=== PATIENT | male | born 1955 | race African-American/Black ===

== ENCOUNTER 2016-12-07 17:21 | Emergency (ER) | payer MEDICAID, MEDICARE ==
[2016-12-07 17:44] VITALS: BP 156/100
--- NOTE | 2016-12-07 19:40 | RAD ---
HISTORY: Right forearm pain, trauma COMPARISONS: None relevant VIEWS: 2, Frontal and lateral views of the right forearm FINDINGS: BONE DENSITY: Normal. BONES: There is no displaced fracture. JOINTS: There is no arthropathy. ALIGNMENT: There is no dislocation. SOFT TISSUES: Unremarkable. OTHER FINDINGS: None. IMPRESSION: NO ACUTE OSSEOUS INJURY. IF SYMPTOMS PERSIST, RECOMMEND REPEAT IMAGING.
--- NOTE | 2016-12-07 19:41 | RAD ---
HISTORY: Humerus pain, trauma COMPARISONS: None relevant VIEWS: 2, Frontal internal rotation and external rotation views of the proximal and mid right humerus. The distal right humerus is not included within the [id number] the current examination. FINDINGS: BONE DENSITY: Normal. BONES: There is no displaced fracture. JOINTS: There is osteoarthritis of the glenohumeral articulation. ALIGNMENT: There is no dislocation. SOFT TISSUES: Unremarkable. OTHER FINDINGS: None. IMPRESSION: OSTEOARTHRITIS. NO ACUTE OSSEOUS INJURY. IF SYMPTOMS PERSIST, RECOMMEND REPEAT IMAGING.
--- NOTE | 2016-12-07 19:43 | RAD ---
HISTORY: Right shoulder pain, fall COMPARISONS: Right humerus dated December 07, 2016 VIEWS: 3, Frontal internal rotation, external rotation, and outlet views of the right shoulder FINDINGS: BONE DENSITY: Normal. BONES: There is no displaced fracture. JOINTS: There is mild osteoarthritis of the glenohumeral articulation. ALIGNMENT: There is no dislocation. SOFT TISSUES: Unremarkable. OTHER FINDINGS: None. IMPRESSION: OSTEOARTHRITIS. NO ACUTE OSSEOUS INJURY. IF SYMPTOMS PERSIST, RECOMMEND REPEAT IMAGING.
[2016-12-07] MEDS ORDERED: Acetaminophen TAB* 325 MG PO ONE (20:24)
--- NOTE | 2016-12-14 08:30 | UC ---
Linda Kam SooYoung, scribed for RoxieHope Hobson DO on 12/07/16 at 1859 . Upper Extremity HPI - HPI Summary HPI Summary: A 61 y/o M presents to [facility] with RUE pain onset at 1100. Pt was walking on the hi5 when he slipped and fell onto his RUE, R-side. He says he heard something pop. He rates the pain as 7 out of 10 currently. Pain radiates to his R elbow. Additionally, there is soreness along his R forearm and tingling at his R fingers. Cradling and supporting his arm, elbow alleviates the pain. Associated sx: LOJA. Left-hand dominant. Pert PMHx: DM, he notes some neuropathy in LLE. Pt states he is scheduled for a liver and gallbladder U/S. - History of Current Complaint Chief Complaint: UCUpperExtremity Stated Complaint: ARM INJURY Hx Obtained From: Patient, Medical Records Onset/Duration: Sudden Onset, Still Present Severity Initially: Moderate Severity Currently: Moderate Location Of Pain: Is Discrete @ - R shoulder, Radiates To - along R arm Aggravating Factor(s): Movement Alleviating Factor(s): Elevation, Rest Associated Signs And Symptoms: Negative: Swelling, Redness, Bruising, Fever, Weakness, Numbness/Tingling Related History: Dominant Hand Left - Allergies/Home Medications Allergies/Adverse Reactions: Allergies Allergy/AdvReac Type Severity Reaction Status Date / Time Latex Allergy Severe RASH, Verified 12/07/16 17:44 ITCHING Lisinopril Allergy Severe Swelling Verified 12/07/16 17:44 Of Face,Lips,& Throat Bee Venom Allergy Intermediate Rash Verified 12/07/16 17:44 PMH/Surg Hx/FS Hx/Imm Hx Previously Healthy: No Endocrine History Of: Reports: Diabetes Denies: Thyroid Disease Cardiovascular History Of: Reports: Hypertension Denies: Cardiac Disorders Respiratory History Of: Denies: COPD, Asthma GI/ History Of: Denies: Ulcer - Surgical History Surgical History: Yes Surgery Procedure, Year, and Place: BILAT KNEE SURGERY, BILAT HAND SURGERY, 4 EYE SURGERIES (cataracts)(corneal transplants) - Family History Known Family History: Positive: Diabetes - father, Other - CVA mother - Social History Occupation: Retired Lives: Alone Alcohol Use: None Substance Use Type: None Smoking Status (MU): Former Smoker - quit 38 years ago Type: Cigarettes Have You Smoked in the Last Year: No - Immunization History Most Recent Influenza Vaccination: 2014 Most Recent Tetanus Shot: up to date Most Recent Pneumonia Vaccination: never had Review of Systems Constitutional: Negative Skin: Negative Eyes: Negative ENT: Negative Respiratory: Negative Cardiovascular: Negative Gastrointestinal: Negative Genitourinary: Negative Motor: Negative Neurovascular: Negative Musculoskeletal: Other: - RUE pain Neurological: Headache Psychological: Negative All Other Systems Reviewed And Are Negative: Yes Physical Exam Triage Information Reviewed: Yes Appearance: Well-Appearing, Well-Nourished, Pain Distress - mild Vital Signs: Initial Vital Signs Temp 97.5 F 12/07/16 17:34 Pulse 75 12/07/16 17:34 Resp 16 12/07/16 17:34 BP 156/100 12/07/16 17:34 Pulse Ox 99 12/07/16 17:34 Vital Signs Reviewed: Yes Eyes: Positive: Conjunctiva Clear. Negative: Discharge ENT: Positive: Hearing grossly normal. Negative: Muffled/hoarse voice Neck exam: Normal Neck: Positive: Supple Respiratory: Positive: Lungs clear, Normal breath sounds, No respiratory distress, No accessory muscle use Cardiovascular: Positive: RRR, No Murmur Musculoskeletal: Positive: Strength Intact, Other: - POS: Diffuse pain from R chromium to wrist; pt reported bony tenderness to palpation of entire shoulder, humerous, forearm, and wrist including snuff box. Distal neural vascular intact ; no bruising, swelling or other external sign of trauma Neurological: Positive: Alert, Muscle Tone Normal Psychological: Positive: Abnormal Response To Family Skin Exam: Normal, Other - warm, dry, nml color Diagnostics - Radiology R HUMERUS Xray Interpretation: No Acute Changes - IMPRESSION: Osteoarthritis. No acute osseous injury. If symptoms persist recommend repeat imaging. Radiology Interpretation Completed By: Radiologist R FOREARM Xray Interpretation: No Acute Changes - IMPRESSION: No acute osseous injury. If symptoms persist recommend repeat imaging. Radiology Interpretation Completed By: Radiologist R SHOULDER Xray Interpretation: No Acute Changes - IMPRESSION: Osteoarthritis. No acute osseous injury. If symptoms persist recommend repeat imaging. Radiology Interpretation Completed By: Radiologist Upper Extremity Course/Dx - Differential Dx/Diagnosis Differential Diagnosis/HQI/PQRI: Arthritis, Bursitis, Contusion, Fracture ( Closed), Strain, Sprain Provider Diagnoses: shoulder sprain, r/o scaphoid fx Discharge - Discharge Plan Condition: Stable Disposition: HOME Prescriptions: HYDROcodone/ACETAMIN 5-325 MG* [[place] 5-325 TAB*] 1 tab PO Q6H PRN #14 tab MDD 4 TABS PRN Reason: Pain Patient Education Materials: How to Use a Sling (GEN), Shoulder Sprain (ED), SUSPECTED FRACTURE (ED) Forms: *Work Release Referrals: Melly Short MD [Medical Doctor] - (FOLLOW UP IN 5-7 DAYS.) Nena Rush MD [Primary Care Provider] - If Needed () Additional Instructions: Your history and exam is suspicous for possible occult fracture of the scaphoid bone. This is a fracture that can have a bad outcome if not properly immobilized. So, we will treat this as a fracture until proven otherwise. That means that you must wear the splint 24 hours a day until the ortho provider tells you otherwise. It will take 5-7 days to establish whether or not your bone is fractured. Oral narcotic given: You've been given an oral narcotic pain medication. The effects may begin 30 minutes to an hour after swallowing the medicine. You should have significant pain relief. The effects will usually last at least four hours. Most oral narcotics contain a dose of acetaminophen (Tylenol). Don't take any other acetaminophen-containing medicines until you've discussed it with the doctor. This drug is a narcotic -- it will impair your judgment, slow your reaction time, and make you sleepy. Narcotics also can cause nausea and constipation. If you feel sick, you should eat. A full stomach reduces the nausea that pain pills can cause. You should not drive or work with machinery (including blenders, knives, lawn mowers or sewing machines) for six to eight hours. Don't do anything requiring mental alertness until the effects of the medication are gone. Do not take any alcohol or sedatives, and don't use any other medication without checking with your physician. EXERCISE PROGRAM FOR THE SHOULDER: Since the shoulder moves in so many directions, the joint attachment is weak. Muscles provide most of the stability to the shoulder. You must exercise your shoulder to prevent painful instability or stiffening. PASSIVE - These may be begun within a few days of the injury. While standing, lean forward, allowing the arm to hang down towards the floor. Move the arm in small circles while slowly twisting your chest towards and away from the hanging arm. Do this for one minute. ACTIVE - These may be performed when the doctor gives permission. Begin with the arms at the sides. Raise the arms forward (shoulder's width apart) until they reach shoulder level. Then slowly swing both arms back until they are aiming straight out away from each other. Then bring them forward again, and finally, lower them to your sides. Repeat 20 to 30 times. As you improve, put weights in your hands for the exercise. Start with one pound, and work up to 10 pounds. Never use more than is comfortable. Athletes may work up to 30 pounds. REMEMBER TO TAKE YOUR ARM OUT OF THE SLING SEVERAL TIMES A DAY TO MOVE THE ELBOW AND SHOULDER SO THEY DOES NOT GET STIFF. The documentation as recorded by the Linda turk SooYoung accurately reflects the service I personally performed and the decisions made by me, Hope Faustin DO.
== END 2016-12-07 20:30 | disposition home or self-care (01) ==
LOC: UCEAST 17:21
DX: S43.401A Unspecified sprain of right shoulder joint, initial encounter (principal); W01.0XXA Fall on same level from slipping, tripping and stumbling without subsequent striking against object, initial encounter; Y93.01 Activity, walking, marching and hiking; Y92.89 Other specified places as the place of occurrence of the external cause; M19.011 Primary osteoarthritis, right shoulder; Z88.8 Allergy status to other drugs, medicaments and biological substances; Z98.49 Cataract extraction status, unspecified eye; Z87.891 Personal history of nicotine dependence
CPT/HCPCS: 99213; A9270-GY; G0463

== ENCOUNTER 2017-03-26 15:57 | Emergency (ER) | payer MEDICARE, MEDICAID ==
--- NOTE | 2017-03-26 16:16 | UC ---
Cardiac HPI - HPI Summary HPI Summary: 2 WEEKS OF INTERMITTENT LEFT ANTERIOR/MIDSTERNAL CP. HAS ASSOCIATED SOB, NAUSEA AND DIZZINESS. PAIN FEELS TIGHT AND HEAVY. WORSE WITH EXERTION. - History of Current Complaint Stated Complaint: CHEST PAIN Time Seen by Provider: 03/26/17 15:59 Hx Obtained From: Patient Onset/Duration: Gradual Onset, Lasting Weeks, Still Present Timing: Intermittent Episodes Lasting: Initial Severity: Moderate Current Severity: Moderate Pain Intensity: 5 Chest Pain Location: Mid Sternal, Left Anterior Character: Tightness, Heaviness Aggravating: Exertion, Movement Alleviating: Rest, Spontaneous Resolution Associated Signs & Symptoms: Positive: Chest Pain, Weakness, Dizziness, SOB, Nausea/Vomiting, Back Pain. Negative: Fever, Diaphoresis, Palpitations, Cough, Hemoptysis - Allergy/Home Medications Allergies/Adverse Reactions: Allergies Allergy/AdvReac Type Severity Reaction Status Date / Time Latex Allergy Severe RASH, Verified 03/26/17 16:23 ITCHING Lisinopril Allergy Severe Swelling Verified 03/26/17 16:23 Of Face,Lips,& Throat Bee Venom Allergy Intermediate Rash Verified 03/26/17 16:23 PMH/Surg Hx/FS Hx/Imm Hx Endocrine History Of: Reports: Diabetes Denies: Thyroid Disease Cardiovascular History Of: Reports: Hypertension Denies: Cardiac Disorders Respiratory History Of: Denies: COPD, Asthma GI/ History Of: Denies: Ulcer - Surgical History Surgical History: Yes Surgery Procedure, Year, and Place: BILAT KNEE SURGERY, BILAT HAND SURGERY, 4 EYE SURGERIES (cataracts)(corneal transplants) - Family History Known Family History: Positive: Cardiac Disease, Hypertension, Diabetes - Social History Alcohol Use: None Substance Use Type: None Smoking Status (MU): Never Smoked Tobacco Type: Cigarettes Have You Smoked in the Last Year: No - Immunization History Most Recent Influenza Vaccination: 2014 Most Recent Tetanus Shot: up to date Most Recent Pneumonia Vaccination: never had Review of Systems Constitutional: Negative ENT: Negative Respiratory: Shortness Of Breath Cardiovascular: Chest Pain Gastrointestinal: Other - NAUSEA Neurological: Other - DIZZY All Other Systems Reviewed And Are Negative: Yes Physical Exam Triage Information Reviewed: Yes Appearance: Well-Appearing, No Pain Distress, Well-Nourished Vital Signs Reviewed: Yes Eyes: Positive: Conjunctiva Clear ENT: Positive: Hearing grossly normal Neck exam: Normal Neck: Positive: Supple Respiratory Exam: Normal Cardiovascular Exam: Normal Abdomen Description: Positive: Soft Musculoskeletal: Positive: No Edema, Other: - CHEST PAIN REPRODUCIBLE WITH PALPATION Neurological: Positive: Alert Psychological: Positive: Age Appropriate Behavior Skin: Negative: rashes Diagnostics - EKG Cardiac Rate: NL - 92BPM Cardiac Rhythm: Sinus: Normal Ectopy: None ST Segment: Non-Specific - T-WAVE INVERSION V4, ST DEPRESSION V5, V6 - Clinical Impression Provider Diagnoses: CHEST PAIN - Physician Notifications Discussed Patient Care With: JOSE HEBERT Time Discussed With Above Provider: 16:10 - TO [facility] BY AMBULANCE Discharge - Discharge Plan Condition: Fair Disposition: TRANS HIGHER LVL OF CARE FAC
[2017-03-26] MEDS ORDERED: Aspirin Low Dose CHEW TAB* 81 MG PO ONE (16:18)
[2017-03-26 16:29] VITALS: BP 178/101
== END 2017-03-26 16:35 | disposition short-term general hospital (02) ==
LOC: UCEAST 15:57
DX: R07.9 Chest pain, unspecified (principal); E11.9 Type 2 diabetes mellitus without complications; I10 Essential (primary) hypertension; Z91.040 Latex allergy status; Z91.030 Bee allergy status
CPT/HCPCS: 93005; 99203; A9270-GY; G0463

== ENCOUNTER 2017-03-26 16:52 | Inpatient (IN) | payer MEDICARE, MEDICAID ==
[2017-03-26] MEDS ORDERED: Aspirin Low Dose CHEW TAB* 81 MG PO ONE (17:45)
--- NOTE | 2017-03-26 18:08 | RAD ---
INDICATION: Chest pain COMPARISON: October 12, 2015 TECHNIQUE: An AP portable view obtained at 1805 hours is submitted. FINDINGS: Bones/Soft Tissues: There are no acute bony findings. Cardiomediastinal: The cardiomediastinal silhouette is normal. Lungs: There are no infiltrates. There is no pneumothorax. Pleura: There are no pleural effusions. Other: None IMPRESSION: NO ACTIVE DISEASE
[2017-03-26 18:24] LABS: Hematocrit 35 % (42-52); Hemoglobin 10.9 g/dl (14.0-18.0); Mean Corpuscular HGB Conc 31 g/dl (31-36); Mean Corpuscular Hemoglobin 21 pg (27-31); Mean Corpuscular Volume 69 fL (80-94); Mean Platelet Volume 8 um3 (7.4-10.4); Red Blood Count 5.09 10^6/ul (4.0-5.4); Red Cell Distribution Width 13 % (10.5-15); White Blood Count 7.4 10^3/ul (3.5-10.8)
[2017-03-26 18:32] LABS: Add Diff/Slide Review? Slide Review Added; Comments Flag Yes
[2017-03-26 18:38] LABS: Albumin 3.7 g/dL (3.2-5.2); BUN/Creatinine Ratio 21.4 (8-20); Calcium 9.4 mg/dL (8.6-10.3); EGFR African American 100.3 (>60); Globulin 3.8 g/dL (2-4); Potassium 4.2 mmol/L (3.5-5.0); Total Bilirubin 0.3 mg/dL (0.2-1.0); Total Protein 7.5 g/dL (6.4-8.9)
[2017-03-26 18:45] LABS: Troponin I 0.33 ng/mL (<0.04)
[2017-03-26 18:53] LABS: Hypochromasia 2+; Microcytosis 1+; Polychromasia 1+
[2017-03-26 18:54] LABS: Add Path Review? YES
[2017-03-26] MEDS ORDERED: Metoprolol Tartrate IV* 1 MG/ML 5 ML VIAL IV ONE (19:37)
[2017-03-26] MEDS ORDERED: CMCS: Melatonin (NF) 3 MG TAB PO PRN (19:44)
[2017-03-26] MEDS ORDERED: Acetaminophen TAB* 325 MG PO PRN (19:44)
[2017-03-26] MEDS ORDERED: Ondansetron INJ* 2 MG/ML VIAL IV PRN (19:44)
--- NOTE | 2017-03-26 20:07 | ED ---
I, Oh,Somain, scribed for Julia Martinez MD on 03/26/17 at 1814 . HPI Chest Pain - HPI Summary HPI Summary: This 61 y/o male presents to ED for intermittent chest pressure that is worse with exertion since today 1000 AM. Pt states that he has had chest pain since "few weeks ago". Arm movement makes the chest pain worse. Positive for nausea and SOB. PMHx includes HTN and DM. Pt denies hx of NH. Primary care invovles Dr. Brenner. Pt lives with significant others. FHx is positive for unspecified cardaic dz to mother. Current smoker. - History of Current Complaint Chief Complaint: EDChestPainROMI Time Seen by Provider: 03/26/17 17:39 Hx Obtained From: Patient, Medical Records Onset/Duration: Started Hours Ago, Atraumatic, Still Present Timing: Intermittent Pain Intensity: 5 Pain Scale Used: 0-10 Numeric Chest Pain Location: Diffuse Chest Pain Radiates: No Character: Dull/Aching Aggravating Factor(s): Movement - arm movement Alleviating Factor(s): Nothing Associated Signs and Symptoms: Positive: Chest Pain. Negative: Fever - Additional Pertinent History Primary Care Physician: [id number] - Allergy/Home Medications Allergies/Adverse Reactions: Allergies Allergy/AdvReac Type Severity Reaction Status Date / Time Latex Allergy Severe RASH, Verified 03/26/17 16:23 ITCHING Lisinopril Allergy Severe Swelling Verified 03/26/17 16:23 Of Face,Lips,& Throat Bee Venom Allergy Intermediate Rash Verified 03/26/17 16:23 PMH/Surg Hx/FS Hx/Imm Hx Endocrine/Hematology History: Reports: Hx Diabetes Denies: Hx Thyroid Disease Cardiovascular History: Reports: Hx Hypertension Respiratory History: Denies: Hx Asthma, Hx Chronic Obstructive Pulmonary Disease (COPD) GI History: Reports: Other GI Disorders - Pt has had chronic stomach pain with no diagnosis Denies: Hx Ulcer Musculoskeletal History: Comment Only: Other Musculoskeletal History - hx of multiple surgeries on knees, hands, and ankles Sensory History: Reports: Hx Vision Problem Opthamlomology History: Reports: Hx Vision Problem - Surgical History Surgery Procedure, Year, and Place: BILAT KNEE SURGERY, BILAT HAND SURGERY, 4 EYE SURGERIES (cataracts)(corneal transplants) Infectious Disease History: No Infectious Disease History: Denies: Hx Clostridium Difficile, Hx Hepatitis, Hx Human Immunodeficiency Virus (HIV), Hx of Known/Suspected MRSA, Hx Shingles, Hx Tuberculosis, Traveled Outside the [place] in Last 30 Days - Family History Known Family History: Positive: Cardiac Disease, Hypertension, Diabetes - Social History Alcohol Use: None Substance Use Type: Reports: None Smoking Status (MU): Never Smoked Tobacco Type: Cigarettes Have You Smoked in the Last Year: No Review of Systems Negative: Fever Positive: Chest Pain Negative: Shortness Of Breath Positive: Nausea All Other Systems Reviewed And Are Negative: Yes Physical Exam Triage Information Reviewed: Yes Vital Signs On Initial Exam: Initial Vitals Temp Pulse Resp BP Pulse Ox 99.4 F 86 19 157/102 100 03/26/17 17:17 03/26/17 17:17 03/26/17 17:17 03/26/17 17:17 03/26/17 17:17 Vital Signs Reviewed: Yes Appearance: Positive: Well-Appearing, No Pain Distress Skin: Positive: Warm, Skin Color Reflects Adequate Perfusion Head/Face: Positive: Normal Head/Face Inspection Eyes: Positive: EOMI, DAVEY Neck: Positive: Supple, Nontender Respiratory/Lung Sounds: Positive: Clear to Auscultation, Breath Sounds Present Cardiovascular: Positive: RRR, Pulses are Symmetrical in both Upper and Lower Extremities Abdomen Description: Positive: Nontender, Soft Musculoskeletal: Positive: Strength/ROM Intact Neurological: Positive: Sensory/Motor Intact, Alert, Oriented to Person Place, Time Psychiatric: Positive: Affect/Mood Appropriate AVPU Assessment: Alert - Raquel Coma Scale Coma Scale Total: 15 Diagnostics - Vital Signs Vital Signs Temp Pulse Resp BP Pulse Ox 03/26/17 17:30 89 21 158/95 100 03/26/17 17:20 90 14 100 03/26/17 17:17 99.4 F 86 19 157/102 100 - Laboratory Lab Results: Lab Results 03/26/17 03/26/17 03/26/17 Range/Units 18:10 18:10 18:10 WBC 7.4 (3.5-10.8) 10^3/ul RBC 5.09 (4.0-5.4) 10^6/ul Hgb 10.9 L (14.0-18.0) g/dl Hct 35 L (42-52) % MCV 69 L (80-94) fL MCH 21 L (27-31) pg MCHC 31 (31-36) g/dl RDW 13 (10.5-15) % Plt Count 311 (150-450) 10^3/ul MPV 8 (7.4-10.4) um3 Neut % (Auto) 67.0 (38-83) % Lymph % (Auto) 20.1 L (25-47) % [place] % (Auto) 10.9 H (1-9) % Eos % (Auto) 1.0 (0-6) % Baso % (Auto) 1.0 (0-2) % Absolute Neuts (auto) 5.0 (1.5-7.7) 10^3/ul Absolute Lymphs (auto) 1.5 (1.0-4.8) 10^3/ul Absolute Monos (auto) 0.8 (0-0.8) 10^3/ul Absolute Eos (auto) 0.1 (0-0.6) 10^3/ul Absolute Basos (auto) 0.1 (0-0.2) 10^3/ul Absolute Nucleated RBC 0.01 10^3/ul Nucleated RBC % 0.2 Normal RBC Morphology Not Reportable Polychromasia 1+ Hypochromasia 2+ Microcytosis 1+ Elliptocytes 1+ Hem Pathologist Commnt Pending Sodium 132 L (133-145) mmol/L Potassium 4.2 (3.5-5.0) mmol/L Chloride 98 L (101-111) mmol/L Carbon Dioxide 26 (22-32) mmol/L Anion Gap 8 (2-11) mmol/L BUN 21 (6-24) mg/dL Creatinine 0.98 (0.67-1.17) mg/dL Est GFR ( Amer) 100.3 (>60) Est GFR (Non-Af Amer) 78.0 (>60) BUN/Creatinine Ratio 21.4 H (8-20) Glucose 303 H (70-100) mg/dL Lactic Acid 1.3 (0.5-2.0) mmol/L Calcium 9.4 (8.6-10.3) mg/dL Total Bilirubin 0.30 (0.2-1.0) mg/dL AST 9 L (13-39) U/L ALT 7 (7-52) U/L Alkaline Phosphatase 80 (34-104) U/L Troponin I 0.33 H* (<0.04) ng/mL Total Protein 7.5 (6.4-8.9) g/dL Albumin 3.7 (3.2-5.2) g/dL Globulin 3.8 (2-4) g/dL Albumin/Globulin Ratio 1.0 (1-3) Result Diagrams: 03/26/17 18:10 03/26/17 18:10 Lab Statement: Any lab studies that have been ordered have been reviewed, and results considered in the medical decision making process. - Radiology CXR Xray Interpretation: No Acute Changes Radiology Interpretation Completed By: Radiologist - EKG 1753 Cardiac Rate: NL EKG Rhythm: Sinus Rhythm EKG Interpretation: T-wave inversion laterally and flatten T EKG Comparison: No Significant Change - 10/12/2015 Re-Evaluation - Re-Evaluation First Eval Re-Evaluation Time: 18:51 Comment: MD in room to update pt on elevated trop. Pt states that his CP is currently resolved. Plan of care involving catholic priest vs. admission is discussed with pt. Chest Pain Course/Dx - Course Course Of Treatment: 61 yo male with intermittent cp over the last few days first trop 0.[address] Tadeo who agreed this was not a stemi, pt is being admitted by Dr. Franco - Diagnoses Provider Diagnoses: AMI (acute myocardial infarction) Provider Diagnoses: (Ruled Out): AMI (acute mesenteric ischemia) - Provider Notifications Discussed Care Of Patient With: Dr. Wiggins (Hospitalist) at [address] Tadeo ( interventionalist) at [address] Fry (Hospitlaist) at 1935 PM Time Discussed With Above Provider: 18:56 Instructed by Provider To: Admit As Inpatient Discharge - Discharge Plan Condition: Stable Disposition: ADMITTED TO [facility] Referrals: Nena Rush MD [Primary Care Provider] - The documentation as recorded by the Dustin turk Soohyun accurately reflects the service I personally performed and the decisions made by me, Julia Martinez MD.
--- NOTE | 2017-03-26 20:31 | HP ---
H&P (Free Text) History and Physical: PCP: Lola Arellano MD Date/Time of Evaluation: 03/26/2017 1930 CC: chest pain HPI: Mr Logan is a 61YO male HX HTN, HLD, DM2 presenting with onset of chest tightness this afternoon. He is uncertain of the exact time. He states he was driving from [place] and developed the chest tightness associated with nausea, sweating, SOB, and light-headedness. He has been having various pains in the shoulders, low back, R hip, etc for the past few days, but today is the first for the chest tightness. He denies previous heart problems. Aside from his somatic complaints, he is currently cardiac symptom free. PMedHx DM2 HTN HLD Ambulatory Orders metFORMIN* [Glucophage 500 MG TAB *] 1,000 mg PO BID 05/26/13 prednisoLONE 1% OPHTH.SUSP* [Pred Forte 1%*] 1 drop BOTH EYES BID 04/16/14 Cyanocobalamin TAB* [Vitamin B12 TAB*] 500 mcg PO DAILY 10/11/15 Epinephrine [Epipen 2-Ranjith] 0.3 mg INJ ONCE PRN 10/11/15 glipiZIDE TAB.XL* [Glucotrol Xl*] 10 mg PO BID 10/11/15 traMADol TAB* [Ultram*] 50 - 100 mg PO BID PRN 10/11/15 Gabapentin CAP(*) [Neurontin 300 CAP(*)] 300 mg PO BID #40 cap 01/20/16 HYDROcodone/ACETAMIN 5-325 MG* [[place] 5-325 TAB*] 1 tab PO Q6H PRN #14 tab MDD 4 TABS 12/07/16 Allergies Latex Allergy (Severe, Verified 03/26/17 16:23) RASH, ITCHING Lisinopril Allergy (Severe, Verified 03/26/17 16:23) Swelling Of Face,Lips,& Throat Bee Venom Allergy (Intermediate, Verified 03/26/17 16:23) Rash PSurgHx B knee surgery OU cataract extractions R cornea transplant SocHx: former smoker quit ~25years ago with ~20PYHX, 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, formerly used marijuana and cocaine; , lives with a girlfriend; works at the [employer]; full code status FamHx: Mother: SAY; Father: DM2 ROS: as above, otherwise reviewed and all were negative Constitutional: NAD, normally developed, well-nourished black male vitals: Vital Signs Temp 37.4 C 03/26/17 17:17 Pulse 86 03/26/17 18:00 Resp 18 03/26/17 18:00 BP 155/101 03/26/17 18:00 Pulse Ox 100 03/26/17 18:00 Intake & Output 03/25/17 03/26/17 03/26/17 23:59 11:59 23:59 Weight 79.832 kg HEENM: atraumatic; sclera/conjunctiva: non-icteric/clear; hearing: clinically intact; oropharynx: clear, mucosa moist Neck: soft tissue: non-tender; thyroid: normal Pulmonary: clear to auscultation bilaterally, good aeration, no accessory muscle use CV: RR/RR, normal S1S2, no carotid bruit, no jugular venous distention, 2+ B DP/ PT, no edema Abdominal: soft, non-distended, non-tender, no rebound/guarding/rigidity, normoactive bowel sounds, no hepatosplenomegaly or masses, no costovertebral angle tenderness Musculoskeletal: general: grossly intact; gait: stable Integumental: normal appearance and texture of exposed skin Psychiatric orientation: AA&O to PPS affect: calm mood: cooperative eye contact: good content: reliable responses: mildly tangential insight: fair Testing: Lab Results 03/26/17 03/26/17 03/26/17 Range/Units 18:10 18:10 18:10 WBC 7.4 (3.5-10.8) 10^3/ul RBC 5.09 (4.0-5.4) 10^6/ul Hgb 10.9 L (14.0-18.0) g/dl Hct 35 L (42-52) % MCV 69 L (80-94) fL MCH 21 L (27-31) pg MCHC 31 (31-36) g/dl RDW 13 (10.5-15) % Plt Count 311 (150-450) 10^3/ul MPV 8 (7.4-10.4) um3 Neut % (Auto) 67.0 (38-83) % Lymph % (Auto) 20.1 L (25-47) % [place] % (Auto) 10.9 H (1-9) % Eos % (Auto) 1.0 (0-6) % Baso % (Auto) 1.0 (0-2) % Absolute Neuts (auto) 5.0 (1.5-7.7) 10^3/ul Absolute Lymphs (auto) 1.5 (1.0-4.8) 10^3/ul Absolute Monos (auto) 0.8 (0-0.8) 10^3/ul Absolute Eos (auto) 0.1 (0-0.6) 10^3/ul Absolute Basos (auto) 0.1 (0-0.2) 10^3/ul Absolute Nucleated RBC 0.01 10^3/ul Nucleated RBC % 0.2 Normal RBC Morphology Not Reportable Polychromasia 1+ Hypochromasia 2+ Microcytosis 1+ Elliptocytes 1+ Hem Pathologist Commnt Pending Sodium 132 L (133-145) mmol/L Potassium 4.2 (3.5-5.0) mmol/L Chloride 98 L (101-111) mmol/L Carbon Dioxide 26 (22-32) mmol/L Anion Gap 8 (2-11) mmol/L BUN 21 (6-24) mg/dL Creatinine 0.98 (0.67-1.17) mg/dL Est GFR ( Amer) 100.3 (>60) Est GFR (Non-Af Amer) 78.0 (>60) BUN/Creatinine Ratio 21.4 H (8-20) Glucose 303 H (70-100) mg/dL Lactic Acid 1.3 (0.5-2.0) mmol/L Calcium 9.4 (8.6-10.3) mg/dL Total Bilirubin 0.30 (0.2-1.0) mg/dL AST 9 L (13-39) U/L ALT 7 (7-52) U/L Alkaline Phosphatase 80 (34-104) U/L Troponin I 0.33 H* (<0.04) ng/mL Total Protein 7.5 (6.4-8.9) g/dL Albumin 3.7 (3.2-5.2) g/dL Globulin 3.8 (2-4) g/dL Albumin/Globulin Ratio 1.0 (1-3) ECG, personally reviewed: NSR rate 82, ST elevation vs J-point elevation V1-3, ST depression/T-wave inversion V4-6; Lola Martinez MD ED reviewed with Joaquín Tadeo MD interventional cardiology who did not feel this represents a STEMI, recommended admit/aspirin/BB/heparin GTT CXR, personally reviewed: IMPRESSION: NO ACTIVE DISEASE Impression: 61M presenting with NSTEMI DIAGNOSIS & PLAN Primary NSTEMI : ICU admission : NPO x/ meds w/ sips clears : check urine tox screen : check d-dimer : aspirin given in ED : metoprolol : heparin GTT : fasting lipids in AM : check ECHO in AM : case discussed with Joce Ferris MD cardiology; will evaluate in AM : supplemental oxygen : supportive care Secondary DM2 : basal/correctional insulin : A1c 12 12/2016 HTN : review meds once reconciled HLD : review meds once reconciled Admission Rational: inpatient ICU for NSTEMI, inappropriate for outpatient status DVTp: heparin GTT Code Status: full
[2017-03-26] MEDS ORDERED: Insulin GLARGINE(*) 1 UNITS UNIT SUBCUT SCH (21:00)
[2017-03-26] MEDS: Docusate CAP* 100 MG PO SCH (22:18)
[2017-03-26] MEDS: Insulin LISPRO* 1 UNITS UNIT SUBCUT SCH (22:18)
[2017-03-27 00:29] LABS: Hematocrit 34 % (42-52); Hemoglobin 10.7 g/dl (14.0-18.0)
[2017-03-27] MEDS: Heparin DRIP 25,000 UNITS(*) 25,000 UNITS/500 ML BAG IVPB SCH (00:29)
[2017-03-27] MEDS ORDERED: Heparin VIAL(*) 5000 UNITS/ML VIAL (FIVE THOUSAND) ONE (00:35)
[2017-03-27 00:37] LABS: Comments Flag Yes
[2017-03-27] MEDS ORDERED: Heparin VIAL(*) 5000 UNITS/ML VIAL (FIVE THOUSAND) IV PRN (00:39)
[2017-03-27] MEDS: Insulin LISPRO* 1 UNITS UNIT SUBCUT SCH ×5 (00:51→20:56)
[2017-03-27 01:00] LABS: Benzodiazepine Urine Screen None Detected (None Detect)
[2017-03-27] MEDS: Morphine INJ* 2 MG/ML 1 ML SYRINGE IV PRN ×2 (05:03→08:04)
[2017-03-27] MEDS ORDERED: Omeprazole CAP* 20 MG PO SCH (06:00)
[2017-03-27 06:28] LABS: Hematocrit 38 % (42-52); Hemoglobin 12.1 g/dl (14.0-18.0); Mean Corpuscular HGB Conc 32 g/dl (31-36); Mean Corpuscular Hemoglobin 22 pg (27-31); Mean Platelet Volume 8 um3 (7.4-10.4); Red Blood Count 5.55 10^6/ul (4.0-5.4); Red Cell Distribution Width 13 % (10.5-15); White Blood Count 8.7 10^3/ul (3.5-10.8)
[2017-03-27 06:36] LABS: Comments Flag Yes; Mean Corpuscular Volume 69 fL (80-94)
[2017-03-27 06:41] LABS: BUN/Creatinine Ratio 22.5 (8-20); EGFR African American 112.1 (>60); EGFR Non-African American 87.2 (>60); HDL Cholesterol 40.6 mg/dL
[2017-03-27 07:03] LABS: Troponin I 2.22 ng/mL (<0.04)
[2017-03-27] MEDS: Docusate CAP* 100 MG PO SCH ×2 (07:58→20:55)
[2017-03-27] MEDS: Aspirin TAB* 325 MG PO SCH (08:04)
[2017-03-27] MEDS: Metoprolol Tartrate TAB* 25 MG PO SCH ×2 (08:04→20:56)
[2017-03-27] MEDS ORDERED: Diazepam TAB(*) 5 MG PO ONE (08:54)
[2017-03-27] MEDS ORDERED: diPHENhydraMINE PO* 25 MG PO ONE (08:54)
--- NOTE | 2017-03-27 08:57 | PN ---
Subjective Date of Service: 03/27/17 Interval History: No more chest discomfort. C/O R hip/RLQ pain which he has had intermittently for several months along with BL shoulder pain and back pain. The pain is exacerbated by flexing his R hip. Usually relieved by tramadol or Alleve at home. Objective Active Medications: Acetaminophen (Tylenol Tab*) 650 mg PO Q6H PRN PRN Reason: FEVER/PAIN Aspirin (Aspirin Tab*) 325 mg PO DAILY [facility] Last Admin: 03/27/17 08:04 Dose: 325 mg Docusate Sodium (Colace Cap*) 200 mg PO BID [facility] Last Admin: 03/27/17 07:58 Dose: Not Given Heparin Sodium (Porcine) (Heparin Vial(*)) 0 units IV .BOLUS PRN PRN Reason: HEPARIN DRIP BOLUSES Last Admin: 03/27/17 00:42 Dose: 5,900 units Heparin Sodium/Dextrose (Heparin Drip 25,000 Units(*)) 25,000 units in 500 mls @ 0 mls/hr IVPB .(INITIAL RATE) [facility]; Per Protocol PRN Reason: Protocol Last Admin: 03/27/17 00:29 Dose: 26 mls/hr Insulin Glargine (Lantus(*)) 16 units SUBCUT 2100 [facility] Stop: 03/27/17 20:00 Last Admin: 03/26/17 22:49 Dose: 16 units Insulin Human Lispro (Humalog*) 0 units SUBCUT Q4H [facility] PRN Reason: Protocol Last Admin: 03/27/17 05:52 Dose: Not Given Metoprolol Tartrate (Lopressor Tab*) 25 mg PO BID [facility] Last Admin: 03/27/17 08:04 Dose: 25 mg Morphine Sulfate (Morphine Inj (Syringe)*) 2 mg IV Q4H PRN PRN Reason: PAIN - MILD Last Admin: 03/27/17 08:04 Dose: 2 mg Ondansetron HCl (Zofran Inj*) 4 mg IV Q6H PRN PRN Reason: NAUSEA Tramadol HCl (Ultram*) 50 mg PO Q6H PRN PRN Reason: PAIN Vital Signs 03/26/17 03/26/17 03/26/17 19:59 20:00 20:18 Temperature Pulse Rate 78 76 Respiratory 20 18 Rate Blood Pressure 159/98 (mmHg) O2 Sat by Pulse 100 100 Oximetry 03/26/17 03/26/17 03/26/17 20:27 20:45 20:48 Temperature 98.5 F Pulse Rate 86 Respiratory 18 247 Rate Blood Pressure 185/99 185/99 (mmHg) O2 Sat by Pulse 99 Oximetry 03/26/17 03/26/17 03/26/17 21:00 21:55 22:00 Temperature Pulse Rate 81 63 65 Respiratory 15 17 19 Rate Blood Pressure 158/110 131/89 139/88 (mmHg) O2 Sat by Pulse 100 100 100 Oximetry 03/26/17 03/26/17 03/26/17 23:00 23:29 23:58 Temperature 97.9 F Pulse Rate 67 68 Respiratory 18 17 Rate Blood Pressure 154/100 (mmHg) O2 Sat by Pulse 100 100 Oximetry 03/27/17 03/27/17 03/27/17 00:00 00:01 01:00 Temperature 97.9 F Pulse Rate 70 69 70 Respiratory 15 16 18 Rate Blood Pressure 142/98 146/94 (mmHg) O2 Sat by Pulse 100 100 100 Oximetry 03/27/17 03/27/17 03/27/17 02:00 03:00 04:00 Temperature 98.6 F Pulse Rate 68 67 67 Respiratory 18 19 18 Rate Blood Pressure 144/88 146/95 145/93 (mmHg) O2 Sat by Pulse 100 100 100 Oximetry 03/27/17 03/27/17 03/27/17 05:00 05:03 06:00 Temperature Pulse Rate 73 71 Respiratory 18 21 20 Rate Blood Pressure 147/95 145/95 (mmHg) O2 Sat by Pulse 100 100 Oximetry 03/27/17 03/27/17 03/27/17 07:00 07:22 07:38 Temperature 98.7 F Pulse Rate 71 Respiratory 16 15 Rate Blood Pressure 135/88 (mmHg) O2 Sat by Pulse 100 Oximetry 03/27/17 03/27/17 03/27/17 08:00 08:03 08:04 Temperature Pulse Rate 65 Respiratory 18 15 15 Rate Blood Pressure 138/86 (mmHg) O2 Sat by Pulse 99 Oximetry Oxygen Devices in Use Now: Nasal Cannula Appearance: Alert, partly up in bed. Somewhat anxious, otherwise looks comfortable. Eyes: No Scleral Icterus Ears/Nose/Mouth/Throat: Clear Oropharnyx, Mucous Membranes Moist Neck: NL Appearance and Movements; NL JVP, No Thyroid Enlargement, Masses Respiratory: Symmetrical Chest Expansion and Respiratory Effort, Clear to Auscultation, Clear to Percussion Cardiovascular: NL Sounds; No Murmurs; No JVD, RRR, No Edema, - Abdominal: NL Sounds; No Tenderness; No Distention, No Hepatosplenomegaly, - - No R inguinal mass or tenderness, no RLQ tenderness. Extremities: No Edema, No Clubbing, Cyanosis, - Skin: No Rash or Ulcers, No Nodules or Sclerosis, - Neurological: Alert and Oriented x 3, NL Sensation Result Diagrams: 03/27/17 05:50 03/27/17 05:50 Additional Lab and Data: Lab Results 03/26/17 03/26/17 03/26/17 Range/Units 18:10 18:10 18:10 WBC 7.4 (3.5-10.8) 10^3/ul RBC 5.09 (4.0-5.4) 10^6/ul Hgb 10.9 L (14.0-18.0) g/dl Hct 35 L (42-52) % MCV 69 L (80-94) fL MCH 21 L (27-31) pg MCHC 31 (31-36) g/dl RDW 13 (10.5-15) % Plt Count 311 (150-450) 10^3/ul MPV 8 (7.4-10.4) um3 Neut % (Auto) 67.0 (38-83) % Lymph % (Auto) 20.1 L (25-47) % [place] % (Auto) 10.9 H (1-9) % Eos % (Auto) 1.0 (0-6) % Baso % (Auto) 1.0 (0-2) % Absolute Neuts (auto) 5.0 (1.5-7.7) 10^3/ul Absolute Lymphs (auto) 1.5 (1.0-4.8) 10^3/ul Absolute Monos (auto) 0.8 (0-0.8) 10^3/ul Absolute Eos (auto) 0.1 (0-0.6) 10^3/ul Absolute Basos (auto) 0.1 (0-0.2) 10^3/ul Absolute Nucleated RBC 0.01 10^3/ul Nucleated RBC % 0.2 Normal RBC Morphology Not Reportable Polychromasia 1+ Hypochromasia 2+ Microcytosis 1+ Elliptocytes 1+ Hem Pathologist Commnt Pending Sodium 132 L (133-145) mmol/L Potassium 4.2 (3.5-5.0) mmol/L Chloride 98 L (101-111) mmol/L Carbon Dioxide 26 (22-32) mmol/L Anion Gap 8 (2-11) mmol/L BUN 21 (6-24) mg/dL Creatinine 0.98 (0.67-1.17) mg/dL Est GFR ( Amer) 100.3 (>60) Est GFR (Non-Af Amer) 78.0 (>60) BUN/Creatinine Ratio 21.4 H (8-20) Glucose 303 H (70-100) mg/dL Lactic Acid 1.3 (0.5-2.0) mmol/L Calcium 9.4 (8.6-10.3) mg/dL Total Bilirubin 0.30 (0.2-1.0) mg/dL AST 9 L (13-39) U/L ALT 7 (7-52) U/L Alkaline Phosphatase 80 (34-104) U/L Troponin I 0.33 H* (<0.04) ng/mL Total Protein 7.5 (6.4-8.9) g/dL Albumin 3.7 (3.2-5.2) g/dL Globulin 3.8 (2-4) g/dL Albumin/Globulin Ratio 1.0 (1-3) Microbiology and Other Data: Microbiology 03/26/17 20:40 Nasal Screen MRSA (PCR)(AMRIK) - Final Nasal Mrsa Negative Assess/Plan/Problems-Billing Assessment: - Patient Problems (1) AMI (acute myocardial infarction) Current Visit: Yes Status: Acute Code(s): I21.3 - ST ELEVATION (STEMI) MYOCARDIAL INFARCTION OF [facility] SITE SNOMED Code(s): 39995992 Comment: Anterolateral on ECG. Discussed with Dr. Fontaine. Cardiac cath today. Continue BB, ASA, PRN analgesics. (2) Diabetes Current Visit: Yes Status: Acute Code(s): E11.9 - TYPE 2 DIABETES MELLITUS WITHOUT COMPLICATIONS SNOMED Code(s): 62591302 Comment: Poor control based on A1C for past 5 years. Patient checks his FS glucose about once every 2 weeks. Needs outpt fup, diabetic education.
[2017-03-27] MEDS ORDERED: NS 0.9% 1000 ML* 1,000 ML IV SCH (09:00)
--- NOTE | 2017-03-27 09:16 | ECHO ---
Patient: [facility] Rec#: [id number] : 1955 Date: 03/27/2017 Age: 61y Weight: kg / NaN lbs Sex: M Room#: ICU-8 Admit Date#: 03/27/2017 Type: Inpatient Referring: Adis Fry MD Reading: Sandor Fontaine MD Automatic Engraver: Leonor Barbosa RDCS CC: Nena Rush MD Transthoracic Echocardiogram Indication: NSTEMI BP: 145/95 HR: 67 Rhythm: NSR Findings History: NSTEMI,HTN,HLD,DM. Technical Comments: The study quality is good. Completed at 0820. Left Ventricle: The left ventricular chamber size is normal. Mild concentric left ventricular hypertrophy is observed. Posterior wall hypertrophy is observed. Moderate global hypokinesis of the left ventricle is observed. There is moderately decreased left ventricular systolic function. The estimated ejection fraction is 35-40%. Abnormal left ventricular diastolic function is observed. The mid anteroseptal, mid inferoseptal, apical septal, and apical anterior wall segments are hypokinetic (score 2). Overall wallmotion score index is 1.25 Left Atrium: The left atrial chamber size is normal. Right Ventricle: The right ventricular cavity size is normal. The right ventricular global systolic function is normal. Right Atrium: The right atrial cavity size is normal. Aortic Valve: The aortic valve is trileaflet. The aortic valve leaflets are mildly thickened. There is no evidence of aortic regurgitation. There is no evidence of aortic stenosis. Mitral Valve: The mitral valve leaflets are mildly thickened. There is a trace of mitral regurgitation. There is no evidence of mitral stenosis. Tricuspid Valve: The tricuspid valve leaflets are normal. There is mild tricuspid regurgitation. There is evidence of borderline pulmonary hypertension. There is no tricuspid stenosis. Pulmonic Valve: The pulmonic valve appears normal. There is a trace pulmonic regurgitation. There is no pulmonic stenosis. Pericardium: The pericardium appears normal. Aorta: There is no dilatation of the ascending aorta. There is no dilatation of the aortic arch. There is no dilation of the aortic root. Pulmonary Artery: The main pulmonary artery appears normal. Venous: The inferior vena cava appears normal in size. There is a greater than 50% respiratory change in the inferior vena cava dimension. Summary: There was not any prior study for comparison. Conclusions Mild concentric left ventricular hypertrophy is observed. Moderate global hypokinesis of the left ventricle is observed. The estimated ejection fraction is 35-40%. The mid anteroseptal, mid inferoseptal, apical septal, and apical anterior wall segments are hypokinetic (score 2). The right ventricular global systolic function is normal. The aortic valve leaflets are mildly thickened. There is no evidence of aortic regurgitation. There is a trace of mitral regurgitation. There is mild tricuspid regurgitation. There is evidence of borderline pulmonary hypertension. The pericardium appears normal. Measurements Name Value Normal Range RVIDd (AP) 2D 3 cm (0.9 - 2.6) RVDdMajor (2D) 3.1 cm (2.2 - 4.4) RAd ISD 4CH 4.5 cm (3.4 - 4.9) RA (A4C)W 2.8 cm (2.9 - 4.6) IVSd (2D) 0.9 cm (0.6 - 1) LVPWd (2D) 1.2 cm (0.6 - 1) LVIDd (2D) 3.7 cm (3.6 - 5.4) LVIDs (2D) 3.5 cm - LV FS (2D) 5 % (25 - 45) Aortic Annulus 1.8 cm (1.4 - 2.6) Ao root diameter (2D) 3.3 cm (2.1 - 3.5) Ascending Ao 3.3 cm (2.1 - 3.4) Aortic arch 2.5 cm (1.8 - 3.4) Descending Ao 0.5 cm - LA dimension (AP) 2D 3.1 cm (2.3 - 3.8) LAd ISD 4CH 4.4 cm (2.9 - 5.3) LA ISD 4CH W 3.8 cm (2.5 - 4.5) Name Value Normal Range LA ESV SP 4CH (A/L) 32 ml - LA ESV SP 2CH (A/L) 26 ml - LA ESV BP (A/L) 29 ml - LA ESV BP (A/L) index 14.94 ml/m2 - LA ESV SP 4CH (MOD) 30 ml - LA ESV SP 2CH (MOD) 24 ml - Name Value Normal Range MV E-wave Vmax 0.7 m/sec - MV deceleration time 208 msec - MV A-wave Vmax 0.9 m/sec - MV E:A ratio 0.83 ratio - LV septal e' Vmax 0.05 m/sec - LV lateral e' Vmax 0.06 m/sec - LV E:e' septal ratio 14 ratio - LV E:e' lateral ratio 11.67 ratio - Name Value Normal Range AV Vmax 1.5 m/sec - AV VTI 36.7 cm - AV peak gradient 9.18 mmHg - AV mean gradient 3.72 mmHg - LVOT Vmax 1.2 m/sec - LVOT VTI 25 cm - LVOT peak gradient 5.66 mmHg - LVOT mean gradient 3.1 mmHg - Name Value Normal Range TR Vmax 2.9 m/sec - TR peak gradient 33 mmHg - RAP 3 mmHg - RVSP 36 mmHg - IVC diameter 1.3 cm - Name Value Normal Range PV Vmax 0.8 m/sec - PV peak gradient 2.33 mmHg - Wallmotion BAS Normal BA Normal BAL Normal STARLA Normal BI Normal BIS Normal MAS Hypokinetic MA Normal MAL Normal MIL Normal IA Normal MIS Hypokinetic Hypokinetic AA Hypokinetic AL Normal AI Normal APEX Hypokinetic
[2017-03-27] MEDS ORDERED: fentaNYL* 50 MCG/ML 2 ML VIAL (100 MCG VIAL) ONE (09:32)
[2017-03-27] MEDS ORDERED: Midazolam* 1 MG/ML 5 ML VIAL (5 MG) ONE (09:32)
[2017-03-27] MEDS ORDERED: Iohexol 350 (CONTRAST) 200 ML MDV IV ONE (09:32)
[2017-03-27] MEDS ORDERED: Heparin 2 UNITS/ML IVPREMIX* 3,000 ML IV ONE (09:33)
[2017-03-27] MEDS ORDERED: Lidocaine 1% INJ* 10 MG/ML 30 ML SDV ONE (09:33)
[2017-03-27] MEDS ORDERED: diPHENhydraMINE PO* 25 MG ONE (10:29)
[2017-03-27] MEDS ORDERED: Diazepam TAB(*) 5 MG ONE (10:29)
--- NOTE | 2017-03-27 12:02 | CONS ---
CARDIOLOGY CONSULTATION: DATE OF CONSULTATION: 03/27/17 INDICATION FOR CONSULTATION: Chest pain, acute coronary syndrome. HISTORY OF PRESENT ILLNESS: The patient is a 61-year-old gentleman with a history of diabetes and hypertension, who came to the emergency room because of chest pain. The patient states he was driving back from [place] yesterday when he had severe pressure in his chest and significant nausea and vomiting. 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 He vomited a couple of times with this discomfort. He rested in his car a few minutes and then was able to drive back to [place]. He went to [facility]. On arrival to [facility], he was pain-free; however, he did have ischemic EKG changes and was transported over to [facility]. The patient subsequently ruled in for an acute coronary syndrome with a peak troponin of 2.2. In speaking with the patient this morning, he has no further chest pain. He did not have any chest pain overnight. The patient did see his primary care physician last week with mild chest discomfort and adjustments of his diabetes medications. Reportedly, an EKG at that time was unremarkable. The patient denies tobacco use. Denies any family history of coronary artery disease. PAST MEDICAL HISTORY: Significant for diabetes, hypertension, hypercholesterolemia. PAST SURGICAL HISTORY: Bilateral knee surgery, cataract surgery, corneal transplant. OUTPATIENT MEDICATIONS: 1. Metformin 1000 mg b.i.d. 2. Glipizide 10 mg b.i.d. 3. Tramadol 100 mg b.i.d. as needed. 4. Gabapentin 300 mg b.i.d. 5. Hydrocodone as needed. ALLERGIES: LISINOPRIL, BEE STING VENOM. He does carry EpiPen. SOCIAL HISTORY: He is a previous smoker, he quit 20 years ago. He denies any other alcohol or drugs. He is . He works at the [employer]. 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 FAMILY HISTORY: Mother had CVA. Father had diabetes. REVIEW OF SYSTEMS: Negative for fevers or chills. Negative for changes in bowel or bladder habits. Negative for changes in weight. PHYSICAL EXAMINATION: Height is 5 feet 8 inches, weight is 162 pounds. Blood pressure 128/86, heart rate is 67, respiratory rate is 15, oxygen saturation 100 % on 2 L, temperature 98.7. Sclerae anicteric. Oropharynx is pink without erythema. Carotids are 2+ without bruits. JVD is normal. Thyroid is normal. Cardiac Exam: S1, S2 without any murmurs, rubs, or gallops. PMI is normal. Lungs are clear to auscultation bilateral. There is no dullness to percussion. Abdomen is soft, nontender, nondistended with normoactive bowel sounds. Extremities show no edema. He has 2+ pulses throughout. The patient does have chronic pain in his right hip. The patient is awake, alert, and oriented. He moves all 4 extremities equally. LABORATORY DATA: Laboratory studies, CBC within normal limits. Hemoglobin 10, hematocrit 35. Chemistries within normal limits. BUN 20, creatinine 0.9. Again peak troponin 2.2. Total cholesterol 177, LDL 122, HDL of 40. IMAGING: EKG demonstrates normal sinus rhythm with T wave inversions in leads V1 through V3. Echocardiogram shows normal LV size with moderately reduced LV systolic function , ejection fraction of 35%. He has anterior and apical hypokinesis. IMPRESSION: This is a 61-year-old gentleman with a history of diabetes and hypertension, who came to the emergency room because of chest pain. He clearly has an acute coronary syndrome. The patient was started on heparin last night. The patient takes an aspirin every day. PLAN: It is my recommendation that the patient undergo cardiac catheterization for definitive evaluation of his coronary arteries. The risks and benefits of this were described in detail and the patient is willing to proceed. The patient did not get his metformin today. His last time he took it was yesterday morning. Further recommendations pending results of his cardiac catheterization. CC: Nena Rush MD [id number]/[facility] #: [id number] [facility]
[2017-03-27] MEDS: traMADol TAB* 50 MG PO PRN (16:21)
[2017-03-27] MEDS: Atorvastatin* 80 MG TAB PO SCH (20:55)
--- NOTE | 2017-03-27 23:40 | CATH ---
CARDIAC CATHETERIZATION NOTE: DATE OF PROCEDURE: 03/27/17 INDICATION FOR PROCEDURE: Acute coronary syndrome. The patient is a 61-year-old gentleman with a history of hypertension, diabetes who came to the hospital with typical anginal-type symptoms. His troponin levels were elevated and his echocardiogram showed anterior wall motion abnormality. Cardiac catheterization was recommended. PROCEDURE IN DETAIL: Cardiac catheterization including coronary angiography. The patient was brought to the procedure room in a fasting state. Informed consent had been obtained prior to the procedure. All labs were reviewed. The patient was placed supine on the catheterization table. Both femoral areas were cleaned and draped in the usual fashion. 1% lidocaine was used for local anesthesia. The left femoral artery was entered by a modified Seldinger technique and a 6-Algerian sheath introducer was placed. The patient underwent coronary angiography using using a 6- Algerian JL4 catheter and a 6-Algerian JR4 catheter. At the end of the procedure, an angiogram of the femoral artery demonstrated normal position and a Mynx closure device was deployed. The patient tolerated the procedure well with no complications. A total of 50 cc of Omnipaque was used. A total of 1.2 minutes of fluoro time was used. FINDINGS: 1. Left main artery: The left main was normal in size. It bifurcated into the LAD and circumflex. There was no evidence of stenosis. 2. Left anterior descending artery: The LAD was normal in size. It gave off 2 diagonal vessels. The proximal LAD had an eccentric 95% stenosis. This was before the first diagonal vessel. The remainder of the vessel was without significant disease. The first diagonal vessel had an ostial 50% stenosis. 3. Left circumflex artery: The circumflex artery was normal in size. It gave off 1 obtuse marginal branch. There was no evidence of stenosis. 4. Right coronary artery: The right coronary artery was a small nondominant vessel giving off just a small PDA. There was mild disease in the mid right coronary artery. There was a 30% stenosis. IMPRESSION: 1. Critical stenosis of the proximal LAD with a 95% stenosis. 2. No significant disease in the left circumflex or right coronary artery. RECOMMENDATION: The patient will be evaluated for his mild microcytic anemia and then likely go on for stenting to his LAD. CC: Dr. Tadeo; Dr. Rush; Dr. Maldonado* [id number]/[facility] #: [id number] [facility]
[2017-03-28] MEDS: Heparin DRIP 25,000 UNITS(*) 25,000 UNITS/500 ML BAG IVPB SCH (00:13)
[2017-03-28] MEDS: traMADol TAB* 50 MG PO PRN (03:20)
[2017-03-28 05:27] LABS: Hematocrit 33 % (42-52); Hemoglobin 10.3 g/dl (14.0-18.0); Mean Corpuscular HGB Conc 31 g/dl (31-36); Mean Corpuscular Hemoglobin 22 pg (27-31); Mean Platelet Volume 8 um3 (7.4-10.4); Red Blood Count 4.77 10^6/ul (4.0-5.4); Red Cell Distribution Width 13 % (10.5-15); White Blood Count 7.6 10^3/ul (3.5-10.8)
[2017-03-28 05:32] LABS: Comments Flag Yes
[2017-03-28 05:33] LABS: Mean Corpuscular Volume 69 fL (80-94)
[2017-03-28 05:38] LABS: Albumin 3.5 g/dL (3.2-5.2); Calcium 9.3 mg/dL (8.6-10.3); EGFR Non-African American 76.2 (>60); Globulin 3.6 g/dL (2-4); HDL Cholesterol 32.5 mg/dL; Potassium 4.2 mmol/L (3.5-5.0); Total Bilirubin 0.4 mg/dL (0.2-1.0); Total Protein 7.1 g/dL (6.4-8.9)
[2017-03-28] MEDS: Insulin LISPRO* 1 UNITS UNIT SUBCUT SCH ×4 (07:51→20:58)
[2017-03-28] MEDS: Docusate CAP* 100 MG PO SCH ×2 (09:11→20:53)
[2017-03-28] MEDS: Metoprolol Tartrate TAB* 25 MG PO SCH ×2 (09:11→20:51)
[2017-03-28] MEDS: Aspirin TAB* 325 MG PO SCH (09:11)
--- NOTE | 2017-03-28 09:13 | CONSULT ---
Subjective Reason for Visit: NSTEMI Admission Date: 03/26/17 Glucose Level On Admission: 303 History Of Present Illness: Mr. Logan is a 61 year old male who was initially diagnosed with type II diabetes in 2002 during a routine pre-employment physical. At that time he had been having symptoms of blurred vision, polyuria, and polydipsia, and his blood glucose was over 400. He has been managed with oral antidiabetic agents, and reports that he has had good control of his diabetes in the past, although Hgb A1C from December 2016 was 12%. 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 He reports that he does check a blood glucose "when I feel funny" and that it is typically high. When asked what symptoms he has when he feels funny, he reports that he feels light headed and dizzy. He does recognize the signs and symptoms of hypoglycemia and knows what to do to treat hypoglycemia. He wants to eat healthier, but feels he lacks the knowledge to do so. "When my sugar is high, I just don't eat". Patient History Surgical History: Yes Surgery Procedure, Year, and Place: BILAT KNEE SURGERY, BILAT HAND SURGERY, 4 EYE SURGERIES (cataracts)(corneal transplants) Lives With: Partner Marital Status: Preferred/Primary Language: [place] Review Of Systems - Review of Systems Constant: No Weight Loss Eyes: No Changes Neurological: - - reports pain, numbness, and tingling bilateral feet Endocrine: No Polyuria, No Polyphagia, No Polydipsia Objective Allergies Allergy/AdvReac Type Severity Reaction Status Date / Time Latex Allergy Severe RASH, Verified 03/26/17 16:23 ITCHING Lisinopril Allergy Severe Swelling Verified 03/26/17 16:23 Of Face,Lips,& Throat Bee Venom Allergy Intermediate Rash Verified 03/26/17 16:23 Home Medications Medication Instructions Recorded Confirmed Type metFORMIN* [Glucophage 500 MG TAB 1,000 mg PO BID 05/26/13 12/07/16 History *] prednisoLONE 1% OPHTH.SUSP* [Pred 1 drop BOTH EYES BID 04/16/14 12/07/16 History Forte 1%*] Cyanocobalamin TAB* [Vitamin B12 500 mcg PO DAILY 10/11/15 12/07/16 History TAB*] Epinephrine [Epipen 2-Ranjith] 0.3 mg INJ ONCE PRN 10/11/15 12/07/16 History glipiZIDE TAB.XL* [Glucotrol Xl*] 10 mg PO BID 10/11/15 12/07/16 History traMADol TAB* [Ultram*] 50 - 100 mg PO BID PRN 10/11/15 12/07/16 History Gabapentin CAP(*) [Neurontin 300 300 mg PO BID #40 cap 01/20/16 12/07/16 Rx CAP(*)] HYDROcodone/ACETAMIN 5-325 MG* 1 tab PO Q6H PRN #14 tab MDD 4 TABS 12/07/16 Rx [[place] 5-325 TAB*] Hospital Medications: Current Medications Acetaminophen (Tylenol Tab*) 650 mg PO Q6H PRN PRN Reason: FEVER/PAIN Aspirin (Aspirin Tab*) 325 mg PO DAILY [facility] Last Admin: 03/27/17 08:04 Dose: 325 mg Atorvastatin Calcium (Lipitor*) 80 mg PO 2100 [facility] Last Admin: 03/27/17 20:55 Dose: 80 mg Docusate Sodium (Colace Cap*) 200 mg PO BID [facility] Last Admin: 03/27/17 20:55 Dose: 200 mg Heparin Sodium (Porcine) (Heparin Vial(*)) 0 units IV .BOLUS PRN PRN Reason: HEPARIN DRIP BOLUSES Last Admin: 03/27/17 00:42 Dose: 5,900 units Heparin Sodium/Dextrose (Heparin Drip 25,000 Units(*)) 25,000 units in 500 mls @ 0 mls/hr IVPB .(INITIAL RATE) [facility]; Per Protocol PRN Reason: Protocol Last Admin: 03/28/17 00:13 Dose: 21 mls/hr Insulin Human Lispro (Humalog*) 0 units SUBCUT ACHS [facility] PRN Reason: Protocol Last Admin: 03/28/17 07:51 Dose: Not Given Metoprolol Tartrate (Lopressor Tab*) 25 mg PO BID [facility] Last Admin: 03/27/17 20:56 Dose: 25 mg Morphine Sulfate (Morphine Inj (Syringe)*) 2 mg IV Q4H PRN PRN Reason: PAIN - MILD Last Admin: 03/27/17 08:04 Dose: 2 mg Ondansetron HCl (Zofran Inj*) 4 mg IV Q6H PRN PRN Reason: NAUSEA Tramadol HCl (Ultram*) 50 mg PO Q6H PRN PRN Reason: PAIN Last Admin: 03/28/17 03:20 Dose: 50 mg Lab Data: Sodium 132 mmol/L (133-145) L 03/28/17 04:50 Potassium 4.2 mmol/L (3.5-5.0) 03/28/17 04:50 BUN 23 mg/dL (6-24) 03/28/17 04:50 Creatinine 1.00 mg/dL (0.67-1.17) 03/28/17 04:50 Calcium 9.3 mg/dL (8.6-10.3) 03/28/17 04:50 AST 12 U/L (13-39) L 03/28/17 04:50 ALT 7 U/L (7-52) 03/28/17 04:50 Triglycerides 68 mg/dL 03/28/17 04:50 Cholesterol 146 mg/dL 03/28/17 04:50 LDL Cholesterol 100 mg/dL 03/28/17 04:50 Vital Signs: Vital Signs 03/28/17 03/28/17 03/28/17 02:00 03:00 04:00 Temperature 37.0 C Pulse Rate 61 71 67 Respiratory 16 17 16 Rate Blood Pressure 115/69 115/70 137/79 (mmHg) O2 Sat by Pulse 99 100 100 Oximetry 03/28/17 03/28/17 03/28/17 05:00 06:00 07:00 Temperature Pulse Rate 69 65 Respiratory 15 17 18 Rate Blood Pressure 123/82 129/81 (mmHg) O2 Sat by Pulse 100 100 Oximetry 03/28/17 03/28/17 03/28/17 07:29 07:31 08:00 Temperature 36.7 C Pulse Rate 66 Respiratory 16 17 Rate Blood Pressure 151/77 135/77 (mmHg) O2 Sat by Pulse 100 Oximetry 03/28/17 09:00 Temperature Pulse Rate 74 Respiratory 18 Rate Blood Pressure 141/85 (mmHg) O2 Sat by Pulse 100 Oximetry Height: 5 ft 8 in Weight: 72.8 kg Body Mass Index (BMI): 24.4 Physical Exam General Appearance: Positive: Alert, Oriented x3, No Distress, Lying In Bed Respiratory: Positive: Non-Labored Plan Of Care Referral To: [facility] For Further OutPT Diabetic Training, DSME Diagnosis: Mr. Logan is a 61 year old male with type II diabetes with hyperglycemia. We explored his barrier to monitoring his blood glucose and discussed the importance of regularly checking his blood sugar. He agrees to check a fasting blood glucose at least 3 times a week, understanding that ideally he would do this every day. We briefly discussed nutrition, consistent carbohydrate diet, and carbohydrate counting. He would benefit from more nutrition education and I encouraged him to follow up as an outpatient at [facility]. Education Prior Diabetic Education: No Education Provided: Blood Glucose Monitoring, When To Seek Medical Attention Handouts Provided: My Plate, 60 g. cabohydrate meal plan, basic diabetes information, non-starchy vegetables Goals Goals: According to the [place] [employer], the following are your goals for Hemaglobin A1C, Blood Glucose. Hemaglobin A1C * <7.0% for most * <6.5% for "healthy" * <8.0% for "Less Healthy" Blood Glucose * Fasting Blood Glucose: 80-130 mg/dl * 2 Hour Post Prandial Glucose <180 mg/dl
--- NOTE | 2017-03-28 12:30 | PN ---
Subjective Date of Service: 03/28/17 Interval History: Overall feels better. He is mainly concerned about his BL shoulder pain, but has little of that today. Objective Active Medications: Acetaminophen (Tylenol Tab*) 650 mg PO Q6H PRN PRN Reason: FEVER/PAIN Aspirin (Aspirin Tab*) 325 mg PO DAILY [facility] Last Admin: 03/28/17 09:11 Dose: 325 mg Atorvastatin Calcium (Lipitor*) 80 mg PO 2100 [facility] Last Admin: 03/27/17 20:55 Dose: 80 mg Docusate Sodium (Colace Cap*) 200 mg PO BID [facility] Last Admin: 03/28/17 09:11 Dose: 200 mg Glipizide (Glucotrol Tab*) 10 mg PO 0800,1700 [facility] Heparin Sodium (Porcine) (Heparin Vial(*)) 0 units IV .BOLUS PRN PRN Reason: HEPARIN DRIP BOLUSES Last Admin: 03/27/17 00:42 Dose: 5,900 units Heparin Sodium/Dextrose (Heparin Drip 25,000 Units(*)) 25,000 units in 500 mls @ 0 mls/hr IVPB .(INITIAL RATE) [facility]; Per Protocol PRN Reason: Protocol Last Admin: 03/28/17 00:13 Dose: 21 mls/hr Insulin Human Lispro (Humalog*) 0 units SUBCUT ACHS [facility] PRN Reason: Protocol Last Admin: 03/28/17 07:51 Dose: Not Given Metoprolol Tartrate (Lopressor Tab*) 25 mg PO BID [facility] Last Admin: 03/28/17 09:11 Dose: 25 mg Morphine Sulfate (Morphine Inj (Syringe)*) 2 mg IV Q4H PRN PRN Reason: PAIN - MILD Last Admin: 03/27/17 08:04 Dose: 2 mg Ondansetron HCl (Zofran Inj*) 4 mg IV Q6H PRN PRN Reason: NAUSEA Tramadol HCl (Ultram*) 50 mg PO Q6H PRN PRN Reason: PAIN Last Admin: 03/28/17 03:20 Dose: 50 mg Vital Signs 03/27/17 03/27/17 03/27/17 12:30 12:45 13:00 Temperature Pulse Rate 61 60 59 Respiratory 16 16 16 Rate Blood Pressure 99/68 102/69 101/71 (mmHg) O2 Sat by Pulse 99 99 99 Oximetry 03/27/17 03/27/17 03/27/17 13:15 13:30 13:45 Temperature Pulse Rate 60 62 63 Respiratory 15 14 15 Rate Blood Pressure 110/70 107/73 108/72 (mmHg) O2 Sat by Pulse 98 97 98 Oximetry 03/27/17 03/27/17 03/27/17 14:00 14:11 14:15 Temperature Pulse Rate 64 72 Respiratory 15 19 17 Rate Blood Pressure 114/68 (mmHg) O2 Sat by Pulse 97 97 Oximetry 03/27/17 03/27/17 03/27/17 14:30 14:45 15:00 Temperature Pulse Rate 70 71 Respiratory 18 17 17 Rate Blood Pressure 138/77 (mmHg) O2 Sat by Pulse 99 98 Oximetry 03/27/17 03/27/17 03/27/17 15:15 15:26 15:30 Temperature 97.7 F Pulse Rate 74 74 Respiratory 13 19 Rate Blood Pressure (mmHg) O2 Sat by Pulse 98 99 Oximetry 03/27/17 03/27/17 03/27/17 15:34 16:00 16:17 Temperature Pulse Rate 73 Respiratory 17 17 17 Rate Blood Pressure 117/76 (mmHg) O2 Sat by Pulse 99 Oximetry 03/27/17 03/27/17 03/27/17 16:50 17:00 17:44 Temperature Pulse Rate 74 Respiratory 18 19 17 Rate Blood Pressure 125/89 (mmHg) O2 Sat by Pulse 98 Oximetry 03/27/17 03/27/17 03/27/17 18:00 19:00 20:00 Temperature 97.7 F Pulse Rate 76 76 80 Respiratory 19 19 19 Rate Blood Pressure 140/110 122/78 134/83 (mmHg) O2 Sat by Pulse 99 98 96 Oximetry 03/27/17 03/27/17 03/27/17 21:00 22:00 23:00 Temperature Pulse Rate 74 65 62 Respiratory 20 17 17 Rate Blood Pressure 125/86 124/68 107/67 (mmHg) O2 Sat by Pulse 90 100 100 Oximetry 03/27/17 03/27/17 03/28/17 23:37 23:52 00:00 Temperature 99.0 F Pulse Rate 63 64 Respiratory 17 17 Rate Blood Pressure (mmHg) O2 Sat by Pulse 99 99 Oximetry 03/28/17 03/28/17 03/28/17 00:01 01:00 02:00 Temperature Pulse Rate 64 63 61 Respiratory 17 17 16 Rate Blood Pressure 105/63 117/71 115/69 (mmHg) O2 Sat by Pulse 98 99 99 Oximetry 03/28/17 03/28/17 03/28/17 03:00 04:00 05:00 Temperature 98.6 F Pulse Rate 71 67 Respiratory 17 16 15 Rate Blood Pressure 115/70 137/79 123/82 (mmHg) O2 Sat by Pulse 100 100 Oximetry 03/28/17 03/28/17 03/28/17 06:00 07:00 07:29 Temperature 98.1 F Pulse Rate 69 65 Respiratory 17 18 Rate Blood Pressure 129/81 (mmHg) O2 Sat by Pulse 100 100 Oximetry 03/28/17 03/28/17 03/28/17 07:31 08:00 09:00 Temperature Pulse Rate 66 74 Respiratory 16 17 18 Rate Blood Pressure 151/77 135/77 141/85 (mmHg) O2 Sat by Pulse 100 100 Oximetry 03/28/17 03/28/17 03/28/17 10:00 11:00 11:30 Temperature 97.8 F Pulse Rate 68 Respiratory 25 18 Rate Blood Pressure 163/100 122/76 (mmHg) O2 Sat by Pulse 98 Oximetry Oxygen Devices in Use Now: Nasal Cannula Appearance: Alert, sitting up in bed. In good spirits. Looks comfortable. Eyes: No Scleral Icterus Ears/Nose/Mouth/Throat: Clear Oropharnyx, Mucous Membranes Moist Neck: NL Appearance and Movements; NL JVP, No Thyroid Enlargement, Masses Respiratory: Symmetrical Chest Expansion and Respiratory Effort, Clear to Auscultation, Clear to Percussion Extremities: No Edema, No Clubbing, Cyanosis, - Skin: No Rash or Ulcers, No Nodules or Sclerosis, - Neurological: Alert and Oriented x 3, NL Sensation Result Diagrams: 03/28/17 04:50 03/28/17 04:50 Additional Lab and Data: Lab Results 03/26/17 03/26/17 03/26/17 Range/Units 18:10 18:10 18:10 WBC 7.4 (3.5-10.8) 10^3/ul RBC 5.09 (4.0-5.4) 10^6/ul Hgb 10.9 L (14.0-18.0) g/dl Hct 35 L (42-52) % MCV 69 L (80-94) fL MCH 21 L (27-31) pg MCHC 31 (31-36) g/dl RDW 13 (10.5-15) % Plt Count 311 (150-450) 10^3/ul MPV 8 (7.4-10.4) um3 Neut % (Auto) 67.0 (38-83) % Lymph % (Auto) 20.1 L (25-47) % Frederick % (Auto) 10.9 H (1-9) % Eos % (Auto) 1.0 (0-6) % Baso % (Auto) 1.0 (0-2) % Absolute Neuts (auto) 5.0 (1.5-7.7) 10^3/ul Absolute Lymphs (auto) 1.5 (1.0-4.8) 10^3/ul Absolute Monos (auto) 0.8 (0-0.8) 10^3/ul Absolute Eos (auto) 0.1 (0-0.6) 10^3/ul Absolute Basos (auto) 0.1 (0-0.2) 10^3/ul Absolute Nucleated RBC 0.01 10^3/ul Nucleated RBC % 0.2 Normal RBC Morphology Not Reportable Polychromasia 1+ Hypochromasia 2+ Microcytosis 1+ Elliptocytes 1+ Hem Pathologist Commnt Pending Sodium 132 L (133-145) mmol/L Potassium 4.2 (3.5-5.0) mmol/L Chloride 98 L (101-111) mmol/L Carbon Dioxide 26 (22-32) mmol/L Anion Gap 8 (2-11) mmol/L BUN 21 (6-24) mg/dL Creatinine 0.98 (0.67-1.17) mg/dL Est GFR ( Amer) 100.3 (>60) Est GFR (Non-Af Amer) 78.0 (>60) BUN/Creatinine Ratio 21.4 H (8-20) Glucose 303 H (70-100) mg/dL Lactic Acid 1.3 (0.5-2.0) mmol/L Calcium 9.4 (8.6-10.3) mg/dL Total Bilirubin 0.30 (0.2-1.0) mg/dL AST 9 L (13-39) U/L ALT 7 (7-52) U/L Alkaline Phosphatase 80 (34-104) U/L Troponin I 0.33 H* (<0.04) ng/mL Total Protein 7.5 (6.4-8.9) g/dL Albumin 3.7 (3.2-5.2) g/dL Globulin 3.8 (2-4) g/dL Albumin/Globulin Ratio 1.0 (1-3) Microbiology and Other Data: Microbiology 03/26/17 20:40 Nasal Screen MRSA (PCR)([facility]) - Final Nasal Mrsa Negative Assess/Plan/Problems-Billing Assessment: - Patient Problems (1) AMI (acute myocardial infarction) Current Visit: Yes Status: Acute Code(s): I21.3 - ST ELEVATION (STEMI) MYOCARDIAL INFARCTION OF [facility] SITE SNOMED Code(s): 51945868 Comment: Anterolateral on ECG. Discussed with Dr. Fontaine. Cardiac cath showed 95% stenosis of proximal LAD. Continue BB, ASA, heparin. (2) Diabetes Current Visit: Yes Status: Acute Code(s): E11.9 - TYPE 2 DIABETES MELLITUS WITHOUT COMPLICATIONS SNOMED Code(s): 11758344 Comment: Diabetic education consult appreciated. (3) Anemia Current Visit: Yes Status: Acute Code(s): D64.9 - ANEMIA, UNSPECIFIED SNOMED Code(s): 469279667 Comment: Fe 17, TIBC 318, ferritin 122. Hg electrophereis add on requested. Stool guaic neg 03/27, 2 more ordered.
[2017-03-28] MEDS ORDERED: Magnesium Hydroxide LIQ* 30 ML UDC PO ONE (15:00)
[2017-03-28] MEDS: glipiZIDE TAB* 5 MG PO SCH (17:13)
[2017-03-28] MEDS: Atorvastatin* 80 MG TAB PO SCH (20:51)
--- NOTE | 2017-03-28 21:38 | PN ---
Subjective Date of Service: 03/28/17 - cc: shoulder and hip pain Interval History: The patient's anginal pain has completely resolved. Pt walks to commode, in room without chest tightness. He does c/o bilateral shoulder pain that is c/w arthritic pain and R hip pain. No SOB or nausea. Medications Active Medications: Acetaminophen (Tylenol Tab*) 650 mg PO Q6H PRN PRN Reason: FEVER/PAIN Aspirin (Aspirin Tab*) 325 mg PO DAILY [facility] Last Admin: 03/28/17 09:11 Dose: 325 mg Atorvastatin Calcium (Lipitor*) 80 mg PO 2100 [facility] Last Admin: 03/28/17 20:51 Dose: 80 mg Docusate Sodium (Colace Cap*) 200 mg PO BID [facility] Last Admin: 03/28/17 20:53 Dose: Not Given Glipizide (Glucotrol Tab*) 10 mg PO 0800,1700 [facility] Last Admin: 03/28/17 17:13 Dose: 10 mg Heparin Sodium (Porcine) (Heparin Vial(*)) 0 units IV .BOLUS PRN PRN Reason: HEPARIN DRIP BOLUSES Last Admin: 03/27/17 00:42 Dose: 5,900 units Heparin Sodium/Dextrose (Heparin Drip 25,000 Units(*)) 25,000 units in 500 mls @ 0 mls/hr IVPB .(INITIAL RATE) [facility]; Per Protocol PRN Reason: Protocol Last Admin: 03/28/17 00:13 Dose: 21 mls/hr Insulin Human Lispro (Humalog*) 0 units SUBCUT ACHS [facility] PRN Reason: Protocol Last Admin: 03/28/17 20:58 Dose: Not Given Metoprolol Tartrate (Lopressor Tab*) 25 mg PO BID [facility] Last Admin: 03/28/17 20:51 Dose: 25 mg Morphine Sulfate (Morphine Inj (Syringe)*) 2 mg IV Q4H PRN PRN Reason: PAIN - MILD Last Admin: 03/27/17 08:04 Dose: 2 mg Ondansetron HCl (Zofran Inj*) 4 mg IV Q6H PRN PRN Reason: NAUSEA Tramadol HCl (Ultram*) 50 mg PO Q6H PRN PRN Reason: PAIN Last Admin: 03/28/17 03:20 Dose: 50 mg Objective Vital Signs: Temp Pulse Resp BP Pulse Ox 99.9 F 84 17 138/79 97 03/28/17 20:00 03/28/17 17:00 03/28/17 20:00 03/28/17 20:00 03/28/17 20:00 Oxygen Devices in Use Now: Nasal Cannula Appearance: lean male, seated, comfortable. Eyes: No Scleral Icterus, PERRLA Ears/Nose/Mouth/Throat: Clear Oropharnyx, Mucous Membranes Moist Neck: NL Appearance and Movements; NL JVP, No Thyroid Enlargement, Masses Respiratory: Symmetrical Chest Expansion and Respiratory Effort, Clear to Auscultation Cardiovascular: NL Sounds; No Murmurs; No JVD, RRR Abdominal: NL Sounds; No Tenderness; No Distention Skin: No Rash or Ulcers Neurological: Alert and Oriented x 3 Lines/Tubes/Other Access: Clean, Dry and Intact Peripheral IV Laboratory Results: 03/28/17 04:50 03/28/17 04:50 APTT 69.6 seconds (26.0-36.3) H 03/28/17 02:00 Total Bilirubin 0.40 mg/dL (0.2-1.0) 03/28/17 04:50 AST 12 U/L (13-39) L 03/28/17 04:50 ALT 7 U/L (7-52) 03/28/17 04:50 Alkaline Phosphatase 75 U/L (34-104) 03/28/17 04:50 Total Protein 7.1 g/dL (6.4-8.9) 03/28/17 04:50 Albumin 3.5 g/dL (3.2-5.2) 03/28/17 04:50 Globulin 3.6 g/dL (2-4) 03/28/17 04:50 Albumin/Globulin Ratio 1.0 (1-3) 03/28/17 04:50 Triglycerides 68 mg/dL 03/28/17 04:50 Cholesterol 146 mg/dL 03/28/17 04:50 LDL Cholesterol 100 mg/dL 03/28/17 04:50 HDL Cholesterol 32.5 mg/dL 03/28/17 04:50 03/26/17 03/27/17 03/27/17 20:40 00:10 05:50 Troponin I 0.51 H* 1.04 H* 2.22 H* Diagnostic Imaging: Cath 5/30/17: 95% proximal LAD lesion, 50% D1 lesion, 30% non dominant RCA lesion. Assessment/Plan 61 yo male with CP, NQMI, 95% proximal LAD occlusion and mild microcytic anemia. Based on discussions with Dr. Tadeo, intervention awaiting evaluation for possible GI bleeding. Anemia is new 2016, microcytosis has been progressive over several years. Points of Discussion: CAD: Continue metoprolol, statin, ASA and heparin. Intervention timing per Dr. Tadeo, but the concern of a GI lesion that could bleed I agree with. THe patient has not bled on heparin gtt with high PTT. Per verbal discussion with nursing stool guiacs negative to date. I am unaware if any outpatient endoscopy has been performed. Continue with aggressive risk factor optimization of; DM HTN Lipids No recent tobacco or recreational drugs identified. Liberalize activity. Keep off Glucophage for now. ACEI and ARB unfortunately contraindicated due to allergy.
[2017-03-29] MEDS: Heparin DRIP 25,000 UNITS(*) 25,000 UNITS/500 ML BAG IVPB SCH (00:17)
[2017-03-29] MEDS: traMADol TAB* 50 MG PO PRN (01:42)
[2017-03-29 06:34] LABS: Hematocrit 33 % (42-52); Hemoglobin 10.4 g/dl (14.0-18.0); Mean Corpuscular HGB Conc 32 g/dl (31-36); Mean Corpuscular Hemoglobin 22 pg (27-31); Mean Platelet Volume 8 um3 (7.4-10.4); Red Blood Count 4.83 10^6/ul (4.0-5.4); Red Cell Distribution Width 13 % (10.5-15); White Blood Count 8.1 10^3/ul (3.5-10.8)
[2017-03-29 06:35] LABS: Comments Flag Yes
[2017-03-29 06:36] LABS: Mean Corpuscular Volume 68 fL (80-94)
[2017-03-29] MEDS: Insulin LISPRO* 1 UNITS UNIT SUBCUT SCH ×4 (08:37→21:33)
[2017-03-29] MEDS: glipiZIDE TAB* 5 MG PO SCH ×2 (08:38→17:43)
[2017-03-29] MEDS: Metoprolol Tartrate TAB* 25 MG PO SCH ×2 (08:43→21:34)
[2017-03-29] MEDS: Docusate CAP* 100 MG PO SCH (08:43)
[2017-03-29] MEDS: Aspirin Low Dose CHEW TAB* 81 MG PO SCH (08:43)
--- NOTE | 2017-03-29 08:46 | PN ---
Subjective Date of Service: 03/29/17 Interval History: No c/o. Pt is anxious to proceed with his treatment. Objective Active Medications: Acetaminophen (Tylenol Tab*) 650 mg PO Q6H PRN PRN Reason: FEVER/PAIN Aspirin (Aspirin Low Dose Tab*) 81 mg PO DAILY [facility] Atorvastatin Calcium (Lipitor*) 80 mg PO 2100 [facility] Last Admin: 03/28/17 20:51 Dose: 80 mg Docusate Sodium (Colace Cap*) 200 mg PO DAILY [facility] Glipizide (Glucotrol Tab*) 10 mg PO 0800,1700 [facility] Last Admin: 03/29/17 08:38 Dose: 10 mg Heparin Sodium (Porcine) (Heparin Vial(*)) 0 units IV .BOLUS PRN PRN Reason: HEPARIN DRIP BOLUSES Last Admin: 03/27/17 00:42 Dose: 5,900 units Heparin Sodium/Dextrose (Heparin Drip 25,000 Units(*)) 25,000 units in 500 mls @ 0 mls/hr IVPB .(INITIAL RATE) [facility]; Per Protocol PRN Reason: Protocol Last Admin: 03/29/17 00:17 Dose: 21 mls/hr Insulin Human Lispro (Humalog*) 0 units SUBCUT ACHS [facility] PRN Reason: Protocol Last Admin: 03/29/17 08:37 Dose: 2 units Metoprolol Tartrate (Lopressor Tab*) 25 mg PO BID [facility] Last Admin: 03/28/17 20:51 Dose: 25 mg Morphine Sulfate (Morphine Inj (Syringe)*) 2 mg IV Q4H PRN PRN Reason: PAIN - MILD Last Admin: 03/27/17 08:04 Dose: 2 mg Ondansetron HCl (Zofran Inj*) 4 mg IV Q6H PRN PRN Reason: NAUSEA Tramadol HCl (Ultram*) 50 mg PO Q6H PRN PRN Reason: PAIN Last Admin: 03/29/17 01:42 Dose: 50 mg Vital Signs 03/28/17 03/28/17 03/28/17 09:00 10:00 11:00 Temperature Pulse Rate 74 68 Respiratory 18 25 18 Rate Blood Pressure 141/85 163/100 122/76 (mmHg) O2 Sat by Pulse 100 98 Oximetry 03/28/17 03/28/17 03/28/17 11:30 12:00 13:00 Temperature 97.8 F Pulse Rate 65 60 Respiratory 18 23 Rate Blood Pressure 122/80 124/91 (mmHg) O2 Sat by Pulse 99 97 Oximetry 03/28/17 03/28/17 03/28/17 14:00 15:00 16:00 Temperature 98.1 F Pulse Rate 67 66 65 Respiratory 14 20 17 Rate Blood Pressure 118/76 126/78 117/76 (mmHg) O2 Sat by Pulse 100 77 98 Oximetry 03/28/17 03/28/17 03/28/17 17:00 17:57 18:14 Temperature Pulse Rate 84 Respiratory 18 17 Rate Blood Pressure 148/86 151/96 (mmHg) O2 Sat by Pulse 84 Oximetry 03/28/17 03/28/17 03/28/17 18:28 19:00 19:12 Temperature Pulse Rate Respiratory 17 Rate Blood Pressure 156/85 (mmHg) O2 Sat by Pulse 98 Oximetry 03/28/17 03/28/17 03/28/17 20:00 21:00 22:00 Temperature 99.9 F Pulse Rate Respiratory 17 16 16 Rate Blood Pressure 138/79 137/88 129/78 (mmHg) O2 Sat by Pulse 97 98 97 Oximetry 03/28/17 03/29/17 03/29/17 23:00 00:00 00:01 Temperature 99.3 F Pulse Rate 66 Respiratory 14 12 Rate Blood Pressure 152/91 128/82 128/82 (mmHg) O2 Sat by Pulse 98 97 98 Oximetry 03/29/17 03/29/17 03/29/17 00:12 01:00 01:40 Temperature Pulse Rate Respiratory 12 20 Rate Blood Pressure 131/85 (mmHg) O2 Sat by Pulse 97 98 Oximetry 03/29/17 03/29/17 03/29/17 02:00 03:00 04:00 Temperature 99.7 F Pulse Rate Respiratory 12 18 20 Rate Blood Pressure 152/89 151/96 147/86 (mmHg) O2 Sat by Pulse 97 97 97 Oximetry 03/29/17 03/29/17 03/29/17 05:00 06:00 06:24 Temperature Pulse Rate Respiratory 16 18 Rate Blood Pressure 145/87 137/83 105/67 (mmHg) O2 Sat by Pulse 97 97 96 Oximetry 03/29/17 03/29/17 03/29/17 06:28 06:30 06:45 Temperature Pulse Rate Respiratory Rate Blood Pressure 97/63 105/71 130/88 (mmHg) O2 Sat by Pulse 96 96 96 Oximetry 03/29/17 03/29/17 03/29/17 07:00 07:15 07:28 Temperature 98.1 F Pulse Rate Respiratory 18 Rate Blood Pressure 127/103 137/80 (mmHg) O2 Sat by Pulse 99 97 Oximetry 03/29/17 07:30 Temperature Pulse Rate Respiratory Rate Blood Pressure 130/79 (mmHg) O2 Sat by Pulse 98 Oximetry Oxygen Devices in Use Now: Nasal Cannula Appearance: Alert, sitting up in bed. In good spirits. Looks comfortable. Eyes: No Scleral Icterus Ears/Nose/Mouth/Throat: Clear Oropharnyx, Mucous Membranes Moist Neck: NL Appearance and Movements; NL JVP, No Thyroid Enlargement, Masses Respiratory: Symmetrical Chest Expansion and Respiratory Effort, Clear to Auscultation, Clear to Percussion Cardiovascular: NL Sounds; No Murmurs; No JVD, RRR, No Edema, - Extremities: No Edema, No Clubbing, Cyanosis, - Skin: No Rash or Ulcers, No Nodules or Sclerosis, - Neurological: Alert and Oriented x 3, NL Sensation Result Diagrams: 03/29/17 06:05 03/28/17 04:50 Additional Lab and Data: Lab Results 03/26/17 03/26/17 03/26/17 Range/Units 18:10 18:10 18:10 WBC 7.4 (3.5-10.8) 10^3/ul RBC 5.09 (4.0-5.4) 10^6/ul Hgb 10.9 L (14.0-18.0) g/dl Hct 35 L (42-52) % MCV 69 L (80-94) fL MCH 21 L (27-31) pg MCHC 31 (31-36) g/dl RDW 13 (10.5-15) % Plt Count 311 (150-450) 10^3/ul MPV 8 (7.4-10.4) um3 Neut % (Auto) 67.0 (38-83) % Lymph % (Auto) 20.1 L (25-47) % [place] % (Auto) 10.9 H (1-9) % Eos % (Auto) 1.0 (0-6) % Baso % (Auto) 1.0 (0-2) % Absolute Neuts (auto) 5.0 (1.5-7.7) 10^3/ul Absolute Lymphs (auto) 1.5 (1.0-4.8) 10^3/ul Absolute Monos (auto) 0.8 (0-0.8) 10^3/ul Absolute Eos (auto) 0.1 (0-0.6) 10^3/ul Absolute Basos (auto) 0.1 (0-0.2) 10^3/ul Absolute Nucleated RBC 0.01 10^3/ul Nucleated RBC % 0.2 Normal RBC Morphology Not Reportable Polychromasia 1+ Hypochromasia 2+ Microcytosis 1+ Elliptocytes 1+ Hem Pathologist Commnt Pending Sodium 132 L (133-145) mmol/L Potassium 4.2 (3.5-5.0) mmol/L Chloride 98 L (101-111) mmol/L Carbon Dioxide 26 (22-32) mmol/L Anion Gap 8 (2-11) mmol/L BUN 21 (6-24) mg/dL Creatinine 0.98 (0.67-1.17) mg/dL Est GFR ( Amer) 100.3 (>60) Est GFR (Non-Af Amer) 78.0 (>60) BUN/Creatinine Ratio 21.4 H (8-20) Glucose 303 H (70-100) mg/dL Lactic Acid 1.3 (0.5-2.0) mmol/L Calcium 9.4 (8.6-10.3) mg/dL Total Bilirubin 0.30 (0.2-1.0) mg/dL AST 9 L (13-39) U/L ALT 7 (7-52) U/L Alkaline Phosphatase 80 (34-104) U/L Troponin I 0.33 H* (<0.04) ng/mL Total Protein 7.5 (6.4-8.9) g/dL Albumin 3.7 (3.2-5.2) g/dL Globulin 3.8 (2-4) g/dL Albumin/Globulin Ratio 1.0 (1-3) Microbiology and Other Data: Microbiology 03/26/17 20:40 Nasal Screen MRSA (PCR)([facility]) - Final Nasal Mrsa Negative Assess/Plan/Problems-Billing Assessment: - Patient Problems (1) AMI (acute myocardial infarction) Current Visit: Yes Status: Acute Code(s): I21.3 - ST ELEVATION (STEMI) MYOCARDIAL INFARCTION OF [facility] SITE SNOMED Code(s): 57004809 Comment: Anterolateral on ECG. Troponin > 2. Cardiac cath showed 95% stenosis of proximal LAD. Continue BB, ASA, heparin. Message left for Dr. Tadeo to call me back to discuss the case. (2) Diabetes Current Visit: Yes Status: Acute Code(s): E11.9 - TYPE 2 DIABETES MELLITUS WITHOUT COMPLICATIONS SNOMED Code(s): 13562573 Comment: Diabetic education consult appreciated. Continue glipizide, Lispro by SS. Continue to hold metformin. (3) Anemia Current Visit: Yes Status: Acute Code(s): D64.9 - ANEMIA, UNSPECIFIED SNOMED Code(s): 178270544 Comment: Fe 17, TIBC 318, ferritin 122. Hg electrophereis pending. Stool guaic oneneg, one pos. I will discuss possible wup with Dr. Mejia.
[2017-03-29] MEDS: Morphine INJ* 2 MG/ML 1 ML SYRINGE IV PRN (19:01)
[2017-03-29] MEDS ORDERED: Nitroglycerin TAB 0.4 MG* 0.4 MG TAB ONE (19:03)
[2017-03-29] MEDS: Atorvastatin* 80 MG TAB PO SCH (21:34)
--- NOTE | 2017-03-29 22:42 | CONS ---
CONSULTATION REPORT: DATE OF CONSULT: 03/29/17 REASON FOR CONSULTATION: Guaiac-positive stool, microcytic anemia in the setting of acute coronary syndrome. NARRATIVE: Mr. Logan is a 61-year-old gentleman with a history of diabetes, hyperlipidemia, and hypertension. He was admitted approximately 3 days ago with chest pain and ended up having an elevated troponin with EKG changes. He underwent a cardiac catheterization 2 days ago, which demonstrated a significant stenosis in the LAD. It was recommended for him to have stent placement and beginning antiplatelet therapy. However, he was also noted to have a microcytic anemia, with an admission hemoglobin of 10.9 and MCV of 69. The patient had 2 stool Hemoccults that had been processed during his hospitalization, one of which was positive for blood. The patient denies any melena or rectal bleeding and has maintained a persistent microcytic anemia for approximately 2 years. Historically, in 2013, for instance, he had hemoglobin of 11.5 with an MCV of 71. The patient did undergo endoscopic evaluations in the past. He did have a colonoscopy in 2012, which demonstrated diverticulosis , but no other pathology and upper endoscopy in 2014 for symptoms of nausea and vomiting, which did demonstrate some duodenitis and small hiatal hernia. He has a prior history of having H. pylori infection. The patient denies currently any abdominal pain, nausea, vomiting, appetite change, or heartburn. He has not been on any NSAIDs. PAST MEDICAL HISTORY: Includes: 1. Diabetes which has historically been poorly controlled. 2. Hypertension. 3. Hyperlipidemia. MEDICATIONS: His admission medicines were: 1. Metformin. 2. Glipizide. 3. Tramadol. 4. Neurontin. FAMILY HISTORY: Notable for mother with a CVA and father with diabetes. REVIEW OF SYSTEMS: His weight has been stable. Again, he has not noticed any rectal bleeding or melena. He denies any jaundice. PHYSICAL EXAM: He is a pleasant -[place] Citizen gentleman in no acute distress. Blood pressure is 130/80. Heart rate is 74 and regular. Lungs are clear. Cardiac exam reveals a regular rhythm without murmur. Abdomen is soft without tenderness or organomegaly. ADDITIONAL DATA: Include an iron saturation of 5%, troponin of 2.2, a white count of 8.1, platelet count of 300,000. He does have old Hematology studies from 2011 to 2010, which did show some target cells as well as teardrop cells. IMPRESSION: A gentleman presenting with acute coronary syndrome noted to have a chronic microcytic anemia, low iron indices. He had one stool Hemoccult that was positive. I do believe his anemia probably is multifactorial. The presence of target cells might imply hemolytic process, perhaps even thalassemia. However, he has 1 stool that is Hemoccult positive. He has a fairly up-to-date colonoscopy which was a good prepped exam and complete to the cecum. He did have some duodenitis and a history of H. pylori infection. I think due to the concern of bleeding from antiplatelet therapy, a limited GI evaluation is warranted. I recommended an upper endoscopy to demonstrate any recurrence of H. pylori or any other dyspeptic lesion as he has had that before. I do not, however, believe he needs a colonoscopy at this time due to his fairly recent evaluation. We will plan on performing that study tomorrow. I believe if that is clear, then cardiac catheterization with full antiplatelet treatment can be safety administered. CC: Dr. Nena Rush [id number]/[facility] #: [id number] [facility]
[2017-03-30] MEDS: Heparin DRIP 25,000 UNITS(*) 25,000 UNITS/500 ML BAG IVPB SCH ×2 (00:44→22:37)
[2017-03-30] MEDS: traMADol TAB* 50 MG PO PRN (04:38)
[2017-03-30] MEDS: Insulin LISPRO* 1 UNITS UNIT SUBCUT SCH ×4 (07:52→21:00)
[2017-03-30] MEDS: Metoprolol Tartrate TAB* 25 MG PO SCH ×2 (08:19→21:00)
[2017-03-30] MEDS: glipiZIDE TAB* 5 MG PO SCH ×2 (08:19→16:52)
[2017-03-30] MEDS: Docusate CAP* 100 MG PO SCH ×2 (08:19→08:30)
[2017-03-30] MEDS: Aspirin Low Dose CHEW TAB* 81 MG PO SCH (08:19)
--- NOTE | 2017-03-30 08:32 | PN ---
Subjective Date of Service: 03/30/17 Interval History: No c/o. Objective Active Medications: Acetaminophen (Tylenol Tab*) 650 mg PO Q6H PRN PRN Reason: FEVER/PAIN Aspirin (Aspirin Low Dose Tab*) 81 mg PO DAILY [facility] Last Admin: 03/30/17 08:19 Dose: 81 mg Atorvastatin Calcium (Lipitor*) 80 mg PO 2100 [facility] Last Admin: 03/29/17 21:34 Dose: 80 mg Docusate Sodium (Colace Cap*) 200 mg PO DAILY [facility] Last Admin: 03/30/17 08:19 Dose: 200 mg Glipizide (Glucotrol Tab*) 10 mg PO 0800,1700 [facility] Last Admin: 03/30/17 08:19 Dose: 10 mg Heparin Sodium (Porcine) (Heparin Vial(*)) 0 units IV .BOLUS PRN PRN Reason: HEPARIN DRIP BOLUSES Last Admin: 03/27/17 00:42 Dose: 5,900 units Heparin Sodium/Dextrose (Heparin Drip 25,000 Units(*)) 25,000 units in 500 mls @ 0 mls/hr IVPB .(INITIAL RATE) [facility]; Per Protocol PRN Reason: Protocol Last Admin: 03/30/17 00:44 Dose: 21 mls/hr Insulin Human Lispro (Humalog*) 0 units SUBCUT ACHS [facility] PRN Reason: Protocol Last Admin: 03/30/17 07:52 Dose: Not Given Metoprolol Tartrate (Lopressor Tab*) 25 mg PO BID [facility] Last Admin: 03/30/17 08:19 Dose: 25 mg Morphine Sulfate (Morphine Inj (Syringe)*) 2 mg IV Q4H PRN PRN Reason: PAIN - MILD Last Admin: 03/29/17 19:01 Dose: 2 mg Nitroglycerin (Nitroglycerin Tab 0.4 Mg*) 0.4 mg SL Q5M PRN PRN Reason: ANGINA Ondansetron HCl (Zofran Inj*) 4 mg IV Q6H PRN PRN Reason: NAUSEA Tramadol HCl (Ultram*) 50 mg PO Q6H PRN PRN Reason: PAIN Last Admin: 03/30/17 04:38 Dose: 50 mg Vital Signs 03/29/17 03/29/17 03/29/17 08:30 08:45 08:58 Temperature Respiratory Rate Blood Pressure 142/84 137/84 (mmHg) O2 Sat by Pulse 97 98 97 Oximetry 03/29/17 03/29/17 03/29/17 09:00 10:00 10:15 Temperature Respiratory 18 18 Rate Blood Pressure 102/69 (mmHg) O2 Sat by Pulse 98 98 Oximetry 03/29/17 03/29/17 03/29/17 10:30 10:45 11:00 Temperature Respiratory 18 Rate Blood Pressure 109/70 114/73 102/67 (mmHg) O2 Sat by Pulse 98 98 98 Oximetry 03/29/17 03/29/17 03/29/17 11:15 11:30 11:45 Temperature Respiratory Rate Blood Pressure 106/73 111/74 109/73 (mmHg) O2 Sat by Pulse 98 98 98 Oximetry 03/29/17 03/29/17 03/29/17 12:00 12:15 12:30 Temperature 98 F Respiratory 18 Rate Blood Pressure 116/72 113/73 112/76 (mmHg) O2 Sat by Pulse 97 98 99 Oximetry 03/29/17 03/29/17 03/29/17 12:53 13:00 13:15 Temperature Respiratory 18 Rate Blood Pressure 139/94 138/88 131/85 (mmHg) O2 Sat by Pulse 63 Oximetry 03/29/17 03/29/17 03/29/17 13:30 13:45 14:00 Temperature Respiratory 18 Rate Blood Pressure 122/81 119/79 113/73 (mmHg) O2 Sat by Pulse 98 99 99 Oximetry 03/29/17 03/29/17 03/29/17 14:15 14:30 14:45 Temperature Respiratory Rate Blood Pressure 106/74 119/82 119/83 (mmHg) O2 Sat by Pulse 99 92 100 Oximetry 03/29/17 03/29/17 03/29/17 15:00 15:01 15:15 Temperature Respiratory 16 Rate Blood Pressure 133/97 131/86 (mmHg) O2 Sat by Pulse 99 95 97 Oximetry 03/29/17 03/29/17 03/29/17 15:30 15:47 16:00 Temperature 98.4 F Respiratory 17 Rate Blood Pressure 130/80 139/88 156/93 (mmHg) O2 Sat by Pulse 96 100 97 Oximetry 03/29/17 03/29/17 03/29/17 16:20 16:30 16:45 Temperature Respiratory Rate Blood Pressure 159/117 131/85 124/91 (mmHg) O2 Sat by Pulse 99 98 99 Oximetry 03/29/17 03/29/17 03/29/17 17:00 17:15 17:30 Temperature Respiratory 18 Rate Blood Pressure 130/96 130/81 127/80 (mmHg) O2 Sat by Pulse 97 97 98 Oximetry 03/29/17 03/29/17 03/29/17 17:45 18:00 18:15 Temperature Respiratory 15 Rate Blood Pressure 130/81 130/83 127/84 (mmHg) O2 Sat by Pulse 98 97 100 Oximetry 03/29/17 03/29/17 03/29/17 18:30 19:00 19:01 Temperature Respiratory 18 15 Rate Blood Pressure 143/87 178/102 (mmHg) O2 Sat by Pulse 99 100 Oximetry 03/29/17 03/29/17 03/29/17 19:08 19:15 19:27 Temperature Respiratory Rate Blood Pressure 179/105 173/110 139/86 (mmHg) O2 Sat by Pulse 100 100 100 Oximetry 03/29/17 03/29/17 03/29/17 19:28 19:30 20:00 Temperature Respiratory 18 17 Rate Blood Pressure 138/83 115/74 (mmHg) O2 Sat by Pulse 100 Oximetry 03/29/17 03/29/17 03/29/17 20:30 21:00 21:30 Temperature Respiratory 21 17 17 Rate Blood Pressure 110/82 123/92 130/83 (mmHg) O2 Sat by Pulse 100 100 100 Oximetry 03/29/17 03/29/17 03/29/17 22:00 22:23 22:30 Temperature Respiratory 15 18 16 Rate Blood Pressure 133/87 109/75 (mmHg) O2 Sat by Pulse 100 100 100 Oximetry 03/29/17 03/29/17 03/30/17 23:00 23:30 00:00 Temperature 97.6 F Respiratory 16 17 17 Rate Blood Pressure 103/67 110/75 (mmHg) O2 Sat by Pulse 100 100 100 Oximetry 03/30/17 03/30/17 03/30/17 00:01 00:30 01:00 Temperature Respiratory 16 18 15 Rate Blood Pressure 115/77 116/84 122/81 (mmHg) O2 Sat by Pulse 100 100 100 Oximetry 03/30/17 03/30/17 03/30/17 01:30 02:00 02:30 Temperature Respiratory 18 16 16 Rate Blood Pressure 126/81 100/67 110/74 (mmHg) O2 Sat by Pulse 100 100 100 Oximetry 03/30/17 03/30/17 03/30/17 03:00 03:30 04:00 Temperature 98.7 F Respiratory 18 17 16 Rate Blood Pressure 119/77 126/77 114/70 (mmHg) O2 Sat by Pulse 100 100 100 Oximetry 03/30/17 03/30/17 03/30/17 04:30 05:00 06:00 Temperature Respiratory 19 14 Rate Blood Pressure 127/87 138/78 133/87 (mmHg) O2 Sat by Pulse 100 98 Oximetry 03/30/17 07:54 Temperature 98.5 F Respiratory Rate Blood Pressure (mmHg) O2 Sat by Pulse Oximetry Oxygen Devices in Use Now: Nasal Cannula Appearance: Alert, sitting up in bed. In good spirits. Looks comfortable. Eyes: No Scleral Icterus Neck: NL Appearance and Movements; NL JVP, No Thyroid Enlargement, Masses Respiratory: Symmetrical Chest Expansion and Respiratory Effort, Clear to Auscultation, Clear to Percussion Cardiovascular: NL Sounds; No Murmurs; No JVD, RRR, No Edema, - Extremities: No Edema, No Clubbing, Cyanosis, - Skin: No Rash or Ulcers, No Nodules or Sclerosis, - Neurological: Alert and Oriented x 3, NL Sensation Result Diagrams: 03/29/17 06:05 03/28/17 04:50 Additional Lab and Data: Lab Results 03/26/17 03/26/17 03/26/17 Range/Units 18:10 18:10 18:10 WBC 7.4 (3.5-10.8) 10^3/ul RBC 5.09 (4.0-5.4) 10^6/ul Hgb 10.9 L (14.0-18.0) g/dl Hct 35 L (42-52) % MCV 69 L (80-94) fL MCH 21 L (27-31) pg MCHC 31 (31-36) g/dl RDW 13 (10.5-15) % Plt Count 311 (150-450) 10^3/ul MPV 8 (7.4-10.4) um3 Neut % (Auto) 67.0 (38-83) % Lymph % (Auto) 20.1 L (25-47) % [place] % (Auto) 10.9 H (1-9) % Eos % (Auto) 1.0 (0-6) % Baso % (Auto) 1.0 (0-2) % Absolute Neuts (auto) 5.0 (1.5-7.7) 10^3/ul Absolute Lymphs (auto) 1.5 (1.0-4.8) 10^3/ul Absolute Monos (auto) 0.8 (0-0.8) 10^3/ul Absolute Eos (auto) 0.1 (0-0.6) 10^3/ul Absolute Basos (auto) 0.1 (0-0.2) 10^3/ul Absolute Nucleated RBC 0.01 10^3/ul Nucleated RBC % 0.2 Normal RBC Morphology Not Reportable Polychromasia 1+ Hypochromasia 2+ Microcytosis 1+ Elliptocytes 1+ Hem Pathologist Commnt Pending Sodium 132 L (133-145) mmol/L Potassium 4.2 (3.5-5.0) mmol/L Chloride 98 L (101-111) mmol/L Carbon Dioxide 26 (22-32) mmol/L Anion Gap 8 (2-11) mmol/L BUN 21 (6-24) mg/dL Creatinine 0.98 (0.67-1.17) mg/dL Est GFR ( Amer) 100.3 (>60) Est GFR (Non-Af Amer) 78.0 (>60) BUN/Creatinine Ratio 21.4 H (8-20) Glucose 303 H (70-100) mg/dL Lactic Acid 1.3 (0.5-2.0) mmol/L Calcium 9.4 (8.6-10.3) mg/dL Total Bilirubin 0.30 (0.2-1.0) mg/dL AST 9 L (13-39) U/L ALT 7 (7-52) U/L Alkaline Phosphatase 80 (34-104) U/L Troponin I 0.33 H* (<0.04) ng/mL Total Protein 7.5 (6.4-8.9) g/dL Albumin 3.7 (3.2-5.2) g/dL Globulin 3.8 (2-4) g/dL Albumin/Globulin Ratio 1.0 (1-3) Microbiology and Other Data: Microbiology 03/26/17 20:40 Nasal Screen MRSA (PCR)([facility]) - Final Nasal Mrsa Negative Assess/Plan/Problems-Billing Assessment: - Patient Problems (1) AMI (acute myocardial infarction) Current Visit: Yes Status: Acute Code(s): I21.3 - ST ELEVATION (STEMI) MYOCARDIAL INFARCTION OF [facility] SITE SNOMED Code(s): 02056633 Comment: Anterolateral on ECG. Troponin > 2. Cardiac cath showed 95% stenosis of proximal LAD. Continue BB, ASA, heparin. Cardiac cath when/if EGD shows no potential bleeding source. (2) Diabetes Current Visit: Yes Status: Acute Code(s): E11.9 - TYPE 2 DIABETES MELLITUS WITHOUT COMPLICATIONS SNOMED Code(s): 98976939 Comment: Diabetic education consult appreciated. Continue glipizide, Lispro by SS. Continue to hold metformin. (3) Anemia Current Visit: Yes Status: Acute Code(s): D64.9 - ANEMIA, UNSPECIFIED SNOMED Code(s): 881339729 Comment: Fe 17, TIBC 318, ferritin 122. Hg electrophereis pending. Stool guaic one neg, one pos. EGD schedule 12:30 03/30.
[2017-03-30] MEDS: Nitroglycerin TAB 0.4 MG* 0.4 MG TAB SL PRN (09:47)
[2017-03-30] MEDS ORDERED: fentaNYL* 50 MCG/ML 2 ML VIAL (100 MCG VIAL) ONE (13:36)
[2017-03-30] MEDS ORDERED: Midazolam* 1 MG/ML 10 ML VIAL (10 MG) ONE (13:37)
[2017-03-30] MEDS: Atorvastatin* 80 MG TAB PO SCH (20:59)
--- NOTE | 2017-03-31 03:14 | PRO ---
PROCEDURE REPORT: DATE OF PROCEDURE: 03/30/17 PROCEDURE: EGD. INDICATION: Anemia. MEDICATIONS GIVEN: 1. 25 mcg IV fentanyl. 2. 5 mg IV Versed. DESCRIPTION OF PROCEDURE: After the EGD procedure including the risks, benefits, and alternatives n ot limited to perforation, surgery and/or were explained Mr. Logan, written consent was then o btained, IV medication was given, and a bite- block was placed between the teeth. Olympus gastrosco pe was then inserted into the patient's mouth, advanced down the esophagus, into the stomach, and in to the distal duodenum. In the esophagus, at the GE junction, Z-line was intact. No erosive esopha gitis, stricture, or ring was seen. The scope was advanced through the widely patent GE junction in to the body of the stomach. Retroflex and forward views were unremarkable except for a very mild am ounts of gastritis. No active bleeding was seen. An H. pylori biopsy was obtained. The scope was advanced through a widely patent pylorus, into the duodenal bulb and into the distal duodenum, both of which were unremarkable except for a very mild duodenitis. The scope was then withdrawn from the patient. He tolerated the procedure well and was returned to the care of the ICU staff in stable c ondition. IMPRESSION: 1. Complete upper endoscopy into the distal duodenum with biopsies. 2. This EGD looks remarkably similar to how it was described in 2015. The patient has mild duodeni tis and gastritis. I did take a biopsy for H. pylori. The patient does need a cardiac catheterizat ion with likely chronic anticoagulation. I think as long as he stays on a twice a day PPI, we can m inimize any risk for bleeding; however, we do not take the risk for bleeding down to 0. [id number]/[facility] #: [id number]
[2017-03-31] MEDS: Nitroglycerin TAB 0.4 MG* 0.4 MG TAB SL PRN ×3 (04:04→20:45)
[2017-03-31] MEDS: Docusate CAP* 100 MG PO SCH (07:43)
[2017-03-31] MEDS: Insulin LISPRO* 1 UNITS UNIT SUBCUT SCH ×4 (07:48→21:56)
[2017-03-31] MEDS: traMADol TAB* 50 MG PO PRN ×2 (07:48→21:44)
[2017-03-31] MEDS: Aspirin Low Dose CHEW TAB* 81 MG PO SCH (07:48)
[2017-03-31] MEDS: Metoprolol Tartrate TAB* 25 MG PO SCH ×2 (07:48→21:44)
[2017-03-31] MEDS: glipiZIDE TAB* 5 MG PO SCH (07:49)
[2017-03-31] MEDS ORDERED: Omeprazole CAP* 20 MG PO SCH (09:00)
[2017-03-31] MEDS ORDERED: Clarithromycin TAB* 500 MG PO SCH (09:00)
[2017-03-31] MEDS ORDERED: Amoxicillin CAP* 500 MG PO SCH (09:00)
[2017-03-31] MEDS: Amoxicillin CAP* 500 MG PO SCH ×2 (09:16→21:43)
[2017-03-31] MEDS: Omeprazole CAP* 20 MG PO SCH ×2 (09:16→21:44)
[2017-03-31] MEDS: Clarithromycin TAB* 500 MG PO SCH ×2 (09:16→21:44)
[2017-03-31] MEDS: Gabapentin CAP(*) 300 MG PO SCH ×2 (14:00→21:44)
--- NOTE | 2017-03-31 16:11 | PN ---
Subjective Date of Service: 03/31/17 Interval History: Pt c/o neuropathic pain in b/l feet. Objective Active Medications: Acetaminophen (Tylenol Tab*) 650 mg PO Q6H PRN PRN Reason: FEVER/PAIN Amoxicillin (Amoxicillin Cap*) 1,000 mg PO BID [facility] Stop: 04/13/17 21:01 Last Admin: 03/31/17 09:16 Dose: 1,000 mg Aspirin (Aspirin Low Dose Tab*) 81 mg PO DAILY [facility] Last Admin: 03/31/17 07:48 Dose: 81 mg Atorvastatin Calcium (Lipitor*) 80 mg PO 2100 [facility] Last Admin: 03/30/17 20:59 Dose: 80 mg Clarithromycin (Biaxin Tab*) 500 mg PO BID [facility] Stop: 04/13/17 21:01 Last Admin: 03/31/17 09:16 Dose: 500 mg Docusate Sodium (Colace Cap*) 200 mg PO DAILY [facility] Last Admin: 03/31/17 07:43 Dose: Not Given Gabapentin (Neurontin Cap(*)) 300 mg PO BID [facility] Last Admin: 03/31/17 14:00 Dose: 300 mg Glipizide (Glucotrol Tab*) 10 mg PO 0800,1700 [facility] Last Admin: 03/31/17 07:49 Dose: 10 mg Heparin Sodium (Porcine) (Heparin Vial(*)) 0 units IV .BOLUS PRN PRN Reason: HEPARIN DRIP BOLUSES Last Admin: 03/27/17 00:42 Dose: 5,900 units Heparin Sodium/Dextrose (Heparin Drip 25,000 Units(*)) 25,000 units in 500 mls @ 0 mls/hr IVPB .(INITIAL RATE) [facility]; Per Protocol PRN Reason: Protocol Last Admin: 03/30/17 22:37 Dose: 21 mls/hr Insulin Human Lispro (Humalog*) 0 units SUBCUT ACHS [facility] PRN Reason: Protocol Last Admin: 03/31/17 11:57 Dose: 6 units Metoprolol Tartrate (Lopressor Tab*) 25 mg PO BID [facility] Last Admin: 03/31/17 07:48 Dose: 25 mg Morphine Sulfate (Morphine Inj (Syringe)*) 2 mg IV Q4H PRN PRN Reason: PAIN - MILD Last Admin: 03/29/17 19:01 Dose: 2 mg Nitroglycerin (Nitroglycerin Tab 0.4 Mg*) 0.4 mg SL Q5M PRN PRN Reason: ANGINA Last Admin: 03/31/17 04:12 Dose: 0.4 mg Omeprazole (Prilosec Cap*) 20 mg PO BID [facility] Stop: 04/13/17 21:01 Last Admin: 03/31/17 09:16 Dose: 20 mg Ondansetron HCl (Zofran Inj*) 4 mg IV Q6H PRN PRN Reason: NAUSEA Tramadol HCl (Ultram*) 50 mg PO Q6H PRN PRN Reason: PAIN Last Admin: 03/31/17 07:48 Dose: 50 mg Vital Signs 03/30/17 03/30/17 03/30/17 17:00 18:00 19:00 Temperature Respiratory 18 18 20 Rate Blood Pressure 131/78 128/79 107/72 (mmHg) O2 Sat by Pulse 98 98 97 Oximetry 03/30/17 03/30/17 03/30/17 19:40 20:00 21:00 Temperature 98.5 F Respiratory 22 20 Rate Blood Pressure 114/75 128/84 (mmHg) O2 Sat by Pulse 97 97 Oximetry 03/30/17 03/30/17 03/30/17 22:00 22:30 22:32 Temperature Respiratory 20 20 Rate Blood Pressure 118/88 (mmHg) O2 Sat by Pulse 98 98 Oximetry 03/30/17 03/31/17 03/31/17 23:00 00:00 00:01 Temperature 98.6 F Respiratory Rate Blood Pressure 118/79 117/78 (mmHg) O2 Sat by Pulse 98 97 97 Oximetry 03/31/17 03/31/17 03/31/17 01:00 02:00 03:00 Temperature Respiratory 20 16 16 Rate Blood Pressure 120/85 140/93 136/82 (mmHg) O2 Sat by Pulse 98 99 98 Oximetry 03/31/17 03/31/17 03/31/17 04:00 04:10 04:15 Temperature 99.5 F Respiratory 22 Rate Blood Pressure 145/87 134/78 92/59 (mmHg) O2 Sat by Pulse 96 95 94 Oximetry 03/31/17 03/31/17 03/31/17 04:34 05:00 06:00 Temperature Respiratory 24 18 Rate Blood Pressure 105/64 124/76 132/80 (mmHg) O2 Sat by Pulse 93 96 97 Oximetry 03/31/17 03/31/17 03/31/17 07:00 07:30 07:42 Temperature Respiratory 15 15 Rate Blood Pressure 127/72 (mmHg) O2 Sat by Pulse 96 Oximetry 03/31/17 03/31/17 03/31/17 08:00 09:00 09:02 Temperature 99.1 F Respiratory Rate Blood Pressure 90/61 55/35 111/76 (mmHg) O2 Sat by Pulse 97 82 Oximetry 03/31/17 03/31/17 03/31/17 09:04 10:00 11:00 Temperature Respiratory 15 15 Rate Blood Pressure 122/76 112/77 (mmHg) O2 Sat by Pulse 98 100 Oximetry 03/31/17 03/31/17 03/31/17 11:25 11:48 11:50 Temperature 99 F Respiratory 15 15 Rate Blood Pressure (mmHg) O2 Sat by Pulse Oximetry 03/31/17 03/31/17 03/31/17 12:15 13:00 13:39 Temperature Respiratory 15 Rate Blood Pressure 126/90 116/63 (mmHg) O2 Sat by Pulse 92 97 Oximetry 03/31/17 03/31/17 03/31/17 14:00 14:01 15:00 Temperature Respiratory 14 Rate Blood Pressure 114/83 (mmHg) O2 Sat by Pulse 98 97 Oximetry 03/31/17 03/31/17 15:23 15:49 Temperature 99.5 F Respiratory 14 Rate Blood Pressure (mmHg) O2 Sat by Pulse Oximetry Oxygen Devices in Use Now: None Appearance: 61 yo M in nAD, aAOx3 Eyes: No Scleral Icterus, PERRLA Ears/Nose/Mouth/Throat: NL Teeth, Lips, Gums, Mucous Membranes Moist Neck: NL Appearance and Movements; NL JVP, Trachea Midline Respiratory: Symmetrical Chest Expansion and Respiratory Effort, Clear to Auscultation Cardiovascular: NL Sounds; No Murmurs; No JVD, RRR Abdominal: NL Sounds; No Tenderness; No Distention, No Hepatosplenomegaly Lymphatic: No Cervical Adenopathy Extremities: No Edema, No Clubbing, Cyanosis Skin: No Rash or Ulcers, No Nodules or Sclerosis Neurological: Alert and Oriented x 3, - - mild flattening of R nasolabial fold, otherwise unremarkable Result Diagrams: 03/29/17 06:05 03/28/17 04:50 Additional Lab and Data: Lab Results 03/26/17 03/26/17 03/26/17 Range/Units 18:10 18:10 18:10 WBC 7.4 (3.5-10.8) 10^3/ul RBC 5.09 (4.0-5.4) 10^6/ul Hgb 10.9 L (14.0-18.0) g/dl Hct 35 L (42-52) % MCV 69 L (80-94) fL MCH 21 L (27-31) pg MCHC 31 (31-36) g/dl RDW 13 (10.5-15) % Plt Count 311 (150-450) 10^3/ul MPV 8 (7.4-10.4) um3 Neut % (Auto) 67.0 (38-83) % Lymph % (Auto) 20.1 L (25-47) % [place] % (Auto) 10.9 H (1-9) % Eos % (Auto) 1.0 (0-6) % Baso % (Auto) 1.0 (0-2) % Absolute Neuts (auto) 5.0 (1.5-7.7) 10^3/ul Absolute Lymphs (auto) 1.5 (1.0-4.8) 10^3/ul Absolute Monos (auto) 0.8 (0-0.8) 10^3/ul Absolute Eos (auto) 0.1 (0-0.6) 10^3/ul Absolute Basos (auto) 0.1 (0-0.2) 10^3/ul Absolute Nucleated RBC 0.01 10^3/ul Nucleated RBC % 0.2 Normal RBC Morphology Not Reportable Polychromasia 1+ Hypochromasia 2+ Microcytosis 1+ Elliptocytes 1+ Hem Pathologist Commnt Pending Sodium 132 L (133-145) mmol/L Potassium 4.2 (3.5-5.0) mmol/L Chloride 98 L (101-111) mmol/L Carbon Dioxide 26 (22-32) mmol/L Anion Gap 8 (2-11) mmol/L BUN 21 (6-24) mg/dL Creatinine 0.98 (0.67-1.17) mg/dL Est GFR ( Amer) 100.3 (>60) Est GFR (Non-Af Amer) 78.0 (>60) BUN/Creatinine Ratio 21.4 H (8-20) Glucose 303 H (70-100) mg/dL Lactic Acid 1.3 (0.5-2.0) mmol/L Calcium 9.4 (8.6-10.3) mg/dL Total Bilirubin 0.30 (0.2-1.0) mg/dL AST 9 L (13-39) U/L ALT 7 (7-52) U/L Alkaline Phosphatase 80 (34-104) U/L Troponin I 0.33 H* (<0.04) ng/mL Total Protein 7.5 (6.4-8.9) g/dL Albumin 3.7 (3.2-5.2) g/dL Globulin 3.8 (2-4) g/dL Albumin/Globulin Ratio 1.0 (1-3) Microbiology and Other Data: Microbiology 03/26/17 20:40 Nasal Screen MRSA (PCR)([facility]) - Final Nasal Mrsa Negative Assess/Plan/Problems-Billing Assessment: 61 yo M with h/o HTN, DM, chronic R Moreno's palsy presents with AMI - Patient Problems (1) AMI (acute myocardial infarction) Comment: Anterolateral on ECG. Troponin > 2. Cardiac cath showed 95% stenosis of proximal LAD. Continue BB, ASA, heparin. Cardiac cath likely on Sunday Cont lopressor, statin, heparin gtt, ASA (2) Anemia Comment: Fe 17, TIBC 318, ferritin 122. Hg electrophereis unremarkable. Stool guaiac one neg, one pos. EGD showing gastritis and tomy test positive. Eradication for H. Pylori with Amoxicillin/Clarithomycin/PPI ongoing (3) Diabetes Comment: Diabetic education consult appreciated. stop glipizide, cont Lispro by SS, start Lantus daily prior to planned cath. Continue to hold metformin. (4) Diabetic neuropathy Comment: gabapentin restarted (5) DVT prophylaxis Comment: haparin gtt Status and Disposition: inpatient
[2017-03-31] MEDS: Insulin GLARGINE(*) 1 UNITS UNIT SUBCUT SCH (17:40)
[2017-03-31] MEDS: Morphine INJ* 2 MG/ML 1 ML SYRINGE IV PRN (20:45)
[2017-03-31] MEDS: Atorvastatin* 80 MG TAB PO SCH (21:43)
[2017-04-01 05:43] LABS: Hematocrit 32 % (42-52); Hemoglobin 10.2 g/dl (14.0-18.0); Mean Corpuscular HGB Conc 32 g/dl (31-36); Mean Corpuscular Hemoglobin 22 pg (27-31); Mean Corpuscular Volume 69 fL (80-94); Mean Platelet Volume 8 um3 (7.4-10.4); Red Blood Count 4.66 10^6/ul (4.0-5.4); Red Cell Distribution Width 14 % (10.5-15)
[2017-04-01 05:44] LABS: Comments Flag Yes
[2017-04-01 05:59] LABS: Calcium 9.5 mg/dL (8.6-10.3); EGFR African American 105.3 (>60); EGFR Non-African American 81.9 (>60); Potassium 4.8 mmol/L (3.5-5.0)
[2017-04-01] MEDS: Insulin LISPRO* 1 UNITS UNIT SUBCUT SCH ×4 (08:13→22:55)
[2017-04-01] MEDS: Aspirin Low Dose CHEW TAB* 81 MG PO SCH (08:14)
[2017-04-01] MEDS: Omeprazole CAP* 20 MG PO SCH ×2 (08:14→21:08)
[2017-04-01] MEDS: Clarithromycin TAB* 500 MG PO SCH ×2 (08:14→21:08)
[2017-04-01] MEDS: Gabapentin CAP(*) 300 MG PO SCH ×2 (08:14→21:08)
[2017-04-01] MEDS: Amoxicillin CAP* 500 MG PO SCH ×2 (08:14→21:09)
[2017-04-01] MEDS: Docusate CAP* 100 MG PO SCH (08:15)
[2017-04-01 09:11] LABS: Troponin I 0.35 ng/mL (<0.04)
--- NOTE | 2017-04-01 09:31 | PN ---
Subjective Date of Service: 04/01/17 Interval History: pt had CP last night. Resolved within minutes. today feels well, no pain, good appetite Objective Active Medications: Acetaminophen (Tylenol Tab*) 650 mg PO Q6H PRN PRN Reason: FEVER/PAIN Amoxicillin (Amoxicillin Cap*) 1,000 mg PO BID [facility] Stop: 04/13/17 21:01 Last Admin: 04/01/17 08:14 Dose: 1,000 mg Aspirin (Aspirin Low Dose Tab*) 81 mg PO DAILY [facility] Last Admin: 04/01/17 08:14 Dose: 81 mg Atorvastatin Calcium (Lipitor*) 80 mg PO 2100 [facility] Last Admin: 03/31/17 21:43 Dose: 80 mg Clarithromycin (Biaxin Tab*) 500 mg PO BID [facility] Stop: 04/13/17 21:01 Last Admin: 04/01/17 08:14 Dose: 500 mg Docusate Sodium (Colace Cap*) 200 mg PO DAILY [facility] Last Admin: 04/01/17 08:15 Dose: 200 mg Gabapentin (Neurontin Cap(*)) 300 mg PO BID [facility] Last Admin: 04/01/17 08:14 Dose: 300 mg Heparin Sodium (Porcine) (Heparin Vial(*)) 0 units IV .BOLUS PRN PRN Reason: HEPARIN DRIP BOLUSES Last Admin: 03/27/17 00:42 Dose: 5,900 units Heparin Sodium/Dextrose (Heparin Drip 25,000 Units(*)) 25,000 units in 500 mls @ 0 mls/hr IVPB .(INITIAL RATE) [facility]; Per Protocol PRN Reason: Protocol Last Admin: 03/30/17 22:37 Dose: 21 mls/hr Sodium Chloride (Ns 0.9% 1000 Ml*) 1,000 mls @ 75 mls/hr IV PER RATE [facility] Insulin Glargine (Lantus(*)) 10 units SUBCUT Q24H [facility] Stop: 04/01/17 23:59 Last Admin: 03/31/17 17:40 Dose: 10 units Insulin Human Lispro (Humalog*) 0 units SUBCUT ACHS [facility] PRN Reason: Protocol Last Admin: 04/01/17 08:13 Dose: 2 units Metoprolol Tartrate (Lopressor Tab*) 25 mg PO BID [facility] Last Admin: 03/31/17 21:44 Dose: 25 mg Morphine Sulfate (Morphine Inj (Syringe)*) 2 mg IV Q4H PRN PRN Reason: PAIN - MILD Last Admin: 03/31/17 20:45 Dose: 2 mg Nitroglycerin (Nitroglycerin Tab 0.4 Mg*) 0.4 mg SL Q5M PRN PRN Reason: ANGINA Last Admin: 03/31/17 20:45 Dose: 0.4 mg Omeprazole (Prilosec Cap*) 20 mg PO BID [facility] Stop: 04/13/17 21:01 Last Admin: 04/01/17 08:14 Dose: 20 mg Ondansetron HCl (Zofran Inj*) 4 mg IV Q6H PRN PRN Reason: NAUSEA Last Admin: 03/31/17 20:45 Dose: 4 mg Tramadol HCl (Ultram*) 50 mg PO Q6H PRN PRN Reason: PAIN Last Admin: 03/31/17 21:44 Dose: 50 mg Vital Signs 03/31/17 03/31/17 03/31/17 10:00 11:00 11:25 Temperature 99 F Respiratory 15 Rate Blood Pressure 122/76 112/77 (mmHg) O2 Sat by Pulse 98 100 Oximetry 03/31/17 03/31/17 03/31/17 11:48 11:50 12:15 Temperature Respiratory 15 15 Rate Blood Pressure 126/90 (mmHg) O2 Sat by Pulse 92 Oximetry 03/31/17 03/31/17 03/31/17 13:00 13:39 14:00 Temperature Respiratory 15 Rate Blood Pressure 116/63 (mmHg) O2 Sat by Pulse 97 98 Oximetry 03/31/17 03/31/17 03/31/17 14:01 15:00 15:23 Temperature 99.5 F Respiratory 14 Rate Blood Pressure 114/83 (mmHg) O2 Sat by Pulse 97 Oximetry 03/31/17 03/31/17 03/31/17 15:49 16:00 17:00 Temperature Respiratory 14 Rate Blood Pressure 125/88 137/91 (mmHg) O2 Sat by Pulse 97 98 Oximetry 03/31/17 03/31/17 03/31/17 17:12 17:44 18:00 Temperature Respiratory 14 17 Rate Blood Pressure 151/103 (mmHg) O2 Sat by Pulse 100 Oximetry 03/31/17 03/31/17 03/31/17 19:00 19:35 20:00 Temperature 99.6 F Respiratory 20 22 Rate Blood Pressure 127/78 131/84 (mmHg) O2 Sat by Pulse 97 96 Oximetry 03/31/17 03/31/17 03/31/17 20:45 20:56 21:00 Temperature Respiratory 24 Rate Blood Pressure 177/137 154/106 142/96 (mmHg) O2 Sat by Pulse 98 95 95 Oximetry 03/31/17 03/31/17 03/31/17 21:29 22:00 23:00 Temperature Respiratory 24 24 16 Rate Blood Pressure 165/105 (mmHg) O2 Sat by Pulse 99 97 Oximetry 03/31/17 04/01/17 04/01/17 23:51 00:00 00:01 Temperature 99.0 F Respiratory 16 Rate Blood Pressure 116/77 (mmHg) O2 Sat by Pulse 97 97 Oximetry 04/01/17 04/01/17 04/01/17 01:00 02:00 03:00 Temperature Respiratory 14 14 16 Rate Blood Pressure 127/85 117/68 112/77 (mmHg) O2 Sat by Pulse 97 97 97 Oximetry 04/01/17 04/01/17 04/01/17 04:00 05:00 06:00 Temperature 98.2 F Respiratory 16 16 16 Rate Blood Pressure 103/72 107/73 115/85 (mmHg) O2 Sat by Pulse 97 98 95 Oximetry 04/01/17 04/01/17 07:00 07:25 Temperature 98.3 F Respiratory 16 Rate Blood Pressure 113/77 (mmHg) O2 Sat by Pulse 96 Oximetry Oxygen Devices in Use Now: None Appearance: 61 yo M in nAD, AAOx3 Eyes: No Scleral Icterus, PERRLA Ears/Nose/Mouth/Throat: NL Teeth, Lips, Gums, Mucous Membranes Moist Neck: NL Appearance and Movements; NL JVP, Trachea Midline Respiratory: Symmetrical Chest Expansion and Respiratory Effort, Clear to Auscultation Cardiovascular: NL Sounds; No Murmurs; No JVD, RRR Abdominal: NL Sounds; No Tenderness; No Distention Lymphatic: No Cervical Adenopathy Extremities: No Edema, No Clubbing, Cyanosis Skin: No Rash or Ulcers, No Nodules or Sclerosis Neurological: - - R Moreno's palsy present Result Diagrams: 04/01/17 05:34 04/01/17 05:34 Additional Lab and Data: Lab Results 03/26/17 03/26/17 03/26/17 Range/Units 18:10 18:10 18:10 WBC 7.4 (3.5-10.8) 10^3/ul RBC 5.09 (4.0-5.4) 10^6/ul Hgb 10.9 L (14.0-18.0) g/dl Hct 35 L (42-52) % MCV 69 L (80-94) fL MCH 21 L (27-31) pg MCHC 31 (31-36) g/dl RDW 13 (10.5-15) % Plt Count 311 (150-450) 10^3/ul MPV 8 (7.4-10.4) um3 Neut % (Auto) 67.0 (38-83) % Lymph % (Auto) 20.1 L (25-47) % [place] % (Auto) 10.9 H (1-9) % Eos % (Auto) 1.0 (0-6) % Baso % (Auto) 1.0 (0-2) % Absolute Neuts (auto) 5.0 (1.5-7.7) 10^3/ul Absolute Lymphs (auto) 1.5 (1.0-4.8) 10^3/ul Absolute Monos (auto) 0.8 (0-0.8) 10^3/ul Absolute Eos (auto) 0.1 (0-0.6) 10^3/ul Absolute Basos (auto) 0.1 (0-0.2) 10^3/ul Absolute Nucleated RBC 0.01 10^3/ul Nucleated RBC % 0.2 Normal RBC Morphology Not Reportable Polychromasia 1+ Hypochromasia 2+ Microcytosis 1+ Elliptocytes 1+ Hem Pathologist Commnt Pending Sodium 132 L (133-145) mmol/L Potassium 4.2 (3.5-5.0) mmol/L Chloride 98 L (101-111) mmol/L Carbon Dioxide 26 (22-32) mmol/L Anion Gap 8 (2-11) mmol/L BUN 21 (6-24) mg/dL Creatinine 0.98 (0.67-1.17) mg/dL Est GFR ( Amer) 100.3 (>60) Est GFR (Non-Af Amer) 78.0 (>60) BUN/Creatinine Ratio 21.4 H (8-20) Glucose 303 H (70-100) mg/dL Lactic Acid 1.3 (0.5-2.0) mmol/L Calcium 9.4 (8.6-10.3) mg/dL Total Bilirubin 0.30 (0.2-1.0) mg/dL AST 9 L (13-39) U/L ALT 7 (7-52) U/L Alkaline Phosphatase 80 (34-104) U/L Troponin I 0.33 H* (<0.04) ng/mL Total Protein 7.5 (6.4-8.9) g/dL Albumin 3.7 (3.2-5.2) g/dL Globulin 3.8 (2-4) g/dL Albumin/Globulin Ratio 1.0 (1-3) Microbiology and Other Data: Microbiology 03/26/17 20:40 Nasal Screen MRSA (PCR)([facility]) - Final Nasal Mrsa Negative Assess/Plan/Problems-Billing Assessment: 61 yo M with h/o HTN, DM, chronic R Moerno's palsy presents with AMI - Patient Problems (1) AMI (acute myocardial infarction) Comment: Anterolateral on ECG. Troponin > 2. Cardiac cath showed 95% stenosis of proximal LAD. CP on 02/28/17 night, EKG with resolution of neg T waves in leads V4-V6. Continue BB ( but will lower the dose of Lopressor form 25 to 12.4 due to hypotension on 02/28/17), ASA, heparin. Cardiac cath likely on Sunday Cont lopressor, statin, heparin gtt, ASA (2) Anemia Comment: Fe 17, TIBC 318, ferritin 122. Hg electrophereis unremarkable. Stool guaiac one neg, one pos. EGD showing gastritis and tomy test positive. Eradication for H. Pylori with Amoxicillin/Clarithomycin/PPI ongoing As per Dr. Vang the risk of bleeding on dual antiplatelet tx is low, "but not 0". Hb stable (3) Diabetes Comment: Diabetic education consult appreciated. Glipizide held, cont Lispro by SS, cont Lantus daily prior to planned cath. Continue to hold metformin. (4) Diabetic neuropathy Comment: gabapentin restarted (5) DVT prophylaxis Comment: haparin gtt Status and Disposition: inpatient
[2017-04-01] MEDS ORDERED: Senna TAB PO ONE (12:28)
[2017-04-01] MEDS ORDERED: Magnesium Hydroxide LIQ* 30 ML UDC PO ONE (12:28)
[2017-04-01] MEDS: Metoprolol Tartrate TAB* 25 MG PO SCH ×2 (15:24→21:09)
[2017-04-01] MEDS: Insulin GLARGINE(*) 1 UNITS UNIT SUBCUT SCH (17:46)
[2017-04-01] MEDS: Nitroglycerin TAB 0.4 MG* 0.4 MG TAB SL PRN ×3 (18:09→18:22)
[2017-04-01] MEDS: Morphine INJ* 2 MG/ML 1 ML SYRINGE IV PRN ×2 (18:11→22:42)
[2017-04-01] MEDS: Nitroglycerin 2% OINT* 1 GM PAK TOPICAL SCH (18:28)
[2017-04-01] MEDS: Atorvastatin* 80 MG TAB PO SCH (21:09)
[2017-04-01] MEDS: traMADol TAB* 50 MG PO PRN (22:43)
[2017-04-01] MEDS: Heparin DRIP 25,000 UNITS(*) 25,000 UNITS/500 ML BAG IVPB SCH (23:05)
[2017-04-01] MEDS ORDERED: NS 0.9% 1000 ML* 1,000 ML IV SCH (23:55)
[2017-04-02] MEDS ORDERED: Morphine INJ* 2 MG/ML 1 ML SYRINGE IV PRN (01:45)
[2017-04-02] MEDS ORDERED: Morphine INJ* 4 MG/ML 1 ML SYRINGE ONE (02:00)
[2017-04-02] MEDS: Nitroglycerin 2% OINT* 1 GM PAK TOPICAL SCH ×2 (02:08→12:15)
[2017-04-02] MEDS ORDERED: Morphine INJ* 4 MG/ML 1 ML SYRINGE IV PRN (02:59)
[2017-04-02 06:21] LABS: Hematocrit 30 % (42-52); Hemoglobin 9.8 g/dl (14.0-18.0); Mean Corpuscular HGB Conc 32 g/dl (31-36); Mean Corpuscular Hemoglobin 22 pg (27-31); Mean Platelet Volume 8 um3 (7.4-10.4); Red Blood Count 4.47 10^6/ul (4.0-5.4); Red Cell Distribution Width 14 % (10.5-15); White Blood Count 8.7 10^3/ul (3.5-10.8)
[2017-04-02 06:23] LABS: Comments Flag Yes; Mean Corpuscular Volume 68 fL (80-94)
[2017-04-02 06:52] LABS: BUN/Creatinine Ratio 13.8 (8-20); Calcium 9.1 mg/dL (8.6-10.3); EGFR African American 105.3 (>60); EGFR Non-African American 81.9 (>60); Potassium 4.7 mmol/L (3.5-5.0)
[2017-04-02] MEDS: Insulin LISPRO* 1 UNITS UNIT SUBCUT SCH ×4 (07:47→20:41)
[2017-04-02] MEDS ORDERED: traMADol TAB* 50 MG PO PRN (08:17)
[2017-04-02] MEDS: Amoxicillin CAP* 500 MG PO SCH ×2 (08:36→20:39)
[2017-04-02] MEDS: Omeprazole CAP* 20 MG PO SCH (08:36)
[2017-04-02] MEDS: Docusate CAP* 100 MG PO SCH (08:36)
[2017-04-02] MEDS: Clarithromycin TAB* 500 MG PO SCH ×2 (08:36→20:41)
[2017-04-02] MEDS: Aspirin Low Dose CHEW TAB* 81 MG PO SCH (08:37)
[2017-04-02] MEDS: Metoprolol Tartrate TAB* 25 MG PO SCH ×2 (08:37→20:39)
[2017-04-02] MEDS: Gabapentin CAP(*) 300 MG PO SCH ×2 (08:37→20:38)
[2017-04-02] MEDS ORDERED: Clopidogrel TAB* 300 MG PO ONE (08:55)
[2017-04-02] MEDS ORDERED: Pantoprazole TAB (NF) 40 MG TAB PO SCH (09:00)
--- NOTE | 2017-04-02 09:11 | PN ---
Subjective Date of Service: 04/02/17 Interval History: No chest pain, cough, SOB. Objective Active Medications: Acetaminophen (Tylenol Tab*) 650 mg PO Q6H PRN PRN Reason: FEVER/PAIN Hydrocodone Bitart/Acetaminophen ([place] 5-325 Tab*) 1 tab PO Q6H PRN PRN Reason: PAIN Amoxicillin (Amoxicillin Cap*) 1,000 mg PO BID [facility] Stop: 04/13/17 21:01 Last Admin: 04/02/17 08:36 Dose: 1,000 mg Aspirin (Aspirin Low Dose Tab*) 81 mg PO DAILY [facility] Last Admin: 04/02/17 08:37 Dose: 81 mg Atorvastatin Calcium (Lipitor*) 80 mg PO 2100 [facility] Last Admin: 04/01/17 21:09 Dose: 80 mg Clarithromycin (Biaxin Tab*) 500 mg PO BID [facility] Stop: 04/13/17 21:01 Last Admin: 04/02/17 08:36 Dose: 500 mg Clopidogrel Bisulfate (Plavix Tab*) 600 mg PO ONCE ONE Stop: 04/02/17 08:56 Docusate Sodium (Colace Cap*) 200 mg PO DAILY [facility] Last Admin: 04/02/17 08:36 Dose: 200 mg Gabapentin (Neurontin Cap(*)) 300 mg PO BID [facility] Last Admin: 04/02/17 08:37 Dose: 300 mg Heparin Sodium (Porcine) (Heparin Vial(*)) 0 units IV .BOLUS PRN PRN Reason: HEPARIN DRIP BOLUSES Last Admin: 03/27/17 00:42 Dose: 5,900 units Heparin Sodium/Dextrose (Heparin Drip 25,000 Units(*)) 25,000 units in 500 mls @ 0 mls/hr IVPB .(INITIAL RATE) [facility]; Per Protocol PRN Reason: Protocol Last Admin: 04/01/17 23:05 Dose: 21 mls/hr Sodium Chloride (Ns 0.9% 1000 Ml*) 1,000 mls @ 75 mls/hr IV PER RATE [facility] Last Admin: 04/01/17 22:50 Dose: 75 mls/hr Insulin Human Lispro (Humalog*) 0 units SUBCUT ACHS [facility] PRN Reason: Protocol Last Admin: 04/02/17 07:47 Dose: Not Given Metoprolol Tartrate (Lopressor Tab*) 12.5 mg PO BID [facility] Last Admin: 04/02/17 08:37 Dose: 12.5 mg Morphine Sulfate (Morphine Inj (Syringe)*) 4 mg IV Q2H PRN PRN Reason: PAIN - MILD Nitroglycerin (Nitroglycerin Tab 0.4 Mg*) 0.4 mg SL Q5M PRN PRN Reason: ANGINA Last Admin: 04/01/17 18:22 Dose: 0.4 mg Nitroglycerin (Nitroglycerin 2% Oint*) 1 inch TOPICAL Q8H [facility] Last Admin: 04/02/17 02:08 Dose: 1 inch Omeprazole (Prilosec Cap*) 20 mg PO BID [facility] Stop: 04/13/17 21:01 Last Admin: 04/02/17 08:36 Dose: 20 mg Ondansetron HCl (Zofran Inj*) 4 mg IV Q6H PRN PRN Reason: NAUSEA Last Admin: 03/31/17 20:45 Dose: 4 mg Pantoprazole Sodium (Protonix Tab (Nf)) 40 mg PO BID [facility] Last Admin: 04/02/17 09:02 Dose: Not Given Tramadol HCl (Ultram*) 50 mg PO BID PRN PRN Reason: PAIN Vital Signs 04/01/17 04/01/17 04/01/17 10:00 10:15 11:00 Temperature Respiratory 20 16 Rate Blood Pressure 111/68 109/67 106/72 (mmHg) O2 Sat by Pulse 96 97 97 Oximetry 04/01/17 04/01/17 04/01/17 11:41 12:00 13:00 Temperature 98.9 F Respiratory 16 20 Rate Blood Pressure 123/78 (mmHg) O2 Sat by Pulse 96 Oximetry 04/01/17 04/01/17 04/01/17 13:01 14:00 15:00 Temperature Respiratory 18 20 Rate Blood Pressure 119/82 116/86 (mmHg) O2 Sat by Pulse 95 92 Oximetry 04/01/17 04/01/17 04/01/17 15:19 16:00 16:22 Temperature 99 F Respiratory 22 Rate Blood Pressure 97/78 (mmHg) O2 Sat by Pulse 98 97 Oximetry 04/01/17 04/01/17 04/01/17 17:00 17:36 18:00 Temperature Respiratory 20 22 Rate Blood Pressure 113/87 (mmHg) O2 Sat by Pulse 98 98 Oximetry 04/01/17 04/01/17 04/01/17 18:11 18:14 18:37 Temperature Respiratory 21 Rate Blood Pressure 154/92 110/77 (mmHg) O2 Sat by Pulse 98 Oximetry 04/01/17 04/01/17 04/01/17 19:00 20:00 21:00 Temperature Respiratory 18 16 15 Rate Blood Pressure 118/75 118/72 111/70 (mmHg) O2 Sat by Pulse 98 98 97 Oximetry 04/01/17 04/01/17 04/01/17 22:00 22:42 23:00 Temperature Respiratory 15 18 15 Rate Blood Pressure 138/85 116/73 (mmHg) O2 Sat by Pulse 96 98 Oximetry 04/01/17 04/01/17 04/01/17 23:14 23:21 23:32 Temperature 98.2 F Respiratory 15 Rate Blood Pressure (mmHg) O2 Sat by Pulse 97 Oximetry 04/02/17 04/02/17 04/02/17 00:00 00:01 01:00 Temperature Respiratory 16 Rate Blood Pressure 113/72 115/70 (mmHg) O2 Sat by Pulse 97 97 96 Oximetry 04/02/17 04/02/17 04/02/17 02:00 02:02 03:00 Temperature Respiratory 15 16 16 Rate Blood Pressure 81/65 (mmHg) O2 Sat by Pulse 99 94 Oximetry 04/02/17 04/02/17 04/02/17 03:39 04:00 05:00 Temperature 97.7 F Respiratory 16 15 Rate Blood Pressure (mmHg) O2 Sat by Pulse 96 95 Oximetry 04/02/17 04/02/17 04/02/17 05:40 06:00 06:19 Temperature Respiratory 15 Rate Blood Pressure 125/75 (mmHg) O2 Sat by Pulse 97 98 Oximetry 04/02/17 04/02/17 07:00 08:00 Temperature 99.1 F Respiratory 18 18 Rate Blood Pressure 108/72 109/74 (mmHg) O2 Sat by Pulse 96 98 Oximetry Oxygen Devices in Use Now: None Appearance: Alert, partly up in bed. In good spirits. Looks comfortable. Eyes: No Scleral Icterus Ears/Nose/Mouth/Throat: Clear Oropharnyx, Mucous Membranes Moist Neck: NL Appearance and Movements; NL JVP, No Thyroid Enlargement, Masses Respiratory: Symmetrical Chest Expansion and Respiratory Effort, Clear to Auscultation, Clear to Percussion Cardiovascular: NL Sounds; No Murmurs; No JVD, RRR, No Edema, - Extremities: No Edema, No Clubbing, Cyanosis, - Skin: No Rash or Ulcers, No Nodules or Sclerosis, - Neurological: Alert and Oriented x 3, NL Sensation Result Diagrams: 04/02/17 06:05 04/02/17 06:05 Additional Lab and Data: Lab Results 03/26/17 03/26/17 03/26/17 Range/Units 18:10 18:10 18:10 WBC 7.4 (3.5-10.8) 10^3/ul RBC 5.09 (4.0-5.4) 10^6/ul Hgb 10.9 L (14.0-18.0) g/dl Hct 35 L (42-52) % MCV 69 L (80-94) fL MCH 21 L (27-31) pg MCHC 31 (31-36) g/dl RDW 13 (10.5-15) % Plt Count 311 (150-450) 10^3/ul MPV 8 (7.4-10.4) um3 Neut % (Auto) 67.0 (38-83) % Lymph % (Auto) 20.1 L (25-47) % [place] % (Auto) 10.9 H (1-9) % Eos % (Auto) 1.0 (0-6) % Baso % (Auto) 1.0 (0-2) % Absolute Neuts (auto) 5.0 (1.5-7.7) 10^3/ul Absolute Lymphs (auto) 1.5 (1.0-4.8) 10^3/ul Absolute Monos (auto) 0.8 (0-0.8) 10^3/ul Absolute Eos (auto) 0.1 (0-0.6) 10^3/ul Absolute Basos (auto) 0.1 (0-0.2) 10^3/ul Absolute Nucleated RBC 0.01 10^3/ul Nucleated RBC % 0.2 Normal RBC Morphology Not Reportable Polychromasia 1+ Hypochromasia 2+ Microcytosis 1+ Elliptocytes 1+ Hem Pathologist Commnt Pending Sodium 132 L (133-145) mmol/L Potassium 4.2 (3.5-5.0) mmol/L Chloride 98 L (101-111) mmol/L Carbon Dioxide 26 (22-32) mmol/L Anion Gap 8 (2-11) mmol/L BUN 21 (6-24) mg/dL Creatinine 0.98 (0.67-1.17) mg/dL Est GFR ( Amer) 100.3 (>60) Est GFR (Non-Af Amer) 78.0 (>60) BUN/Creatinine Ratio 21.4 H (8-20) Glucose 303 H (70-100) mg/dL Lactic Acid 1.3 (0.5-2.0) mmol/L Calcium 9.4 (8.6-10.3) mg/dL Total Bilirubin 0.30 (0.2-1.0) mg/dL AST 9 L (13-39) U/L ALT 7 (7-52) U/L Alkaline Phosphatase 80 (34-104) U/L Troponin I 0.33 H* (<0.04) ng/mL Total Protein 7.5 (6.4-8.9) g/dL Albumin 3.7 (3.2-5.2) g/dL Globulin 3.8 (2-4) g/dL Albumin/Globulin Ratio 1.0 (1-3) Microbiology and Other Data: Microbiology 03/26/17 20:40 Nasal Screen MRSA (PCR)([facility]) - Final Nasal Mrsa Negative Assess/Plan/Problems-Billing Assessment: 61 yo M with h/o HTN, DM, chronic R Moreno's palsy presents with AMI - Patient Problems (1) AMI (acute myocardial infarction) Current Visit: Yes Status: Acute Code(s): I21.3 - ST ELEVATION (STEMI) MYOCARDIAL INFARCTION OF RUST SITE SNOMED Code(s): 69464982 Comment: Anterolateral on ECG. Troponin > 2. Cardiac cath showed 95% stenosis of proximal LAD. CP on 02/28/17 night, EKG with resolution of neg T waves in leads V4-V6. Continue BB ( but will lower the dose of Lopressor form 25 to 12.4 due to hypotension on 02/28/17), ASA, heparin. Cardiac cath planned 04/02, discussed with Dr. Truong. He plans on using a bare-metal stent. To get loading dose of clopidogrel. Change from omeprazole to pantoprazole. Cont lopressor, statin, heparin gtt, ASA (2) Diabetes Current Visit: Yes Status: Acute Code(s): E11.9 - TYPE 2 DIABETES MELLITUS WITHOUT COMPLICATIONS SNOMED Code(s): 87049674 Comment: Diabetic education consult appreciated. Glipizide held, cont Lispro by SS, cont Lantus daily prior to planned cath. Continue to hold metformin. FS glucose in acceptable range as of 04/02. (3) Anemia Current Visit: Yes Status: Acute Code(s): D64.9 - ANEMIA, UNSPECIFIED SNOMED Code(s): 046278058 Comment: Fe 17, TIBC 318, ferritin 122. Hg electrophereis unremarkable. Stool guaiac one neg, one pos. EGD showing gastritis and tomy test positive. Eradication for H. Pylori with Amoxicillin/Clarithomycin/PPI ongoing. As per Dr. Vang the risk of bleeding on dual antiplatelet tx is low, "but not 0". Hb stable. Iron sucrose one dose 04/02, start oral FeSO4 04/03. Status and Disposition: inpatient
[2017-04-02] MEDS: HYDROcodone/ACETAMIN 5-325 MG* 1 TAB PO PRN ×2 (09:33→23:08)
[2017-04-02] MEDS ORDERED: VERAPAMIL 2.5 MG/ML 4 ML VIAL ONE (10:14)
[2017-04-02] MEDS ORDERED: fentaNYL* 50 MCG/ML 2 ML VIAL (100 MCG VIAL) ONE (10:14)
[2017-04-02] MEDS ORDERED: Midazolam* 1 MG/ML 5 ML VIAL (5 MG) ONE (10:14)
[2017-04-02] MEDS ORDERED: Heparin(*) 1000 UNIT/ML 10 ML VIAL CATH LAB IV ONE (10:14)
[2017-04-02] MEDS ORDERED: Lidocaine 1% INJ* 10 MG/ML 30 ML SDV ONE (10:15)
[2017-04-02] MEDS ORDERED: nitroGLYCERIN DRIP* 250 ML ONE (10:15)
[2017-04-02] MEDS ORDERED: Iohexol 350 (CONTRAST) 200 ML MDV IV ONE (10:15)
[2017-04-02] MEDS ORDERED: Heparin 2 UNITS/ML IVPREMIX* 2,000 ML IV ONE (10:15)
[2017-04-02] MEDS ORDERED: Iron Sucrose* 200 MG in NS 0.9% 250 ML* 250 ML IVPB ONE (10:30)
[2017-04-02] MEDS ORDERED: Bivalirudin(*) 250 MG VIAL ONE (11:19)
[2017-04-02] MEDS ORDERED: Nitroglycerin TAB 0.4 MG* 0.4 MG TAB SL PRN (11:31)
[2017-04-02] MEDS ORDERED: NS 0.9% 1000 ML* 1,000 ML IV SCH (11:45)
[2017-04-02] MEDS: CMC: Pantoprazole TAB (NF) 40 MG TAB PO SCH (20:38)
[2017-04-02] MEDS: Atorvastatin* 80 MG TAB PO SCH (20:40)
--- NOTE | 2017-04-03 03:32 | CATH ---
CC: Dr. Nena Rush; Dr. Sandor Fontaine * INTERVENTIONAL REPORT: DATE OF PROCEDURE: 04/02/17 - ROOM #ICU-08 INDICATION FOR THE PROCEDURE: The patient with acute coronary syndrome with critical proximal 95% LAD lesion, now for intervention using bare metal stent( preference of patient's primary slab grinder, Dr. Fontaine, due to history of anemia and microcytic indices). The procedure was primary stenting of the proximal LAD with a 4.0 x 16 mm Rebel bare metal stent in proximal LAD. The patient was interviewed and examined in the intensive care unit where the risks and benefits were explained. He understood them and wished to proceed. The right radial artery was assessed in the intensive care unit under ultrasound for its size and was found to be acceptable for right radial artery approach. The patient was brought into the cardiovascular laboratory where a formal time- out was performed. The patient was prepped and draped in a sterile fashion. A right radial artery area was anesthetized with 1% lidocaine, right radial artery was cannulated and a 6-[place] Glidesheath introducer was placed. Guiding views were obtained using a 6-[place]ese VL 3.5 curve left coronary guide catheter. This was advanced over a Bright exchange length wire. An ACT was checked and found to be under 200, and as such, an Angiomax bolus and an Angiomax drip was started. The heparin drip was then stopped at this point. The patient did receive a radial artery cocktail including 300 mcg of nitroglycerin and 3 mg of verapamil intraarterial at the time of sheath placement. A 0.014 BMW guidewire was advanced down the left anterior descending artery. The length of the lesion was assessed utilizing the visible portion of the distal portion of the BMW wire. A 4.0 x 16 mm long Rebel bare-metal stent was advanced to the obstruction and deployed followed by post-deployment inflations using high pressures to mid 20 atmospheres utilizing a 4.0 x 8 mm long NC Emerge balloon. The artery was assessed in 2 views post stent placement. RESULTS: INTERVENTION INTO PROXIMAL LEFT ANTERIOR DESCENDING ARTERY: Successful reduction of critical 95% to less than 5% residual narrowing with primary stenting utilizing a 4.0 x 16 mm long Rebel bare-metal stent post dilated to 4.1 to 4.2 mm with high pressure balloon inflation with TIMI3 flow and no dissection seen. OVERALL ASSESSMENT: Successful intervention into proximal LAD as described above. The patient should be maintained ideally on dual-antiplatelet therapy for a year's time given the presentation of acute coronary syndrome. However, given the fact that this is a bare-metal stent, if deemed absolutely necessary due to a more life threatening condition, the clopidogrel could be stopped after 6 weeks and baby aspirin 81 mg maintained for life. This will be under the discretion of Dr. Sandor Fontaine, the patient's primary slab grinder, who will be watching along. High-dose statin therapy is already in place and beta jose f therapy has also been established. [id number]/[facility] #: [id number] MTDD
[2017-04-03 06:06] LABS: Hematocrit 31 % (42-52); Hemoglobin 9.7 g/dl (14.0-18.0); Mean Corpuscular HGB Conc 32 g/dl (31-36); Mean Corpuscular Hemoglobin 22 pg (27-31); Mean Platelet Volume 8 um3 (7.4-10.4); Red Blood Count 4.47 10^6/ul (4.0-5.4); Red Cell Distribution Width 13 % (10.5-15); White Blood Count 7.4 10^3/ul (3.5-10.8)
[2017-04-03 06:08] LABS: Comments Flag Yes; Mean Corpuscular Volume 69 fL (80-94)
[2017-04-03 06:20] LABS: Albumin 3.2 g/dL (3.2-5.2); BUN/Creatinine Ratio 18.5 (8-20); Calcium 8.7 mg/dL (8.6-10.3); EGFR Non-African American 97.2 (>60); Globulin 3.5 g/dL (2-4); HDL Cholesterol 26.5 mg/dL; Potassium 4.1 mmol/L (3.5-5.0); Total Bilirubin 0.3 mg/dL (0.2-1.0); Total Protein 6.7 g/dL (6.4-8.9)
[2017-04-03] MEDS: Insulin LISPRO* 1 UNITS UNIT SUBCUT SCH (08:35)
[2017-04-03] MEDS ORDERED: Clopidogrel TAB* 75 MG PO SCH (09:00)
[2017-04-03] MEDS ORDERED: Ferrous Sulfate TAB* 325 MG PO SCH (09:00)
[2017-04-03] MEDS: Aspirin Low Dose CHEW TAB* 81 MG PO SCH (10:58)
[2017-04-03] MEDS: Docusate CAP* 100 MG PO SCH (10:59)
[2017-04-03] MEDS: Clarithromycin TAB* 500 MG PO SCH (10:59)
[2017-04-03] MEDS: Gabapentin CAP(*) 300 MG PO SCH (10:59)
[2017-04-03] MEDS: Amoxicillin CAP* 500 MG PO SCH (10:59)
[2017-04-03] MEDS: CMC: Pantoprazole TAB (NF) 40 MG TAB PO SCH (11:00)
[2017-04-03] MEDS: Metoprolol Tartrate TAB* 25 MG PO SCH (11:00)
--- NOTE | 2017-04-03 11:26 | PN ---
Progress Note - Progress Note Note: Time spent on discharge [address] Fontaine.
[2017-04-03] MEDS ORDERED: Clarithromycin TAB* 500 MG PO SCH (11:30)
[2017-04-03] MEDS ORDERED: Amoxicillin CAP* 500 MG PO SCH (11:30)
[2017-04-03] MEDS ORDERED: Losartan TAB* 25 MG PO SCH (12:00)
[2017-04-03 13:01] VITALS: BP 129/84
--- NOTE | 2017-04-03 16:12 | DS ---
CC: Nena Rush MD; Dr. Fontaine * DISCHARGE SUMMARY: DATE OF ADMISSION: 03/26/17 DATE OF DISCHARGE: 04/03/17 HOSPITAL COURSE: This 61-year-old man presented with chest pain. He was found to be having an acute myocardial infarction. He was admitted to the intensive care unit. His troponin initially was 0.33, it peaked at 2.22. He underwent transthoracic echocardiogram and cardiac catheterization. He had to have a second cardiac catheterization for insertion of a stent as he was being evaluated for GI bleeding between the two cardiac catheterizations. Transthoracic echocardiogram done on March 27 showed ejection fraction of 35% to 40%. There was abnormal left ventricular diastolic function. There was wall motion abnormalities in the anteroseptal, inferoseptal, apical septal _ apical anterior wall segments. The overall wall motion score index was 1.25. Cardiac catheterization on March 27 showed 95% proximal LAD lesion. Because of his microcytic anemia, he was evaluated for GI bleeding. Dr. Vang saw him and did endoscopy on 03/30/17. There was no active bleeding. There was mild duodenitis and gastritis. Biopsy for H. pylori was positive. The CLOtest was reported as positive and on 03/31/17, the patient was started on amoxicillin 1000 mg b.i.d. and clarithromycin 500 mg b.i.d. to continue for 14 days, both medications. FINAL DIAGNOSES: 1. Acute myocardial infarction. 2. Ischemic cardiomyopathy with diminished ejection fraction. 3. Diabetes. 4. Iron-deficiency anemia. 5. Mild duodenitis and gastritis. I note the patient did receive diabetic education while in the hospital. DISCHARGE MEDICATIONS: 1. Aspirin 81 mg daily. 2. Atorvastatin 80 mg daily at 9 p.m. 3. Clopidogrel 75 mg daily. 4. Ferrous sulfate 325 mg daily. 5. Metoprolol tartrate 12.5 mg b.i.d. 6. Nitroglycerin 0.4 mg sublingual every 5 minutes p.r.n. 7. Pantoprazole 40 mg b.i.d. 8. Losartan 50 mg daily. 9. Metformin 1000 mg b.i.d., to start on 04/05/17. 10. Prednisolone 1 drop both eyes b.i.d. 11. Glipizide 10 mg b.i.d. 12. Vitamin B12 500 mcg daily. 13. EpiPen as needed. 14. Tramadol as prescribed. 15. Gabapentin 300 mg b.i.d. 16. Hydrocodone/acetaminophen 5/325 mg as prescribed. [id number]/[facility] #: [id number] MTDD
== END 2017-04-03 12:50 | disposition home or self-care (01) | DRG 249 ==
LOC: ED 16:52 → ICU 19:39
PROVIDERS: ADMIT Hospitalist; ATTEND Internal Medicine
PROC: 4A023N7 Measurement of Cardiac Sampling and Pressure, Left Heart, Percutaneous Approach (ICD-10-PCS; 2017-03-27)
PROC: B2111ZZ Fluoroscopy of Multiple Coronary Arteries using Low Osmolar Contrast (ICD-10-PCS; 2017-03-27)
PROC: 0DB78ZX Excision of Stomach, Pylorus, Via Natural or Artificial Opening Endoscopic, Diagnostic (ICD-10-PCS; principal; 2017-03-30)
PROC: 02703DZ Dilation of Coronary Artery, One Artery with Intraluminal Device, Percutaneous Approach (ICD-10-PCS; 2017-04-02)
PROC: 3E03317 Introduction of Other Thrombolytic into Peripheral Vein, Percutaneous Approach (ICD-10-PCS; 2017-04-02)
PROC: 4A023N7 Measurement of Cardiac Sampling and Pressure, Left Heart, Percutaneous Approach (ICD-10-PCS; 2017-04-02)
DX: I21.4 Non-ST elevation (NSTEMI) myocardial infarction (principal); E11.40 Type 2 diabetes mellitus with diabetic neuropathy, unspecified; K29.80 Duodenitis without bleeding; K29.70 Gastritis, unspecified, without bleeding; I25.5 Ischemic cardiomyopathy; Z79.82 Long term (current) use of aspirin; Z79.02 Long term (current) use of antithrombotics/antiplatelets; Z79.84 Long term (current) use of oral hypoglycemic drugs; I10 Essential (primary) hypertension; E78.5 Hyperlipidemia, unspecified; Z88.8 Allergy status to other drugs, medicaments and biological substances; Z91.040 Latex allergy status; Z91.030 Bee allergy status; Z98.42 Cataract extraction status, left eye; Z98.41 Cataract extraction status, right eye; Z94.7 Corneal transplant status; Z87.891 Personal history of nicotine dependence; Z83.3 Family history of diabetes mellitus; Z82.3 Family history of stroke; D50.8 Other iron deficiency anemias; Z82.49 Family history of ischemic heart disease and other diseases of the circulatory system; I25.10 Atherosclerotic heart disease of native coronary artery without angina pectoris; R10.31 Right lower quadrant pain; M25.551 Pain in right hip; M25.512 Pain in left shoulder; M25.511 Pain in right shoulder; K44.9 Diaphragmatic hernia without obstruction or gangrene; E11.65 Type 2 diabetes mellitus with hyperglycemia
CPT/HCPCS: 36415; 71010; 76937; 80048; 80053; 80061; 80307; 82272; 82550; 82553; 82728; 83020; 83540; 83550; 83605; 83880; 84484; 85014; 85018; 85025; 85027; 85060; 85379; 85730; 86140; 87077; 87641; 93005; 93306; 93454; 94760; 99203; 99221; A9270-GY; C1725; C1760; C1769; C1876; C1887; G0463; J1644; J1756; J2001; J2250; J2270; J2405; J3010

== ENCOUNTER 2017-04-10 16:04 | Emergency (ER) | payer MEDICARE, MEDICAID ==
[2017-04-10 18:12] LABS: Comments Flag Yes; Hematocrit 32 % (42-52); Hemoglobin 9.9 g/dl (14.0-18.0); Mean Corpuscular HGB Conc 31 g/dl (31-36); Mean Corpuscular Hemoglobin 21 pg (27-31); Mean Corpuscular Volume 67 fL (80-94); Mean Platelet Volume 7 um3 (7.4-10.4); Red Cell Distribution Width 14 % (10.5-15); White Blood Count 9.1 10^3/ul (3.5-10.8)
[2017-04-10 18:38] LABS: Troponin I 0.03 ng/mL (<0.04)
[2017-04-10 18:44] LABS: Albumin 3.6 g/dL (3.2-5.2); BUN/Creatinine Ratio 18.4 (8-20); Calcium 9.9 mg/dL (8.6-10.3); EGFR African American 84.3 (>60); EGFR Non-African American 65.5 (>60); Globulin 4.2 g/dL (2-4); Potassium 4.3 mmol/L (3.5-5.0); Total Bilirubin 0.4 mg/dL (0.2-1.0); Total Protein 7.8 g/dL (6.4-8.9)
[2017-04-10] MEDS ORDERED: HYDROcodone/ACETAMIN 5-325 MG* 1 TAB PO ONE (19:58)
--- NOTE | 2017-04-10 20:04 | ED ---
Beatriz Kam Edward, scribed for Erick Zuniga MD on 04/10/17 at 1728 . Upper Extremity Pain - HPI Summary HPI Summary: 61 y/o male presents to ED c/o intermittent, bilateral shoulder pain. Patient's shoulder pain started a few weeks ago, is rated at greater than a 10/10, and is movement-induced. Alleviating factors: lying down. Aggravating factors: movement. No trauma stated. Associated sx: lower R back pain, pain in the top of both feet, diaphoresis and dizziness when he gets up from bed, nausea, vomiting (liquid only), and fatigue. PMHx: recent NH on 03/26/17, had a stent placed up his right arm, was put on blood thinners and thinks he was given cholesterol medicines. PCP: Dr. Nena Rush at [facility]. - History of Current Complaint Chief Complaint: EDShoulderClavicleInj Stated Complaint: BACK PAIN/VOMITING Hx Obtained From: Patient Onset/Duration: Started Weeks Ago Timing: Intermittent - movement induced, Lasting Weeks Severity Initially: Severe Severity Currently: Severe Pain Location: Shoulder - Bilateral, Other: - Lower right back Aggravating Factor(s): Movement - Shoulder ROM; getting up from bed, Internal/ External Rotation Alleviating Factor(s): Rest, Other - laying down Associated Signs & Symptoms: Positive: Back Pain - Right lower chaney, Diaphoresis , Nausea, Vomiting - Only produces liquid - sometimes brown - Allergies/Home Medications Allergies/Adverse Reactions: Allergies Allergy/AdvReac Type Severity Reaction Status Date / Time Latex Allergy Severe RASH, Verified 03/26/17 16:23 ITCHING Lisinopril Allergy Severe Swelling Verified 03/26/17 16:23 Of Face,Lips,& Throat Bee Venom Allergy Intermediate Rash Verified 03/26/17 16:23 PMH/Surg Hx/FS Hx/Imm Hx Previously Healthy: No Endocrine/Hematology History: Reports: Hx Diabetes Denies: Hx Thyroid Disease Cardiovascular History: Reports: Hx Angina, Hx Hypertension, Hx Myocardial Infarction - 03/26/17 Respiratory History: Denies: Hx Asthma, Hx Chronic Obstructive Pulmonary Disease (COPD) GI History: Reports: Other GI Disorders - Pt has had chronic stomach pain with no diagnosis Denies: Hx Ulcer Musculoskeletal History: Comment Only: Other Musculoskeletal History - hx of multiple surgeries on knees, hands, and ankles Sensory History: Reports: Hx Vision Problem Denies: Hx Contacts or Glasses, Hx Hearing Aid Opthamlomology History: Reports: Hx Vision Problem Denies: Hx Contacts or Glasses - Surgical History Surgery Procedure, Year, and Place: BILAT KNEE SURGERY, BILAT HAND SURGERY, 4 EYE SURGERIES (cataracts)(corneal transplants) Infectious Disease History: Denies: Hx Clostridium Difficile, Hx Hepatitis, Hx Human Immunodeficiency Virus (HIV), Hx of Known/Suspected MRSA, Hx Shingles, Hx Tuberculosis, History Other Infectious Disease, Traveled Outside the [place] in Last 30 Days - Family History Known Family History: Positive: Cardiac Disease, Hypertension, Diabetes - Social History Occupation: Retired Lives: Alone Alcohol Use: None Hx Substance Use: No Substance Use Type: Reports: None Hx Tobacco Use: No Smoking Status (MU): Never Smoked Tobacco Type: Cigarettes Have You Smoked in the Last Year: No Review of Systems Positive: Skin Diaphoresis Eyes: Negative ENT: Negative Cardiovascular: Negative Respiratory: Negative Positive: Vomiting - Liquid, sometimes brown, Nausea Positive: Decreased ROM - Bilateral shoulders, Other - Bilateral Shoulder pain Skin: Negative Neurological: Other - Dizziness due to pain Psychological: Normal All Other Systems Reviewed And Are Negative: Yes Physical Exam Triage Information Reviewed: Yes Vital Signs On Initial Exam: Initial Vitals Temp Pulse Resp BP Pulse Ox 98.4 F 80 17 103/65 98 04/10/17 16:08 04/10/17 16:08 04/10/17 16:08 04/10/17 16:08 04/10/17 16:08 Vital Signs Reviewed: Yes Appearance: Positive: Well-Appearing, No Pain Distress Skin: Positive: Warm, Skin Color Reflects Adequate Perfusion, Dry Head/Face: Positive: Normal Head/Face Inspection Eyes: Positive: Normal ENT: Positive: Normal ENT inspection Neck: Positive: Supple, Nontender Respiratory/Lung Sounds: Positive: Clear to Auscultation, Breath Sounds Present Cardiovascular: Positive: RRR Abdomen Description: Positive: Nontender, Soft Bowel Sounds: Positive: Present Musculoskeletal: Positive: Pain @ - nontender to palpation but tender to ROM in bilateral shoulders Neurological: Positive: Normal Psychiatric: Positive: Normal, Affect/Mood Appropriate Diagnostics - Vital Signs Vital Signs Temp Pulse Resp BP Pulse Ox 04/10/17 16:08 98.4 F 80 17 103/65 98 - Laboratory Lab Results: Lab Results 04/10/17 04/10/17 Range/Units 18:04 18:04 WBC 9.1 (3.5-10.8) 10^3/ul RBC 4.70 (4.0-5.4) 10^6/ul Hgb 9.9 L (14.0-18.0) g/dl Hct 32 L (42-52) % MCV 67 L (80-94) fL MCH 21 L (27-31) pg MCHC 31 (31-36) g/dl RDW 14 (10.5-15) % Plt Count 395 (150-450) 10^3/ul MPV 7 L (7.4-10.4) um3 Neut % (Auto) 70.0 (38-83) % Lymph % (Auto) 18.2 L (25-47) % Barnes % (Auto) 9.9 H (1-9) % Eos % (Auto) 0.8 (0-6) % Baso % (Auto) 1.1 (0-2) % Absolute Neuts (auto) 6.4 (1.5-7.7) 10^3/ul Absolute Lymphs (auto) 1.7 (1.0-4.8) 10^3/ul Absolute Monos (auto) 0.9 H (0-0.8) 10^3/ul Absolute Eos (auto) 0.1 (0-0.6) 10^3/ul Absolute Basos (auto) 0.1 (0-0.2) 10^3/ul Absolute Nucleated RBC 0 10^3/ul Nucleated RBC % 0 Sodium 131 L (133-145) mmol/L Potassium 4.3 (3.5-5.0) mmol/L Chloride 95 L (101-111) mmol/L Carbon Dioxide 27 (22-32) mmol/L Anion Gap 9 (2-11) mmol/L BUN 21 (6-24) mg/dL Creatinine 1.14 (0.67-1.17) mg/dL Est GFR ( Amer) 84.3 (>60) Est GFR (Non-Af Amer) 65.5 (>60) BUN/Creatinine Ratio 18.4 (8-20) Glucose 129 H (70-100) mg/dL Calcium 9.9 (8.6-10.3) mg/dL Total Bilirubin 0.40 (0.2-1.0) mg/dL AST 11 L (13-39) U/L ALT 10 (7-52) U/L Alkaline Phosphatase 100 (34-104) U/L Total Creatine Kinase 58 (10-223) U/L Troponin I 0.03 (<0.04) ng/mL Total Protein 7.8 (6.4-8.9) g/dL Albumin 3.6 (3.2-5.2) g/dL Globulin 4.2 H (2-4) g/dL Albumin/Globulin Ratio 0.9 L (1-3) Result Diagrams: 04/10/17 18:04 04/10/17 18:04 Lab Statement: Any lab studies that have been ordered have been reviewed, and results considered in the medical decision making process. - EKG 1 EKG Interpretation: 18:09 sinus rhythm, probable progression of recent anteroseptal NH EKG Comparison: Other - Compared to 04/03/17 Course/Dx - Course Course Of Treatment: Mr. Logan presented with a C/O chronic (at least 2 weeks) of pain in his bilateral shoulders and low back exacerbated by movement. His W/ U here was negative. This may be more of his diabetic neuropathy or a side effect of the statin he was recently started on. I recommended close F/U with his PMD. - Diagnoses Provider Diagnoses: Chronic pain Discharge - Discharge Plan Condition: Stable Disposition: HOME Prescriptions: HYDROcodone/ACETAMIN 5-325 MG* [[place] 5-325 TAB*] 1 tab PO Q6H PRN #20 tab MDD 4 PRN Reason: Pain The documentation as recorded by the Beatriz turk Edward accurately reflects the service I personally performed and the decisions made by me, Erick Zuniga MD.
[2017-04-10 20:18] VITALS: BP 131/75
== END 2017-04-10 20:32 | disposition home or self-care (01) ==
LOC: ED 16:04
DX: M25.512 Pain in left shoulder (principal); M25.511 Pain in right shoulder; R42 Dizziness and giddiness; G89.29 Other chronic pain
CPT/HCPCS: 36415; 80053; 82550; 84484; 85025; 93005; 99282

== ENCOUNTER 2017-04-14 13:48 | Inpatient (IN) | payer MEDICARE, MEDICAID ==
[2017-04-14] MEDS ORDERED: NS 0.9% 1000 ML* 1,000 ML IV ONE (13:59)
[2017-04-14] MEDS ORDERED: Ondansetron INJ* 2 MG/ML VIAL IV ONE (13:59)
[2017-04-14 14:42] LABS: Hematocrit 33 % (42-52); Hemoglobin 10.4 g/dl (14.0-18.0); Mean Corpuscular HGB Conc 31 g/dl (31-36); Mean Corpuscular Hemoglobin 21 pg (27-31); Mean Platelet Volume 7 um3 (7.4-10.4); Red Blood Count 4.99 10^6/ul (4.0-5.4); Red Cell Distribution Width 13 % (10.5-15); White Blood Count 9.1 10^3/ul (3.5-10.8)
[2017-04-14 14:44] LABS: Comments Flag Yes; Mean Corpuscular Volume 67 fL (80-94)
[2017-04-14 14:54] LABS: Albumin 3.8 g/dL (3.2-5.2); BUN/Creatinine Ratio 26.7 (8-20); C Reactive Protein 100.23 mg/L (< 5.00); Calcium 10.2 mg/dL (8.6-10.3); EGFR African American 116.7 (>60); EGFR Non-African American 90.7 (>60); Globulin 4.5 g/dL (2-4); Total Bilirubin 0.4 mg/dL (0.2-1.0); Total Protein 8.3 g/dL (6.4-8.9)
[2017-04-14] MEDS ORDERED: Iodixanol* (CONTRAST) 320 MG/ML 100 ML SDV IV ONE (15:20)
[2017-04-14 15:29] LABS: Troponin I 0.03 ng/mL (<0.04)
[2017-04-14] MEDS ORDERED: Metoclopramide IV* 5 MG/ML 2 ML VIAL IV SLOW PU ONE (15:48)
--- NOTE | 2017-04-14 17:47 | RAD ---
CLINICAL HISTORY: Vomiting and left lower quadrant pain x2 days COMPARISON: Most recent similar CT examination is dated October 14, 2015 TECHNIQUE: Contrast enhanced CT examination of the abdomen and pelvis from the lung bases through the initial tuberosities. The patient received 100 mL Visipaque 320 intravenously prior to imaging.The patient received oral contrast as well prior to imaging. FINDINGS: VISUALIZED LUNG BASES: The visualized lung bases are grossly clear. There is no pleural effusion. There is a small pericardial effusion similar in appearance to the previous CT examination. ABDOMEN AND PELVIS: The liver, spleen, pancreas and adrenal glands are grossly normal in appearance. The gallbladder is normal. The kidneys are normal in appearance without focal mass, calcification or signs of hydronephrosis. The oral contrast has only progressed as far as the duodenum thereby limiting evaluation of the small bowel and colon. The small and large bowel are not distended. The patient's normal appendix is identified in the right lower quadrant with gas in the lumen measuring up to 6 mm in diameter (coronal image 51 and axial image 60). There are scattered rectosigmoid diverticula but none exhibit acute inflammatory change. There is no gross retroperitoneal or mesenteric lymphadenopathy. The pelvic viscera is normal in appearance. The mildly calcified abdominal aorta and iliac arteries are normal in course and diameter. Degenerative changes include multilevel loss of intervertebral disc height involving the lower thoracic and lumbar spine. Vacuum disc phenomenon at L5/S1..There are no sinister bone lesions. IMPRESSION: 1. Diverticulosis without definite focal inflammatory change characteristic of diverticulitis. 2. Very small pericardial effusion somewhat appearance to the previous CT examination. 3. Additional chronic and degenerative changes as described above.
[2017-04-14] MEDS ORDERED: LORazepam INJ* 2 MG/ML 1 ML VIAL IV PUSH ONE (18:12)
[2017-04-14 18:21] LABS: Urine Bacteria Absent (Absent); Urine Bilirubin Negative (Negative); Urine Glucose 1+(50 mg/dL) (Negative); Urine Nitrite Negative (Negative)
--- NOTE | 2017-04-14 18:39 | RAD ---
HISTORY: Vomiting and epigastric pain. COMPARISONS: Same day CT of the abdomen and pelvis TECHNIQUE: Multiple transverse and longitudinal ultrasound images were obtained of the right upper quadrant. FINDINGS: LIVER: The liver is normal in dimensions and echogenicity. Normal hepatic and portal venous blood flow is duplicated with color flow imaging. There is no gross intrahepatic biliary duct dilatation. GALLBLADDER AND EXTRAHEPATIC BILIARY DUCT: The gallbladder is normal in appearance without intraluminal stones or other soft tissue masses. There is no pericholecystic fluid or gallbladder wall thickening. The common bile duct measures a maximum diameter of 4 mm. PANCREAS: The portions of the pancreas not obscured by bowel gas are normal in appearance. RIGHT KIDNEY: The right kidney is normal in size, morphology and echogenicity. IMPRESSION: NO SONOGRAPHIC EVIDENCE OF ACUTE CHOLECYSTITIS OR BILIARY OBSTRUCTION.
[2017-04-14] MEDS ORDERED: Acetaminophen TAB* 325 MG PO PRN (20:15)
[2017-04-14] MEDS ORDERED: Magnesium Hydroxide LIQ* 30 ML UDC PO PRN (20:15)
[2017-04-14] MEDS ORDERED: Senna TAB PO PRN (20:15)
[2017-04-14] MEDS ORDERED: Docusate CAP* 100 MG PO PRN (20:15)
[2017-04-14] MEDS ORDERED: oxyCODONE/Acetamin 5/325 MG* TAB PO PRN (20:15)
[2017-04-14] MEDS ORDERED: Al Hydrox/Mg Hydrox/Simet LIQ* 30 ML UDC PO PRN (20:15)
[2017-04-14] MEDS ORDERED: traMADol TAB* 50 MG PO PRN (20:24)
[2017-04-14] MEDS ORDERED: Dextrose 50% Syringe 50 ML* 25 GM/50 ML SYRINGE IV PUSH PRN (20:29)
[2017-04-14] MEDS: Atorvastatin* 80 MG TAB PO SCH (22:27)
[2017-04-14] MEDS: Gabapentin CAP(*) 300 MG PO SCH (22:27)
[2017-04-14] MEDS: Metoprolol Tartrate TAB* 25 MG PO SCH (22:28)
[2017-04-14] MEDS: Heparin VIAL(*) 5000 UNITS/ML VIAL (FIVE THOUSAND) SUBCUT SCH (22:29)
[2017-04-14] MEDS: Clarithromycin TAB* 500 MG PO SCH (22:36)
[2017-04-14] MEDS: Amoxicillin CAP* 500 MG PO SCH (22:36)
[2017-04-14] MEDS: CMCS:Pantoprazole TAB (NF) 40 MG TAB PO SCH (22:37)
[2017-04-14] MEDS: prednisoLONE 1% OPHTH.SUSP* 5 ML OPHTH.SUSP BOTH EYES SCH (22:38)
--- NOTE | 2017-04-14 22:38 | ED ---
Laura Kam Thomas, scribed for Ivan Felipe MD on 04/14/17 at 1400 . Abdominal Pain/Male - HPI Summary HPI Summary: The patient is a 61 y/o male c/o abd pain. His pain is rated severity 7/10 and the patient locates pain to the LUQ. Additionally complains of vomiting for several days, mild SOB, and constipation for two days. He normally has a BM every day and his constipation was unchanged by what he says was an enema. Patient is unable to eat or drink secondary to abd pain. The patient denies CP, dizziness, diarrhea. Patient brought in a bag of black vomit. He has not had this type of pain before. PMHx: DM - History of Current Complaint Chief Complaint: EDAbdPain Stated Complaint: VOMITING Time Seen by Provider: 04/14/17 13:56 Hx Obtained From: Patient Onset/Duration: Lasting Days, Still Present Timing: Constant, Lasting Days Severity Initially: Moderate Severity Currently: Moderate Pain Intensity: 7 Pain Scale Used: 0-10 Numeric Location: Discrete At: LUQ Radiates: No Aggravating Factor(s): Nothing Alleviating Factor(s): Nothing Associated Signs And Symptoms: Positive: Vomiting - black, Diarrhea, Other - NEG : diarrhea. Negative: Chest Pain, Dizzy - Allergies/Home Medications Allergies/Adverse Reactions: Allergies Allergy/AdvReac Type Severity Reaction Status Date / Time Latex Allergy Severe RASH, Verified 03/26/17 16:23 ITCHING Lisinopril Allergy Severe Swelling Verified 03/26/17 16:23 Of Face,Lips,& Throat Bee Venom Allergy Intermediate Rash Verified 03/26/17 16:23 PMH/Surg Hx/FS Hx/Imm Hx Previously Healthy: No Endocrine/Hematology History: Reports: Hx Diabetes Denies: Hx Thyroid Disease Cardiovascular History: Reports: Hx Angina, Hx Hypertension, Hx Myocardial Infarction - 03/26/17 Respiratory History: Denies: Hx Asthma, Hx Chronic Obstructive Pulmonary Disease (COPD) GI History: Reports: Other GI Disorders - Pt has had chronic stomach pain with no diagnosis Denies: Hx Ulcer Musculoskeletal History: Comment Only: Other Musculoskeletal History - hx of multiple surgeries on knees, hands, and ankles Sensory History: Reports: Hx Vision Problem Denies: Hx Contacts or Glasses, Hx Hearing Aid Opthamlomology History: Reports: Hx Vision Problem Denies: Hx Contacts or Glasses - Surgical History Surgery Procedure, Year, and Place: BILAT KNEE SURGERY, BILAT HAND SURGERY, 4 EYE SURGERIES (cataracts)(corneal transplants) Infectious Disease History: No Infectious Disease History: Denies: Hx Clostridium Difficile, Hx Hepatitis, Hx Human Immunodeficiency Virus (HIV), Hx of Known/Suspected MRSA, Hx Shingles, Hx Tuberculosis, History Other Infectious Disease, Traveled Outside the [place] in Last 30 Days - Family History Known Family History: Positive: Cardiac Disease, Hypertension, Diabetes - Social History Alcohol Use: None Hx Substance Use: No Substance Use Type: Reports: None Hx Tobacco Use: No Smoking Status (MU): Never Smoked Tobacco Type: Cigarettes Have You Smoked in the Last Year: No Review of Systems Negative: Fever, Chills Negative: Erythema Negative: Sore Throat Negative: Chest Pain Positive: Shortness Of Breath - mild. Negative: Cough Positive: Abdominal Pain, Vomiting, Nausea, Other - POS: constipation, two days. Negative: Diarrhea Negative: dysuria, hematuria Negative: Myalgia, Edema Negative: Rash Neurological: Other - NEG: dizziness All Other Systems Reviewed And Are Negative: Yes Physical Exam - Summary Physical Exam Summary: Constitutional: Well-developed, Well-nourished, Alert. (-) Distressed Skin: Warm, Dry HENT: Normocephalic; Atraumatic Eyes: Conjunctiva normal Neck: Musculoskeletal ROM normal neck. (-) JVD, (-) Stridor, (-) Tracheal deviation Cardio: Rhythm regular, rate normal, Heart sounds normal; Intact distal pulses; The pedal pulses are 2+ and symmetric. Radial pulses are 2+ and symmetric. (-) Murmur Pulmonary/Chest wall: Effort normal. (-) Respiratory distress, (-) Wheezes, (-) Rales Abd: Distended abdomen. LUQ and epigastric tenderness. Soft, (-) Guarding, (-) Rebound Musculoskeletal: (-) Edema Lymph: (-) Cervical adenopathy Neuro: Alert, Oriented x3 Psych: Mood and affect Normal Triage Information Reviewed: Yes Vital Signs On Initial Exam: Initial Vitals Temp Pulse Resp BP Pulse Ox 97.1 F 94 20 169/103 100 04/14/17 13:52 04/14/17 13:52 04/14/17 13:52 04/14/17 13:52 04/14/17 13:52 Vital Signs Reviewed: Yes Diagnostics - Vital Signs Vital Signs Temp Pulse Resp BP Pulse Ox 04/14/17 13:52 97.1 F 94 20 169/103 100 - Laboratory Result Diagrams: 04/14/17 14:30 04/14/17 14:30 Lab Statement: Any lab studies that have been ordered have been reviewed, and results considered in the medical decision making process. - CT CT Abd/Pel CT Interpretation: Positive (See Comments) - 1. Diverticulosis without definite focal inflammatory change characteristic of diverticulitis. 2. Very small pericardial effusion somewhat appearance to the previous CT examination. 3. Additional chronic and degenerative changes as described above. CT Interpretation Completed By: Radiologist - Ultrasound No standard instances Ultrasound Interpretation: No Acute Changes - GB US. NO SONOGRAPHIC EVIDENCE OF ACUTE CHOLECYSTITIS OR BILIARY OBSTRUCTION. Ultrasound Interpretation Completed By: Radiologist - EKG 14:00 Cardiac Rate: NL - at 84 bpm EKG Interpretation: Sinus arrhythmia. No STEMI. Re-Evaluation - Re-Evaluation First Eval Re-Evaluation Time: 19:30 Change: Unchanged Comment: Still nauseous. Vomitted 3x despite antiemetics. chicken tender in the LUQ Abdominal Pain Fem Course/Dx - Course Course Of Treatment: The patient has severe abd pain in the LUQ. Additionally complains of vomiting for several days, mild SOB, and constipation for two days. Patient is unable to eat or drink secondary to abd pain. The patient denies CP, dizziness, diarrhea. Patient brought in a bag of black vomit. At 1548 , discussed with hvac controls technician. Pt is not tolerating PO contrast, so Reglan was ordered to keep contrast down. CT Abd/Pel found 1. Diverticulosis without definite focal inflammatory change characteristic of diverticulitis. 2. Very small pericardial effusion somewhat appearance to the previous CT examination. A GB US found no sonographic evidence of acute cholecystitis or biliary obstruction. An EKG was sinus arrhythmia with no STEMI. In the ED course the patient was given Zofran, Ativan, an IV fluids in addition to Reglan. Discussed care of pt with Dr. Davie Theodore who accepted the patient for admission at 19:42. Patient is diagnosed with starvation, ketosis, dehydration, and intractable vomiting. Pt understands and agrees. - Diagnoses Provider Diagnoses: Starvation, Ketosis, Dehydration, Intractable vomiting - Provider Notifications Discussed Care Of Patient With: Rosalee Theodore Time Discussed With Above Provider: 19:42 Instructed by Provider To: Other - Accepts pt for admission. Discharge - Discharge Plan Condition: Fair Disposition: ADMITTED TO [facility] Referrals: Nena Rush MD [Primary Care Provider] - The documentation as recorded by the Laura turk Thomas accurately reflects the service I personally performed and the decisions made by me, Ivan Felipe MD.
[2017-04-14] MEDS: Ondansetron INJ* 2 MG/ML VIAL IV PRN (22:55)
[2017-04-14] MEDS: NS 0.9% 1000 ML* 1,000 ML IV SCH (22:55)
--- NOTE | 2017-04-15 00:14 | HP ---
CC: Nena Rush MD HISTORY AND PHYSICAL: DATE OF ADMISSION: 04/14/17 TIME OF EVALUATION: 1999 PRIMARY CARE PHYSICIAN: Nena Rush MD CHIEF COMPLAINT: Vomiting. HISTORY OF PRESENT ILLNESS: This is a 61-year-old male with a past medical history of ischemic cardiomyopathy with an NSTEMI who was discharged on who presents to the emergency room this evening for intractable vomiting. The patient states he has had some lower abdominal discomfort for the past 3 days with vomiting for the past 2 days. He denies any urinary symptoms. He had a normal bowel movement few days ago. He states he has been having sweating , fevers and chills. He denies any chest pain, no shortness of breath. He states he has been taking his medications as prescribed. He states his girlfriend has also been vomiting as well. Denies any changes in his weight. Denies any lower extremity swelling. In the emergency room, the patient had labs, imaging. He continued to have intractable nausea and vomiting and was referred to the hospitalist service for further evaluation. PAST MEDICAL HISTORY: 1. NSTEMI, status post stent placement to the LAD. 2. Ischemic cardiomyopathy, ejection fraction of 35% to 40%. 3. H. pylori with mild duodenitis and gastritis. 4. Diabetes. 5. Iron deficiency anemia. 6. Hypertension. 7. Hyperlipidemia. 8. Chronic pain. 9. History of intractable vomiting 1 year ago, was in the hospital at [place]. MEDICATIONS: 1. Amoxicillin 500 mg 2 tabs p.o. b.i.d. for 10 days. 2. Clarithromycin 500 mg p.o. b.i.d. 3. Aspirin 81 mg daily. 4. Atorvastatin 80 mg daily. 5. Plavix 75 mg daily. 6. Ferrous sulfate 325 mg daily. 7. Metoprolol tartrate 12.5 mg p.o. b.i.d. 8. Nitroglycerin 0.4 mg sublingual every 5 minutes as needed. 9. Pantoprazole 40 mg p.o. b.i.d. 10. Losartan 50 mg daily. 11. Metformin 1000 mg p.o. b.i.d. 12. Tramadol 50 mg every 6 hours as needed for pain. 13. Prednisolone drops both eyes twice a day. 14. Glipizide 10 mg p.o. b.i.d. 15. Vitamin B12 500 mcg daily. 16. EpiPen as needed. 17. Gabapentin 300 mg p.o. b.i.d. 18. Hydrocodone/acetaminophen 5/325 every 6 hours as needed for pain. ALLERGIES: LATEX, LISINOPRIL, BEE VENOM FAMILY HISTORY: Mother is from the CVA. Father from the complications of diabetes. SOCIAL HISTORY: The patient lives at home with his girlfriend, Marry Holt, who is his healthcare proxy. Quit smoking 25 years ago. No history of alcohol or illicit drug use. 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 Formally used marijuana and cocaine. He works at [employer]. CODE STATUS: Full code. REVIEW OF SYSTEMS: A 12-point review of systems is negative and as mentioned in the HPI. PHYSICAL EXAMINATION GENERAL: Mildly ill appearing, diaphoretic. VITAL SIGNS: Temp 97.1, pulse 94, respiratory rate 20, oxygen saturation 99% on room air, blood pressure 184/98. HEENT: Head normocephalic. Eyes: Pupils equal and reactive to light. Anicteric. Oropharynx: Mucous membranes dry. NECK: Supple. No lymphadenopathy. RESPIRATORY: Diminished breath sounds. No wheezing, rhonchi, or rales. CARDIAC: Regular rate rhythm. Soft systolic murmur heard throughout. ABDOMEN: Mild distention, soft, diffuse tenderness. No rebound or guarding. EXTREMITIES: No clubbing, cyanosis or edema. +1 DPs. NEUROLOGIC: Alert and oriented x3. No focal neurologic deficits. LABORATORY DATA: White count 9.1, hemoglobin 10.4, hematocrit 33, platelet 454 , neutrophil percent 86.2. Sodium 135, potassium 4, chloride 97, bicarb 23, BUN 23, creatinine 0.86, glucose 214, CRP is 100, bili 0.4, AST 10, ALT 10, troponin 0.03, lipase is 10. Urine shows +2 ketones. Radiographic data: Abdominal and pelvic CT, diverticulosis without definite focal inflammatory change characteristic of diverticulitis, very small pericardial effusion, somewhat appearance to the previous CT exam. Additional chronic degenerative changes. Gallbladder ultrasound, no sonographic evidence of acute cholecystitis or biliary obstruction. ASSESSMENT: This is a 61-year-old male with a recent non-ST elevation myocardial infarction who presents to the emergency room with intractable nausea and vomiting. Nausea and vomiting. The patient with intractable nausea and vomiting for the past few days. His findings show that he has ketosis, metabolic acidosis secondary to intractable nausea and vomiting. It appears that his girlfriend is also vomiting. It is most likely, enteritis unclear etiology. His CT scan is unremarkable. Plan: We will admit him for observation for hydration, antiemetics. CHRONIC MEDICAL PROBLEMS: 1. History of H. pylori. We will resume clarithromycin and amoxicillin as prescribed. 3. NSTEMI/CAD: We will resume his aspirin, Plavix, and metoprolol and I am going to hold his Cozaar in the setting of his intractable vomiting, decreased p.o. intake. 4. History of corneal transplant. Continue his prednisolone. 5. Chronic pain. Continue his tramadol and Percocet as needed. 6. Hyperlipidemia. Resume his atorvastatin. 7. Diabetes. We will hold his oral agents and place him on lispro sliding scale. 8. FEN. Place him on a clear liquid diet with IV fluids as mentioned above. 9. DVT prophylaxis. Scores as moderate risk. Placed him on heparin subcu t.i.d. 10. Code status. Full code. PATIENT TIME: Greater than 60 minutes spent doing the history and physical, more than half the time was spent in patient contact. [id number]/CPS #: [id number] ARELI
[2017-04-15] MEDS: PROCHLORPERAZINE INJ 5 MG/ML 2 ML VIAL IV PRN ×3 (04:25→17:41)
[2017-04-15] MEDS: Heparin VIAL(*) 5000 UNITS/ML VIAL (FIVE THOUSAND) SUBCUT SCH ×3 (05:58→22:05)
[2017-04-15 06:34] LABS: Hematocrit 33 % (42-52); Hemoglobin 10.6 g/dl (14.0-18.0); Mean Corpuscular HGB Conc 32 g/dl (31-36); Mean Corpuscular Hemoglobin 21 pg (27-31); Mean Platelet Volume 8 um3 (7.4-10.4); Red Blood Count 4.96 10^6/ul (4.0-5.4); Red Cell Distribution Width 14 % (10.5-15); White Blood Count 9.3 10^3/ul (3.5-10.8)
[2017-04-15 06:36] LABS: Comments Flag Yes; Mean Corpuscular Volume 67 fL (80-94)
[2017-04-15 06:52] LABS: BUN/Creatinine Ratio 27.7 (8-20); Calcium 10.1 mg/dL (8.6-10.3); EGFR African American 121.5 (>60); EGFR Non-African American 94.5 (>60)
[2017-04-15 07:04] LABS: Troponin I 0.04 ng/mL (<0.04)
[2017-04-15] MEDS: Metoprolol Tartrate TAB* 25 MG PO SCH (08:08)
[2017-04-15] MEDS: CMCS:Pantoprazole TAB (NF) 40 MG TAB PO SCH ×2 (08:08→19:47)
[2017-04-15] MEDS: prednisoLONE 1% OPHTH.SUSP* 5 ML OPHTH.SUSP BOTH EYES SCH ×2 (08:09→19:47)
[2017-04-15] MEDS ORDERED: Metoprolol Tartrate TAB* 25 MG PO SCH ×4 (08:39→21:00)
[2017-04-15] MEDS ORDERED: Ferrous Sulfate TAB* 325 MG PO SCH (09:00)
[2017-04-15] MEDS ORDERED: Cyanocobalamin TAB* 500 MCG PO SCH (09:00)
[2017-04-15] MEDS: Aspirin Low Dose CHEW TAB* 81 MG PO SCH (09:08)
[2017-04-15] MEDS: Clarithromycin TAB* 500 MG PO SCH (09:08)
[2017-04-15] MEDS: Clopidogrel TAB* 75 MG PO SCH (09:08)
[2017-04-15] MEDS: Insulin LISPRO* 1 UNITS UNIT SUBCUT SCH ×3 (09:10→17:39)
[2017-04-15] MEDS ORDERED: Metoprolol Tartrate IV* 1 MG/ML 5 ML VIAL IV PRN ×2 (09:36→10:37)
[2017-04-15] MEDS: NS 0.9% 1000 ML* 1,000 ML IV SCH ×2 (09:57→14:00)
[2017-04-15] MEDS ORDERED: Metoprolol Tartrate TAB* 25 MG PO ONE (10:00)
[2017-04-15] MEDS: Gabapentin CAP(*) 300 MG PO SCH ×3 (10:49→19:50)
[2017-04-15] MEDS ORDERED: Nitroglycerin 2% OINT* 1 GM PAK TOPICAL SCH (12:00)
[2017-04-15] MEDS: Amoxicillin CAP* 500 MG PO SCH (13:06)
[2017-04-15] MEDS ORDERED: Nitroglycerin 2% OINT* 1 GM PAK TOPICAL ONE (13:58)
--- NOTE | 2017-04-15 14:06 | PN ---
Subjective Date of Service: 04/15/17 Interval History: Pt continues to c/o N/V and diffuse abd "discomfort". His had N/V also Objective Active Medications: Acetaminophen (Tylenol Tab*) 650 mg PO Q4H PRN PRN Reason: FEVER/PAIN Last Admin: 04/15/17 01:40 Dose: 650 mg Al Hydrox/Mg Hydrox/Simethicone (Maalox Plus*) 30 ml PO Q6H PRN PRN Reason: INDIGESTION Aspirin (Aspirin Low Dose Tab*) 81 mg PO DAILY [facility] Last Admin: 04/15/17 09:08 Dose: 81 mg Atorvastatin Calcium (Lipitor*) 80 mg PO 2100 [facility] Last Admin: 04/14/17 22:27 Dose: 80 mg Clopidogrel Bisulfate (Plavix Tab*) 75 mg PO DAILY [facility] Last Admin: 04/15/17 09:08 Dose: 75 mg Dextrose (D50w Syringe 50 Ml*) 12.5 gm IV PUSH .FOR FS < 60 - SS PRN PRN Reason: FS < 60 Docusate Sodium (Colace Cap*) 100 mg PO BID PRN PRN Reason: CONSTIPATION Last Admin: 04/14/17 22:55 Dose: 100 mg Famotidine (Pepcid Iv*) 20 mg IV SLOW PU BID [facility] Gabapentin (Neurontin Cap(*)) 300 mg PO BID [facility] Last Admin: 04/15/17 10:49 Dose: 300 mg Heparin Sodium (Porcine) (Heparin Vial(*)) 5,000 units SUBCUT Q8HR [facility] Last Admin: 04/15/17 13:37 Dose: 5,000 units Sodium Chloride (Ns 0.9% 1000 Ml*) 1,000 mls @ 75 mls/hr IV PER RATE [facility] Ampicillin Sodium 2 gm/ Sodium (Chloride) 100 mls @ 200 mls/hr IVPB Q6H [facility] Metronidazole/Sodium Chloride (Flagyl 500 Mg Ivpb*) 500 mg in 100 mls @ 100 mls /hr IVPB Q8H [facility] Insulin Human Lispro (Humalog*) 0 units SUBCUT AC [facility] PRN Reason: Protocol Last Admin: 04/15/17 13:28 Dose: Not Given Magnesium Hydroxide (Milk Of Magnesia Liq*) 30 ml PO Q4H PRN PRN Reason: CONSTIPATION Metoprolol Tartrate (Lopressor Tab*) 25 mg PO BID [facility] Metoprolol Tartrate (Lopressor Iv*) 5 mg IV Q6H PRN PRN Reason: BLOOD PRESSURE Nitroglycerin (Nitroglycerin 2% Oint*) 1 inch TOPICAL [id number] AWAKE [facility] PRN Reason: Protocol Ondansetron HCl (Zofran Inj*) 4 mg IV Q4H PRN PRN Reason: NAUSEA/VOMITING Last Admin: 04/14/17 22:55 Dose: 4 mg Oxycodone/Acetaminophen (Percocet 5/325 Tab*) 1 tab PO Q4H PRN PRN Reason: Pain Pantoprazole Sodium (Protonix Tab (Nf)) 40 mg PO BID [facility] Last Admin: 04/15/17 08:08 Dose: 40 mg Prednisolone Acetate (Pred Forte 1%*) 1 drop BOTH EYES BID [facility] Last Admin: 04/15/17 08:09 Dose: 1 drop Prochlorperazine Edisylate (Compazine Inj*) 5 mg IV Q6H PRN PRN Reason: NAUSEA/VOMITING Last Admin: 04/15/17 10:48 Dose: 5 mg Senna (Senokot Tab*) 1 tab PO BID PRN PRN Reason: CONSTIPATION Tramadol HCl (Ultram*) 50 mg PO BID PRN PRN Reason: PAIN Vital Signs 04/14/17 04/14/17 04/14/17 20:30 21:56 22:02 Temperature 98.7 F 98.7 F Pulse Rate 90 90 90 Respiratory 19 19 Rate Blood Pressure 138/109 183/99 183/99 (mmHg) O2 Sat by Pulse 92 98 Oximetry 04/14/17 04/14/17 04/15/17 22:27 23:52 00:27 Temperature 99.3 F Pulse Rate 93 Respiratory 19 20 19 Rate Blood Pressure 178/93 (mmHg) O2 Sat by Pulse 100 Oximetry 04/15/17 04/15/17 04/15/17 03:38 07:53 10:49 Temperature 98.7 F 98.7 F Pulse Rate 80 86 Respiratory 20 16 16 Rate Blood Pressure 183/99 175/86 (mmHg) O2 Sat by Pulse 100 100 Oximetry 04/15/17 04/15/17 04/15/17 11:49 11:50 12:49 Temperature 99.6 F Pulse Rate 80 77 Respiratory 16 15 Rate Blood Pressure 179/106 (mmHg) O2 Sat by Pulse 100 100 Oximetry 04/15/17 04/15/17 13:42 14:00 Temperature Pulse Rate 73 Respiratory Rate Blood Pressure 188/97 184/100 (mmHg) O2 Sat by Pulse Oximetry Oxygen Devices in Use Now: None Appearance: 61 yo M in nAD, aAOx3 Eyes: No Scleral Icterus, PERRLA Ears/Nose/Mouth/Throat: NL Teeth, Lips, Gums, Mucous Membranes Moist Neck: NL Appearance and Movements; NL JVP, Trachea Midline Respiratory: Symmetrical Chest Expansion and Respiratory Effort Cardiovascular: NL Sounds; No Murmurs; No JVD, RRR Abdominal: - - mild diffuse tenderness, no rebound, no guarding, BS+ Lymphatic: No Cervical Adenopathy Extremities: No Edema, No Clubbing, Cyanosis Skin: No Rash or Ulcers, No Nodules or Sclerosis Neurological: Alert and Oriented x 3, NL Muscle Strength and Tone Result Diagrams: 04/15/17 05:52 04/15/17 05:52 Assess/Plan/Problems-Billing Assessment: 61 yo M with h/o recent NSTEMI( stent in 02/2016), H. pylori positive gastritis, chronic r Moreno's palsy, DM2 presents with intractable N/V - Patient Problems (1) Nausea & vomiting Comment: suspect GI viral infection CT and abd US reviewed, no marked abnormalities found. will cont to tx with antiemetics/IVF will get CT brain to r/o posterior circulation CVA (less likely) Aslo possible side effect to pt's H. pylori eradication med, will change to IV for now. (2) Diabetes Comment: Glipizide held, cont Lispro by SS (3) HTN (hypertension) Comment: uncontrolled, exacerbated by N/V Will increase lopressor for 12.5 BID to 25 mg BID Start lopressor IV prn Start nitro paste (4) Helicobacter positive gastritis Comment: will change PO meds to IV. Suspect PO tx may play a role in pt's symptoms of N/V (5) CAD (coronary artery disease) Comment: recent stent in 03/14 Trop 0.04-suspect demand ischemia. EKG shows unchanged deep inverted T's in dev-lateral leads Cont ASA/Plavix (6) DVT prophylaxis Comment: haparin sc Status and Disposition: OBV will be changed to inpatient due to continuation of N/V
--- NOTE | 2017-04-15 14:50 | RAD ---
INDICATION: Vomiting COMPARISON: None. TECHNIQUE: Contiguous axial sections of the brain were obtained from the skull base to the vertex without contrast. FINDINGS: The ventricles, cisterns and sulci are within normal limits. There is mild to moderate periventricular and subcortical white matter hypoattenuation most consistent with chronic microvascular disease. The cisneros-white matter differentiation is adequately maintained and there is no sulcal effacement. No significant focal abnormality or mass effect is present. There is no evidence for intracranial hemorrhage. Calcified atherosclerosis is noted at the left greater than right vertebral artery. No significant focal osseous abnormality is present. The visualized portion of the paranasal sinuses and mastoid air cells appear clear. IMPRESSION: CT findings are most consistent with chronic microvascular disease.
[2017-04-15] MEDS: metroNIDAZOLE IV 500 MG/100ML* 500 MG/100 ML BAG IVPB SCH (16:35)
[2017-04-15] MEDS: Ondansetron INJ* 2 MG/ML VIAL IV PRN (16:35)
[2017-04-15] MEDS: Nitroglycerin 2% OINT* 1 GM PAK TOPICAL SCH (17:47)
[2017-04-15] MEDS: Metoclopramide IV* 5 MG/ML 2 ML VIAL IV PRN (18:27)
[2017-04-15] MEDS: Scopolamine 1.5 mg* PATCH TRANSDERM SCH (19:37)
[2017-04-15] MEDS: Atorvastatin* 80 MG TAB PO SCH (19:43)
[2017-04-15] MEDS: Famotidine IV* 10 MG/ML 2 ML (20 mg) IV SLOW PU SCH (19:44)
[2017-04-15] MEDS: Metoprolol Tartrate TAB* 50 mg PO SCH (19:47)
[2017-04-16] MEDS: Nitroglycerin 2% OINT* 1 GM PAK TOPICAL SCH ×2 (00:39→05:09)
[2017-04-16] MEDS: NS 0.9% 1000 ML* 1,000 ML IV SCH ×2 (00:44→22:44)
[2017-04-16] MEDS: metroNIDAZOLE IV 500 MG/100ML* 500 MG/100 ML BAG IVPB SCH ×4 (01:38→16:02)
[2017-04-16] MEDS: Metoclopramide IV* 5 MG/ML 2 ML VIAL IV PRN (04:09)
[2017-04-16] MEDS: Heparin VIAL(*) 5000 UNITS/ML VIAL (FIVE THOUSAND) SUBCUT SCH ×3 (05:08→22:59)
[2017-04-16 06:21] LABS: Hematocrit 34 % (42-52); Hemoglobin 10.6 g/dl (14.0-18.0); Mean Corpuscular HGB Conc 32 g/dl (31-36); Mean Corpuscular Hemoglobin 21 pg (27-31); Mean Platelet Volume 7 um3 (7.4-10.4); Red Blood Count 5.05 10^6/ul (4.0-5.4); Red Cell Distribution Width 14 % (10.5-15); White Blood Count 10.2 10^3/ul (3.5-10.8)
[2017-04-16 06:22] LABS: Comments Flag Yes; Mean Corpuscular Volume 67 fL (80-94)
[2017-04-16 06:51] LABS: Albumin 3.6 g/dL (3.2-5.2); BUN/Creatinine Ratio 27.4 (8-20); Calcium 9.8 mg/dL (8.6-10.3); EGFR African American 119.9 (>60); EGFR Non-African American 93.2 (>60); Globulin 4.4 g/dL (2-4); Potassium 3.9 mmol/L (3.5-5.0); Total Bilirubin 0.4 mg/dL (0.2-1.0)
[2017-04-16 06:54] LABS: Troponin I 0.03 ng/mL (<0.04)
[2017-04-16] MEDS: Insulin LISPRO* 1 UNITS UNIT SUBCUT SCH ×3 (07:36→16:20)
[2017-04-16] MEDS: PROCHLORPERAZINE INJ 5 MG/ML 2 ML VIAL IV PRN (07:49)
[2017-04-16] MEDS: Famotidine IV* 10 MG/ML 2 ML (20 mg) IV SLOW PU SCH ×2 (07:49→22:39)
[2017-04-16] MEDS: Gabapentin CAP(*) 300 MG PO SCH ×2 (07:50→22:56)
[2017-04-16] MEDS: Aspirin Low Dose CHEW TAB* 81 MG PO SCH (07:50)
[2017-04-16] MEDS: Metoprolol Tartrate TAB* 50 mg PO SCH ×2 (07:50→22:57)
[2017-04-16] MEDS: Clopidogrel TAB* 75 MG PO SCH (07:51)
[2017-04-16] MEDS: CMCS:Pantoprazole TAB (NF) 40 MG TAB PO SCH ×3 (08:53→22:57)
[2017-04-16] MEDS: prednisoLONE 1% OPHTH.SUSP* 5 ML OPHTH.SUSP BOTH EYES SCH ×2 (08:54→23:01)
[2017-04-16] MEDS ORDERED: cloNIDine 0.1 MG PATCH* 0.1 MG/24 HR 7 DAY PATCH TRANSDERM SCH (09:00)
[2017-04-16] MEDS: Metoprolol Tartrate IV* 1 MG/ML 5 ML VIAL IV PRN ×2 (09:20→12:17)
[2017-04-16] MEDS ORDERED: Bisacodyl SUPP* 10 MG SUPP PR ONE (09:22)
[2017-04-16] MEDS ORDERED: Sodium Phosphate ADULT ENEMA* 118 ml bottle PR PRN (09:23)
[2017-04-16] MEDS ORDERED: Bisacodyl SUPP* 10 MG SUPP ONE (09:46)
--- NOTE | 2017-04-16 11:33 | PN ---
Subjective Date of Service: 04/16/17 Interval History: Pt continues on vomiting despite multiple antiemetics. fFrom review of med records from [facility] in 2015 when pt had a similar presentation, he had a difficult to control gastroparesis than improved on Carafate/E-mycin and Reglan. Last BM 4 days ago. No abd pain, no CP Objective Active Medications: Acetaminophen (Tylenol Tab*) 650 mg PO Q4H PRN PRN Reason: FEVER/PAIN Last Admin: 04/15/17 01:40 Dose: 650 mg Al Hydrox/Mg Hydrox/Simethicone (Maalox Plus*) 30 ml PO Q6H PRN PRN Reason: INDIGESTION Aspirin (Aspirin Low Dose Tab*) 81 mg PO DAILY [facility] Last Admin: 04/16/17 07:50 Dose: 81 mg Clonidine HCl ([id number] 0.1 Mg Patch*) 0.1 mg TRANSDERM Q7D [facility] Last Admin: 04/16/17 09:43 Dose: 0.1 mg Clopidogrel Bisulfate (Plavix Tab*) 75 mg PO DAILY [facility] Last Admin: 04/16/17 07:51 Dose: 75 mg Dextrose (D50w Syringe 50 Ml*) 12.5 gm IV PUSH .FOR FS < 60 - SS PRN PRN Reason: FS < 60 Docusate Sodium (Colace Cap*) 100 mg PO BID [facility] Erythromycin (Erythromycin Tab*) 125 mg PO AC [facility] Famotidine (Pepcid Iv*) 20 mg IV SLOW PU BID [facility] Last Admin: 04/16/17 07:49 Dose: 20 mg Gabapentin (Neurontin Cap(*)) 300 mg PO BID [facility] Last Admin: 04/16/17 07:50 Dose: 300 mg Heparin Sodium (Porcine) (Heparin Vial(*)) 5,000 units SUBCUT Q8HR [facility] Last Admin: 04/16/17 05:08 Dose: 5,000 units Sodium Chloride (Ns 0.9% 1000 Ml*) 1,000 mls @ 75 mls/hr IV PER RATE [facility] Last Admin: 04/16/17 00:44 Dose: 75 mls/hr Ampicillin Sodium 2 gm/ Sodium (Chloride) 100 mls @ 200 mls/hr IVPB Q6H [facility] Last Admin: 04/16/17 08:53 Dose: 200 mls/hr Metronidazole/Sodium Chloride (Flagyl 500 Mg Ivpb*) 500 mg in 100 mls @ 100 mls /hr IVPB Q8H [facility] Last Admin: 04/16/17 07:11 Dose: 100 mls/hr Insulin Human Lispro (Humalog*) 0 units SUBCUT [facility] PRN Reason: Protocol Last Admin: 04/16/17 07:36 Dose: Not Given Magnesium Hydroxide (Milk Of Magnesia Liq*) 30 ml PO Q4H PRN PRN Reason: CONSTIPATION Last Admin: 04/16/17 00:38 Dose: 30 ml Metoclopramide HCl (Reglan Iv*) 10 mg IV [facility] Metoprolol Tartrate (Lopressor Iv*) 5 mg IV Q3H PRN PRN Reason: BLOOD PRESSURE Last Admin: 04/16/17 09:20 Dose: 5 mg Metoprolol Tartrate (Lopressor Tab*) 50 mg PO Q12HR [facility] Last Admin: 04/16/17 07:50 Dose: 50 mg Oxycodone/Acetaminophen (Percocet 5/325 Tab*) 1 tab PO Q4H PRN PRN Reason: Pain Pantoprazole Sodium (Protonix Tab (Nf)) 40 mg PO BID [facility] Last Admin: 04/16/17 08:56 Dose: Not Given Pharmacy Profile Note (Scopolomine Patch Remove*) 1 note PATCH OFF Q72H [facility] Prednisolone Acetate (Pred Forte 1%*) 1 drop BOTH EYES BID [facility] Last Admin: 04/16/17 08:54 Dose: Not Given Prochlorperazine Edisylate (Compazine Inj*) 5 mg IV Q6H PRN PRN Reason: NAUSEA/VOMITING Last Admin: 04/16/17 07:49 Dose: 5 mg Scopolamine (Transderm-Scop 1.5 Mg Patch*) 1 patch TRANSDERM Q72H [facility] Last Admin: 04/15/17 19:37 Dose: 1 patch Senna (Senokot Tab*) 1 tab PO BID PRN PRN Reason: CONSTIPATION Last Admin: 04/16/17 00:37 Dose: 1 tab Sodium Biphosphate/Sodium Phosphate (Fleet Enema*) 1 bottle [place] DAILY PRN PRN Reason: CONSTIPATION Sucralfate (Carafate*) 1 gm PO [facility] Tramadol HCl (Ultram*) 50 mg PO BID PRN PRN Reason: PAIN Vital Signs 0604/15/17 04/15/17 15:56 17:40 19:50 Temperature 98.3 F Pulse Rate 84 Respiratory 16 19 Rate Blood Pressure 173/102 188/100 (mmHg) O2 Sat by Pulse 98 Oximetry 04/15/17 04/15/17 04/16/17 20:00 20:27 00:13 Temperature 98.7 F 98.4 F Pulse Rate 73 70 Respiratory 19 20 20 Rate Blood Pressure 173/100 168/91 (mmHg) O2 Sat by Pulse 100 100 Oximetry 04/16/17 04/16/17 04/16/17 04:48 07:48 07:50 Temperature 98.2 F 98.7 F Pulse Rate 77 85 Respiratory 20 16 18 Rate Blood Pressure 183/100 181/101 (mmHg) O2 Sat by Pulse 98 100 Oximetry 04/16/17 04/16/17 08:00 09:50 Temperature Pulse Rate Respiratory 18 18 Rate Blood Pressure (mmHg) O2 Sat by Pulse Oximetry Oxygen Devices in Use Now: None Appearance: 61 yo M in NAD, aAOx3 Eyes: No Scleral Icterus, PERRLA Ears/Nose/Mouth/Throat: NL Teeth, Lips, Gums, Mucous Membranes Moist Neck: NL Appearance and Movements; NL JVP, Trachea Midline Respiratory: Symmetrical Chest Expansion and Respiratory Effort, Clear to Auscultation Cardiovascular: NL Sounds; No Murmurs; No JVD, RRR Abdominal: NL Sounds; No Tenderness; No Distention Lymphatic: No Cervical Adenopathy Extremities: No Edema, No Clubbing, Cyanosis Skin: No Rash or Ulcers, No Nodules or Sclerosis Neurological: Alert and Oriented x 3, - - R Moreno's palsy Result Diagrams: 04/16/17 06:04 04/16/17 06:04 Assess/Plan/Problems-Billing Assessment: 61 yo M with h/o recent NSTEMI( stent in 02/2016), H. pylori positive gastritis, chronic r Moreno's palsy, DM2 presents with intractable N/V - Patient Problems (1) Nausea & vomiting Comment: likely due to gastroparesis exacerbated by viral gastroenteritis will start PO E-mycin/Carafate and scheduled Reglan CT and abd US reviewed, no marked abnormalities found. will cont to tx with antiemetics/IVF CT brain unremarkable H. pylori eradication meds, changed to IV for now. (2) Diabetes Comment: Glipizide held, cont Lispro by SS (3) HTN (hypertension) Comment: uncontrolled, exacerbated by N/V Will increase lopressor to 50 BID Start clonidine. cont lopressor IV prn (4) Helicobacter positive gastritis Comment: PO meds changed to IV. Suspect PO tx may play a role in pt's symptoms of N/V (5) CAD (coronary artery disease) Comment: recent stent in 03/14 Trop 0.04-suspect demand ischemia. EKG shows unchanged deep inverted T's in dev-lateral leads Cont ASA/Plavix (6) DVT prophylaxis Comment: haparin sc (7) Dyslipidemia Comment: Lipitor held when pt is on erythromycin for gatroparesis, since it may cause worsening of Lipitor related side effects Status and Disposition: inpatient due to continuation of N/V
[2017-04-16] MEDS: Sucralfate TAB* 1 GM PO SCH ×2 (11:39→16:26)
[2017-04-16] MEDS: Metoclopramide IV* 5 MG/ML 2 ML VIAL IV SCH ×2 (11:39→16:26)
[2017-04-16] MEDS: Erythromycin TAB* 250 MG PO SCH ×2 (11:39→16:26)
[2017-04-16] MEDS: Docusate CAP* 100 MG PO SCH (22:56)
[2017-04-17] MEDS: PROCHLORPERAZINE INJ 5 MG/ML 2 ML VIAL IV PRN (00:16)
[2017-04-17] MEDS: metroNIDAZOLE IV 500 MG/100ML* 500 MG/100 ML BAG IVPB SCH ×2 (02:30→07:23)
[2017-04-17] MEDS: Heparin VIAL(*) 5000 UNITS/ML VIAL (FIVE THOUSAND) SUBCUT SCH ×3 (06:15→20:51)
[2017-04-17] MEDS: Metoclopramide IV* 5 MG/ML 2 ML VIAL IV SCH ×3 (07:25→17:08)
[2017-04-17] MEDS: Sucralfate TAB* 1 GM PO SCH ×4 (07:36→17:18)
[2017-04-17] MEDS: Aspirin Low Dose CHEW TAB* 81 MG PO SCH (07:36)
[2017-04-17] MEDS: CMCS:Pantoprazole TAB (NF) 40 MG TAB PO SCH (07:36)
[2017-04-17] MEDS: Clopidogrel TAB* 75 MG PO SCH (07:36)
[2017-04-17] MEDS: Erythromycin TAB* 250 MG PO SCH ×3 (07:36→17:11)
[2017-04-17] MEDS: Gabapentin CAP(*) 300 MG PO SCH ×2 (07:38→20:47)
[2017-04-17] MEDS: Docusate CAP* 100 MG PO SCH ×2 (07:38→20:46)
[2017-04-17] MEDS: Insulin LISPRO* 1 UNITS UNIT SUBCUT SCH ×3 (08:54→18:26)
[2017-04-17] MEDS: prednisoLONE 1% OPHTH.SUSP* 5 ML OPHTH.SUSP BOTH EYES SCH ×2 (08:55→20:54)
[2017-04-17] MEDS: Famotidine IV* 10 MG/ML 2 ML (20 mg) IV SLOW PU SCH ×2 (08:56→20:42)
[2017-04-17] MEDS ORDERED: cloNIDine 0.2 MG PATCH* 0.2 MG/24 HR 7 DAY PATCH TRANSDERM SCH (09:00)
[2017-04-17] MEDS: Metoprolol Tartrate IV* 1 MG/ML 5 ML VIAL IV PRN ×3 (09:15→22:26)
[2017-04-17] MEDS: Metoprolol Tartrate TAB* 50 mg PO SCH ×2 (10:26→20:47)
--- NOTE | 2017-04-17 13:13 | PN ---
Subjective Date of Service: 04/17/17 Interval History: pt vomited his AM meds , but now requests regular food since he feels better. denies abd pain Objective Active Medications: Acetaminophen (Tylenol Tab*) 650 mg PO Q4H PRN PRN Reason: FEVER/PAIN Last Admin: 04/15/17 01:40 Dose: 650 mg Al Hydrox/Mg Hydrox/Simethicone (Maalox Plus*) 30 ml PO Q6H PRN PRN Reason: INDIGESTION Aspirin (Aspirin Low Dose Tab*) 81 mg PO DAILY [facility] Last Admin: 04/17/17 07:36 Dose: 81 mg Clonidine HCl (Duanbnrs-Iik-6 0.2 Mg Patch*) 0.2 mg TRANSDERM Q7D [facility] Last Admin: 04/17/17 10:59 Dose: 0.2 mg Clopidogrel Bisulfate (Plavix Tab*) 75 mg PO DAILY [facility] Last Admin: 04/17/17 07:36 Dose: 75 mg Dextrose (D50w Syringe 50 Ml*) 12.5 gm IV PUSH .FOR FS < 60 - SS PRN PRN Reason: FS < 60 Docusate Sodium (Colace Cap*) 100 mg PO BID [facility] Last Admin: 04/17/17 07:38 Dose: Not Given Erythromycin (Erythromycin Tab*) 125 mg PO [facility] Last Admin: 04/17/17 11:58 Dose: 125 mg Famotidine (Pepcid Iv*) 20 mg IV SLOW PU BID [facility] Last Admin: 04/17/17 08:56 Dose: 20 mg Gabapentin (Neurontin Cap(*)) 300 mg PO BID [facility] Last Admin: 04/17/17 07:38 Dose: Not Given Heparin Sodium (Porcine) (Heparin Vial(*)) 5,000 units SUBCUT Q8HR [facility] Last Admin: 04/17/17 06:15 Dose: 5,000 units Hydralazine HCl (Apresoline Iv*) 5 mg IV SLOW PU Q6H PRN PRN Reason: BLOOD PRESSURE Sodium Chloride (Ns 0.9% 1000 Ml*) 1,000 mls @ 75 mls/hr IV PER RATE [facility] Last Admin: 04/16/17 22:44 Dose: 75 mls/hr Insulin Human Lispro (Humalog*) 0 units SUBCUT [facility] PRN Reason: Protocol Last Admin: 04/17/17 08:54 Dose: Not Given Magnesium Hydroxide (Milk Of Magnesia Liq*) 30 ml PO Q4H PRN PRN Reason: CONSTIPATION Last Admin: 04/16/17 00:38 Dose: 30 ml Metoclopramide HCl (Reglan Iv*) 10 mg IV [facility] Last Admin: 04/17/17 11:50 Dose: 10 mg Metoprolol Tartrate (Lopressor Iv*) 5 mg IV Q3H PRN PRN Reason: BLOOD PRESSURE Last Admin: 04/17/17 09:15 Dose: 5 mg Metoprolol Tartrate (Lopressor Tab*) 50 mg PO Q12HR [facility] Last Admin: 04/17/17 10:26 Dose: Not Given Oxycodone/Acetaminophen (Percocet 5/325 Tab*) 1 tab PO Q4H PRN PRN Reason: Pain Pharmacy Profile Note (Scopolomine Patch Remove*) 1 note PATCH OFF Q72H [facility] Prednisolone Acetate (Pred Forte 1%*) 1 drop BOTH EYES BID [facility] Last Admin: 04/17/17 08:55 Dose: 1 drop Prochlorperazine Edisylate (Compazine Inj*) 5 mg IV Q6H PRN PRN Reason: NAUSEA/VOMITING Last Admin: 04/17/17 00:16 Dose: 5 mg Scopolamine (Transderm-Scop 1.5 Mg Patch*) 1 patch TRANSDERM Q72H [facility] Last Admin: 04/15/17 19:37 Dose: 1 patch Senna (Senokot Tab*) 1 tab PO BID PRN PRN Reason: CONSTIPATION Last Admin: 04/16/17 00:37 Dose: 1 tab Sodium Biphosphate/Sodium Phosphate (Fleet Enema*) 1 bottle ND DAILY PRN PRN Reason: CONSTIPATION Sucralfate (Carafate*) 1 gm PO [facility] Last Admin: 04/17/17 11:53 Dose: Not Given Tramadol HCl (Ultram*) 50 mg PO BID PRN PRN Reason: PAIN Vital Signs 04/16/17 04/16/17 04/16/17 15:59 16:47 19:31 Temperature 98.7 F 98.7 F 98.4 F Pulse Rate 73 73 75 Respiratory 18 18 20 Rate Blood Pressure 175/103 175/103 188/110 (mmHg) O2 Sat by Pulse 99 99 97 Oximetry 04/16/17 04/16/17 04/16/17 20:00 20:15 22:53 Temperature 98.4 F Pulse Rate 75 86 Respiratory 20 20 Rate Blood Pressure 188/110 184/106 (mmHg) O2 Sat by Pulse 97 Oximetry 04/16/17 04/17/17 04/17/17 22:56 00:56 03:36 Temperature 98.7 F Pulse Rate 73 Respiratory 20 20 16 Rate Blood Pressure 178/104 (mmHg) O2 Sat by Pulse 99 Oximetry 04/17/17 04/17/17 04/17/17 07:55 08:00 08:05 Temperature 96.6 F 98.2 F Pulse Rate 77 Respiratory 24 16 Rate Blood Pressure 178/105 (mmHg) O2 Sat by Pulse 99 Oximetry 04/17/17 04/17/17 04/17/17 08:20 09:02 11:50 Temperature 98.2 F 98.6 F 98.5 F Pulse Rate 72 Respiratory 20 24 Rate Blood Pressure 189/97 (mmHg) O2 Sat by Pulse 100 Oximetry Oxygen Devices in Use Now: None Appearance: 61 yo M in nAd, aAOx3 Eyes: No Scleral Icterus, PERRLA Ears/Nose/Mouth/Throat: NL Teeth, Lips, Gums, Mucous Membranes Moist Neck: NL Appearance and Movements; NL JVP, Trachea Midline Respiratory: Symmetrical Chest Expansion and Respiratory Effort, Clear to Auscultation Cardiovascular: NL Sounds; No Murmurs; No JVD, RRR Abdominal: NL Sounds; No Tenderness; No Distention Lymphatic: No Cervical Adenopathy Extremities: No Edema, No Clubbing, Cyanosis Skin: No Rash or Ulcers, No Nodules or Sclerosis Neurological: Alert and Oriented x 3, - - R Moreno's palsy Result Diagrams: 04/16/17 06:04 04/16/17 06:04 Microbiology and Other Data: Microbiology 04/16/17 18:33 Stool Occult Blood ([facility]) - Final Stool Assess/Plan/Problems-Billing Assessment: 61 yo M with h/o recent NSTEMI( stent in 02/2016), H. pylori positive gastritis, chronic r Moreno's palsy, DM2 presents with intractable N/V - Patient Problems (1) Nausea & vomiting Comment: likely due to gastroparesis exacerbated by viral gastroenteritis PO E-mycin/Carafate, scheduled Reglanstarted on 04/16/17- cont CT and abd US reviewed, no marked abnormalities found. will cont to tx with antiemetics/IVF CT brain unremarkable H. pylori eradication meds given from 03/31/17 to 04/16/17-completed [address] Sanford to see pt in consult (2) Diabetes Comment: Glipizide held, cont Lispro by SS (3) HTN (hypertension) Comment: uncontrolled, exacerbated by N/V Cont Clonidine and lopressor/hydralazine IV prn (4) Helicobacter positive gastritis Comment: completed 14 days course of eradication tx (5) CAD (coronary artery disease) Comment: recent stent in 03/14 Trop 0.04-suspect demand ischemia. EKG shows unchanged deep inverted T's in dev-lateral leads Cont ASA/Plavix (6) Dyslipidemia Comment: Lipitor held when pt is on erythromycin for gatroparesis, since it may cause worsening of Lipitor related side effects (7) DVT prophylaxis Comment: heparin sc Status and Disposition: inpatient due to continuation of N/V
[2017-04-17] MEDS: NS 0.9% 1000 ML* 1,000 ML IV SCH (15:39)
[2017-04-17] MEDS: hydrALAZINE IV* 20 MG/ML VIAL IV SLOW PU PRN (16:15)
[2017-04-17] MEDS ORDERED: Labetalol IV* 5 MG/ML 20 ML VIAL IV PUSH PRN (16:51)
[2017-04-18] MEDS: hydrALAZINE IV* 20 MG/ML VIAL IV SLOW PU PRN ×3 (00:14→23:25)
--- NOTE | 2017-04-18 01:14 | CONS ---
GASTROENTEROLOGY CONSULT: DATE: 04/17/17 REASON FOR CONSULTATION: Repeated nausea and vomiting. HISTORY: This 61-year-old man who had a proximal LAD bare metal stent placed 04/02/17, now on clopidogrel and aspirin, came to the ER admitted with repeated vomiting on 04/14/17. History at presentation was that his girlfriend/fiancee had also been vomiting. His admission medication list included amoxicillin, clarithromycin, ferrous sulfate, pantoprazole 40 b.i.d., metformin 1000 b.i.d., and hydrocodone every 6 hours p.r.n. During this hospitalization he has not had any fever or infection diagnosed. His p.o. antibiotics directed at [facility] have been changed to IV and that included metronidazole started on 04/15/17 and a last dose was given IV this morning. He was also given sucralfate. Records were obtained from an admission at [facility] where he had refractory nausea and vomiting for 3 days. At that time, he referenced that coughing or certain smells would trigger his vomiting. He has had 3 upper endoscopies here in the last 3 years. They have generally shown a normal esophagus, no HH, some mild gastritis, a little bit of duodenal erythema and prominent folds in the bulb (visually consistent with Morteza's gland hyperplasia) and no actual erosions or ulceration with + Clotest for HP all three. He had a negative colonoscopy or screening in December [address] Meza. . PAST MEDICAL HISTORY: 1. Diabetes - diagnosed in 2002 when he had polydipsia, polyphagia, and a blood sugar over 400 when he applied for a job. In general, his A1c's have run well over 8, sometimes as high as 12, most recently December 2016, 12.0. 2. History of hepatitis C - treated with Harvoni and hepatitis C RNA, undetected January 2015. 3. Coronary artery disease - LAD stent on 04/02/17. 4. Hypertension. 5. 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 6. Gastroparesis - outlined in detail in Dr. Maldonado's September 2015 note. 7. Chronic microcytic anemia - Hg max 14 on 02/06/14 when iron level 157 though MCV then just 71. With Hg 10.9 and MCV 69 on 03/26/17 iron was 17. Hg Electrophoresis normal. Occult bloods as inpt negative x3 with one positive 03/28 and then negative again 04/16/17 SOCIAL HISTORY: He lives with his fiancee of 6 years named Marry Mccoy. 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 REVIEW OF SYSTEMS: At this time, he denies any particular cough, nasal discharge, ear ache, headache, dysuria, hematuria, pain, rash, or history of seizures. PHYSICAL EXAMINATION: He is a slender, black male in bed, stating that he is ready to go home. Pulse is 77, blood pressure 156/90, most recently though he has had diastolics in the low 100s in the last 24 hours with typical value of 175/103, 178/105. HEENT exam is otherwise unremarkable. He is anicteric. He has no adenopathy. His lungs are clear. Heart sounds are regular. His abdomen is flat, symmetric, soft, and without any scars. There is no tenderness. Extremities have no edema. Neurologic shows cranial nerves are intact and he moves all 4 extremities. He is alert and oriented. LABORATORY DATA: CBC on 04/16/17 showed hemoglobin 10.6, hematocrit 34, MCV 67 , and most recent iron panel on 03/26/17, iron 17, TIBC 318, saturation 5%, ferritin 122, albumin 3.6. Lipase on 04/14/17 of 10. LFTs normal. Bilirubin 0.4, ALT 10, alkaline phosphatase 98. IMPRESSION: This 61-year-old man with longstanding poorly controlled diabetes (2003) has a proclivity to nausea and vomiting, which sometimes goes on for days. He is suspected to have some gastroparesis though gastric retention has not been seen at the 3 EGDs. He is known to have Helicobacter, but he has never had any erosions or peptic ulcers. It does seems likely that the Helicobacter is purely a colonization and has not actually caused any symptoms. At this particular moment, when he is somewhat vulnerable from the point of view of a new coronary stent with new cardiac meds, I would not bother to try to further treat the H. pylori colonization. Certainly, he can be kept on a once daily PPI such as pantoprazole 40 mg or equivalent and that should suppress the possibility of HP creating mucosal damage (which has not thusfar occurred) I would not use other medications that can be challenging from a swallowing or gastric tolerance point of view or for irritation such as a standard iron tablet or sucralfate. If his diabetic control can be improved (? insulin) to generate a A1c less than 9, tendency to nausea and vomiting may be reduced. This episode may have been started by a viral illness (or the HP regime as outpt ), but the total number of meds now he has been tasked to take is still daunting and would eliminate all possible. Fortunately, at this time, he says he is feeling better (last dose of metronidazole 7 a.m. this morning) and once his blood pressure is optimized, he can probably go home. [id number]/[facility] #: [id number] ARELI
[2017-04-18] MEDS: Metoprolol Tartrate IV* 1 MG/ML 5 ML VIAL IV PRN ×2 (05:25→08:45)
[2017-04-18] MEDS: NS 0.9% 1000 ML* 1,000 ML IV SCH (05:31)
[2017-04-18] MEDS: Heparin VIAL(*) 5000 UNITS/ML VIAL (FIVE THOUSAND) SUBCUT SCH ×3 (05:33→22:32)
[2017-04-18 06:32] LABS: BUN/Creatinine Ratio 25.9 (8-20); Calcium 9.2 mg/dL (8.6-10.3); EGFR Non-African American 97.2 (>60); Potassium 3.3 mmol/L (3.5-5.0)
[2017-04-18 06:42] LABS: Hematocrit 35 % (42-52); Mean Corpuscular HGB Conc 32 g/dl (31-36); Mean Corpuscular Hemoglobin 21 pg (27-31); Mean Platelet Volume 8 um3 (7.4-10.4); Red Blood Count 5.19 10^6/ul (4.0-5.4); Red Cell Distribution Width 14 % (10.5-15); White Blood Count 8.6 10^3/ul (3.5-10.8)
[2017-04-18 06:46] LABS: Comments Flag Yes; Mean Corpuscular Volume 67 fL (80-94)
[2017-04-18] MEDS: Metoprolol Tartrate TAB* 50 mg PO SCH ×3 (08:00→20:15)
[2017-04-18] MEDS: Gabapentin CAP(*) 300 MG PO SCH ×4 (08:00→20:22)
[2017-04-18] MEDS: Clopidogrel TAB* 75 MG PO SCH (08:00)
[2017-04-18] MEDS: Erythromycin TAB* 250 MG PO SCH ×5 (08:00→19:02)
[2017-04-18] MEDS: Aspirin Low Dose CHEW TAB* 81 MG PO SCH ×2 (08:00→10:36)
[2017-04-18] MEDS: Docusate CAP* 100 MG PO SCH ×4 (08:00→20:15)
[2017-04-18] MEDS: Famotidine IV* 10 MG/ML 2 ML (20 mg) IV SLOW PU SCH ×2 (08:01→20:14)
[2017-04-18] MEDS: Metoclopramide IV* 5 MG/ML 2 ML VIAL IV SCH ×3 (08:01→19:03)
[2017-04-18] MEDS: Sucralfate TAB* 1 GM PO SCH (08:01)
[2017-04-18] MEDS: prednisoLONE 1% OPHTH.SUSP* 5 ML OPHTH.SUSP BOTH EYES SCH ×3 (08:01→21:28)
[2017-04-18] MEDS: Insulin LISPRO* 1 UNITS UNIT SUBCUT SCH ×3 (09:32→19:03)
--- NOTE | 2017-04-18 14:35 | PN ---
Subjective Date of Service: 04/18/17 Interval History: Pt still vomited this AM, but overall feels better and PO intake, although still minimal, improved Objective Active Medications: Acetaminophen (Tylenol Tab*) 650 mg PO Q4H PRN PRN Reason: FEVER/PAIN Last Admin: 04/15/17 01:40 Dose: 650 mg Al Hydrox/Mg Hydrox/Simethicone (Maalox Plus*) 30 ml PO Q6H PRN PRN Reason: INDIGESTION Aspirin (Aspirin Low Dose Tab*) 81 mg PO DAILY [facility] Last Admin: 04/18/17 10:36 Dose: 81 mg Clonidine HCl (Kxrqidfh-Fnq-3 0.2 Mg Patch*) 0.2 mg TRANSDERM Q7D [facility] Last Admin: 04/17/17 10:59 Dose: 0.2 mg Clopidogrel Bisulfate (Plavix Tab*) 75 mg PO DAILY [facility] Last Admin: 04/18/17 08:00 Dose: 75 mg Dextrose (D50w Syringe 50 Ml*) 12.5 gm IV PUSH .FOR FS < 60 - SS PRN PRN Reason: FS < 60 Docusate Sodium (Colace Cap*) 100 mg PO BID [facility] Last Admin: 04/18/17 10:38 Dose: 100 mg Erythromycin (Erythromycin Tab*) 125 mg PO AC [facility] Last Admin: 04/18/17 11:39 Dose: 125 mg Famotidine (Pepcid Iv*) 20 mg IV SLOW PU BID [facility] Last Admin: 04/18/17 08:01 Dose: 20 mg Gabapentin (Neurontin Cap(*)) 300 mg PO BID [facility] Last Admin: 04/18/17 10:38 Dose: Not Given Heparin Sodium (Porcine) (Heparin Vial(*)) 5,000 units SUBCUT Q8HR [facility] Last Admin: 04/18/17 13:13 Dose: 5,000 units Hydralazine HCl (Apresoline Iv*) 5 mg IV SLOW PU Q6H PRN PRN Reason: BLOOD PRESSURE Last Admin: 04/18/17 00:14 Dose: 5 mg Insulin Human Lispro (Humalog*) 0 units SUBCUT AC [facility] PRN Reason: Protocol Last Admin: 04/18/17 12:51 Dose: Not Given Labetalol HCl (Trandate Iv*) 5 mg IV PUSH Q6H PRN PRN Reason: BLOOD PRESSURE Magnesium Hydroxide (Milk Of Magnesia Liq*) 30 ml PO Q4H PRN PRN Reason: CONSTIPATION Last Admin: 04/16/17 00:38 Dose: 30 ml Metoclopramide HCl (Reglan Iv*) 10 mg IV AC [facility] Last Admin: 04/18/17 11:40 Dose: 10 mg Metoprolol Tartrate (Lopressor Iv*) 5 mg IV Q3H PRN PRN Reason: BLOOD PRESSURE Last Admin: 04/18/17 08:45 Dose: 5 mg Metoprolol Tartrate (Lopressor Tab*) 50 mg PO Q12HR [facility] Last Admin: 04/18/17 10:36 Dose: 50 mg Oxycodone/Acetaminophen (Percocet 5/325 Tab*) 1 tab PO Q4H PRN PRN Reason: Pain Pharmacy Profile Note (Scopolomine Patch Remove*) 1 note PATCH OFF Q72H [facility] Prednisolone Acetate (Pred Forte 1%*) 1 drop BOTH EYES BID [facility] Last Admin: 04/18/17 08:15 Dose: Not Given Prochlorperazine Edisylate (Compazine Inj*) 5 mg IV Q6H PRN PRN Reason: NAUSEA/VOMITING Last Admin: 04/17/17 00:16 Dose: 5 mg Scopolamine (Transderm-Scop 1.5 Mg Patch*) 1 patch TRANSDERM Q72H [facility] Last Admin: 04/15/17 19:37 Dose: 1 patch Senna (Senokot Tab*) 1 tab PO BID PRN PRN Reason: CONSTIPATION Last Admin: 04/16/17 00:37 Dose: 1 tab Sodium Biphosphate/Sodium Phosphate (Fleet Enema*) 1 bottle NE DAILY PRN PRN Reason: CONSTIPATION Tramadol HCl (Ultram*) 50 mg PO BID PRN PRN Reason: PAIN Vital Signs 04/17/17 04/17/17 04/17/17 15:19 16:53 19:28 Temperature 99.0 F 98.8 F Pulse Rate 88 83 Respiratory 16 17 Rate Blood Pressure 180/104 156/90 176/104 (mmHg) O2 Sat by Pulse 99 97 Oximetry 04/17/17 04/17/17 04/17/17 20:00 20:47 22:17 Temperature Pulse Rate 72 Respiratory 17 17 Rate Blood Pressure 171/103 (mmHg) O2 Sat by Pulse Oximetry 04/17/17 04/17/17 04/18/17 22:47 23:42 02:00 Temperature 99.1 F Pulse Rate 69 79 Respiratory 17 16 Rate Blood Pressure 172/103 161/89 (mmHg) O2 Sat by Pulse 97 Oximetry 04/18/17 04/18/17 04/18/17 04:22 07:55 08:00 Temperature 98.6 F Pulse Rate 83 76 Respiratory 16 18 Rate Blood Pressure 176/99 178/106 (mmHg) O2 Sat by Pulse 98 Oximetry 04/18/17 04/18/17 10:34 10:36 Temperature 98.6 F Pulse Rate 73 Respiratory 20 Rate Blood Pressure 168/93 168/94 (mmHg) O2 Sat by Pulse 99 Oximetry Oxygen Devices in Use Now: None Appearance: 61 yo M in NAd, AAOx3 Eyes: No Scleral Icterus, PERRLA Ears/Nose/Mouth/Throat: NL Teeth, Lips, Gums, Mucous Membranes Moist Neck: NL Appearance and Movements; NL JVP, Trachea Midline Respiratory: Symmetrical Chest Expansion and Respiratory Effort, Clear to Auscultation Cardiovascular: NL Sounds; No Murmurs; No JVD, RRR Abdominal: NL Sounds; No Tenderness; No Distention Lymphatic: No Cervical Adenopathy Extremities: No Edema, No Clubbing, Cyanosis Skin: No Rash or Ulcers, No Nodules or Sclerosis Neurological: - - R Moreno's palsy Result Diagrams: 04/18/17 05:44 04/18/17 05:44 Microbiology and Other Data: Microbiology 04/16/17 18:33 Stool Occult Blood ([facility]) - Final Stool Assess/Plan/Problems-Billing Assessment: 61 yo M with h/o recent NSTEMI( stent in 02/2016), H. pylori positive gastritis, chronic r Moreno's palsy, DM2 presents with intractable N/V - Patient Problems (1) Nausea & vomiting Comment: likely due to gastroparesis exacerbated by viral gastroenteritis PO E-mycin and scheduled Reglan started on 04/16/17- cont CT and abd US reviewed, no marked abnormalities found. will cont to tx with antiemetics/IVF CT brain unremarkable H. pylori eradication meds given from 03/31/17 to 04/16/17-completed [address] Sanford to see pt in consult, recommneded d/c Carafate and no other change of treatment, since pt is slowly improving (2) Diabetes Comment: Glipizide held, cont Lispro by SS (3) HTN (hypertension) Comment: uncontrolled, exacerbated by N/V Cont Clonidine and lopressor/hydralazine IV prn (4) Helicobacter positive gastritis Comment: completed 16 days course of eradication tx (5) CAD (coronary artery disease) Comment: recent stent in 03/14 Trop 0.04-suspect demand ischemia. EKG shows unchanged deep inverted T's in dev-lateral leads Cont ASA/Plavix (6) Dyslipidemia Comment: Lipitor held when pt is on erythromycin for gatroparesis, since it may cause worsening of Lipitor related side effects (7) DVT prophylaxis Comment: heparin sc Status and Disposition: inpatient due to continuation of N/V
[2017-04-18] MEDS ORDERED: KCL 20 MEQ/100 ML IVPREMIX* 20 MEQ/100 ML BAG IV ONE (14:36)
[2017-04-18] MEDS ORDERED: Scopolomine PATCH Remove* 1 NOTE MISC PATCH OFF SCH (19:00)
[2017-04-18] MEDS: Scopolamine 1.5 mg* PATCH TRANSDERM SCH (20:16)
[2017-04-19] MEDS: Metoprolol Tartrate IV* 1 MG/ML 5 ML VIAL IV PRN (01:22)
[2017-04-19] MEDS: Heparin VIAL(*) 5000 UNITS/ML VIAL (FIVE THOUSAND) SUBCUT SCH ×2 (05:25→13:40)
[2017-04-19] MEDS: Erythromycin TAB* 250 MG PO SCH ×2 (07:45→11:43)
[2017-04-19] MEDS: Metoclopramide IV* 5 MG/ML 2 ML VIAL IV SCH ×2 (07:45→11:43)
[2017-04-19] MEDS: Insulin LISPRO* 1 UNITS UNIT SUBCUT SCH ×3 (09:08→14:17)
[2017-04-19] MEDS: Clopidogrel TAB* 75 MG PO SCH (10:21)
[2017-04-19] MEDS: Aspirin Low Dose CHEW TAB* 81 MG PO SCH (10:21)
[2017-04-19] MEDS: Gabapentin CAP(*) 300 MG PO SCH (10:22)
[2017-04-19] MEDS: Metoprolol Tartrate TAB* 50 mg PO SCH (10:22)
[2017-04-19] MEDS: Docusate CAP* 100 MG PO SCH (10:22)
[2017-04-19] MEDS: Famotidine IV* 10 MG/ML 2 ML (20 mg) IV SLOW PU SCH (10:45)
[2017-04-19] MEDS: prednisoLONE 1% OPHTH.SUSP* 5 ML OPHTH.SUSP BOTH EYES SCH (10:45)
[2017-04-19 11:09] LABS: BUN/Creatinine Ratio 28.9 (8-20); Calcium 9.3 mg/dL (8.6-10.3); EGFR African American 110.7 (>60); EGFR Non-African American 86.1 (>60); Magnesium 1.9 mg/dL (1.9-2.7); Potassium 3.4 mmol/L (3.5-5.0)
[2017-04-19 11:40] VITALS: BP 155/83
--- NOTE | 2017-04-19 12:06 | PN ---
Subjective Date of Service: 04/19/17 Interval History: Last night ate two turkey sandwiches and today in AM vomited again. No abd pain. Frequent PVC's on telem Objective Active Medications: Acetaminophen (Tylenol Tab*) 650 mg PO Q4H PRN PRN Reason: FEVER/PAIN Last Admin: 04/15/17 01:40 Dose: 650 mg Al Hydrox/Mg Hydrox/Simethicone (Maalox Plus*) 30 ml PO Q6H PRN PRN Reason: INDIGESTION Aspirin (Aspirin Low Dose Tab*) 81 mg PO DAILY [facility] Last Admin: 04/19/17 10:21 Dose: Not Given Clonidine HCl (Wrmanqfz-Wjq-5 0.2 Mg Patch*) 0.2 mg TRANSDERM Q7D [facility] Last Admin: 04/17/17 10:59 Dose: 0.2 mg Clopidogrel Bisulfate (Plavix Tab*) 75 mg PO DAILY [facility] Last Admin: 04/19/17 10:21 Dose: Not Given Dextrose (D50w Syringe 50 Ml*) 12.5 gm IV PUSH .FOR FS < 60 - SS PRN PRN Reason: FS < 60 Docusate Sodium (Colace Cap*) 100 mg PO BID [facility] Last Admin: 04/19/17 10:22 Dose: Not Given Erythromycin (Erythromycin Tab*) 125 mg PO [facility] Last Admin: 04/19/17 11:43 Dose: Not Given Famotidine (Pepcid Iv*) 20 mg IV SLOW PU BID [facility] Last Admin: 04/19/17 10:45 Dose: 20 mg Gabapentin (Neurontin Cap(*)) 300 mg PO BID [facility] Last Admin: 04/19/17 10:22 Dose: Not Given Heparin Sodium (Porcine) (Heparin Vial(*)) 5,000 units SUBCUT Q8HR [facility] Last Admin: 04/19/17 05:25 Dose: 5,000 units Hydralazine HCl (Apresoline Iv*) 5 mg IV SLOW PU Q6H PRN PRN Reason: BLOOD PRESSURE Last Admin: 04/18/17 23:25 Dose: 5 mg Insulin Human Lispro (Humalog*) 0 units SUBCUT AC [facility] PRN Reason: Protocol Last Admin: 04/19/17 09:08 Dose: Not Given Labetalol HCl (Trandate Iv*) 5 mg IV PUSH Q6H PRN PRN Reason: BLOOD PRESSURE Magnesium Hydroxide (Milk Of Magneamon Liq*) 30 ml PO Q4H PRN PRN Reason: CONSTIPATION Last Admin: 04/16/17 00:38 Dose: 30 ml Metoclopramide HCl (Reglan Iv*) 10 mg IV AC [facility] Last Admin: 04/19/17 11:43 Dose: Not Given Metoprolol Tartrate (Lopressor Iv*) 5 mg IV Q3H PRN PRN Reason: BLOOD PRESSURE Last Admin: 04/19/17 01:22 Dose: 5 mg Metoprolol Tartrate (Lopressor Tab*) 50 mg PO Q12HR [facility] Last Admin: 04/19/17 10:22 Dose: Not Given Oxycodone/Acetaminophen (Percocet 5/325 Tab*) 1 tab PO Q4H PRN PRN Reason: Pain Pharmacy Profile Note (Scopolomine Patch Remove*) 1 note PATCH OFF Q72H [facility] Last Admin: 04/18/17 20:15 Dose: 1 note Prednisolone Acetate (Pred Forte 1%*) 1 drop BOTH EYES BID [facility] Last Admin: 04/19/17 10:45 Dose: 1 drop Prochlorperazine Edisylate (Compazine Inj*) 5 mg IV Q6H PRN PRN Reason: NAUSEA/VOMITING Last Admin: 04/17/17 00:16 Dose: 5 mg Scopolamine (Transderm-Scop 1.5 Mg Patch*) 1 patch TRANSDERM Q72H [facility] Last Admin: 04/18/17 20:16 Dose: 1 patch Senna (Senokot Tab*) 1 tab PO BID PRN PRN Reason: CONSTIPATION Last Admin: 04/16/17 00:37 Dose: 1 tab Sodium Biphosphate/Sodium Phosphate (Fleet Enema*) 1 bottle MS DAILY PRN PRN Reason: CONSTIPATION Tramadol HCl (Ultram*) 50 mg PO BID PRN PRN Reason: PAIN Vital Signs 04/18/17 04/18/17 04/18/17 15:35 15:41 19:57 Temperature 98.8 F 98.8 F Pulse Rate 77 82 Respiratory 16 17 Rate Blood Pressure 188/108 180/106 (mmHg) O2 Sat by Pulse 100 100 Oximetry 04/18/17 04/18/17 04/18/17 20:00 22:00 23:13 Temperature 98.7 F Pulse Rate 71 Respiratory 18 22 Rate Blood Pressure 154/92 172/108 (mmHg) O2 Sat by Pulse 98 Oximetry 04/19/17 04/19/17 04/19/17 01:08 02:31 03:16 Temperature 98.2 F 99.1 F Pulse Rate 75 73 Respiratory 18 20 Rate Blood Pressure 166/88 169/91 159/90 (mmHg) O2 Sat by Pulse 98 100 Oximetry 04/19/17 04/19/17 07:35 11:14 Temperature 97.2 F 97.7 F Pulse Rate 76 83 Respiratory 16 16 Rate Blood Pressure 112/65 155/83 (mmHg) O2 Sat by Pulse 100 95 Oximetry Oxygen Devices in Use Now: None Appearance: 61 yo M in NAD, AAOx3 Eyes: No Scleral Icterus, PERRLA Ears/Nose/Mouth/Throat: NL Teeth, Lips, Gums, Mucous Membranes Moist Neck: NL Appearance and Movements; NL JVP, Trachea Midline Respiratory: Symmetrical Chest Expansion and Respiratory Effort, Clear to Auscultation Cardiovascular: NL Sounds; No Murmurs; No JVD, RRR Abdominal: NL Sounds; No Tenderness; No Distention Lymphatic: No Cervical Adenopathy Extremities: No Edema, No Clubbing, Cyanosis Skin: No Rash or Ulcers, No Nodules or Sclerosis Neurological: Alert and Oriented x 3, - - R Moreno's palsy Result Diagrams: 04/18/17 05:44 04/19/17 10:43 Microbiology and Other Data: Microbiology 04/16/17 18:33 Stool Occult Blood ([facility]) - Final Stool Assess/Plan/Problems-Billing Assessment: 61 yo M with h/o recent NSTEMI( stent in 02/2016), H. pylori positive gastritis, chronic r Moreno's palsy, DM2 presents with intractable N/V - Patient Problems (1) Nausea & vomiting Comment: likely due to gastroparesis exacerbated by viral gastroenteritis PO scheduled Reglan started on 04/16/17- cont CT and abd US reviewed, no marked abnormalities found. will cont to tx with antiemetics, IVF stopped-pt is tolerating liquids CT brain unremarkable H. pylori eradication meds given from 03/31/17 to 04/16/17-completed [address] Sanford's consult -recommended d/c Carafate and no other change of treatment, since pt is slowly improving (2) Diabetes Comment: Glipizide held, cont Lispro by SS (3) HTN (hypertension) Comment: exacerbated by N/V under better control today Cont Clonidine and lopressor/hydralazine IV prn (4) Helicobacter positive gastritis Comment: completed 16 days course of eradication tx (5) CAD (coronary artery disease) Comment: recent stent in 03/14 Trop 0.04-suspect demand ischemia. EKG shows unchanged deep inverted T's in dev-lateral leads Cont ASA/Plavix (6) Dyslipidemia Comment: Lipitor (7) DVT prophylaxis Comment: heparin sc Status and Disposition: inpatient due to continuation of N/V
[2017-04-19] MEDS ORDERED: KCL 20 MEQ/100 ML IVPREMIX* 20 MEQ/100 ML BAG IV SCH (13:00)
[2017-04-19] MEDS ORDERED: Atorvastatin* 80 MG TAB PO SCH (17:00)
--- NOTE | 2017-04-20 10:03 | DS ---
ADDENDUM NOW INCLUDED ON THIS REPORT CC: Nena Rush MD; Dr. Sanford; Dr. Truong; Dr. Carlson; Dr. Mejia; Dr. Fontaine * DISCHARGE SUMMARY: DATE OF ADMISSION: 04/14/17 DATE OF DISCHARGE: 04/19/17 PRIMARY CARE PROVIDER: Nena Rush MD DISCHARGE DIAGNOSIS: Dehydration due to intractable nausea and vomiting, most likely due to gastroparesis. SECONDARY DIAGNOSES: 1. History of recent acute myocardial infarction with cardiac catheterization and stenting into the LAD on 04/02/17. 2. History of an episode of intractable nausea, vomiting due to gastroparesis in 2014. At that point, patient was admitted to [facility]. 3. History of ischemic cardiomyopathy with EF of 35% to 40%. 4. History of H. pylori duodenitis and gastritis diagnosed at beginning of March of 2017, status post eradication with clarithromycin, amoxicillin, and PPI. 5. History of diabetes type 2. 6. Iron deficiency anemia. 7. Hypertension. 8. Hyperlipidemia. 9. Chronic pain. MEDICATIONS AT DISCHARGE: Include: 1. Aspirin 81 mg daily. 2. Plavix 75 mg daily. 3. Lipitor 80 mg daily. 4. Vitamin B12 of 500 mcg daily. 5. Colace 100 mg b.i.d. 6. Ferrous sulfate 325 mg daily. 7. Neurontin 300 mg b.i.d. 8. [place] 5/325 mg on a p.r.n. basis. 9. Cozaar 50 mg daily. 10. Reglan 10 mg with each meal 3 times a day. 11. Metoprolol tartrate at an increased dose of 50 mg every 12 hours. 12. Protonix 40 mg daily. 13. Glucotrol XL 10 mg b.i.d. 14. Glucophage 1000 mg b.i.d. 15. Prednisone eye drops 1 drop both eyes b.i.d. 16. Ultram 50 to 100 mg on a p.r.n. basis. CONSULTATION DURING THE HOSPITAL STAY: Dr. Sanford from Gastroenterology. LABORATORY DATA AND STUDIES: Performed during the hospital stay included: On 04/19/17, sodium of 136, potassium 3.4, chloride 101, carbon dioxide 24, BUN 26 , creatinine 0.9. CBC: White blood cell count 8.6, hemoglobin 11.0, hematocrit of 35, MCV of 67, and platelets of 409. Liver function tests last obtained on admission showed bilirubin of 0.4, AST of 10, ALT of 10, alkaline phosphatase of 104. Patient's troponin at its peak was 0.04 throughout his hospital stay. Patient was monitored on telemetry throughout his hospital stay. C-reactive protein was 100.2 at admission. Lipase was 10. Urinalysis at admission showed +2 ketones, +1 protein. No bacteria, no nitrites , and no esterase. Brain CT obtained on 04/15/17 to rule out posterior circulation stroke, impression: "CT findings were most consistent with chronic microvascular disease." Gallbladder ultrasound obtained on 04/14/17, impression: "No sonographic evidence of acute cholecystitis or bilateral biliary obstruction." Abdomen and pelvis CT obtained on 04/14/17, impression: "Diverticulosis without definite focal inflammatory change characteristic of diverticulitis. Very small pericardial effusion, somewhat similar appearance to previous CT. Additional chronic degenerative changes as described above." HOSPITALIZATION COURSE: Jam Logan is a 61-year-old male with history of diagnosis of gastroparesis in 2014 when he was hospitalized at [facility]. Eventually he was discharged from there with treatment with erythromycin, Reglan, and Carafate scheduled. Patient stated that he had been doing okay but he developed nausea and vomiting basically after his discharge from our facility when he was admitted for acute DC. Patient was discharged on 04/03/17. He was readmitted on 04/14/17 with intractable nausea and vomiting. He complained of some abdominal discomfort but no significant tenderness was elicited on evaluation. Patient's further radiologic workup was unremarkable. His liver function tests were also unremarkable and lipase was negative. Patient continues to be monitored on telemetry monitored bed due to his history of recent heart attack. He never developed chest pain or shortness of breath. He had occasional PVCs throughout his telemetry monitoring. He continued to have intractable nausea and vomiting for several days. He was placed on Carafate, erythromycin, and Reglan p.o. scheduled due to possibility of gastroparesis, which treated his intractable nausea and vomiting at [facility] during the last stay. Nevertheless, he continued to have problems with vomiting. Due to that, Dr. Sanford saw patient in consultation on . Dr. Sanford thought that the patient is slowly improving and recommended discontinuation of patient's H. pylori eradication treatment, which patient had already completed over 14 days at this point. [address]. Sanford also recommended to discontinue Carafate and changed Protonix to once a day. Also, erythromycin was discontinued and patient was continued on Reglan. The day prior to discharge, patient ate "2 turkey sandwiches." Nevertheless, on day of discharge in the morning, he once again vomited his medications. Nevertheless, he was able to tolerate lunch and he requested to be discharged at that point. He feels much better. He is going to be discharged with a scheduled order of Reglan 3 times a day with each meal. Patient also was noted to have uncontrolled hypertension throughout his hospital stay, most likely due to nausea and vomiting. He was on multiple antihypertensive medications, and eventually he is going to be discharged on an increased dose of metoprolol at 50 mg twice a day and clonidine 0.2 mg transdermally every 7 days. His blood pressures at discharge are controlled. Patient's troponin was very minimally elevated at 0.04, was thought to be due to mild demand ischemia while vomiting. Patient never experienced chest pain and his EKG was unchanged from prior. PHYSICAL EXAM: For physical exam at discharge, please see daily progress notes. The patient is going to be discharged home with recommendation to follow up with Dr. Rush in approximately 4 to 7 days. DIET AT DISCHARGE: Diabetic and cardiac. Please note, this is a short summary of the patient's hospital stay. Please refer to further medical records for details. Approximately 40 minutes was spent on patient's discharge. ADDENDUM: DISCHARGE MEDICATIONS: Clonidine patch 0.2 mg transdermally, apply on a weekly basis. [id number]/[facility] #: [id number] A- [id number]/CPS #: [id number] ARE[facility]
--- NOTE | 2017-04-20 10:04 | DS ---
DISCHARGE SUMMARY:* ADDENDUM: DISCHARGE MEDICATIONS: Clonidine patch 0.2 mg transdermally, apply on a weekly basis. [id number]/[facility] #: [id number] [facility]ITAL[facility]
== END 2017-04-19 15:08 | disposition home or self-care (01) | DRG 73 ==
LOC: ED 13:48 → MEDTELE 20:15 → OBSVTOIN 04-15 14:20
PROVIDERS: ADMIT Pediatrics; ATTEND Internal Medicine
DX: E11.43 Type 2 diabetes mellitus with diabetic autonomic (poly)neuropathy (principal); I21.4 Non-ST elevation (NSTEMI) myocardial infarction; E87.2 Acidosis; K31.84 Gastroparesis; A08.4 Viral intestinal infection, unspecified; K29.60 Other gastritis without bleeding; I25.10 Atherosclerotic heart disease of native coronary artery without angina pectoris; I11.9 Hypertensive heart disease without heart failure; I25.5 Ischemic cardiomyopathy; D50.9 Iron deficiency anemia, unspecified; E78.5 Hyperlipidemia, unspecified; G89.29 Other chronic pain; Z79.82 Long term (current) use of aspirin; Z79.84 Long term (current) use of oral hypoglycemic drugs; Z79.01 Long term (current) use of anticoagulants; Z79.52 Long term (current) use of systemic steroids; Z79.899 Other long term (current) drug therapy; Z88.8 Allergy status to other drugs, medicaments and biological substances; Z91.040 Latex allergy status; Z91.030 Bee allergy status; Z82.3 Family history of stroke; Z83.3 Family history of diabetes mellitus; Z87.891 Personal history of nicotine dependence; Z95.5 Presence of coronary angioplasty implant and graft
CPT/HCPCS: 36415; 70450; 74177; 76705; 80048; 80053; 81003; 81015; 82272; 83036; 83605; 83690; 83735; 84484; 85025; 86140; 93005; A9270-GY; J0290; J0360; J0780; J1644; J2060; J2405; J3480; Q9967

== ENCOUNTER 2017-04-27 10:01 | Emergency (ER) | payer MEDICARE, MEDICAID ==
[2017-04-27 12:06] VITALS: BP 162/106
--- NOTE | 2017-04-27 12:25 | RAD ---
INDICATION: Worsening chronic neck pain. COMPARISON: Comparison is made with a prior x-ray study of the cervical spine from every second 2010. TECHNIQUE: 5 views of the cervical spine were obtained including lateral, oblique, AP, open-mouth odontoid views. FINDINGS: There is straightening of the cervical spinal with loss of the normal cervical lordosis. There is mild retrolisthesis of C5 relative to C6 of approximately 3 mm which is unchanged. No prevertebral soft tissue swelling or fracture is seen. There is severe disc space narrowing and mild uncinate process spurring present at the C5-C6 and C6-C7 levels and mild to moderate bilateral neural foraminal narrowing at those levels. IMPRESSION: 1. STRAIGHTENING OF THE CERVICAL SPINE AND CHRONIC RETROLISTHESIS AT THE C5-C6 LEVEL. 2. SEVERE DEGENERATIVE DISC DISEASE AT THE C5-C6 AND C6-C7 LEVELS WITH INTERVAL PROGRESSION AT THE C6-C7 LEVEL.
--- NOTE | 2017-04-27 12:25 | RAD ---
HISTORY: Worsening chronic shoulder pain COMPARISONS: December 07, 2016 VIEWS: 9, Frontal internal rotation, external rotation, outlet, and axillary views of the right shoulder and of the left shoulder FINDINGS: Right: BONE DENSITY: Normal. BONES: There is no displaced fracture. JOINTS: There is mild osteoarthritis of the a.c. and glenoid humeral joints ALIGNMENT: There is no dislocation. The alignment is anatomic. SOFT TISSUES: There is soft tissue calcification along the greater tuberosity of the right humerus Left: BONE DENSITY: Normal. BONES: There is no displaced fracture. JOINTS: There is mild osteoarthritis of the a.c. and glenohumeral joints ALIGNMENT: There is no dislocation. The alignment is anatomic. SOFT TISSUES: There is soft tissue just lesion along the greater tuberosity of humerus. OTHER FINDINGS: None. IMPRESSION: 1. MILD BILATERAL OSTEOARTHRITIS. 2. BILATERAL SOFT TISSUE CALCIFICATIONS SUGGESTIVE OF A CALCIFIC TENDINOPATHY. 3. NO ACUTE OSSEOUS INJURY. IF SYMPTOMS PERSIST, RECOMMEND REPEAT IMAGING
[2017-04-27] MEDS ORDERED: Ketorolac INJ* 60 MG/2 ML VIAL IM ONE (12:28)
--- NOTE | 2017-04-27 12:42 | UC ---
Shoulder Pain HPI - HPI Summary HPI Summary: SEVERAL WEEKS OF BILATERAL SHOULDER PAIN, WORSE WITH MOVEMENT. TENDER TO TOUCH. NO CHEST PAIN. NO SHORTNESS OF BREATH. NO JAW PAIN. RIGHT SHOULDER CURRENTLY WORSE THAN LEFT, BUT PAIN SHIFTS. NO TRAUMA OR INJURY. HURTS TO LIFT SHOULDERS. - History of Current Complaint Chief Complaint: UCUpperExtremity Stated Complaint: SHOULDER PAIN Time Seen by Provider: 04/27/17 10:20 Hx Obtained From: Patient Onset/Duration: Gradual Onset, Lasting Weeks, Still Present Timing: Weeks Severity Initially: Mild Severity Currently: Moderate Location Of Pain: Is Discrete @ - BILATERAL SHOULDERS Character: Dull, Aching, Spasmodic, Stiffness Aggravating Factor(s): Movement, Lifting, Internal Rotation, External Rotation Alleviating Factor(s): Rest Related History: Similar Episode/Dx As, Dominant Hand Right - Risk Factors Non-Orthopedic Risk Factor: Negative DVT Risk Factors: Negative Septic Arthritis Risk Factor: Negative - Allergies/Home Medications Allergies/Adverse Reactions: Allergies Allergy/AdvReac Type Severity Reaction Status Date / Time Latex Allergy Severe RASH, Verified 03/26/17 16:23 ITCHING Lisinopril Allergy Severe Swelling Verified 03/26/17 16:23 Of Face,Lips,& Throat Bee Venom Allergy Intermediate Rash Verified 03/26/17 16:23 PMH/Surg Hx/FS Hx/Imm Hx Previously Healthy: Yes - Surgical History Surgical History: Yes Surgery Procedure, Year, and Place: BILAT KNEE SURGERY, BILAT HAND SURGERY, 4 EYE SURGERIES (cataracts)(corneal transplants) - Family History Known Family History: Positive: None, Cardiac Disease, Hypertension, Diabetes - Social History Alcohol Use: None Substance Use Type: None Smoking Status (MU): Never Smoked Tobacco Type: Cigarettes Have You Smoked in the Last Year: No - Immunization History Most Recent Influenza Vaccination: 2014 Most Recent Tetanus Shot: up to date Most Recent Pneumonia Vaccination: never had Review of Systems Constitutional: Negative Skin: Negative Eyes: Negative ENT: Negative Respiratory: Negative Cardiovascular: Negative Gastrointestinal: Negative Genitourinary: Negative Motor: Negative Neurovascular: Negative Musculoskeletal: Arthralgia, Myalgia Neurological: Negative Psychological: Negative All Other Systems Reviewed And Are Negative: Yes Physical Exam Triage Information Reviewed: Yes Appearance: Well-Appearing, No Pain Distress, Well-Nourished Vital Signs: Initial Vital Signs Temp 98.0 F 04/27/17 10:18 Pulse 92 06/30/17 10:18 Resp 20 04/27/17 10:18 BP 155/93 04/27/17 10:18 Pulse Ox 99 04/27/17 10:18 Vital Signs Reviewed: Yes Eye Exam: Normal ENT Exam: Normal ENT: Positive: Normal ENT inspection, Hearing grossly normal, Pharynx normal, TMs normal Dental Exam: Normal Neck exam: Normal Neck: Positive: Supple, Nontender, No Lymphadenopathy Respiratory Exam: Normal Respiratory: Positive: Chest non-tender, Lungs clear, Normal breath sounds, No respiratory distress, No accessory muscle use Cardiovascular Exam: Normal Cardiovascular: Positive: RRR, No Murmur, Pulses Normal, Brisk Capillary Refill Abdominal Exam: Normal Abdomen Description: Positive: Nontender, No Organomegaly Musculoskeletal Exam: Normal Musculoskeletal: Positive: Strength Intact, ROM Intact Neurological Exam: Normal Psychological Exam: Normal Skin Exam: Normal Shoulder Course/Dx - Differential Dx/Diagnosis Differential Diagnosis/HQI/PQRI: Arthritis, Rotator Cuff Injury, Sprain, Strain , Tendonitis Provider Diagnoses: BILATERAL SHOULDER CALCIFIC TENDONITIS; CERVICAL DEGENERATIVE DISC DISEASE WITH INTERVAL PROGRESSION AT C5-C6-C7; CHRONIC RETROLITHIASIS C5-C6; ESSENTIAL HYPERTENSION Discharge - Discharge Plan Condition: Stable Disposition: HOME Prescriptions: Naproxen Sodium [Naproxen Sodium 220 mg cap] 220 mg PO BID #10 cap traMADol TAB* [Ultram*] 50 mg PO Q12H PRN #12 tab MDD TWO TABS PRN Reason: Pain Patient Education Materials: Calcific Tendinitis (ED), Tendinitis (ED), Degenerative Disc Disease (ED), Neck Pain (ED) Referrals: Flex Bolaños MD [Medical Doctor] - Nena Rush MD [Primary Care Provider] - Additional Instructions: PHYSICAL THERAPY REFERRAL: You have been prescribed physical therapy. Treatments may include stretching, exercise, application of heat or cold, and other modalities. After an injury, PT can reduce swelling and pain. In recovery, PT is used to restore mobility and strength. Your specific treatment goals are: Reduction of Swelling (EGS, US, ice as needed) ___x__ Pain Reduction (EGS, US, ice as needed) ___x__ TENS Pack Fitting and Instruction Wound Hydrotherapy ___x__ Preservation of Mobility ___x__ Confucianism of Mobility ___x__ Strength Confucianism __x___ Work or Sports Hardening This instruction sheet also serves as your PHYSICAL THERAPY REFERRAL! Please take it with you to the therapist, so he/she will be aware of your diagnosis and treatment plan. You may see the physical therapist of your choice for these treatments, but may wish to check with your insurance to be sure the provider you select is covered. It's important to see the doctor to whom you have been referred for follow up.
== END 2017-04-27 12:57 | disposition home or self-care (01) ==
LOC: UCEAST 10:01
DX: M75.32 Calcific tendinitis of left shoulder (principal); M75.31 Calcific tendinitis of right shoulder; M50.322 Other cervical disc degeneration at C5-C6 level; M50.323 Other cervical disc degeneration at C6-C7 level; I10 Essential (primary) hypertension; Z91.040 Latex allergy status; Z91.030 Bee allergy status
CPT/HCPCS: 72050; 93005; 96372; 99212; G0463; J1885

== ENCOUNTER 2017-05-07 10:43 | Emergency (ER) | payer MEDICARE, MEDICAID ==
[2017-05-07] MEDS ORDERED: Aspirin Low Dose CHEW TAB* 81 MG PO ONE (11:23)
--- NOTE | 2017-05-07 11:46 | UC ---
Shoulder Pain HPI - HPI Summary HPI Summary: 61 yo male with bilateral L>R shoulder pain x months he was seen here 1-2 weeks and referred to orthopedist (Dr. Bolaños) but has yest to make an appt still has severe shoulder pain but:for the past few days has become faint and diaphoretic with ambulation denies CP had CA a few months ago - History of Current Complaint Chief Complaint: UCChestPain Stated Complaint: SHOULDER PAIN WITH LEFT ARM PAIN Time Seen by Provider: 05/07/17 11:09 Onset/Duration: Gradual Onset, Lasting Weeks Timing: Constant Severity Initially: Moderate Severity Currently: Severe Location Of Pain: Is Discrete @ - L > R shoulder, Radiates To - left wrist Pain Intensity: 8 Pain Scale Used: 0-10 Numeric Character: Aching, Spasmodic Aggravating Factor(s): Movement Alleviating Factor(s): Rest Related History: Dominant Hand Right - Allergies/Home Medications Allergies/Adverse Reactions: Allergies Allergy/AdvReac Type Severity Reaction Status Date / Time Latex Allergy Severe RASH, Verified 05/07/17 10:51 ITCHING Lisinopril Allergy Severe Swelling Verified 05/07/17 10:51 Of Face,Lips,& Throat Bee Venom Allergy Intermediate Rash Verified 05/07/17 10:51 PMH/Surg Hx/FS Hx/Imm Hx Previously Healthy: Yes - Surgical History Surgical History: Yes Surgery Procedure, Year, and Place: BILAT KNEE SURGERY, BILAT HAND SURGERY, 4 EYE SURGERIES (cataracts)(corneal transplants) - Family History Known Family History: Positive: None, Cardiac Disease, Hypertension, Diabetes - Social History Alcohol Use: None Substance Use Type: None Smoking Status (MU): Former Smoker Type: Cigarettes Have You Smoked in the Last Year: No - Immunization History Most Recent Influenza Vaccination: 2014 Most Recent Tetanus Shot: up to date Most Recent Pneumonia Vaccination: never had Review of Systems Constitutional: Fatigue Skin: Negative Eyes: Negative ENT: Negative Respiratory: Negative Cardiovascular: Negative Gastrointestinal: Negative Genitourinary: Negative Motor: Negative Neurovascular: Negative Musculoskeletal: Arthralgia Neurological: Negative Psychological: Negative All Other Systems Reviewed And Are Negative: Yes Physical Exam Triage Information Reviewed: Yes Appearance: Well-Appearing, No Pain Distress, Well-Nourished Vital Signs: Initial Vital Signs Temp 99 F 05/07/17 10:53 Pulse 77 05/07/17 10:53 Resp 16 05/07/17 10:53 BP 146/87 05/07/17 10:53 Pulse Ox 98 05/07/17 10:53 Vital Signs Reviewed: Yes ENT: Positive: Hearing grossly normal. Negative: Nasal congestion, Nasal drainage, Tonsillar swelling, Tonsillar exudate Neck: Positive: Supple, Nontender Respiratory: Positive: Lungs clear, Normal breath sounds, No respiratory distress Cardiovascular: Positive: RRR, No Murmur Musculoskeletal: Positive: Other: Neurological: Positive: Alert Psychological Exam: Normal Skin Exam: Normal Diagnostics - EKG Cardiac Rate: NL - QIS PATRICK SEPTAL LEADS Cardiac Rhythm: Sinus: Normal Ectopy: None ST Segment: Normal Shoulder Course/Dx - Course Course Of Treatment: DUE TO PTS RECENT CA AND EXERTIONAL DIAPHORESIS/WEAKNESS ADVISED TRANSFER [place] [facility] [place]. HE REFUSES EMS TRANSFER - Differential Dx/Diagnosis Provider Diagnoses: DIAHORESES AND WEAKNESS OF UNCERTAIN CAUSE Discharge - Discharge Plan Condition: Guarded Disposition: AGAINST MEDICAL ADVICE
[2017-05-07 12:17] VITALS: BP 146/73
== END 2017-05-07 12:05 | disposition left against medical advice (07) ==
LOC: UCEAST 10:43
DX: R61 Generalized hyperhidrosis (principal); R53.1 Weakness; Z87.891 Personal history of nicotine dependence
CPT/HCPCS: 93005; 99212; A9270-GY; G0463

== ENCOUNTER 2017-05-28 09:26 | Observation (INO) | payer MEDICARE, MEDICAID ==
[2017-05-28] MEDS ORDERED: Ondansetron INJ* 2 MG/ML VIAL IV ONE (09:55)
[2017-05-28] MEDS ORDERED: NS 0.9% 1000 ML* 2,000 ML IV ONE (09:55)
[2017-05-28 10:13] LABS: Hematocrit 35 % (42-52); Hemoglobin 10.9 g/dl (14.0-18.0); Mean Corpuscular HGB Conc 31 g/dl (31-36); Mean Corpuscular Hemoglobin 21 pg (27-31); Mean Platelet Volume 8 um3 (7.4-10.4); Red Blood Count 5.22 10^6/ul (4.0-5.4); Red Cell Distribution Width 18 % (10.5-15); White Blood Count 10.8 10^3/ul (3.5-10.8)
--- NOTE | 2017-05-28 10:13 | ED ---
Abdominal Pain/Male - HPI Summary HPI Summary: 61 male presents with complaints of vomiting for the past 2-3 days. States he vomits every few minutes. Has a discomfort in lower mid abdomen no other pain. Denies any chest pain, difficulty breathing, dizziness, AMS and lethargy. Denies urinary symptoms and diarrhea. LBM was this morning and normal. Denies blood in stool and constipation. Denies headache, dizziness, sore throat and weakness. Has not been able to eat and drink. Did take his heart medication and metformin this morning however has vomited since then. No other medication to help with symptoms. Has not checked his sugar in 3 days due to his vomiting and not feeling well. States he made some roasted vegetables, left them out and then ate them again and feels he has a virus from it. This has happened to him before which he is unsure of the diagnosis. PMHx significant for DM, HTN, RI and shoulder pain. Denies known fever and chills. Denies alcohol and substance use. - History of Current Complaint Chief Complaint: EDNauseaVomitDiarrh Stated Complaint: VOMITING Time Seen by Provider: 05/28/17 09:45 Onset/Duration: Sudden Onset, Lasting Days, Still Present, Worse Since Timing: Constant, Lasting Days Severity Initially: Mild Severity Currently: Mild Pain Intensity: 6 Pain Scale Used: 0-10 Numeric Location: Umbilical Radiates: No Character: Dull - "discomfort" Aggravating Factor(s): Food Alleviating Factor(s): Nothing Associated Signs And Symptoms: Positive: Nausea, Vomiting. Negative: Diaphoresis, Fever, Cough, Chest Pain, Back Pain, Constipation, Blood in Stool, Urinary Symptoms, Decreased Appetite, Diarrhea - Allergies/Home Medications Allergies/Adverse Reactions: Allergies Allergy/AdvReac Type Severity Reaction Status Date / Time Latex Allergy Severe RASH, Verified 05/28/17 09:46 ITCHING Lisinopril Allergy Severe Swelling Verified 05/28/17 09:46 Of Face,Lips,& Throat Bee Venom Allergy Intermediate Rash Verified 05/28/17 09:46 PMH/Surg Hx/FS Hx/Imm Hx Endocrine/Hematology History: Reports: Hx Diabetes Denies: Hx Thyroid Disease Cardiovascular History: Reports: Hx Angina, Hx Hypertension, Hx Myocardial Infarction - 03/26/17 Respiratory History: Denies: Hx Asthma, Hx Chronic Obstructive Pulmonary Disease (COPD) GI History: Reports: Other GI Disorders - Pt has had chronic stomach pain with no diagnosis Denies: Hx Ulcer History: Denies: Hx Renal Disease Musculoskeletal History: Comment Only: Other Musculoskeletal History - hx of multiple surgeries on knees, hands, and ankles Sensory History: Reports: Hx Vision Problem Denies: Hx Contacts or Glasses, Hx Hearing Aid Opthamlomology History: Reports: Hx Vision Problem Denies: Hx Contacts or Glasses - Surgical History Surgery Procedure, Year, and Place: BILAT KNEE SURGERY, BILAT HAND SURGERY, 4 EYE SURGERIES (cataracts)(corneal transplants) - Immunization History Immunizations Up to Date: Yes Infectious Disease History: No Infectious Disease History: Denies: Hx Clostridium Difficile, Hx Hepatitis, Hx Human Immunodeficiency Virus (HIV), Hx of Known/Suspected MRSA, Hx Shingles, Hx Tuberculosis, History Other Infectious Disease, Traveled Outside the [place] in Last 30 Days - Family History Known Family History: Positive: None, Cardiac Disease, Hypertension, Diabetes - Social History Alcohol Use: None Hx Substance Use: No Substance Use Type: Reports: None Hx Tobacco Use: No Smoking Status (MU): Former Smoker Type: Cigarettes Have You Smoked in the Last Year: No Review of Systems Constitutional: Negative Cardiovascular: Negative Respiratory: Negative Positive: Abdominal Pain, Vomiting, Nausea Genitourinary: Negative Musculoskeletal: Negative Skin: Negative Neurological: Negative All Other Systems Reviewed And Are Negative: Yes Physical Exam Triage Information Reviewed: Yes Vital Signs On Initial Exam: Initial Vitals Temp Pulse Resp BP Pulse Ox 97.9 F 108 22 155/98 100 05/28/17 09:05/28/17 09:05/28/17 09:05/28/17 09:05/28/17 09:31 Vital Signs Reviewed: Yes Appearance: Positive: No Pain Distress, Well-Nourished, Ill-Appearing - vomiting on exam Skin: Positive: Warm, Skin Color Reflects Adequate Perfusion, Dry. Negative: Cold, Numb, Cyanosis @, Jaundiced, Pale Head/Face: Positive: Normal Head/Face Inspection Eyes: Positive: Conjunctiva Clear ENT: Positive: Hearing grossly normal, Pharynx normal Neck: Positive: Supple, Nontender, No Lymphadenopathy Respiratory/Lung Sounds: Positive: Clear to Auscultation, Breath Sounds Present. Negative: Rales, Rhonchi, Wheezes Cardiovascular: Positive: Normal, RRR, Pulses are Symmetrical in both Upper and Lower Extremities, Tachycardia. Negative: Murmur, Rub Abdomen Description: Positive: Soft, Other: - minimally tender on palpation of suprapubic/umbilical area. Negative: Bruit, CVA Tenderness (R), CVA Tenderness (L), Distended, Guarding, Hernia @, Peritoneal Signs, Pulsatile Mass Bowel Sounds: Positive: Present Musculoskeletal: Positive: Normal, Strength/ROM Intact Neurological: Positive: Normal, Sensory/Motor Intact, Alert, Oriented to Person Place, Time Psychiatric: Positive: Affect/Mood Appropriate - Raquel Coma Scale Best Eye Response: 4 - Spontaneous Best Motor Response: 6 - Obeys Commands Best Verbal Response: 5 - Oriented Coma Scale Total: 15 Diagnostics - Vital Signs Vital Signs Temp Pulse Resp BP Pulse Ox 05/28/17 09:42 98.2 F 107 18 153/94 100 05/28/17 09:31 97.9 F 108 22 155/98 100 - Laboratory Result Diagrams: 05/28/17 10:00 05/28/17 11:50 Lab Statement: Any lab studies that have been ordered have been reviewed, and results considered in the medical decision making process. - EKG EKG Cardiac Rate: NL EKG Rhythm: Sinus Rhythm ST Segment: Normal Ectopy: None EKG Interpretation: NSR, LVH EKG Comparison: No Significant Change Re-Evaluation - Re-Evaluation First Eval Re-Evaluation Time: 11:00 Abdominal Pain Fem Course/Dx - Course Course Of Treatment: labs, EKG and urinalysis obtained. given zofran and fluids. did have relief and has not vomited again since in ED. However due to lab findings, feeling of weakness, nausea and ketosis was consulted by Dr Reyes who decided to admit patient. Further testing and imaging was held at this time per Dr Reyes. Given fluids and metformin before admission due to elevated sugar and lactic acid. Rest of lab findings were patients normal findings when compared to previous visit (anemia, CRP). Urine unremarkable. Admitted to Dr Reyes hospitalist service. - Diagnoses Provider Diagnoses: Ketosis, Nausea & vomiting - Provider Notifications Discussed Care Of Patient With: Dr Reyes Time Discussed With Above Provider: 12:30 Instructed by Provider To: Admit As Inpatient Discharge - Discharge Plan Condition: Fair Disposition: ADMITTED TO [facility]
[2017-05-28 10:16] LABS: Comments Flag Yes
[2017-05-28 10:17] LABS: Mean Corpuscular Volume 67 fL (80-94)
[2017-05-28 10:42] LABS: ALT 13 U/L (7-52); Alkaline Phosphatase 94 U/L (34-104); BUN/Creatinine Ratio 31.4 (8-20); Blood Urea Nitrogen 33 mg/dL (6-24); C Reactive Protein 56.87 mg/L (< 5.00); CO2 Carbon Dioxide 25 mmol/L (22-32); Calcium 10.3 mg/dL (8.6-10.3); Chloride 92 mmol/L (101-111); EGFR African American 92.7 (>60); Globulin 5.2 g/dL (2-4); Glucose 284 mg/dL (70-100); Lipase < 10 U/L (11.0-82.0); Sodium 129 mmol/L (133-145); Total Protein 9.2 g/dL (6.4-8.9)
[2017-05-28 10:44] LABS: Anion Gap 12 mmol/L (2-11)
[2017-05-28] MEDS ORDERED: metFORMIN* 500 MG TAB PO ONE (11:38)
[2017-05-28 12:37] LABS: Urine Bacteria Absent (Absent); Urine Bilirubin Negative (Negative); Urine Glucose 1+(50 mg/dL) (Negative); Urine Nitrite Negative (Negative)
[2017-05-28] MEDS ORDERED: Labetalol IV* 5 MG/ML 20 ML VIAL IV PUSH ONE (13:07)
[2017-05-28] MEDS ORDERED: Acetaminophen TAB* 325 MG PO PRN (13:07)
[2017-05-28] MEDS ORDERED: Dextrose 50% Syringe 50 ML* 25 GM/50 ML SYRINGE IV PUSH PRN (13:07)
[2017-05-28] MEDS ORDERED: HYDROcodone/ACETAMIN 5-325 MG* 1 TAB PO PRN (13:09)
[2017-05-28] MEDS ORDERED: NS 0.9% 1000 ML* 1,000 ML IV SCH (13:15)
[2017-05-28] MEDS ORDERED: Iodixanol* (CONTRAST) 320 MG/ML 100 ML SDV IV ONE (13:39)
[2017-05-28 13:47] LABS: Benzodiazepine Urine Screen None Detected (None Detect)
[2017-05-28] MEDS ORDERED: cloNIDine 0.2 MG PATCH* 0.2 MG/24 HR 7 DAY PATCH TRANSDERM SCH (14:00)
[2017-05-28] MEDS: Heparin VIAL(*) 5000 UNITS/ML VIAL (FIVE THOUSAND) SUBCUT SCH ×2 (15:00→21:23)
--- NOTE | 2017-05-28 15:01 | RAD ---
INDICATION: Nausea and vomiting COMPARISON: CT abdomen pelvis April 14, 2017 TECHNIQUE: Axial source images were obtained from the hemidiaphragms to the symphysis pubis following administration of oral and intravenous contrast. 85 mL Visipaque 320 was utilized. Coronal and sagittal reconstructed images were acquired. Lung bases: The lung bases are clear. Liver: The liver is normal in size. There are no masses. There is no ductal dilatation. Gallbladder: There are no calcified gallstones. There is no evidence of wall thickening or pericholecystic fluid. Spleen: The spleen is normal in size. There are no masses. Pancreas: There is no focal pancreatic mass or ductal dilatation. Adrenal glands: There is no evidence of adrenal mass. Kidneys: The kidneys are normal in size and position. There are prompt nephrograms and there is prompt excretion bilaterally. There are no renal parenchymal masses. There is no evidence of nephrolithiasis. Adenopathy: There is no evidence of adenopathy by size criteria. Fluid collections: There are no free or localized fluid collections. Vessels:There are atherosclerotic changes involving the aorta and iliac vessels. There is no focal aneurysm. The IVC appears normal. GI tract: There are no acute CT bowel findings. There is no obstruction. The stomach and small bowel appear normal. The lower GI tract is remarkable for retained stool and scattered diverticula. The cecum, ileocecal valve, and terminal ileum appear normal. The appendix is visualized and appear normal. Pelvic organs: The uterus and adnexa appear normal Bladder: There are no bladder masses. Abdominal and pelvic soft tissues: The extraperitoneal abdominal and pelvic soft tissues appear normal.. Osseous structures: There are no acute osseous findings. There is degenerative disc disease at L5-S1 Other: None IMPRESSION: NO ACUTE CT FINDINGS. Retained stool. Scattered diverticula. No CT evidence of acute diverticulitis
[2017-05-28] MEDS ORDERED: Metoclopramide TAB* 10 MG PO SCH (16:30)
[2017-05-28] MEDS ORDERED: hydrALAZINE IV* 20 MG/ML VIAL IV SLOW PU PRN (16:55)
[2017-05-28] MEDS: Insulin LISPRO* 1 UNITS UNIT SUBCUT SCH (17:04)
[2017-05-28] MEDS ORDERED: Atorvastatin* 80 MG TAB PO SCH (21:00)
[2017-05-28] MEDS: PROCHLORPERAZINE INJ 5 MG/ML 2 ML VIAL IV PRN (21:17)
[2017-05-28] MEDS: Docusate CAP* 100 MG PO SCH (21:22)
[2017-05-28] MEDS: Gabapentin CAP(*) 300 MG PO SCH (21:22)
[2017-05-28] MEDS: prednisoLONE 1% OPHTH.SUSP* 5 ML OPHTH.SUSP BOTH EYES SCH (21:23)
[2017-05-28] MEDS: Metoprolol Tartrate TAB* 50 mg PO SCH ×2 (21:57→22:07)
--- NOTE | 2017-05-29 00:25 | HP ---
CC: Dr. Rush * HISTORY AND PHYSICAL: DATE OF ADMISSION: 05/28/17 PRIMARY CARE PROVIDER: Dr. Rush. ATTENDING PHYSICIAN WHILE IN THE HOSPITAL: Ana Reyes DO * (report dictated by Damián Alvarez NP). CHIEF COMPLAINT: 1. Nausea. 2. Vomiting. HISTORY OF PRESENTING ILLNESS: Mr. Logan is a 61-year-old male patient. He has a significant medical history for ischemic cardiomyopathy, H. pylori, history of W[place], diabetes, anemia, hypertension, hyperlipidemia, chronic pain, and history of nausea and vomiting in the past that was intractable. He comes to the ER today, he says throughout the weekend he has been having progressively worsening nausea with vomiting. He denies having any recent fevers, chills. He denies having any abdominal pain. He denies having any chest pain or shortness of breath. He just says that he has been vomiting. He says it can happen at any point. He says that it happens after eating, before eating. He says he has been trying to take his medications, but he has had trouble keeping them down. He states there has not been any change in medication. He denies again any pain with this. He has not been vomiting up any black or jakob blood. He says that he has not had any tarry stools. He had a bowel movement this morning. He denies having any abdominal distention. He came into the ER. He vomited twice down here. It was noted that his blood pressure was elevated in the 180s/100 range. He was mildly tachycardic and because of the vomiting and the fact that he could not keep his medications down , the hospitalist service was asked to evaluate for admission. PAST MEDICAL HISTORY: Significant for: 1. W[place]. 2. Ischemic cardiomyopathy with an EF of 35% to 40%. 3. H. pylori infection in the past with gastritis and esophagitis. 4. Diabetes. 5. Anemia. 6. Hypertension. 7. Hyperlipidemia. 8. Chronic pain. 9. History of nausea and vomiting. PAST SURGICAL HISTORY: 1. The patient has had a heart catheterization. 2. He has had knee arthroscopies. He has had ankle surgery. 3. Hand surgery. 4. Cataract extractions. 5. Corneal transplants. HOME MEDICATIONS: Include: 1. Ultram 50 mg every 12 hours as needed. 2. Prednisolone 1 drop both eyes b.i.d. 3. Glucophage 1000 mg p.o. b.i.d. 4. Glipizide 10 mg p.o. b.i.d. 5. Catapres patch 0.2 mg transdermally every 7 days. 6. Protonix 40 mg daily. 7. Nitro 0.4 mg sublingual q.5 minutes p.r.n. chest pain x3. 8. Naproxen 220 mg p.o. b.i.d. 9. Lopressor 50 mg every 12 hours. 10. Reglan 10 mg p.o. a.c. 11. Cozaar 50 mg daily. 12. Higganum 1 tablet every 6 hours as needed. 13. Gabapentin 300 mg p.o. b.i.d. 14. Ferrous sulfate 325 mg p.o. daily. 15. EpiPen inject daily once as needed. 16. Colace 100 mg p.o. b.i.d. 17. B12 500 mcg daily. 18. Plavix 75 mg daily. 19. Atorvastatin 80 mg daily. 20. Aspirin 81 mg daily. ALLERGIES TO MEDICATIONS: Include LATEX, LISINOPRIL and BEES. FAMILY HISTORY: His mother had a history of heart disease. Father had a history of diabetes. SOCIAL HISTORY: He is a former smoker. He does not drink alcohol. He denies any recreational drug use. Surrogate decision maker is his girlfriend, Marry, and his mother. REVIEW OF SYSTEMS: There is no documented fever. He denied having any significant weight change. There was no blood vision. He denies having any ear discharge. There is no rhinorrhea. No sore throat, no thyroid enlargement. He denies having any chest pain. There is no shortness of breath. There is no abdominal pain. There was nausea. There was vomiting. There is no dysuria. There is no frequency. There is no seizure. There is no loss of consciousness, pruritus and no skin ulcerations. Review of 14 systems was completed, all others are negative. PHYSICAL EXAMINATION GENERAL: At this time, Mr. Logan is a 61-year-old male patient. He is sitting on the ER stretcher. He does not appear to be in any acute distress. He is awake and he is alert. VITAL SIGNS: Blood pressure 188/111, heart rate was 119, O2 sat 99%, temperature 98.2. His last blood pressure while I was in the room with him was noted to be again 180/100 and his heart rate was hovering around 90. HEENT: Head is atraumatic and normocephalic. Eyes: EOMs are intact. Sclerae anicteric and not pale. Throat: Oral mucosa appeared to be moist. No oropharyngeal erythema. NECK: Supple. LUNGS: Clear to auscultation bilaterally. No wheezes, rales, or rhonchi. HEART: Sounds S1, S2. Regular rate and rhythm. No murmurs, rubs, or gallops. ABDOMEN: Soft, flat, nontender. Bowel sounds are present. EXTREMITIES: Pulses were 2+ throughout. He is able to move all 4 extremities with 5/5 strength. NEUROLOGIC: The patient is awake, is alert, and is oriented x3. Tongue midline. Service Dismantler are equal. No gross focal deficits. SKIN: Intact. DIAGNOSTIC STUDIES/LAB DATA: Labs revealed a WBC of 10.8, RBC of 5.22, hemoglobin 10.9, hematocrit of 35 which is right near his baseline, and his platelet count was 404,000. PTT was 36.1. Sodium was 129, potassium 4, chloride 92, bicarb 25, BUN 33, creatinine 1.05, glucose is 284, lactate 2.3, calcium 10.3, total bili 0.7, AST 7, ALT 13, alk phos is 94. Total protein 9.2 , lipase is less than 10, albumin of 4.0. Urine showed 1+ protein, 1+ ketones, 1+ glucose. He did have an EKG obtained today, which revealed a normal sinus rhythm, rate of 94, no ST elevations or T-wave inversions were noted. It was compared to the previous EKG, appears to be similar. He does have LVH criteria. Old medical records were reviewed. ASSESSMENT AND PLAN: Mr. Logan is a 61-year-old male patient coming into the ER today with complaints of nausea and vomiting that has been going on over the last 2 days. Despite efforts in the ED, he is still continuing to vomit. We were asked to evaluate for admission. He will be admitted under observation status for: 1. Intractable nausea and vomiting. At this point, I am going to get a CT of the abdomen and pelvis to make sure there is not any structural issue that may be contributing to this. If he does not improve with p.r.n. Zofran and Compazine , I would get a GI consult. In addition to this, I am going to go ahead and check a U- tox as well. We will hydrate the patient. Continue p.r.n. antiemetics. We will put him on a clear liquid diet and we will continue to follow closely. 2. Hypertension, it is not well controlled at this point. He does state that he thinks he may have vomited up his medications. My plan is to go ahead and give him a p.r.n. dose of labetalol and we will see how he responds. I will continue his meds and follow and if need be, we will add p.r.n. 3. History of coronary artery disease with myocardial infarction. Continue his beta-jose f, aspirin, and statin therapy. 4. Cardiomyopathy. He is on Cozaar. We will continue that for now and continue his beta-jose f and aspirin. 5. History of H. pylori. We will continue the Protonix. 6. Diabetes. He will be on insulin sliding scale. 7. Anemia. H and H is stable. We will follow. 8. Hyperlipidemia. Continue statin therapy. 9. Chronic pain. I have ordered p.r.n. Higganum. 10. DVT prophylaxis. He is high risk. He will be placed on heparin subcu. 11. Code status. Full code. 12. Fluid, electrolytes, and nutrition. He can have a clear liquid diet. TIME SPENT: Time spent on the admission was 60 minutes, greater than half the time spent [id number] with the patient obtaining my history and physical, the other half of the time was spent going over the plan of care, with the patient and implementing plan of care. I did discuss the plan of care with my attending , Dr. Reyes, who is in agreement. DAMIÁN ALVAREZ, ANIVAL [id number]/[facility] #: [id number] ARELI
[2017-05-29] MEDS: PROCHLORPERAZINE INJ 5 MG/ML 2 ML VIAL IV PRN ×2 (04:34→12:15)
[2017-05-29 05:24] LABS: Hematocrit 30 % (42-52); Hemoglobin 9.6 g/dl (14.0-18.0); Mean Corpuscular HGB Conc 32 g/dl (31-36); Mean Corpuscular Hemoglobin 21 pg (27-31); Mean Platelet Volume 7 um3 (7.4-10.4); Red Blood Count 4.52 10^6/ul (4.0-5.4); Red Cell Distribution Width 17 % (10.5-15); White Blood Count 9.3 10^3/ul (3.5-10.8)
[2017-05-29 05:30] LABS: Comments Flag Yes; Mean Corpuscular Volume 67 fL (80-94)
[2017-05-29 05:39] LABS: BUN/Creatinine Ratio 34.6 (8-20); Calcium 9.4 mg/dL (8.6-10.3); EGFR African American 130.6 (>60); EGFR Non-African American 101.5 (>60); Potassium 3.9 mmol/L (3.5-5.0)
[2017-05-29] MEDS: Heparin VIAL(*) 5000 UNITS/ML VIAL (FIVE THOUSAND) SUBCUT SCH ×2 (05:47→14:36)
[2017-05-29] MEDS: Gabapentin CAP(*) 300 MG PO SCH (08:41)
[2017-05-29] MEDS: Docusate CAP* 100 MG PO SCH (08:42)
[2017-05-29] MEDS: Metoprolol Tartrate TAB* 50 mg PO SCH (08:43)
[2017-05-29] MEDS: Insulin LISPRO* 1 UNITS UNIT SUBCUT SCH ×2 (08:43→12:15)
[2017-05-29] MEDS: prednisoLONE 1% OPHTH.SUSP* 5 ML OPHTH.SUSP BOTH EYES SCH (08:45)
[2017-05-29] MEDS ORDERED: Losartan TAB* 25 MG PO SCH (09:00)
[2017-05-29] MEDS ORDERED: Aspirin Low Dose CHEW TAB* 81 MG PO SCH (09:00)
[2017-05-29] MEDS ORDERED: Clopidogrel TAB* 75 MG PO SCH (09:00)
[2017-05-29] MEDS ORDERED: CMCS - Pantoprazole TAB (NF) 40 MG TAB PO SCH (09:00)
[2017-05-29] MEDS ORDERED: Ferrous Sulfate TAB* 325 MG PO SCH (09:00)
[2017-05-29 11:55] VITALS: BP 138/64
--- NOTE | 2017-05-30 10:52 | DS ---
CC: Dr. Nena Rush DISCHARGE SUMMARY: DATE OF ADMISSION: DATE OF DISCHARGE: 05/29/17 HISTORY OF PRESENT ILLNESS: This is a 61-year-old man who presented with nausea, vomiting. The his tory is detailed in the admission note. He was evaluated in the emergency room with a CT scan of th e abdomen and pelvis, EKG and routine lab work. He was given intravenous fluids and antiemetics. He has chronic anemia. He was given some insulin coverage while he was here. His glucose was well co ntrolled. On second hospital day, he was much improved and requested discharge. He only vomited onc e. He felt he could adequately hydrate himself. On my note, that his cohabiting significant other also had a similar illness, although not as severe . FINAL DIAGNOSES: 1. Probable viral gastroenteritis. 2. Ischemic cardiomyopathy. 3. Diabetes. 4. Chronic anemia. 5. Hypertension. 6. Hyperlipidemia. DISCHARGE MEDICATIONS: 1. Ondansetron 4 mg every 6 hours p.r.n. 2. Metformin 1000 mg b.i.d. 3. Prednisolone 1% one drop both eyes b.i.d. 4. Glipizide XL 10 mg b.i.d. 5. Vitamin B12 500 mcg daily. 6. EpiPen 0.3 mg p.r.n. 7. Tramadol 50 to 100 mg b.i.d. p.r.n. 8. Gabapentin 300 mg b.i.d. 9. Aspirin 81 mg daily. 10. Atorvastatin 80 mg daily. 11. Clopidogrel 75 mg daily. 12. Ferrous sulfate 325 mg daily. 13. Nitroglycerin 0.4 mg sublingual every 5 minutes p.r.n. 14. Losartan 50 mg daily. 15. Hydrocodone/acetaminophen 5/325 one every 6 hours p.r.n. 16. Docusate 100 mg b.i.d. 17. Metoclopramide 10 mg a.c. 18. Metoprolol tartrate 50 mg q.12 hours. 19. Clonidine 0.2 mg patch every 7 days. 20. Pantoprazole 40 mg daily. 21. Naproxen will be stopped. 22. Tramadol 50 mg every 12 hours p.r.n. [id number]/[facility] #: [id number]
== END 2017-05-29 16:00 | disposition home or self-care (01) ==
LOC: ED 09:26 → MED 13:04
PROVIDERS: ADMIT Hospitalist; ATTEND Internal Medicine
DX: R11.2 Nausea with vomiting, unspecified (principal); I25.5 Ischemic cardiomyopathy; E11.9 Type 2 diabetes mellitus without complications; Z79.84 Long term (current) use of oral hypoglycemic drugs; D53.9 Nutritional anemia, unspecified; I10 Essential (primary) hypertension; E78.5 Hyperlipidemia, unspecified; I25.2 Old myocardial infarction; Z87.891 Personal history of nicotine dependence; E88.89 Other specified metabolic disorders; Z79.01 Long term (current) use of anticoagulants; Z79.899 Other long term (current) drug therapy
CPT/HCPCS: 36415; 74177; 80048; 80053; 80307; 81003; 81015; 83036; 83605; 83690; 85025; 85730; 86140; 86850; 86900; 86901; 93005; 96374; 96375; 99283; A9270-GY; G0378; J0360; J0780; J1644; J2405; Q9967

== ENCOUNTER 2017-07-05 11:48 | Inpatient (IN) | payer MEDICARE, MEDICAID ==
[2017-07-05 15:23] LABS: Hematocrit 31 % (42-52); Mean Corpuscular HGB Conc 32 g/dl (31-36); Mean Corpuscular Hemoglobin 21 pg (27-31); Mean Platelet Volume 7 um3 (7.4-10.4); Red Blood Count 4.76 10^6/ul (4.0-5.4); Red Cell Distribution Width 18 % (10.5-15); White Blood Count 8.1 10^3/ul (3.5-10.8)
[2017-07-05 15:25] LABS: Comments Flag Yes
[2017-07-05 15:26] LABS: Mean Corpuscular Volume 65 fL (80-94)
[2017-07-05] MEDS: NS 0.9% 1000 ML* 1,000 ML IV SCH ×2 (15:32→20:19)
[2017-07-05] MEDS ORDERED: NS 0.9% 1000 ML* 3,000 ML IV ONE (15:35)
[2017-07-05] MEDS ORDERED: Ondansetron INJ* 2 MG/ML VIAL IV ONE (15:35)
--- NOTE | 2017-07-05 15:37 | ED ---
Abdominal Pain/Male - HPI Summary HPI Summary: 61 male presents with complaints of vomiting,m nausea and diarrhea since Sunday , 5 days ago. Has been ongoing for the past couple weeks with it returning 5 days ago. States he vomits every couple of hours ~3-4 times a day. Last ate on Sunday, [employer] fried chicken. Has not ate or drank since. Has a discomfort in lower-mid abdomen no other pain. States pain has improved, was just a dull ache. Denies any chest pain, difficulty breathing, dizziness, AMS and lethargy. Denies urinary or genitalia symptoms and blood in stool or vomit. LBM was this morning just a few minutes ago while in ED. Denies headache, dizziness, sore throat and weakness. Did take his heart medication and metformin this morning however has vomited since then. No other medication to help with symptoms. Has been checking his sugar states they have been a little high 200s, does not check it every day. This has happened to him before. PMHx significant for DM, HTN, AK and shoulder pain. Denies known fever and chills. Denies alcohol and substance use. Has issues with anorexia, and not eating. - History of Current Complaint Chief Complaint: EDNauseaVomitDiarrh Stated Complaint: NAUSEA/VOMITTING Time Seen by Provider: 07/05/17 15:22 Hx Obtained From: Patient Onset/Duration: Sudden Onset, Lasting Days, Still Present Timing: Constant Severity Initially: Moderate Severity Currently: Mild Pain Intensity: 5 Pain Scale Used: 0-10 Numeric Location: Diffuse - mid abdomen Radiates: No Aggravating Factor(s): Food Alleviating Factor(s): Nothing Associated Signs And Symptoms: Positive: Nausea, Vomiting, Diarrhea - Allergies/Home Medications Allergies/Adverse Reactions: Allergies Allergy/AdvReac Type Severity Reaction Status Date / Time Latex Allergy Severe RASH, Verified 07/05/17 13:12 ITCHING Lisinopril Allergy Severe Swelling Verified 07/05/17 13:12 Of Face,Lips,& Throat Bee Venom Allergy Intermediate Rash Verified 07/05/17 13:12 Home Medications: Home Medications Docusate CAP* [Colace Cap*] 200 mg PO DAILY PRN 07/05/17 [History Confirmed 05/14] Epinephrine [Epipen 2-Ranjith] 0.3 mg IM ONCE PRN 07/05/17 [History Confirmed ] Gabapentin CAP(*) [Neurontin 400 mg CAP(*)] 1,200 mg PO BID 07/05/17 [History Confirmed 07/05/17] Metoprolol Tartrate TAB* [Lopressor TAB*] 12.5 mg PO BID 07/05/17 [History Confirmed 07/05/17] Naproxen Sodium [Naproxen Sodium 220 mg] 220 - 440 mg PO DAILY PRN 07/05/17 [ History Confirmed 07/05/17] oxyCODONE TAB* [Roxycodone TAB 5 mg*] 5 mg PO Q8H PRN 07/05/17 [History Confirmed 07/05/17] traMADol TAB* [Ultram*] 50 mg PO QID 07/05/17 [History Confirmed 07/05/17] PMH/Surg Hx/FS Hx/Imm Hx Endocrine/Hematology History: Reports: Hx Diabetes Denies: Hx Thyroid Disease Cardiovascular History: Reports: Hx Angina, Hx Hypertension, Hx Myocardial Infarction - 03/26/17 Respiratory History: Denies: Hx Asthma, Hx Chronic Obstructive Pulmonary Disease (COPD) GI History: Reports: Other GI Disorders - Pt has had chronic stomach pain with no diagnosis Denies: Hx Ulcer History: Denies: Hx Renal Disease Musculoskeletal History: Comment Only: Other Musculoskeletal History - hx of multiple surgeries on knees, hands, and ankles Sensory History: Reports: Hx Vision Problem Denies: Hx Contacts or Glasses, Hx Hearing Aid Opthamlomology History: Reports: Hx Vision Problem Denies: Hx Contacts or Glasses - Surgical History Surgery Procedure, Year, and Place: BILAT KNEE SURGERY, BILAT HAND SURGERY, 4 EYE SURGERIES (cataracts)(corneal transplants) - Immunization History Immunizations Up to Date: Yes Infectious Disease History: No Infectious Disease History: Denies: Hx Clostridium Difficile, Hx Hepatitis, Hx Human Immunodeficiency Virus (HIV), Hx of Known/Suspected MRSA, Hx Shingles, Hx Tuberculosis, History Other Infectious Disease, Traveled Outside the [place] in Last 30 Days - Family History Known Family History: Positive: None, Cardiac Disease, Hypertension, Diabetes - Social History Alcohol Use: None Hx Substance Use: No Substance Use Type: Reports: None Hx Tobacco Use: No Smoking Status (MU): Former Smoker Type: Cigarettes Have You Smoked in the Last Year: No Review of Systems Constitutional: Negative Cardiovascular: Negative Respiratory: Negative Positive: Abdominal Pain, Vomiting, Diarrhea, Nausea Genitourinary: Negative Musculoskeletal: Negative Skin: Negative Neurological: Negative All Other Systems Reviewed And Are Negative: Yes Physical Exam Triage Information Reviewed: Yes Vital Signs On Initial Exam: Initial Vitals Temp Pulse Resp BP Pulse Ox 98.4 F 102 24 171/109 100 07/05/17 12:00 07/05/17 12:00 07/05/17 12:00 07/05/17 12:00 07/05/17 12:00 Vital Signs Reviewed: Yes Appearance: Positive: Well-Appearing, No Pain Distress, Well-Nourished Skin: Positive: Warm, Skin Color Reflects Adequate Perfusion, Dry. Negative: Cold, Numb, Cyanosis @, Pale, Erythema @ Head/Face: Positive: Normal Head/Face Inspection Eyes: Positive: EOMI, DAVEY, Conjunctiva Clear - some scarring and jaundice/ glazed appearing tint, patient has chronically and states he had cornea surgeries ENT: Positive: Hearing grossly normal, Pharynx normal Dental: Negative: Percussion Tenderness @ Neck: Positive: Supple, Nontender, No Lymphadenopathy Respiratory/Lung Sounds: Positive: Clear to Auscultation, Breath Sounds Present. Negative: Decreased Breath Sounds, Rales, Rhonchi, Wheezes Cardiovascular: Positive: Normal, RRR, Pulses are Symmetrical in both Upper and Lower Extremities. Negative: Murmur, Rub Abdomen Description: Positive: Nontender, No Organomegaly, Soft. Negative: Bruit, CVA Tenderness (R), CVA Tenderness (L), Distended, Guarding, Hernia @, Peritoneal Signs Bowel Sounds: Positive: Present, Hyperactive Musculoskeletal: Positive: Normal, Strength/ROM Intact Neurological: Positive: Normal, Sensory/Motor Intact, Alert, Oriented to Person Place, Time, Normal Gait Psychiatric: Positive: Affect/Mood Appropriate - Raquel Coma Scale Best Eye Response: 4 - Spontaneous Best Motor Response: 6 - Obeys Commands Best Verbal Response: 5 - Oriented Coma Scale Total: 15 Diagnostics - Vital Signs Vital Signs Temp Pulse Resp BP Pulse Ox 07/05/17 14:30 95 22 180/103 98 07/05/17 14:00 94 17 137/93 100 07/05/17 13:41 14 124/73 07/05/17 13:13 99.8 F 97 16 177/105 100 07/05/17 13:10 94 17 100 07/05/17 13:09 177/105 07/05/17 12:00 98.4 F 102 24 171/109 100 - Laboratory Lab Results: Lab Results 07/05/17 07/05/17 Range/Units 15:06 15:06 WBC 8.1 (3.5-10.8) 10^3/ul RBC 4.76 (4.0-5.4) 10^6/ul Hgb 10.0 L (14.0-18.0) g/dl Hct 31 L (42-52) % MCV 65 L (80-94) fL MCH 21 L (27-31) pg MCHC 32 (31-36) g/dl RDW 18 H (10.5-15) % Plt Count 489 H D (150-450) 10^3/ul MPV 7 L (7.4-10.4) um3 Neut % (Auto) 80.0 (38-83) % Lymph % (Auto) 11.1 L (25-47) % [place] % (Auto) 7.5 (1-9) % Eos % (Auto) 0.1 (0-6) % Baso % (Auto) 1.3 (0-2) % Absolute Neuts (auto) 6.5 (1.5-7.7) 10^3/ul Absolute Lymphs (auto) 0.9 L (1.0-4.8) 10^3/ul Absolute Monos (auto) 0.6 (0-0.8) 10^3/ul Absolute Eos (auto) 0 (0-0.6) 10^3/ul Absolute Basos (auto) 0.1 (0-0.2) 10^3/ul Absolute Nucleated RBC 0.01 10^3/ul Nucleated RBC % 0.1 INR (Anticoag Therapy) 1.09 (0.89-1.11) APTT 36.7 H (26.0-36.3) seconds Result Diagrams: 07/05/17 15:06 07/05/17 15:06 Lab Statement: Any lab studies that have been ordered have been reviewed, and results considered in the medical decision making process. Re-Evaluation - Re-Evaluation First Eval Re-Evaluation Time: 17:10 Change: Unchanged - patient did not have relief after zofran and fluids will give metclopramide Abdominal Pain Fem Course/Dx - Course Course Of Treatment: given normal saline 3 liters and zofran. obtained labs including BNP and troponin. chronic anemia noted, BUN/Cr abnormal, possible ketosis and some dehydration noted. EKG obtained and NSR no change. no concern for acute abdomen etiology due to patients symptoms and labs. recent CT abdomen with contrast was last on 05/28/17. patient did not have relief after zofran and metclopramide. PCP sent patient due to losing too much weight, starvation, dehydration and concern for chronic vomiting, diarrhea over the past couple of weeks without improvement. Spoke with Dr Reyes for consult at 5:20pm due to intractable vomiting and concern for health. Patient will be admitted to [facility] [place]. - Diagnoses Differential Diagnosis/HQI/PQRI: Urinary Tract Infection, Other - nausea, vomiting, gastroenteritis, starvation, failure to thrive, losing weight Provider Diagnoses: Intractable vomiting with nausea, Losing weight, Starvation ketoacidosis - Provider Notifications Discussed Care Of Patient With: Dr Reyes Time Discussed With Above Provider: 17:20 Instructed by Provider To: Admit As Inpatient Discharge - Discharge Plan Condition: Stable Disposition: ADMITTED TO [facility]
[2017-07-05 15:42] LABS: Troponin I 0.03 ng/mL (<0.04)
[2017-07-05 15:44] LABS: BUN/Creatinine Ratio 45.6 (8-20); C Reactive Protein 24.91 mg/L (< 5.00); Calcium 10.3 mg/dL (8.6-10.3); EGFR African American 94.7 (>60); EGFR Non-African American 73.7 (>60); Globulin 4.5 g/dL (2-4); Potassium 3.5 mmol/L (3.5-5.0); Total Bilirubin 0.5 mg/dL (0.2-1.0); Total Protein 8.5 g/dL (6.4-8.9)
[2017-07-05 15:54] LABS: TSH (Thyroid Stimulating Horm) 0.15 mcIU/mL (0.34-5.60)
[2017-07-05 17:46] LABS: Urine Bacteria Absent (Absent); Urine Bilirubin Negative (Negative); Urine Glucose Negative (Negative); Urine Nitrite Negative (Negative)
[2017-07-05] MEDS ORDERED: Metoclopramide IV* 5 MG/ML 2 ML VIAL IV ONE (18:16)
[2017-07-05] MEDS ORDERED: NS 0.9% 1000 ML* 1,000 ML IV ONE (18:58)
[2017-07-05] MEDS ORDERED: Nitroglycerin TAB 0.4 MG* 0.4 MG TAB SL PRN (19:03)
[2017-07-05] MEDS ORDERED: Docusate CAP* 100 MG PO PRN (19:03)
[2017-07-05] MEDS ORDERED: Dextrose 50% Syringe 50 ML* 25 GM/50 ML SYRINGE IV PUSH PRN (19:08)
[2017-07-05] MEDS: Potassium Chlor TAB* 20 MEQ TAB.ER PO SCH (21:29)
[2017-07-05] MEDS: Metoprolol Tartrate TAB* 25 MG PO SCH (21:29)
[2017-07-05] MEDS: Gabapentin CAP(*) 400 MG PO SCH (21:32)
[2017-07-05] MEDS: Atorvastatin* 80 MG TAB PO SCH (21:32)
[2017-07-05] MEDS: Heparin VIAL(*) 5000 UNITS/ML VIAL (FIVE THOUSAND) SUBCUT SCH (21:37)
[2017-07-05] MEDS: prednisoLONE 1% OPHTH.SUSP* 5 ML OPHTH.SUSP BOTH EYES SCH (21:40)
--- NOTE | 2017-07-05 23:59 | HP ---
CC: Dr. Nena Rush * HISTORY AND PHYSICAL: DATE OF ADMISSION: 07/05/17 PRIMARY CARE DOCTOR: Dr. Nena Rush. MY ATTENDING PHYSICIAN WHILE IN THE HOSPITAL: Kinjal Wiggins MD * ( dictated by JOSE Adam) CHIEF COMPLAINT: Nausea and vomiting since Sunday. HISTORY OF PRESENT ILLNESS: Patient is a 61-year-old male with past medical history significant for long-term intractable vomiting intermittently, NSTEMI, ischemic cardiomyopathy, H. pylori, diabetes type 2, hypertension, hyperlipidemia, who presents today for 4 days of nausea and vomiting 3 to 4 times a day with anorexia and inability to keep any oral intake down. Patient states that his vomit is sometimes black, yellow, or white. Patient denies any jakob blood in his vomiting. Patient denies any abdominal pain. Patient states he has had many episodes like this before. Patient denies constipation or diarrhea. Patient states his bowel movements are brown, formed, with no blood or tarry material. Patient denies any sick contacts before getting sick, but states that his fiance also got sick and is currently vomiting and has diarrhea. Patient was treated previously for H. pylori infection due to nausea and vomiting, and states that he was never tested for cure. Patient denies any decrease in his urination, a change in the color, increase or decrease in the frequency, or any hematuria. Patient states he has had numbness and tingling in his hands and feet as a long-term problem and that he has occasionally had weakness with walking. Patient states he feels febrile, is having chills. Patient denies shortness of breath, chest pain, and cough. Talked with patient' s PCP Dr. Nena Rush, she is concerned about 35 pound weight loss over the course of the past year. She states that patient loses weight even when he is not vomiting and would like an EGD for possible gastric malignancy. She is also concerned about possible malabsorption states and a decreased TSH. PAST MEDICAL HISTORY: NSTEMI, ischemic cardiomyopathy, H. pylori with duodenitis and gastritis, diabetes type 2, hypertension, hyperlipidemia, chronic intractable pain. PAST SURGICAL HISTORY: Heart catheterization, knee arthroscopies, hand surgery , cataract extraction, corneal transplant. MEDICATIONS: 1. Metformin 1000 mg p.o. b.i.d. 2. Oxycodone 10 mg q. 8 hours as needed for pain. 3. Metoprolol 12.5 mg b.i.d. 4. Gabapentin 1200 mg b.i.d. 5. Docusate 200 mg p.o. daily. 6. Naproxen 220 to 440 mg p.o. daily as needed for pain. 7. Tramadol 50 mg p.o. q.i.d. as needed for pain. 8. Lipitor 80 mg p.o. daily. 9. Aspirin 81 mg p.o. daily. 10. Glipizide 10 mg p.o. b.i.d. 11. Losartan 50 mg p.o. daily. 12. Protonix 40 mg p.o. daily. 13. Nitro 0.4 mg sublingual every 5 minutes as needed for chest pain x3. 14. Ferrous sulfate 325 mg p.o. daily. 15. B12 1000 mg p.o. daily. 16. EpiPen. 17. Plavix 75 mg p.o. daily. ALLERGIES: LATEX, LISINOPRIL, BEE VENOM. SOCIAL HISTORY: Patient denies current or past use of tobacco or alcohol. Patient states he used crack cocaine for a few years, stopping 4 years ago. Patient denies any marijuana use, though he admitted to it once in a previous history and physical. 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 Patient is not , but is engaged and has 7 children who do not live with him. REVIEW OF SYSTEMS: Review of systems negative except as stated in the HPI. PHYSICAL EXAMINATION GENERAL: Patient is a 61-year-old -Citizen Of [place] male who appears stated age who is sitting on the ED stretcher in moderate distress. Patient vomits every 5 minutes or so throughout the interview. VITAL SIGNS: At 7 o'clock, heart rate 90, pulse rate 88, oxygen saturate 98% on room air, blood pressure 205/110, temperature at 1:13 this afternoon 99.8 degrees Fahrenheit. HEENT: Head normocephalic, atraumatic. Sclerae anicteric. Arcus senilis present. Pupils equal, round, reactive to light. Pharynx nonerythematous. Mucous membranes moist. NECK: Supple. No lymphadenopathy. RESPIRATORY: Clear to auscultation. No wheezes, rales or rhonchi. Good air exchange bilaterally. HEART: Tachycardic. No clicks, murmurs, gallops or rubs. Pulse is 2+ at the radial, posterior tibialis, and dorsalis pedis areas. No edema noted. ABDOMEN: Soft, nontender, nondistended. Bowel sounds hyperactive in all 4 quadrants. No abdominal bruits auscultated. No hepatosplenomegaly. No mass. No succussion splash noted. NEUROLOGIC: Cranial nerves II through XII intact. 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 Diminished sensation to light touch in the bilateral lower extremities, intact in the upper extremities. Alert and oriented. Ukekqk-gj-rjsi test performed without difficulty. SKIN: Warm, dry, intact. DIAGNOSTIC STUDIES/LAB DATA: White blood cells 8.1, red blood cells 4.76, hemoglobin 10, hematocrit 31, MCV 65, MCH 21, RDW 18, platelets 489. INR 1.09, APTT 36.7. Sodium 140, potassium 3.5, chloride 97, carbon dioxide 29, anion gap 14, BUN 47, creatinine 1.03, glucose 158, AST 9, ALT 8, alkaline phosphatase 75, troponin I 0.03, CRP 24.91, TSH 0.15. Urine: Color yellow, clear, protein +1, ketones +1, hyaline casts present, everything else negative. EKG: Normal sinus rhythm with PACs, no ST changes, normal axis, left ventricular hypertrophy by the Sokolov-Rizzo criteria, early repolarization in V2 and V3. IMPRESSION: Patient is a 61-year-old male with past medical history that is extensive and significant for intractable nausea and vomiting, [id number] myocardial infarction, ischemic cardiomyopathy, H. pylori, diabetes, hypertension, hyperlipidemia, who presents for another episode of intractable nausea and vomiting. We will admit for fluids and antiemetics. The patient is usually able to go home after a few days of this. We will order gastric emptying study and H. pylori stool antigen to assess for causes of nausea and vomiting. Intractable nausea and vomiting: We will order Zofran and Reglan as needed for nausea and vomiting. Patient received 3 L of fluid in the emergency department. We will give one more liter bolus and then have fluids running at 50. We will order repeat BMP in the morning. We will give 20 mEq of potassium t.i.d. to keep potassium within normal range. We will order H. pylori stool antigen to test for cure and/or gastric emptying study to test for gastroparesis. We will continue the patient's home Protonix and docusate. Failure to Thrive: Will order free T4 and Celiac Panel at this time. Would agree with Dr. Rush that this needs to be worked up more significantly with a consult to Gastroenterology and rheumatology. This should be done inpatient if length of stay allows. History of [id number] myocardial infarction and ischemic cardiomyopathy: We will continue the patient's home blood pressure medications and antiplatelet agents for secondary prevention of heart attack. Hypertension: Patient is currently hypertensive. We will assess for accuracy of cuff as there were varying results throughout his time in the ED. We will order additional antihypertensive medications as needed. Hyperlipidemia: Continue home Lipitor. Diabetes mellitus type 2: We will order hemoglobin A1c, fingerstick blood glucose monitoring, and a sliding scale of insulin low dose. We will discontinue oral hypoglycemics at this time. Intractable pain: Continue patient's home oxycodone. We will discontinue naproxen due to stomach irritation. We will discontinue tramadol due to lack of need for multiple opioid pain control agents to control pain at this time. Peripheral neuropathy: We will continue the patient's home gabapentin. DVT prophylaxis: We will start patient on heparin 5000 units subcutaneous q. 8 hours and order SCDs. Microcytic anemia: Patient is under the care of Dr. King from Hematology. He has a bone marrow biopsy that was normal. We will continue patient's home ferrous sulfate for probable iron deficiency anemia of unknown cause. FEN: Patient is on a consistent carbohydrate diet as he tolerates and fluids at 150 as mentioned above. Code status: Full code. Healthcare proxy is his fiance, Marry. Disposition: Patient is admitted under observation to medical floor. TIME SPENT : Approximately 60 minutes were spent on this admission, 30 minutes of which was spent [id number] with the patient obtaining his history and physical. The plan has been discussed with my attending, Dr. Kinjal Wiggins, and she is in agreement. JOSE ADAM [id number]/[facility] #: [id number] ARELI
[2017-07-06] MEDS: NS 0.9% 1000 ML* 1,000 ML IV SCH ×4 (01:41→20:59)
[2017-07-06 06:50] LABS: Hematocrit 29 % (42-52); Hemoglobin 9.1 g/dl (14.0-18.0); Mean Corpuscular HGB Conc 32 g/dl (31-36); Mean Corpuscular Hemoglobin 21 pg (27-31); Mean Platelet Volume 7 um3 (7.4-10.4); Red Blood Count 4.35 10^6/ul (4.0-5.4); Red Cell Distribution Width 18 % (10.5-15)
[2017-07-06 06:51] LABS: Comments Flag Yes; Mean Corpuscular Volume 66 fL (80-94)
[2017-07-06] MEDS: Heparin VIAL(*) 5000 UNITS/ML VIAL (FIVE THOUSAND) SUBCUT SCH ×3 (06:57→22:06)
[2017-07-06 07:05] LABS: BUN/Creatinine Ratio 38.8 (8-20); Calcium 9.6 mg/dL (8.6-10.3); EGFR African American 118.2 (>60); EGFR Non-African American 91.9 (>60); Potassium 4.1 mmol/L (3.5-5.0)
[2017-07-06] MEDS: Ondansetron INJ* 2 MG/ML VIAL IV PRN (07:31)
[2017-07-06 07:45] LABS: Free T4 1.77 ng/dL (0.61-1.12)
[2017-07-06] MEDS: Metoprolol Tartrate TAB* 25 MG PO SCH ×2 (08:16→22:15)
[2017-07-06] MEDS: Losartan TAB* 25 MG PO SCH (08:16)
[2017-07-06] MEDS: Potassium Chlor TAB* 20 MEQ TAB.ER PO SCH ×3 (08:18→22:22)
[2017-07-06] MEDS: Clopidogrel TAB* 75 MG PO SCH (08:18)
[2017-07-06] MEDS: prednisoLONE 1% OPHTH.SUSP* 5 ML OPHTH.SUSP BOTH EYES SCH ×2 (08:24→22:06)
[2017-07-06] MEDS: Insulin LISPRO* 1 UNITS UNIT SUBCUT SCH ×5 (08:25→23:19)
[2017-07-06 09:07] LABS: Magnesium 1.9 mg/dL (1.9-2.7)
[2017-07-06] MEDS: Cyanocobalamin TAB* 500 MCG PO SCH (10:33)
[2017-07-06] MEDS: Ferrous Sulfate TAB* 325 MG PO SCH (10:33)
[2017-07-06] MEDS: Gabapentin CAP(*) 400 MG PO SCH ×2 (10:34→22:22)
[2017-07-06] MEDS: CMCS Pantoprazole TAB (NF) 40 MG TAB PO SCH (10:34)
[2017-07-06 11:23] LABS: Erythrocyte Sed Rate 59 mm/Hr (0-20)
[2017-07-06] MEDS ORDERED: Metoclopramide TAB* 10 MG PO SCH (11:30)
[2017-07-06] MEDS: hydrALAZINE IV* 20 MG/ML VIAL IV SLOW PU PRN ×2 (12:22→23:59)
[2017-07-06] MEDS ORDERED: Metoclopramide IV* 5 MG/ML 2 ML VIAL ONE (14:47)
[2017-07-06] MEDS: Metoclopramide IV* 5 MG/ML 2 ML VIAL IV SCH ×2 (14:51→23:13)
[2017-07-06] MEDS ORDERED: LORazepam INJ* 2 MG/ML 1 ML VIAL IV PUSH ONE (15:05)
[2017-07-06] MEDS ORDERED: LORazepam INJ* 2 MG/ML 1 ML VIAL ONE (15:14)
--- NOTE | 2017-07-06 16:38 | PN ---
Subjective Date of Service: 07/06/17 Interval History: This is a 61 yo gentleman with uncontrolled DM, CAD with ischemic CM, HTN, HLD and h/o recent Hpylori infection who was admitted with intractable n/v. This is a recurrent problem for him. He was last admitted in March with the same complaint. He underwent EGD at that time which was normal in appearance, but H.pylori testing was positive. Patient was treated, but his compliance to treatment is questionable. Patient has carried the diagnosis of gastroparesis, or at least suspected gastroparesis. He has previously been treated with erythromycin, but never trialed on Reglan. Patient is unsure of his last colonoscopy. He has lost ~35-40# in the last 3-6 months. He reports good oral intake and this n/v is only intermittent. Overnight, n/v improved but started again this am. He denies associated abd pain. Nl BM yesterday, none today. Objective Active Medications: Atorvastatin Calcium (Lipitor*) 80 mg PO 2100 [facility] Last Admin: 07/05/17 21:32 Dose: 80 mg Clopidogrel Bisulfate (Plavix Tab*) 75 mg PO DAILY [facility] Last Admin: 07/06/17 08:18 Dose: 75 mg Cyanocobalamin (Vitamin B12 Tab*) 1,000 mcg PO DAILY [facility] Last Admin: 07/06/17 10:33 Dose: Not Given Dextrose (D50w Syringe 50 Ml*) 12.5 gm IV PUSH .FOR FS < 60 - SS PRN PRN Reason: FS < 60 Docusate Sodium (Colace Cap*) 200 mg PO DAILY PRN PRN Reason: CONSTIPATION Ferrous Sulfate (Ferrous Sulfate Tab*) 325 mg PO DAILY [facility] Last Admin: 07/06/17 10:33 Dose: Not Given Gabapentin (Neurontin Cap(*)) 1,200 mg PO BID [facility] Last Admin: 07/06/17 10:34 Dose: Not Given Heparin Sodium (Porcine) (Heparin Vial(*)) 5,000 units SUBCUT Q8HR [facility] Last Admin: 07/06/17 14:52 Dose: 5,000 units Hydralazine HCl (Apresoline Iv*) 5 mg IV SLOW PU Q6H PRN PRN Reason: sBP>190 mmHg Last Admin: 07/06/17 12:22 Dose: 5 mg Sodium Chloride (Ns 0.9% 1000 Ml*) 1,000 mls @ 150 mls/hr IV PER RATE [facility] Last Admin: 07/06/17 14:28 Dose: 150 mls/hr Insulin Human Lispro (Humalog*) 0 units SUBCUT AC [facility] PRN Reason: Protocol Last Admin: 07/06/17 12:33 Dose: 1 unit Losartan Potassium (Cozaar Tab*) 50 mg PO DAILY [facility] Last Admin: 07/06/17 08:16 Dose: 50 mg Metoclopramide HCl (Reglan Iv*) 5 mg IV Q8H [facility] Last Admin: 07/06/17 14:51 Dose: 5 mg Metoprolol Tartrate (Lopressor Tab*) 12.5 mg PO BID [facility] Last Admin: 07/06/17 08:16 Dose: 12.5 mg Nitroglycerin (Nitroglycerin Tab 0.4 Mg*) 0.4 mg SL Q5M PRN PRN Reason: ANGINA Ondansetron HCl (Zofran Inj*) 4 mg IV Q4H PRN PRN Reason: NAUSEA Last Admin: 07/06/17 07:31 Dose: 4 mg Oxycodone HCl (Roxycodone Tab*) 5 mg PO Q8H PRN PRN Reason: PAIN Pantoprazole Sodium (Protonix Tab (Nf)) 40 mg PO DAILY [facility] Last Admin: 07/06/17 10:34 Dose: Not Given Potassium Chloride (Klor Con Er Tab*) 20 meq PO TID [facility] Last Admin: 07/06/17 14:44 Dose: Not Given Prednisolone Acetate (Pred Forte 1%*) 1 drop BOTH EYES BID [facility] Last Admin: 07/06/17 08:24 Dose: 1 drop Prochlorperazine Edisylate (Compazine Inj*) 5 mg IV Q6H PRN PRN Reason: NAUSEA/VOMITING Vital Signs: Temp Pulse Resp BP Pulse Ox 99.0 F 89 17 154/87 97 07/06/17 12:30 07/06/17 15:22 07/06/17 15:22 07/06/17 15:22 07/06/17 15:22 Oxygen Devices in Use Now: None Appearance: Middle aged gentleman who appears uncomfortable and is vomiting frequently Respiratory: Symmetrical Chest Expansion and Respiratory Effort, Clear to Auscultation Cardiovascular: NL Sounds; No Murmurs; No JVD, RRR Abdominal: NL Sounds; No Tenderness; No Distention Extremities: No Edema Skin: No Rash or Ulcers Neurological: Alert and Oriented x 3 Result Diagrams: 07/06/17 06:22 07/06/17 06:22 Additional Lab and Data: . Assess/Plan/Problems-Billing Assessment: This is a 61 yo gentleman with uncontrolled DM, ischemic CM, HTN, HLD, recent H.pylori infection who presents with intractable nausea and vomiting. - Patient Problems (1) Nausea & vomiting Comment: Likely due to gastroparesis Recent H.pylori infection, question whether he completed his full course of treatment Stool antigen studies pending Started scheduled Reglan Essentially nl EGD 03/2017, may benefit from outpt colonoscopy and gastric emptying study Maintain NPO at this time until vomiting improves and then trial advancing to clear liquids (2) Weight loss Comment: ~35# weight loss in last 3-6 months Patient reports good oral intake outside of these episodes of vomiting Nl albumin and total protein, but prealbumin low Nl EGD, but unsure of last colonoscopy - this should be completed as an outpatient (3) Diabetes Comment: HgbA1c 8.8% Oral agents held Covering hyperglycemia with SS Humalog as needed (4) Elevated sed rate Comment: Recent complaints of upper arm pain per PCP Pending rheum consult for possible PMR Some improvement in pain with prior trials of prednisone, but this seemed to exacerbate his GI sx's (5) HLD (hyperlipidemia) (6) HTN (hypertension) Comment: Severely hypertensive this am, but asx Tx with prn hydralazine Suspect it is exacerbated by his vomiting Resume oral antihypertensives when he is able (7) Cardiomyopathy Comment: Last EF 35-40% No acute exacerbation (8) Full code status (9) DVT prophylaxis Comment: Heparin SQ Status and Disposition: Inpatient. Anticipate dc in 1-2 weeks
[2017-07-06] MEDS: Atorvastatin* 80 MG TAB PO SCH (22:22)
[2017-07-06] MEDS: Famotidine IV* 10 MG/ML 2 ML (20 mg) IV SLOW PU SCH (23:08)
[2017-07-07] MEDS: NS 0.9% 1000 ML* 1,000 ML IV SCH ×2 (03:55→10:12)
[2017-07-07] MEDS: Ondansetron INJ* 2 MG/ML VIAL IV PRN ×3 (04:30→21:00)
[2017-07-07] MEDS: Insulin LISPRO* 1 UNITS UNIT SUBCUT SCH ×4 (06:33→23:32)
[2017-07-07] MEDS: Heparin VIAL(*) 5000 UNITS/ML VIAL (FIVE THOUSAND) SUBCUT SCH ×3 (06:36→22:01)
[2017-07-07] MEDS: Metoclopramide IV* 5 MG/ML 2 ML VIAL IV SCH ×3 (06:37→23:26)
[2017-07-07] MEDS: Cyanocobalamin TAB* 500 MCG PO SCH (08:44)
[2017-07-07] MEDS: Gabapentin CAP(*) 400 MG PO SCH ×2 (08:44→20:52)
[2017-07-07] MEDS: Ferrous Sulfate TAB* 325 MG PO SCH (08:44)
[2017-07-07] MEDS: Potassium Chlor TAB* 20 MEQ TAB.ER PO SCH ×3 (08:44→20:52)
[2017-07-07] MEDS: Losartan TAB* 25 MG PO SCH (08:54)
[2017-07-07] MEDS: CMCS Pantoprazole TAB (NF) 40 MG TAB PO SCH (08:55)
[2017-07-07] MEDS: Famotidine IV* 10 MG/ML 2 ML (20 mg) IV SLOW PU SCH ×2 (08:55→20:54)
[2017-07-07] MEDS: Clopidogrel TAB* 75 MG PO SCH (08:55)
[2017-07-07] MEDS: Metoprolol Tartrate TAB* 25 MG PO SCH ×2 (08:55→20:51)
[2017-07-07] MEDS: prednisoLONE 1% OPHTH.SUSP* 5 ML OPHTH.SUSP BOTH EYES SCH ×2 (08:58→20:56)
[2017-07-07 09:54] LABS: Hematocrit 30 % (42-52); Hemoglobin 9.3 g/dl (14.0-18.0); Mean Corpuscular HGB Conc 31 g/dl (31-36); Mean Corpuscular Hemoglobin 21 pg (27-31); Mean Platelet Volume 7 um3 (7.4-10.4); Red Blood Count 4.51 10^6/ul (4.0-5.4); Red Cell Distribution Width 19 % (10.5-15); White Blood Count 7.1 10^3/ul (3.5-10.8)
[2017-07-07 09:55] LABS: Comments Flag Yes; Mean Corpuscular Volume 66 fL (80-94)
[2017-07-07] MEDS: PROCHLORPERAZINE INJ 5 MG/ML 2 ML VIAL IV PRN ×2 (10:10→17:35)
[2017-07-07 10:11] LABS: BUN/Creatinine Ratio 27.5 (8-20); Calcium 9.6 mg/dL (8.6-10.3); EGFR African American 126.8 (>60); EGFR Non-African American 98.6 (>60); Potassium 3.4 mmol/L (3.5-5.0)
[2017-07-07 13:28] LABS: Magnesium 1.5 mg/dL (1.9-2.7)
[2017-07-07] MEDS ORDERED: Magnesium Sulf 4 GM/100 ML IV* 4,000 MG/100 ML BAG IVPB ONE (14:30)
--- NOTE | 2017-07-07 14:50 | PN ---
Subjective Date of Service: 07/07/17 Interval History: Patient reports some improvement today. Still nauseated and occasional low volume vomiting. He has an appetite and would like to try some liquids. Objective Active Medications: Atorvastatin Calcium (Lipitor*) 80 mg PO 2100 [facility] Last Admin: 07/06/17 22:22 Dose: Not Given Clopidogrel Bisulfate (Plavix Tab*) 75 mg PO DAILY [facility] Last Admin: 07/07/17 08:55 Dose: 75 mg Cyanocobalamin (Vitamin B12 Tab*) 1,000 mcg PO DAILY [facility] Last Admin: 07/07/17 08:44 Dose: Not Given Dextrose (D50w Syringe 50 Ml*) 12.5 gm IV PUSH .FOR FS < 60 - SS PRN PRN Reason: FS < 60 Docusate Sodium (Colace Cap*) 200 mg PO DAILY PRN PRN Reason: CONSTIPATION Famotidine (Pepcid Iv*) 20 mg IV SLOW PU BID [facility] Last Admin: 07/07/17 08:55 Dose: 20 mg Ferrous Sulfate (Ferrous Sulfate Tab*) 325 mg PO DAILY [facility] Last Admin: 07/07/17 08:44 Dose: Not Given Gabapentin (Neurontin Cap(*)) 1,200 mg PO BID [facility] Last Admin: 07/07/17 08:44 Dose: Not Given Heparin Sodium (Porcine) (Heparin Vial(*)) 5,000 units SUBCUT Q8HR [facility] Last Admin: 07/07/17 13:38 Dose: 5,000 units Hydralazine HCl (Apresoline Iv*) 5 mg IV SLOW PU Q6H PRN PRN Reason: sBP>190 mmHg Last Admin: 07/06/17 23:59 Dose: 5 mg Potassium Chloride 20 meq/ (Lactated Ringer's) 1,010 mls @ 101 mls/hr IVPB Q10H [facility] Last Admin: 07/07/17 13:38 Dose: 101 mls/hr Magnesium Sulfate (Magnesium Sulf 4 Gm/100 Ml Iv*) 4,000 mg in 100 mls @ 33.333 mls/hr IVPB ONCE ONE Stop: 07/07/17 17:29 Insulin Human Lispro (Humalog*) 0 units SUBCUT Q6H [facility] PRN Reason: Protocol Last Admin: 07/07/17 12:32 Dose: Not Given Losartan Potassium (Cozaar Tab*) 50 mg PO DAILY [facility] Last Admin: 07/07/17 08:54 Dose: 50 mg Metoclopramide HCl (Reglan Iv*) 5 mg IV Q8H [facility] Last Admin: 07/07/17 14:06 Dose: 5 mg Metoprolol Tartrate (Lopressor Tab*) 12.5 mg PO BID [facility] Last Admin: 07/07/17 08:55 Dose: 12.5 mg Nitroglycerin (Nitroglycerin Tab 0.4 Mg*) 0.4 mg SL Q5M PRN PRN Reason: ANGINA Ondansetron HCl (Zofran Inj*) 4 mg IV Q4H PRN PRN Reason: NAUSEA Last Admin: 07/07/17 04:30 Dose: 4 mg Oxycodone HCl (Roxycodone Tab*) 5 mg PO Q8H PRN PRN Reason: PAIN Pantoprazole Sodium (Protonix Tab (Nf)) 40 mg PO DAILY [facility] Last Admin: 07/07/17 08:55 Dose: 40 mg Potassium Chloride (Klor Con Er Tab*) 20 meq PO TID [facility] Last Admin: 07/07/17 13:41 Dose: Not Given Prednisolone Acetate (Pred Forte 1%*) 1 drop BOTH EYES BID [facility] Last Admin: 07/07/17 08:58 Dose: 1 drop Prochlorperazine Edisylate (Compazine Inj*) 5 mg IV Q6H PRN PRN Reason: NAUSEA/VOMITING Last Admin: 07/07/17 10:10 Dose: 5 mg Vital Signs: Temp Pulse Resp BP Pulse Ox 99.4 F 80 20 154/77 100 07/07/17 11:51 07/07/17 11:51 07/07/17 11:51 07/07/17 11:51 07/07/17 11:51 Oxygen Devices in Use Now: None Appearance: Mildly ill appearing middle aged gentleman Respiratory: Symmetrical Chest Expansion and Respiratory Effort, Clear to Auscultation Cardiovascular: NL Sounds; No Murmurs; No JVD, RRR Abdominal: NL Sounds; No Tenderness; No Distention, - - bowel sounds present Extremities: No Edema Skin: No Rash or Ulcers Neurological: Alert and Oriented x 3 Result Diagrams: 07/07/17 09:47 07/07/17 09:47 Additional Lab and Data: . Assess/Plan/Problems-Billing Assessment: This is a 61 yo gentleman with uncontrolled DM, ischemic CM, HTN, HLD, recent H.pylori infection who presents with intractable nausea and vomiting. - Patient Problems (1) Nausea & vomiting Comment: Likely due to gastroparesis Recent H.pylori infection, question whether he completed his full course of treatment Stool antigen studies pending Started scheduled Reglan Essentially nl EGD 03/2017, may benefit from outpt colonoscopy and gastric emptying study Will trial advancing to clear liquids (2) Weight loss Comment: ~35# weight loss in last 3-6 months Patient reports good oral intake outside of these episodes of vomiting Nl albumin and total protein, but prealbumin low Nl EGD, but unsure of last colonoscopy - this should be completed as an outpatient (3) Diabetes Comment: HgbA1c 8.8% Oral agents held Covering hyperglycemia with SS Humalog as needed (4) Elevated sed rate Comment: Recent complaints of upper arm pain per PCP Pending rheum consult for possible PMR Some improvement in pain with prior trials of prednisone, but this seemed to exacerbate his GI sx's (5) HLD (hyperlipidemia) (6) HTN (hypertension) Comment: Severely hypertensive this am, but asx Tx with prn hydralazine Suspect it is exacerbated by his vomiting Resume oral antihypertensives when he is able (7) Cardiomyopathy Comment: Last EF 35-40% No acute exacerbation (8) Full code status (9) DVT prophylaxis Comment: Heparin SQ Status and Disposition: Inpatient. DC when able to tolerate some oral intake
[2017-07-07] MEDS: hydrALAZINE IV* 20 MG/ML VIAL IV SLOW PU PRN (15:33)
[2017-07-07] MEDS: Atorvastatin* 80 MG TAB PO SCH (20:52)
[2017-07-08] MEDS: Heparin VIAL(*) 5000 UNITS/ML VIAL (FIVE THOUSAND) SUBCUT SCH ×3 (05:39→21:30)
[2017-07-08] MEDS: Insulin LISPRO* 1 UNITS UNIT SUBCUT SCH ×2 (05:40→17:36)
[2017-07-08] MEDS: Metoclopramide IV* 5 MG/ML 2 ML VIAL IV SCH ×3 (06:50→22:48)
[2017-07-08 08:20] LABS: Comments Flag Yes; Hematocrit 31 % (42-52); Hemoglobin 9.7 g/dl (14.0-18.0); Mean Corpuscular HGB Conc 31 g/dl (31-36); Mean Corpuscular Hemoglobin 21 pg (27-31); Mean Corpuscular Volume 67 fL (80-94); Mean Platelet Volume 7 um3 (7.4-10.4); Red Blood Count 4.63 10^6/ul (4.0-5.4); Red Cell Distribution Width 19 % (10.5-15); White Blood Count 7.8 10^3/ul (3.5-10.8)
[2017-07-08] MEDS: Famotidine IV* 10 MG/ML 2 ML (20 mg) IV SLOW PU SCH ×2 (08:24→20:25)
[2017-07-08] MEDS: Losartan TAB* 25 MG PO SCH (08:26)
[2017-07-08] MEDS: Clopidogrel TAB* 75 MG PO SCH (08:26)
[2017-07-08] MEDS: Metoprolol Tartrate TAB* 25 MG PO SCH ×2 (08:26→20:31)
[2017-07-08] MEDS: Potassium Chlor TAB* 20 MEQ TAB.ER PO SCH ×2 (08:26→15:27)
[2017-07-08] MEDS: Gabapentin CAP(*) 400 MG PO SCH ×3 (08:27→20:40)
[2017-07-08 08:33] LABS: BUN/Creatinine Ratio 21.6 (8-20); Calcium 9.7 mg/dL (8.6-10.3); EGFR African American 113.6 (>60); EGFR Non-African American 88.3 (>60); Magnesium 2.3 mg/dL (1.9-2.7); Potassium 3.6 mmol/L (3.5-5.0)
[2017-07-08] MEDS: CMCS Pantoprazole TAB (NF) 40 MG TAB PO SCH (08:39)
[2017-07-08] MEDS: prednisoLONE 1% OPHTH.SUSP* 5 ML OPHTH.SUSP BOTH EYES SCH ×2 (08:40→20:34)
--- NOTE | 2017-07-08 10:42 | PN ---
Subjective Date of Service: 07/08/17 Interval History: Patient reports he is tired this am, didn't get much sleep last night. No additional vomiting overnight. He vomited his am pills, but tolerated full liquids well for breakfast. Denies nausea at the time of exam. No BM. Denies abd pain. Objective Active Medications: Atorvastatin Calcium (Lipitor*) 80 mg PO 2100 [facility] Last Admin: 07/07/17 20:52 Dose: 80 mg Clopidogrel Bisulfate (Plavix Tab*) 75 mg PO DAILY [facility] Last Admin: 07/08/17 08:26 Dose: 75 mg Dextrose (D50w Syringe 50 Ml*) 12.5 gm IV PUSH .FOR FS < 60 - SS PRN PRN Reason: FS < 60 Docusate Sodium (Colace Cap*) 200 mg PO DAILY PRN PRN Reason: CONSTIPATION Famotidine (Pepcid Iv*) 20 mg IV SLOW PU BID [facility] Last Admin: 07/08/17 08:24 Dose: 20 mg Gabapentin (Neurontin Cap(*)) 1,200 mg PO BID [facility] Last Admin: 07/08/17 08:39 Dose: Not Given Heparin Sodium (Porcine) (Heparin Vial(*)) 5,000 units SUBCUT Q8HR [facility] Last Admin: 07/08/17 05:39 Dose: 5,000 units Hydralazine HCl (Apresoline Iv*) 5 mg IV SLOW PU Q6H PRN PRN Reason: sBP>190 mmHg Last Admin: 07/07/17 15:33 Dose: 5 mg Potassium Chloride 20 meq/ (Lactated Ringer's) 1,010 mls @ 101 mls/hr IVPB Q10H [facility] Last Admin: 07/08/17 08:22 Dose: 101 mls/hr Insulin Human Lispro (Humalog*) 0 units SUBCUT Q6H [facility] PRN Reason: Protocol Last Admin: 07/08/17 05:40 Dose: Not Given Losartan Potassium (Cozaar Tab*) 50 mg PO DAILY [facility] Last Admin: 07/08/17 08:26 Dose: 50 mg Metoclopramide HCl (Reglan Iv*) 5 mg IV Q8H [facility] Last Admin: 07/08/17 06:50 Dose: 5 mg Metoprolol Tartrate (Lopressor Tab*) 12.5 mg PO BID [facility] Last Admin: 07/08/17 08:26 Dose: 12.5 mg Nitroglycerin (Nitroglycerin Tab 0.4 Mg*) 0.4 mg SL Q5M PRN PRN Reason: ANGINA Ondansetron HCl (Zofran Inj*) 4 mg IV Q4H PRN PRN Reason: NAUSEA Last Admin: 07/07/17 21:00 Dose: 4 mg Oxycodone HCl (Roxycodone Tab*) 5 mg PO Q8H PRN PRN Reason: PAIN Pantoprazole Sodium (Protonix Tab (Nf)) 40 mg PO DAILY [facility] Last Admin: 07/08/17 08:39 Dose: Not Given Potassium Chloride (Klor Con Er Tab*) 20 meq PO TID [facility] Last Admin: 07/08/17 08:26 Dose: 20 meq Prednisolone Acetate (Pred Forte 1%*) 1 drop BOTH EYES BID [facility] Last Admin: 07/08/17 08:40 Dose: 1 drop Prochlorperazine Edisylate (Compazine Inj*) 5 mg IV Q6H PRN PRN Reason: NAUSEA/VOMITING Last Admin: 07/07/17 17:35 Dose: 5 mg Vital Signs: Temp Pulse Resp BP Pulse Ox 98.4 F 79 16 146/93 100 07/08/17 07:32 07/08/17 07:32 07/08/17 08:39 07/08/17 07:32 07/08/17 07:32 Oxygen Devices in Use Now: None Appearance: Fatigued appearing middle aged gentleman in NAD Respiratory: Symmetrical Chest Expansion and Respiratory Effort, Clear to Auscultation Cardiovascular: NL Sounds; No Murmurs; No JVD, RRR Abdominal: - - abd soft, BS present, TTP in RUQ Extremities: No Edema Skin: No Rash or Ulcers Neurological: Alert and Oriented x 3 Result Diagrams: 07/08/17 07:56 07/08/17 07:56 Additional Lab and Data: . Assess/Plan/Problems-Billing Assessment: This is a 61 yo gentleman with uncontrolled DM, ischemic CM, HTN, HLD, recent H.pylori infection who presents with intractable nausea and vomiting. - Patient Problems (1) Nausea & vomiting Comment: Likely due to gastroparesis Recent H.pylori infection, question whether he completed his full course of treatment Stool antigen studies pending Noted improvement with scheduled Reglan Essentially nl EGD 03/2017, may benefit from outpt colonoscopy and gastric emptying study Now tolerating full liquids, but noted some RUQ TTP on exam this am Will check Tbili and transaminases along with GB US (2) Weight loss Comment: ~35# weight loss in last 3-6 months Patient reports good oral intake outside of these episodes of vomiting Nl albumin and total protein, but prealbumin low Nl EGD, but unsure of last colonoscopy - this should be completed as an outpatient (3) Diabetes Comment: HgbA1c 8.8% Oral agents held Covering hyperglycemia with SS Humalog as needed (4) Elevated sed rate Comment: Recent complaints of upper arm pain per PCP Pending rheum consult for possible PMR Some improvement in pain with prior trials of prednisone, but this seemed to exacerbate his GI sx's (5) HLD (hyperlipidemia) (6) HTN (hypertension) Comment: Still intermittently hypertensive, likely exacerbated by his vomiting Cont oral antihypertensives as he is able (7) Cardiomyopathy Comment: Last EF 35-40% No acute exacerbation (8) Full code status (9) DVT prophylaxis Comment: Heparin SQ Status and Disposition: Inpatient. DC when able to tolerate oral intake consistently, possibly home tomorrow
[2017-07-08 10:57] LABS: Total Bilirubin 0.5 mg/dL (0.2-1.0)
--- NOTE | 2017-07-08 12:18 | RAD ---
Indication: Nausea and vomiting. RIGHT upper quadrant pain. Tenderness to palpation. Comparison: May 28, 2017 CT and April 14, 2017 ultrasound. Technique: RIGHT upper quadrant ultrasound. Report: Appropriate direction flow documented in the portal and hepatic veins. 13.2 cm liver is normal in echogenicity. Negative for focal hepatic lesions. Negative for intrahepatic biliary dilatation. 4.5 mm common bile duct. Adequately distended gallbladder with normal 2.0 mm wall is without pathologic finding. Negative for sonographic Maguire's sign. Unremarkable well visualized pancreas. Negative for ascites. 9.9 x 5.4 x 5.5 cm RIGHT kidney is unremarkable. IMPRESSION: Negative RIGHT upper quadrant ultrasound.
[2017-07-08] MEDS: PROCHLORPERAZINE INJ 5 MG/ML 2 ML VIAL IV PRN (18:49)
[2017-07-08] MEDS: Atorvastatin* 80 MG TAB PO SCH (20:33)
[2017-07-09] MEDS: oxyCODONE TAB* 5 MG TAB PO PRN ×2 (01:31→16:59)
[2017-07-09] MEDS: Ondansetron INJ* 2 MG/ML VIAL IV PRN (04:16)
[2017-07-09] MEDS: Heparin VIAL(*) 5000 UNITS/ML VIAL (FIVE THOUSAND) SUBCUT SCH ×3 (05:41→21:37)
[2017-07-09] MEDS: Metoclopramide IV* 5 MG/ML 2 ML VIAL IV SCH ×3 (06:20→23:39)
[2017-07-09] MEDS: PROCHLORPERAZINE INJ 5 MG/ML 2 ML VIAL IV PRN ×2 (07:34→21:38)
[2017-07-09] MEDS: Insulin LISPRO* 1 UNITS UNIT SUBCUT SCH ×3 (08:20→16:58)
[2017-07-09 09:04] LABS: Albumin 3.5 g/dL (3.2-5.2); BUN/Creatinine Ratio 18.8 (8-20); Calcium 9.6 mg/dL (8.6-10.3); EGFR African American 118.2 (>60); EGFR Non-African American 91.9 (>60); Globulin 3.5 g/dL (2-4); Magnesium 1.9 mg/dL (1.9-2.7); Potassium 3.7 mmol/L (3.5-5.0); Total Bilirubin 0.5 mg/dL (0.2-1.0)
[2017-07-09] MEDS: Losartan TAB* 25 MG PO SCH (10:02)
[2017-07-09] MEDS: Metoprolol Tartrate TAB* 25 MG PO SCH ×2 (10:02→21:35)
[2017-07-09] MEDS: Clopidogrel TAB* 75 MG PO SCH (10:02)
[2017-07-09] MEDS: CMCS Pantoprazole TAB (NF) 40 MG TAB PO SCH (10:03)
[2017-07-09] MEDS: prednisoLONE 1% OPHTH.SUSP* 5 ML OPHTH.SUSP BOTH EYES SCH ×2 (10:03→21:44)
[2017-07-09] MEDS: Gabapentin CAP(*) 400 MG PO SCH ×2 (10:04→21:36)
[2017-07-09] MEDS: Famotidine IV* 10 MG/ML 2 ML (20 mg) IV SLOW PU SCH ×2 (10:05→21:39)
[2017-07-09] MEDS: hydrALAZINE IV* 20 MG/ML VIAL IV SLOW PU PRN (12:41)
--- NOTE | 2017-07-09 13:24 | PN ---
Subjective Date of Service: 07/09/17 Interval History: Unfortunately, Jam started vomiting again last night and this am. Continues to feel nauseated at this time. But cont to deny abd pain. No BM. Objective Active Medications: Atorvastatin Calcium (Lipitor*) 80 mg PO 2100 [facility] Last Admin: 07/08/17 20:33 Dose: 80 mg Clopidogrel Bisulfate (Plavix Tab*) 75 mg PO DAILY [facility] Last Admin: 07/09/17 10:02 Dose: 75 mg Dextrose (D50w Syringe 50 Ml*) 12.5 gm IV PUSH .FOR FS < 60 - SS PRN PRN Reason: FS < 60 Docusate Sodium (Colace Cap*) 200 mg PO DAILY PRN PRN Reason: CONSTIPATION Famotidine (Pepcid Iv*) 20 mg IV SLOW PU BID [facility] Last Admin: 07/09/17 10:05 Dose: 20 mg Gabapentin (Neurontin Cap(*)) 1,200 mg PO BID [facility] Last Admin: 07/09/17 10:04 Dose: Not Given Heparin Sodium (Porcine) (Heparin Vial(*)) 5,000 units SUBCUT Q8HR [facility] Last Admin: 07/09/17 05:41 Dose: 5,000 units Hydralazine HCl (Apresoline Iv*) 10 mg IV SLOW PU Q6H PRN PRN Reason: sBP>175 mmHg Last Admin: 07/09/17 12:41 Dose: 10 mg Potassium Chloride 20 meq/ (Lactated Ringer's) 1,010 mls @ 101 mls/hr IVPB Q10H [facility] Last Admin: 07/09/17 06:22 Dose: 101 mls/hr Insulin Human Lispro (Humalog*) 0 units SUBCUT AC [facility] PRN Reason: Protocol Last Admin: 07/09/17 08:20 Dose: Not Given Losartan Potassium (Cozaar Tab*) 50 mg PO DAILY [facility] Last Admin: 07/09/17 10:02 Dose: 50 mg Metoclopramide HCl (Reglan Iv*) 5 mg IV Q8H [facility] Last Admin: 07/09/17 06:20 Dose: 5 mg Metoprolol Tartrate (Lopressor Tab*) 12.5 mg PO BID [facility] Last Admin: 07/09/17 10:02 Dose: 12.5 mg Nitroglycerin (Nitroglycerin Tab 0.4 Mg*) 0.4 mg SL Q5M PRN PRN Reason: ANGINA Ondansetron HCl (Zofran Inj*) 4 mg IV Q4H PRN PRN Reason: NAUSEA Last Admin: 07/09/17 04:16 Dose: 4 mg Oxycodone HCl (Roxycodone Tab*) 5 mg PO Q8H PRN PRN Reason: PAIN Last Admin: 07/09/17 01:31 Dose: 5 mg Pantoprazole Sodium (Protonix Tab (Nf)) 40 mg PO DAILY [facility] Last Admin: 07/09/17 10:03 Dose: Not Given Prednisolone Acetate (Pred Forte 1%*) 1 drop BOTH EYES BID [facility] Last Admin: 07/09/17 10:03 Dose: 1 drop Prochlorperazine Edisylate (Compazine Inj*) 5 mg IV Q6H PRN PRN Reason: NAUSEA/VOMITING Last Admin: 07/09/17 07:34 Dose: 5 mg Vital Signs: Temp Pulse Resp BP Pulse Ox 99.0 F 82 17 183/106 100 07/09/17 07:42 07/09/17 12:14 07/09/17 12:14 07/09/17 12:14 07/09/17 12:14 Oxygen Devices in Use Now: None Appearance: Chronically ill appearing in NAD. Somewhat restless. Respiratory: Symmetrical Chest Expansion and Respiratory Effort, Clear to Auscultation Cardiovascular: NL Sounds; No Murmurs; No JVD, RRR Abdominal: NL Sounds; No Tenderness; No Distention Extremities: No Edema Skin: No Rash or Ulcers Neurological: Alert and Oriented x 3 Result Diagrams: 07/08/17 07:56 07/09/17 08:23 Additional Lab and Data: . Diagnostic Imaging: GB US - WNL Assess/Plan/Problems-Billing Assessment: This is a 61 yo gentleman with uncontrolled DM, ischemic CM, HTN, HLD, recent H.pylori infection who presents with intractable nausea and vomiting. - Patient Problems (1) Nausea & vomiting Comment: Likely due to gastroparesis He has been improving with scheduled Reglan, but then started vomiting again overnight and this am Recent H.pylori infection, question whether he completed his full course of treatment Stool antigen studies pending Given his regression in symptoms overnight, requested GI consult Dr Vang is planning to evaluate him this afternoon (2) Weight loss Comment: ~35# weight loss in last 3-6 months Patient reports good oral intake outside of these episodes of vomiting Nl albumin and total protein, but prealbumin low Nl EGD, but unsure of last colonoscopy - this should be completed as an outpatient (3) Diabetes Comment: HgbA1c 8.8% Oral agents held Covering hyperglycemia with SS Humalog as needed (4) Elevated sed rate Comment: Recent complaints of upper arm pain per PCP Pending rheum consult for possible PMR Some improvement in pain with prior trials of prednisone, but this seemed to exacerbate his GI sx's (5) HLD (hyperlipidemia) (6) HTN (hypertension) Comment: Still intermittently hypertensive, likely exacerbated by his vomiting Cont oral antihypertensives as he is able (7) Cardiomyopathy Comment: Last EF 35-40% No acute exacerbation (8) Full code status (9) DVT prophylaxis Comment: Heparin SQ Status and Disposition: Inpatient. DC when able to tolerate oral intake consistently. Pend GI consult
[2017-07-09 14:01] LABS: Tissue Transglutaminase IgA Ab <1.2 U/mL
[2017-07-09 16:03] LABS: Immunoglobulin A 202 mg/dL (61 - 356)
--- NOTE | 2017-07-09 18:51 | CONS ---
CC: Nena Rush MD * CONSULTATION REPORT: DATE OF CONSULT: 07/09/17 REQUESTING PROVIDER: JOSE Macias. INDICATION: Nausea and vomiting. NARRATIVE: Mr. Logan is a 61-year-old male with a longstanding history of poorly controlled diabetes, coronary artery disease with stents, history of [place], hypertension, hyperlipidemia, ischemic cardiomyopathy, and intractable pain who is admitted with chronic nausea and vomiting. This has been a very long ongoing process for him. He will have intermittent episodes of nausea and vomiting that will last anywhere from 3 to 8 days. His past episode has lasted for the past 8 days. Often times, he is admitted to the hospital and the nausea and vomiting will spontaneously resolve. He has had numerous endoscopies , which have been fairly unremarkable with no clear etiologies seen; however, he has had positive H. pylori in the past. He had a colonoscopy with Dr. Meza in 2012 that was normal. He states that his girlfriend has been sick at home, also with nausea and vomiting. He denies any new medications. No strange dietary changes. No blood in the vomit. He has not had a bowel movement in 3 days. He does have a suspected history of gastroparesis, but I do not see that a gastric emptying test has ever been performed. PAST MEDICAL HISTORY: Please see the HPI. PAST SURGICAL HISTORY: Includes heart catheterization, knee arthroscopies, hand surgery, cataracts. MEDICATIONS: Include; 1. Metformin. 2. Oxycodone. 3. Metoprolol. 4. Gabapentin. 5. Naproxen. 6. Tramadol. 7. Lipitor. 8. Aspirin. 9. Glipizide. 10. Losartan. 11. Protonix. 12. Nitro. 13. Iron sulfate. 14. Plavix. ALLERGIES: LISINOPRIL. SOCIAL HISTORY: No tobacco or alcohol use. REVIEW OF SYSTEMS: All 12 systems were reviewed, other than that mentioned in the HPI were unremarkable. PHYSICAL EXAM: GENERAL: Well-appearing male lying flat in bed. Alert, oriented , pleasant, fluent. VITAL SIGNS: Temperature is 98.6, blood pressure 143/81, pulse is 89. HEENT: Mucous membranes are moist without lesions, ulcers, or exudate. Head is normocephalic, atraumatic. NECK: Supple. Trachea is midline. LUNGS: Clear to auscultation. HEART: Regular rate and rhythm. ABDOMEN: Soft, not distended. Very mild pain to palpation. Good bowel sounds. No rebound, no guarding, no masses were felt. SKIN: Warm and dry. DIAGNOSTIC STUDIES/LAB DATA: White count is 7.8, hemoglobin 9.7, platelets 454, 000. Glucose is 149. He has a gallbladder ultrasound that was normal. ASSESSMENT AND PLAN: This is a 61-year-old male with chronic nausea and vomiting. At this point, I would like to get a gastric emptying test to further evaluate for gastroparesis. I do not see that this has been done yet. I also wonder about cyclical vomiting syndrome, I wonder about a neurological issue. He has had multiple upper endoscopies, none of whom have ever shown anything of significance. I will order the gastric emptying test. We will follow up with him after that. [id number]/[facility] #: [id number] ARELI
[2017-07-09] MEDS: Atorvastatin* 80 MG TAB PO SCH ×2 (21:35→21:36)
[2017-07-10] MEDS: Heparin VIAL(*) 5000 UNITS/ML VIAL (FIVE THOUSAND) SUBCUT SCH ×3 (05:51→22:40)
[2017-07-10 06:21] LABS: BUN/Creatinine Ratio 18.5 (8-20); Calcium 9.8 mg/dL (8.6-10.3); EGFR Non-African American 97.2 (>60); Magnesium 1.7 mg/dL (1.9-2.7); Potassium 3.9 mmol/L (3.5-5.0)
[2017-07-10] MEDS: Insulin LISPRO* 1 UNITS UNIT SUBCUT SCH ×3 (07:44→17:42)
[2017-07-10] MEDS: Metoclopramide IV* 5 MG/ML 2 ML VIAL IV SCH ×5 (07:56→21:23)
[2017-07-10] MEDS ORDERED: Magnesium Sulf 4 GM/100 ML IV* 4,000 MG/100 ML BAG IVPB ONE (08:30)
[2017-07-10] MEDS: Famotidine IV* 10 MG/ML 2 ML (20 mg) IV SLOW PU SCH ×2 (09:03→21:20)
[2017-07-10] MEDS: Losartan TAB* 25 MG PO SCH (09:05)
[2017-07-10] MEDS: Metoprolol Tartrate TAB* 25 MG PO SCH ×2 (09:05→21:19)
[2017-07-10] MEDS: prednisoLONE 1% OPHTH.SUSP* 5 ML OPHTH.SUSP BOTH EYES SCH ×2 (09:15→21:20)
[2017-07-10] MEDS: CMCS Pantoprazole TAB (NF) 40 MG TAB PO SCH (09:52)
[2017-07-10] MEDS: Gabapentin CAP(*) 400 MG PO SCH ×2 (09:52→21:19)
--- NOTE | 2017-07-10 13:43 | RAD ---
INDICATION: Nausea and vomiting. Comparison: Correlation is made with a prior CT of the abdomen and pelvis from May 28, 2017. Technique: The patient was given an intravenous injection of 1.1 mCi of technetium 99m sulfur colloid mixed with oatmeal. Multiple images of the left upper quadrant were obtained. FINDINGS: Images of the abdomen were carried out to 90 minutes. The majority of the activity remains within the stomach. There is a very small amount of activity in the proximal small bowel. IMPRESSION: MARKED DELAYED GASTRIC EMPTYING.
[2017-07-10] MEDS: Clopidogrel TAB* 75 MG PO SCH (13:46)
--- NOTE | 2017-07-10 15:08 | PN ---
Subjective Date of Service: 07/10/17 Interval History: Patient vomited overnight and this am, he refused 2 doses of Reglan as he didn' t believe it was helping. He completed a gastric emptying study this am. No new symptoms. Objective Active Medications: Atorvastatin Calcium (Lipitor*) 80 mg PO 2100 [facility] Last Admin: 07/09/17 21:36 Dose: Not Given Clopidogrel Bisulfate (Plavix Tab*) 75 mg PO DAILY [facility] Last Admin: 07/10/17 13:46 Dose: 75 mg Dextrose (D50w Syringe 50 Ml*) 12.5 gm IV PUSH .FOR FS < 60 - SS PRN PRN Reason: FS < 60 Docusate Sodium (Colace Cap*) 200 mg PO DAILY PRN PRN Reason: CONSTIPATION Famotidine (Pepcid Iv*) 20 mg IV SLOW PU BID [facility] Last Admin: 07/10/17 09:03 Dose: 20 mg Gabapentin (Neurontin Cap(*)) 1,200 mg PO BID [facility] Last Admin: 07/10/17 09:52 Dose: Not Given Heparin Sodium (Porcine) (Heparin Vial(*)) 5,000 units SUBCUT Q8HR [facility] Last Admin: 07/10/17 13:46 Dose: 5,000 units Hydralazine HCl (Apresoline Iv*) 10 mg IV SLOW PU Q6H PRN PRN Reason: sBP>175 mmHg Last Admin: 07/09/17 12:41 Dose: 10 mg Potassium Chloride 20 meq/ (Lactated Ringer's) 1,010 mls @ 101 mls/hr IVPB Q10H [facility] Last Admin: 07/10/17 14:36 Dose: 101 mls/hr Insulin Human Lispro (Humalog*) 0 units SUBCUT AC [facility] PRN Reason: Protocol Last Admin: 07/10/17 13:42 Dose: Not Given Losartan Potassium (Cozaar Tab*) 50 mg PO DAILY [facility] Last Admin: 07/10/17 09:05 Dose: 50 mg Metoclopramide HCl (Reglan Iv*) 10 mg IV ACHS [facility] Metoprolol Tartrate (Lopressor Tab*) 12.5 mg PO BID [facility] Last Admin: 07/10/17 09:05 Dose: 12.5 mg Nitroglycerin (Nitroglycerin Tab 0.4 Mg*) 0.4 mg SL Q5M PRN PRN Reason: ANGINA Ondansetron HCl (Zofran Inj*) 4 mg IV Q4H PRN PRN Reason: NAUSEA Last Admin: 07/09/17 04:16 Dose: 4 mg Oxycodone HCl (Roxycodone Tab*) 5 mg PO Q8H PRN PRN Reason: PAIN Last Admin: 07/09/17 16:59 Dose: 5 mg Pantoprazole Sodium (Protonix Tab (Nf)) 40 mg PO DAILY [facility] Last Admin: 07/10/17 09:52 Dose: Not Given Prednisolone Acetate (Pred Forte 1%*) 1 drop BOTH EYES BID [facility] Last Admin: 07/10/17 09:15 Dose: 1 drop Prochlorperazine Edisylate (Compazine Inj*) 5 mg IV Q6H PRN PRN Reason: NAUSEA/VOMITING Last Admin: 07/09/17 21:38 Dose: 5 mg Vital Signs: Temp Pulse Resp BP Pulse Ox 98.5 F 76 18 169/103 100 07/10/17 11:17 07/10/17 11:17 07/10/17 11:17 07/10/17 11:17 07/10/17 11:17 Oxygen Devices in Use Now: None Appearance: Chronically ill appearing gentleman in NAD Respiratory: Symmetrical Chest Expansion and Respiratory Effort, Clear to Auscultation Cardiovascular: NL Sounds; No Murmurs; No JVD, RRR Abdominal: NL Sounds; No Tenderness; No Distention Extremities: No Edema Skin: No Rash or Ulcers Neurological: Alert and Oriented x 3 Result Diagrams: 07/08/17 07:56 07/10/17 05:26 Additional Lab and Data: . Diagnostic Imaging: GB US - WNL Gastric emptying study - marked delay in gastric emptying Assess/Plan/Problems-Billing Assessment: This is a 61 yo gentleman with uncontrolled DM, ischemic CM, HTN, HLD, recent H.pylori infection who presents with intractable nausea and vomiting. - Patient Problems (1) Nausea & vomiting Comment: Secondary to gastroparesis Gastric emptying study comfirms presence of severe gastroparesis Appreciate GI input Increase Reglan to 10mg ACHS Recent H.pylori infection, question whether he completed his full course of treatment Stool antigen studies pending (2) Weight loss Comment: ~35# weight loss in last 3-6 months Patient reports good oral intake outside of these episodes of vomiting Nl albumin and total protein, but prealbumin low Nl EGD 03/2017, last colonoscopy [address] Vang's note that was reportedly normal (3) Diabetes Comment: HgbA1c 8.8% Oral agents held Covering hyperglycemia with SS Humalog as needed (4) Elevated sed rate Comment: Recent complaints of upper arm pain per PCP Pending rheum consult for possible PMR Some improvement in pain with prior trials of prednisone, but this seemed to exacerbate his GI sx's (5) HLD (hyperlipidemia) (6) HTN (hypertension) Comment: Still intermittently hypertensive, likely exacerbated by his vomiting Cont oral antihypertensives as he is able (7) Cardiomyopathy Comment: Last EF 35-40% No acute exacerbation (8) Full code status (9) DVT prophylaxis Comment: Heparin SQ Status and Disposition: Inpatient. DC when able to tolerate oral intake consistently.
[2017-07-10] MEDS: hydrALAZINE IV* 20 MG/ML VIAL IV SLOW PU PRN (15:23)
[2017-07-10] MEDS: Atorvastatin* 80 MG TAB PO SCH (21:19)
[2017-07-11] MEDS: Ondansetron INJ* 2 MG/ML VIAL IV PRN ×2 (02:10→19:46)
[2017-07-11 05:59] LABS: BUN/Creatinine Ratio 22.2 (8-20); Calcium 9.6 mg/dL (8.6-10.3); EGFR Non-African American 97.2 (>60); Magnesium 2.2 mg/dL (1.9-2.7); Potassium 3.8 mmol/L (3.5-5.0)
[2017-07-11] MEDS: Heparin VIAL(*) 5000 UNITS/ML VIAL (FIVE THOUSAND) SUBCUT SCH ×3 (06:20→21:10)
[2017-07-11] MEDS: Insulin LISPRO* 1 UNITS UNIT SUBCUT SCH ×3 (07:53→18:23)
[2017-07-11] MEDS: Gabapentin CAP(*) 400 MG PO SCH ×2 (08:13→21:15)
[2017-07-11] MEDS: CMCS Pantoprazole TAB (NF) 40 MG TAB PO SCH (08:14)
[2017-07-11] MEDS: Metoprolol Tartrate TAB* 25 MG PO SCH ×2 (08:18→21:09)
[2017-07-11] MEDS: Clopidogrel TAB* 75 MG PO SCH (08:19)
[2017-07-11] MEDS: Losartan TAB* 25 MG PO SCH (08:19)
[2017-07-11] MEDS: prednisoLONE 1% OPHTH.SUSP* 5 ML OPHTH.SUSP BOTH EYES SCH ×2 (08:23→21:09)
[2017-07-11] MEDS: Metoclopramide IV* 5 MG/ML 2 ML VIAL IV SCH (08:26)
[2017-07-11] MEDS: Famotidine IV* 10 MG/ML 2 ML (20 mg) IV SLOW PU SCH (08:30)
--- NOTE | 2017-07-11 11:26 | PN ---
Subjective Date of Service: 07/11/17 Interval History: Patient seen and examined at bedside. Pt states that he is feeling better and would like to advance his diet. He denies nausea or vomiting. Denies fever, chills, shortness of breath, or chest discomfort. Family History: Unchanged from Admission Social History: Unchanged from Admission Past Medical History: Unchanged from Admission Objective Active Medications: Atorvastatin Calcium (Lipitor*) 80 mg PO 2100 [facility] Clopidogrel Bisulfate (Plavix Tab*) 75 mg PO DAILY [facility] Dextrose (D50w Syringe 50 Ml*) 12.5 gm IV PUSH .FOR FS < 60 - SS PRN Reason: FS < 60 Docusate Sodium (Colace Cap*) 200 mg PO DAILY PRN Reason: CONSTIPATION Gabapentin (Neurontin Cap(*)) 1,200 mg PO BID [facility] Heparin Sodium (Porcine) (Heparin Vial(*)) 5,000 units SUBCUT Q8HR [facility] Hydralazine HCl (Apresoline Iv*) 10 mg IV SLOW PU Q6H PRN Reason: sBP>175 mmHg Potassium Chloride 20 meq/ (Lactated Ringer's) 1,010 mls @ 101 mls/hr IVPB Q10H [facility] Insulin Human Lispro (Humalog*) 0 units SUBCUT AC [facility] Losartan Potassium (Cozaar Tab*) 50 mg PO DAILY [facility] Metoclopramide HCl (Reglan Tab*) 10 mg PO ACHS [facility] Metoprolol Tartrate (Lopressor Tab*) 12.5 mg PO BID [facility] Nitroglycerin (Nitroglycerin Tab 0.4 Mg*) 0.4 mg SL Q5M PRN Reason: ANGINA Ondansetron HCl (Zofran Inj*) 4 mg IV Q4H PRN Reason: NAUSEA Oxycodone HCl (Roxycodone Tab*) 5 mg PO Q8H PRN Reason: PAIN Pantoprazole Sodium (Protonix Tab (Nf)) 40 mg PO DAILY [facility] Prednisolone Acetate (Pred Forte 1%*) 1 drop BOTH EYES BID [facility] Prochlorperazine Edisylate (Compazine Inj*) 5 mg IV Q6H PRN Reason: NAUSEA/ VOMITING Vital Signs 07/10/17 07/10/17 07/10/17 15:14 19:14 19:25 Temperature 98.6 F 98.8 F Pulse Rate 77 87 Respiratory 18 16 18 Rate Blood Pressure 178/96 122/76 (mmHg) O2 Sat by Pulse 100 100 Oximetry 07/10/17 07/10/17 07/10/17 21:07 21:19 23:48 Temperature 99.1 F Pulse Rate 92 74 Respiratory 16 16 Rate Blood Pressure 130/79 142/76 (mmHg) O2 Sat by Pulse 100 Oximetry 07/11/17 07/11/17 07/11/17 03:40 07:05 07:30 Temperature 98.3 F 98.1 F Pulse Rate 85 85 Respiratory 14 16 16 Rate Blood Pressure 162/95 171/101 (mmHg) O2 Sat by Pulse 100 100 Oximetry Oxygen Devices in Use Now: None Appearance: NAD, sitting up on the side of the bed Ears/Nose/Mouth/Throat: Mucous Membranes Moist Respiratory: Symmetrical Chest Expansion and Respiratory Effort, Clear to Auscultation Cardiovascular: NL Sounds; No Murmurs; No JVD, RRR Abdominal: NL Sounds; No Tenderness; No Distention Extremities: No Edema Skin: No Rash or Ulcers Neurological: Alert and Oriented x 3, NL Muscle Strength and Tone Lines/Tubes/Other Access: Clean, Dry and Intact Peripheral IV - site benign Nutrition: Taking PO's - , clear liquids Result Diagrams: 07/08/17 07:56 07/11/17 04:44 Diagnostic Imaging: GB US - WNL Gastric emptying study - marked delay in gastric emptying Assess/Plan/Problems-Billing Assessment: Mr. Logan is a 61 yo gentleman with uncontrolled DM, ischemic CM, HTN, HLD, recent H.pylori infection who presents with intractable nausea and vomiting. - Patient Problems (1) Nausea & vomiting Code(s): R11.2 - NAUSEA WITH VOMITING, UNSPECIFIED SNOMED Code(s): 04981228 Comment: - Secondary to severe gastroparesis, Gastric emptying study comfirms presence of severe gastroparesis - Appreciate GI input - Recent H.pylori infection, question whether he completed his full course of treatment - Stool antigen studies pending - Continue Reglan to 10mg ACHS, will change to PO - Advance diet to full liquids (2) Weight loss Comment: - ~35# weight loss in last 3-6 months - Patient reports good oral intake outside of these episodes of vomiting - NL albumin and total protein, but prealbumin low - NL EGD 03/2017, last colonoscopy [address] Vang's note that was reportedly normal (3) Diabetes Code(s): E11.9 - TYPE 2 DIABETES MELLITUS WITHOUT COMPLICATIONS SNOMED Code(s) : 90943083 Comment: - Glucose 110s to 190s - HgbA1c 8.8% - Continue to hold Oral agents - Continue Lispro SS as needed (4) Elevated sed rate Code(s): R70.0 - ELEVATED ERYTHROCYTE SEDIMENTATION RATE SNOMED Code(s): 466242814 Comment: - Recent complaints of upper arm pain per PCP - Pending rheum consult for possible PMR - Some improvement in pain with prior trials of prednisone, but this seemed to exacerbate his GI sx's (5) HLD (hyperlipidemia) Code(s): E78.5 - HYPERLIPIDEMIA, UNSPECIFIED SNOMED Code(s): 48230223 Comment: - Continue atorvastatin (6) HTN (hypertension) Code(s): I10 - ESSENTIAL (PRIMARY) HYPERTENSION SNOMED Code(s): 69224253 Comment: - Still intermittently hypertensive, likely exacerbated by his vomiting - Continue losartan, metoprolol, and prn hydralazine (7) Cardiomyopathy Code(s): I42.9 - CARDIOMYOPATHY, UNSPECIFIED SNOMED Code(s): 45310004 Comment: - No acute exacerbation - Last EF 35-40% on 03/27/17 (8) CAD (coronary artery disease) Code(s): I25.10 - ATHSCL HEART DISEASE OF [place] CORONARY ARTERY W/O ANG PCTRS SNOMED Code(s): 51207079 Comment: - Recent stent in 03/14 - Continue plavix, atorvastatin and metoprolol (9) Diabetic neuropathy Code(s): E11.40 - TYPE 2 DIABETES MELLITUS WITH DIABETIC NEUROPATHY, UNSP SNOMED Code(s): 205516714 Comment: - Continue gabapentin (10) DVT prophylaxis Code(s): VFS4367 - SNOMED Code(s): 011862429 Comment: - SQ heparin (11) Full code status Code(s): Z78.9 - OTHER SPECIFIED HEALTH STATUS SNOMED Code(s): 647357792 Status and Disposition: Inpatient. Discharge to home when able to tolerate oral intake consistently.
[2017-07-11] MEDS: Metoclopramide TAB* 10 MG PO SCH ×3 (12:17→21:20)
[2017-07-11] MEDS: Atorvastatin* 80 MG TAB PO SCH (21:15)
[2017-07-11] MEDS: hydrALAZINE IV* 20 MG/ML VIAL IV SLOW PU PRN (23:39)
[2017-07-12] MEDS: Heparin VIAL(*) 5000 UNITS/ML VIAL (FIVE THOUSAND) SUBCUT SCH (06:02)
[2017-07-12] MEDS: hydrALAZINE IV* 20 MG/ML VIAL IV SLOW PU PRN (07:29)
[2017-07-12] MEDS: Metoclopramide TAB* 10 MG PO SCH ×2 (08:44→11:56)
[2017-07-12] MEDS: CMCS Pantoprazole TAB (NF) 40 MG TAB PO SCH (08:45)
[2017-07-12] MEDS: Losartan TAB* 25 MG PO SCH (08:45)
[2017-07-12] MEDS: Metoprolol Tartrate TAB* 25 MG PO SCH (08:45)
[2017-07-12] MEDS: Clopidogrel TAB* 75 MG PO SCH (08:47)
[2017-07-12] MEDS: prednisoLONE 1% OPHTH.SUSP* 5 ML OPHTH.SUSP BOTH EYES SCH (09:14)
[2017-07-12] MEDS: Insulin LISPRO* 1 UNITS UNIT SUBCUT SCH ×2 (09:14→12:22)
[2017-07-12] MEDS: Gabapentin CAP(*) 400 MG PO SCH (10:19)
[2017-07-12 11:46] VITALS: BP 120/77
--- NOTE | 2017-07-12 12:29 | PN ---
Subjective Date of Service: 07/12/17 Interval History: Patient seen and examined at bedside. Denies fever, chills, shortness of breath , chest discomfort, N/V/D. Pt states that he did vomit last evening, but not since them. He reports that he is tolerating a soft diet. He is anxious for discharge to home. Family History: Unchanged from Admission Social History: Unchanged from Admission Past Medical History: Unchanged from Admission Objective Active Medications: Atorvastatin Calcium (Lipitor*) 80 mg PO 2100 DERRELL Clopidogrel Bisulfate (Plavix Tab*) 75 mg PO DAILY PENDING SALE TO [facility] Dextrose (D50w Syringe 50 Ml*) 12.5 gm IV PUSH .FOR FS < 60 - SS PRN Reason: FS < 60 Docusate Sodium (Colace Cap*) 200 mg PO DAILY PRN Reason: CONSTIPATION Gabapentin (Neurontin Cap(*)) 1,200 mg PO BID PENDING SALE TO [facility] Heparin Sodium (Porcine) (Heparin Vial(*)) 5,000 units SUBCUT Q8HR DERRELL Hydralazine HCl (Apresoline Iv*) 10 mg IV SLOW PU Q6H PRN Reason: sBP>175 mmHg Potassium Chloride 20 meq/ (Lactated Ringer's) 1,010 mls @ 101 mls/hr IVPB Q10H DERRELL Insulin Human Lispro (Humalog*) 0 units SUBCUT AC DERRELL Reason: Protocol Losartan Potassium (Cozaar Tab*) 50 mg PO DAILY DERRELL Metoclopramide HCl (Reglan Tab*) 10 mg PO ACHS PENDING SALE TO [facility] Metoprolol Tartrate (Lopressor Tab*) 12.5 mg PO BID PENDING SALE TO [facility] Nitroglycerin (Nitroglycerin Tab 0.4 Mg*) 0.4 mg SL Q5M PRN Reason: ANGINA Ondansetron HCl (Zofran Inj*) 4 mg IV Q4H PRN Reason: NAUSEA Oxycodone HCl (Roxycodone Tab*) 5 mg PO Q8H PRN Reason: PAIN Pantoprazole Sodium (Protonix Tab (Nf)) 40 mg PO DAILY PENDING SALE TO [facility] Prednisolone Acetate (Pred Forte 1%*) 1 drop BOTH EYES BID DERRELL Prochlorperazine Edisylate (Compazine Inj*) 5 mg IV Q6H PRN Reason: NAUSEA/ VOMITING Vital Signs 07/11/17 07/11/17 07/11/17 15:23 19:20 19:45 Temperature 99.9 F 98.8 F Pulse Rate 83 92 Respiratory 14 14 16 Rate Blood Pressure 150/88 168/93 (mmHg) O2 Sat by Pulse 99 100 Oximetry 07/11/17 07/12/17 07/12/17 23:32 04:01 07:11 Temperature 99.5 F 98.7 F 99.1 F Pulse Rate 74 88 90 Respiratory 18 16 18 Rate Blood Pressure 188/103 152/88 176/103 (mmHg) O2 Sat by Pulse 97 100 100 Oximetry 07/12/17 07/12/17 10:22 11:22 Temperature 98.0 F Pulse Rate 83 Respiratory 18 16 Rate Blood Pressure 120/77 (mmHg) O2 Sat by Pulse 100 Oximetry Oxygen Devices in Use Now: None Appearance: NAD, laying in bed Ears/Nose/Mouth/Throat: Mucous Membranes Moist Respiratory: Symmetrical Chest Expansion and Respiratory Effort, Clear to Auscultation Cardiovascular: NL Sounds; No Murmurs; No JVD, RRR Abdominal: NL Sounds; No Tenderness; No Distention Extremities: No Edema Skin: No Rash or Ulcers Neurological: Alert and Oriented x 3, NL Muscle Strength and Tone Lines/Tubes/Other Access: Clean, Dry and Intact Peripheral IV - site benign Nutrition: Taking PO's Result Diagrams: 07/08/17 07:56 07/11/17 04:44 Diagnostic Imaging: GB US - WNL Gastric emptying study - marked delay in gastric emptying Assess/Plan/Problems-Billing Assessment: Mr. Logan is a 61 yo gentleman with uncontrolled DM, ischemic CM, HTN, HLD, recent H.pylori infection who presents with intractable nausea and vomiting. - Patient Problems (1) Nausea & vomiting Code(s): R11.2 - NAUSEA WITH VOMITING, UNSPECIFIED SNOMED Code(s): 74325598 Comment: - Secondary to severe gastroparesis, Gastric emptying study comfirms presence of severe gastroparesis - Appreciate GI input - Recent H.pylori infection, question whether he completed his full course of treatment - Stool antigen studies pending - Continue Reglan to 10mg ACHS, will change to PO - Tolerating a soft diet (2) Weight loss Comment: - ~35# weight loss in last 3-6 months - Patient reports good oral intake outside of these episodes of vomiting - NL albumin and total protein, but prealbumin low - NL EGD 03/2017, last colonoscopy [address] Vang's note that was reportedly normal (3) Diabetes Code(s): E11.9 - TYPE 2 DIABETES MELLITUS WITHOUT COMPLICATIONS SNOMED Code(s) : 81382289 Comment: - Glucose 150s to 180s - HgbA1c 8.8% - Resume Oral agents at discharge (4) Elevated sed rate Code(s): R70.0 - ELEVATED ERYTHROCYTE SEDIMENTATION RATE SNOMED Code(s): 637393706 Comment: - Recent complaints of upper arm pain per PCP - Pending rheum consult for possible PMR - Some improvement in pain with prior trials of prednisone, but this seemed to exacerbate his GI sx's (5) HLD (hyperlipidemia) Code(s): E78.5 - HYPERLIPIDEMIA, UNSPECIFIED SNOMED Code(s): 37061240 Comment: - Continue atorvastatin (6) HTN (hypertension) Code(s): I10 - ESSENTIAL (PRIMARY) HYPERTENSION SNOMED Code(s): 21879094 Comment: - Still intermittently hypertensive, likely exacerbated by his vomiting - Continue losartan and metoprolol (7) Cardiomyopathy Code(s): I42.9 - CARDIOMYOPATHY, UNSPECIFIED SNOMED Code(s): 56955038 Comment: - No acute exacerbation - Last EF 35-40% on 03/27/17 (8) CAD (coronary artery disease) Code(s): I25.10 - ATHSCL HEART DISEASE OF [place] CORONARY ARTERY W/O ANG PCTRS SNOMED Code(s): 88852545 Comment: - Recent stent in 03/14 - Continue plavix, atorvastatin and metoprolol (9) Diabetic neuropathy Code(s): E11.40 - TYPE 2 DIABETES MELLITUS WITH DIABETIC NEUROPATHY, UNSP SNOMED Code(s): 773788888 Comment: - Continue gabapentin (10) DVT prophylaxis Code(s): HKM7654 - SNOMED Code(s): 373218353 Comment: - SQ heparin (11) Full code status Code(s): Z78.9 - OTHER SPECIFIED HEALTH STATUS SNOMED Code(s): 227378956 Status and Disposition: Inpatient. Tolerating a soft diet, stable for discharge to home today.
--- NOTE | 2017-07-13 08:48 | DS ---
CC: Dr. Nena Rush* DISCHARGE SUMMARY: DATE OF ADMISSION: 07/05/17 DATE OF DISCHARGE: 07/12/17 ATTENDING PHYSICIAN: Dr. Jim Padilla *(dictated by Michelle Baker NP). PRIMARY CARE PROVIDER: Dr. Nena Rush PRIMARY DIAGNOSES: 1. Severe diabetic gastroparesis. 2. Approximately 30 pound weight loss in the last 3-6 months. SECONDARY DIAGNOSES: 1. Diabetes mellitus. 2. Elevated sed rate. 3. Hyperlipidemia. 4. Hypertension. 5. Cardiomyopathy. 6. Coronary artery disease. 7. Diabetic neuropathy. CONSULTATIONS WHILE IN THE HOSPITAL: Dr. Cameron Vang with Gastroenterology. STUDIES WHILE IN THE HOSPITAL: 1. Gallbladder ultrasound on 07/08/17. Radiologist's impression: Negative right upper quadrant ultrasound. 2. Gastric emptying nuclear medicine study on 07/10/17. Radiologist's impression: Marked delayed gastric emptying. HOME MEDICATIONS: New home medications: 1. Reglan 10 mg oral before meals and at bedtime. 2. Glucerna shakes 1 twice daily. Continued home medications: 1. Losartan 50 mg oral daily. 2. Naproxen 220-440 mg oral daily as needed for pain. 3. Nitroglycerin 0.4 mg sublingual every 5 minutes as needed for chest pain. 4. Ferrous sulfate 325 mg oral daily. 5. Atorvastatin 80 mg oral daily at bedtime. 6. Oxycodone 5 mg oral every 8 hours as needed for pain. 7. Metoprolol tartrate 12.5 mg oral twice daily. 8. Protonix 40 mg oral daily. 9. Gabapentin 1200 mg oral twice daily. 10. Plavix 75 mg oral daily. 11. Prednisolone 1% ophthalmic solution 1 drop to both eyes twice daily. 12. Colace 200 mg oral daily as needed for constipation. 13. EpiPen 0.3 mg intramuscularly once as needed for anaphylaxis. 14. Tramadol 50 mg oral 4 times daily. 15. Vitamin B12 1000 mcg oral daily. 16. Metformin 1000 mg oral twice daily. 17. Glipizide 10 mg oral twice daily. HISTORY OF PRESENT ILLNESS/HOSPITAL COURSE: Mr. Logan is a 61-year-old male with past medical history significant for NSTEMI, ischemic cardiomyopathy, history of H. pylori, diabetes mellitus type 2, hypertension, hyperlipidemia, coronary artery disease, who presents to the emergency room with complaints of intractable nausea and vomiting intermittently. The patient initially presented to the emergency room complaining of 4 days of nausea, vomiting with vomiting up to 3-4 times a day with anorexia and inability to keep any oral intake down. Patient reported vomit that was occasionally black, yellow, or white. He denied any jakob blood in his vomit. He denied any abdominal pain. The patient has had many episodes similar to this in the past. He denied any constipation or diarrhea. He also denied any sick treatments. He had previously been treated for an H. pylori infection and who had never been tested for cure. He also reports numbness and tingling in his hands and feet. 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 The patient had reported subjective fevers and chills. He denied any shortness of breath or chest pain. The patient's primary care provider was concerned over the patient's 35 pound weight loss and felt that he was losing weight even when he was not vomiting and felt that he would need an EGD for evaluation for a possible gastric malignancy. She was also concerned about malabsorption. While in the emergency room, the patient had an EKG showing a sinus rhythm and PACs, no ST changes. The patient's labs were fairly unremarkable, although he had an elevated BNP of 47. CRP was 24.91. His CBC showed anemia. He appeared to be near his baseline. He had a urinalysis that was unremarkable. The patient's celiac disease interpretation was a negative serology making celiac disease unlikely. Hospitalists were asked to evaluate the patient for admission. During the patient's hospitalization, he had a gallbladder ultrasound that was negative. He was then seen in consultation by Dr. Cameron Vang with Gastroenterology, who felt that this could be gastroparesis and he requested a gastric emptying study. He also wondered if this was a cyclic vomiting syndrome. The patient has a history of multiple upper endoscopies, none of which have showed anything of significance. The patient underwent a gastric emptying study on July 10 showing severe gastroparesis. The patient was started on Reglan a.c. and h.s. During his stay, his nausea and vomiting improved. He was able to tolerate clear liquids, then full liquids and then was advanced to a soft diet. It is also to note that he intermittently had hypokalemia and hypomagnesemia that resolved during his stay after replacement. The patient was intermittently hypertensive with systolic blood pressures up to the 180s at times. This appeared to correlate at times when the patient is nauseous because at other times his blood pressures have been in the 120s to 140s systolic. Mr. Logan is stable for discharge to home today. Vital signs are as follows: Temperature 98.0, heart rate 83, respiratory rate 16, O2 sat 100% on room air, and blood pressure 120/77. Mr. Logan is stable for discharge to home today. Activity as tolerated. He should be on a consistent carbohydrate light diet. I recommended that he stick to softer or harmonica maker food until he is feeling better. Due to his hypertension, I have also recommended he be on a low sodium diet. For the patient's severe gastroparesis, he has been started on Reglan before meals and at bedtime. The rest of his medications have been continued. It is to note that the patient has low TSH and an elevated T4. Recommend following this outpatient as he may need treatment for hyperthyroidism. The patient should be seen in followup by his primary care provider, Dr. Rush. He has an appointment on July 19 at 1:30 p.m. The patient has been asked to monitor his blood pressures at home and to bring a record of his recordings to his followup appointments if he continues to be hypertensive as an outpatient. Once his nausea has resolved, he may need his antihypertensives adjusted. The patient has been asked to return to the emergency room for any shortness of breath or chest discomfort. This is a summarized report of a complex medical history and hospitalization. For further details, please see the entire medical record. TIME SPENT: Time for this discharge was approximately 50 minutes, greater than half of that was spent with the patient discussing discharge plans and instructions. CONDITION ON DISCHARGE: Stable. Reviewed by CAROL LEE 07/14/17 1853 [id number]/[facility] #: [id number] ARELI
== END 2017-07-12 13:50 | disposition home or self-care (01) | DRG 74 ==
LOC: ED 11:48 → SSU 18:58 → OBSVTOIN 07-06 16:07
PROVIDERS: ADMIT Internal Medicine; ATTEND Internal Medicine
DX: E11.43 Type 2 diabetes mellitus with diabetic autonomic (poly)neuropathy (principal); Z94.83 Pancreas transplant status; E11.65 Type 2 diabetes mellitus with hyperglycemia; E83.42 Hypomagnesemia; I10 Essential (primary) hypertension; K31.84 Gastroparesis; G89.29 Other chronic pain; R40.2362 Coma scale, best motor response, obeys commands, at arrival to emergency department; R40.2142 Coma scale, eyes open, spontaneous, at arrival to emergency department; R40.2252 Coma scale, best verbal response, oriented, at arrival to emergency department; I25.5 Ischemic cardiomyopathy; E78.5 Hyperlipidemia, unspecified; R62.7 Adult failure to thrive; E11.42 Type 2 diabetes mellitus with diabetic polyneuropathy; D50.9 Iron deficiency anemia, unspecified; I25.10 Atherosclerotic heart disease of native coronary artery without angina pectoris; R63.4 Abnormal weight loss; E87.6 Hypokalemia; E11.40 Type 2 diabetes mellitus with diabetic neuropathy, unspecified; R70.0 Elevated erythrocyte sedimentation rate; Z79.02 Long term (current) use of antithrombotics/antiplatelets; Z79.84 Long term (current) use of oral hypoglycemic drugs; Z91.040 Latex allergy status; I25.2 Old myocardial infarction; Z88.8 Allergy status to other drugs, medicaments and biological substances; Z91.030 Bee allergy status; Z98.42 Cataract extraction status, left eye; Z98.41 Cataract extraction status, right eye; Z94.7 Corneal transplant status; Z82.49 Family history of ischemic heart disease and other diseases of the circulatory system; Z87.891 Personal history of nicotine dependence; Z95.5 Presence of coronary angioplasty implant and graft; Z68.21 Body mass index [BMI] 21.0-21.9, adult
CPT/HCPCS: 36415; 76705; 78264; 80048; 80053; 81003; 81015; 82247; 82784; 83036; 83516; 83605; 83690; 83735; 83880; 84075; 84134; 84439; 84443; 84450; 84460; 84484; 85025; 85610; 85652; 85730; 86140; 93005; A9270-GY; A9541; G0378; J0360; J0780; J1644; J2060; J2405; J2765; J3475; J3480

== ENCOUNTER 2017-08-18 11:20 | Emergency (ER) | payer MEDICARE, MEDICAID ==
[2017-08-18] MEDS ORDERED: Aspirin EC Low Dose* 81 MG TAB.EC PO ONE (11:31)
[2017-08-18] MEDS ORDERED: Aspirin Low Dose CHEW TAB* 81 MG ONE (11:37)
[2017-08-18] MEDS ORDERED: Aspirin Low Dose CHEW TAB* 81 MG PO ONE (11:38)
--- NOTE | 2017-08-18 11:43 | UC ---
Cardiac HPI - HPI Summary HPI Summary: 2 days of worsening left side chest pain and some SOB, denies nausea/vomiting - History of Current Complaint Chief Complaint: UCChestPain Stated Complaint: CHEST PAIN Time Seen by Provider: 08/18/17 11:35 Hx Obtained From: Patient Onset/Duration: Gradual Onset, Lasting Days - 2, Still Present Timing: Constant Initial Severity: Moderate Current Severity: Moderate Pain Intensity: 4 Chest Pain Location: Left Anterior Aggravating Factor(s): Nothing Alleviating Factor(s): Nothing Associated Signs & Symptoms: Positive: Chest Pain, SOB Related History: Similar Episode/Dx as - [place] 02/2017 - Allergy/Home Medications Allergies/Adverse Reactions: Allergies Allergy/AdvReac Type Severity Reaction Status Date / Time Latex Allergy Severe RASH, Verified 08/18/17 11:49 ITCHING Lisinopril Allergy Severe Swelling Verified 08/18/17 11:49 Of Face,Lips,& Throat Bee Venom Allergy Intermediate Rash Verified 08/18/17 11:49 Ciprofloxacin Allergy Unknown Verified 08/18/17 11:49 Reaction Details PMH/Surg Hx/FS Hx/Imm Hx Previously Healthy: No Endocrine History: Diabetes, Dyslipidemia Cardiovascular History: Cardiac Disease, Hypertension, Myocardial Infarction - Surgical History Surgical History: Yes Surgery Procedure, Year, and Place: BILAT KNEE SURGERY, BILAT HAND SURGERY, 4 EYE SURGERIES (cataracts)(corneal transplants) - Family History Known Family History: Positive: None, Cardiac Disease, Hypertension, Diabetes - Social History Occupation: Unemployed Lives: With Family Alcohol Use: None Substance Use Type: None Smoking Status (MU): Former Smoker Type: Cigarettes Have You Smoked in the Last Year: No - Immunization History Most Recent Influenza Vaccination: 2014 Most Recent Tetanus Shot: up to date Most Recent Pneumonia Vaccination: Never had Review of Systems Constitutional: Negative Skin: Negative Eyes: Negative ENT: Negative Respiratory: Shortness Of Breath Cardiovascular: Chest Pain Gastrointestinal: Negative Genitourinary: Negative Motor: Negative Neurovascular: Negative Musculoskeletal: Negative Neurological: Negative Psychological: Negative Is Patient Immunocompromised?: No All Other Systems Reviewed And Are Negative: Yes Physical Exam Triage Information Reviewed: Yes Appearance: Ill-Appearing, Pain Distress, Thin Vital Signs Reviewed: Yes Eye Exam: Normal Eyes: Positive: Conjunctiva Clear ENT Exam: Normal ENT: Positive: Normal ENT inspection, Hearing grossly normal. Negative: Nasal congestion, Nasal drainage, Trismus, Muffled/hoarse voice Dental Exam: Normal Neck exam: Normal Neck: Positive: Supple, Nontender, No Lymphadenopathy Respiratory Exam: Normal Respiratory: Positive: Chest non-tender, Lungs clear, Normal breath sounds, No accessory muscle use, Respiratory distress Cardiovascular Exam: Normal Cardiovascular: Positive: RRR, No Murmur, Pulses Normal, Brisk Capillary Refill Musculoskeletal Exam: Normal Musculoskeletal: Positive: Strength Intact, ROM Intact, No Edema Neurological Exam: Normal Neurological: Positive: Alert, Muscle Tone Normal Psychological Exam: Normal Skin Exam: Normal Diagnostics - EKG Cardiac Rate: NL Cardiac Rhythm: Sinus: Normal - LVH Ectopy: None ST Segment: Normal - Assessment/Plan Course Of Treatment: Asprin, IV, EKG transfer [place] [facility] [place] - Clinical Impression Provider Diagnoses: Chest PAin - Physician Notifications Time Discussed With Above Provider: 11:45 - ED provider unavailable to come to phone Instructed by Provider To: Transfer Discharge - Discharge Plan Condition: Guarded Disposition: TRANS HIGHER LVL OF CARE FAC Referrals: Nena Rush MD [Primary Care Provider] -
[2017-08-18] MEDS ORDERED: NS 0.9% 1000 ML* 1,000 ML IV SCH (11:45)
[2017-08-18 11:48] VITALS: BP 147/102
== END 2017-08-18 11:45 | disposition short-term general hospital (02) ==
LOC: UCEAST 11:20
DX: R07.9 Chest pain, unspecified (principal); E11.9 Type 2 diabetes mellitus without complications; E78.5 Hyperlipidemia, unspecified; I10 Essential (primary) hypertension; I25.2 Old myocardial infarction; I51.9 Heart disease, unspecified; Z87.891 Personal history of nicotine dependence
CPT/HCPCS: 93005; 96360; 99203; A9270-GY; G0463

== ENCOUNTER → 2017-08-18 12:06 | Emergency (ER) | payer MEDICARE, MEDICAID ==
[~2017-08-18 12:06] MED LIST: Aspirin Low Dose CHEW TAB* 81 MG PO ONE; Morphine INJ* 4 MG/ML 1 ML CARPUJECT IV ONE
[2017-08-18 12:36] LABS: Hematocrit 30 % (42-52); Hemoglobin 9.7 g/dl (14.0-18.0); Mean Corpuscular HGB Conc 33 g/dl (31-36); Mean Corpuscular Hemoglobin 21 pg (27-31); Mean Platelet Volume 7 um3 (7.4-10.4); Red Blood Count 4.57 10^6/ul (4.0-5.4); Red Cell Distribution Width 19 % (10.5-15); White Blood Count 5.6 10^3/ul (3.5-10.8)
[2017-08-18 12:48] LABS: Albumin 4.2 g/dL (3.2-5.2); Calcium 10.7 mg/dL (8.6-10.3); EGFR African American 119.9 (>60); EGFR Non-African American 93.2 (>60); Globulin 4.3 g/dL (2-4); Potassium 3.9 mmol/L (3.5-5.0); Total Bilirubin 0.3 mg/dL (0.2-1.0); Total Protein 8.5 g/dL (6.4-8.9)
[2017-08-18 12:50] LABS: Troponin I 0.02 ng/mL (<0.04)
[2017-08-18 13:01] LABS: Comments Flag Yes; Mean Corpuscular Volume 65 fL (80-94)
--- NOTE | 2017-08-18 13:28 | RAD ---
INDICATION: Chest pain COMPARISON: Most recent comparison chest x-rays dated a TECHNIQUE: Single AP portable view of the chest was obtained. FINDINGS: Image quality is compromised due to the relative inferiority of a portable chest x-ray. The heart and mediastinum exhibit normal size and contour. The lungs are grossly clear. There is no evidence of a large pleural effusion. Visualized bones are normal for the patient's age. IMPRESSION: No radiographic evidence for acute cardiopulmonary abnormality on this portable chest x-ray.
--- NOTE | 2017-08-18 15:09 | ED ---
Thierno Kam Rebecca, scribed for Julia Martinez MD on 08/18/17 at 1245 . HPI Chest Pain - HPI Summary HPI Summary: Pt is a 61 y/o M BIBA from [facility] who presents to ED c/o CP. Pain began yesterday and has been constant since onset, unchanging in intensity since onset. Pain is located in the left anterior chest with radiation to the L shoulder and is currently moderate, ranked 4-5/10. Sx aggravated by LUE movement , alleviated by sitting forward, unchanged by deep breaths. Additionally c/o N/ V. Denies cough, SOB, diaphoresis, fever and chills. PMHx MD in February. Believes he is on a blood thinner, stating that Plavix sounds familiar. - History of Current Complaint Chief Complaint: EDChestPainROMI Time Seen by Provider: 08/18/17 12:30 Hx Obtained From: Patient Onset/Duration: Started Days Ago - Yesterday, Still Present Timing: Constant Initial Severity: Moderate Current Severity: Moderate Pain Intensity: 5 Pain Scale Used: 0-10 Numeric Chest Pain Location: Left Anterior Chest Pain Radiates: Yes Chest Pain Radiates To:: Shoulder - Left Aggravating Factor(s): Movement Alleviating Factor(s): Nothing Associated Signs and Symptoms: Positive: Nausea, Vomiting. Negative: Shortness of Breath, Fever, Chills, Diaphoresis, Cough - Additional Pertinent History Primary Care Physician: MONROE - Allergy/Home Medications Allergies/Adverse Reactions: Allergies Allergy/AdvReac Type Severity Reaction Status Date / Time Latex Allergy Severe RASH, Verified 08/18/17 11:49 ITCHING Lisinopril Allergy Severe Swelling Verified 08/18/17 11:49 Of Face,Lips,& Throat Bee Venom Allergy Intermediate Rash Verified 08/18/17 11:49 Ciprofloxacin Allergy Unknown Verified 08/18/17 11:49 Reaction Details PMH/Surg Hx/FS Hx/Imm Hx Endocrine/Hematology History: Reports: Hx Diabetes Denies: Hx Thyroid Disease Cardiovascular History: Reports: Hx Angina, Hx Hypercholesterolemia, Hx Hypertension, Hx Myocardial Infarction - 03/26/17, Other Cardiovascular Problems/ Disorders - ISCHEMIC CARDIOMYOPATHY Respiratory History: Denies: Hx Asthma, Hx Chronic Obstructive Pulmonary Disease (COPD) GI History: Reports: Other GI Disorders - Pt has had chronic stomach pain with no diagnosis, gastroparesis per pt Denies: Hx Ulcer History: Denies: Hx Renal Disease Musculoskeletal History: Comment Only: Other Musculoskeletal History - hx of multiple surgeries on knees, hands, and ankles Sensory History: Reports: Hx Contacts or Glasses - Left eye, Hx Vision Problem - Cornea transplant Denies: Hx Hearing Aid Opthamlomology History: Reports: Hx Contacts or Glasses - Left eye, Hx Vision Problem - Cornea transplant - Surgical History Surgery Procedure, Year, and Place: BILAT KNEE SURGERY, BILAT HAND SURGERY, 4 EYE SURGERIES (cataracts)(corneal transplants) Infectious Disease History: No Infectious Disease History: Denies: Hx Clostridium Difficile, Hx Hepatitis, Hx Human Immunodeficiency Virus (HIV), Hx of Known/Suspected MRSA, Hx Shingles, Hx Tuberculosis, History Other Infectious Disease, Traveled Outside the [place] in Last 30 Days - Family History Known Family History: Positive: Cardiac Disease, Hypertension, Diabetes - Social History Alcohol Use: None Hx Substance Use: No Substance Use Type: Reports: None Hx Tobacco Use: No Smoking Status (MU): Former Smoker Type: Cigarettes Have You Smoked in the Last Year: No Review of Systems Negative: Fever, Chills, Skin Diaphoresis Positive: Chest Pain Negative: Shortness Of Breath, Cough Positive: Vomiting, Nausea All Other Systems Reviewed And Are Negative: Yes Physical Exam - Summary Physical Exam Summary: General: Ill-appearing and uncomfortable, no pain distress Skin: Warm, Skin Color Reflects Adequate Perfusion, Dry Eyes: EOMI, DAVEY ENT: Pharynx normal, TMs normal Neck: Supple, nontender Respiratory: CTA, breath sounds present, no rhonchi, no wheezes, no rales Cardiovascular: RRR, no murmur, no rub, no gallop Abdomen: Soft, nontender, Non-distended, no guarding, no rebound Bowel: Present Musculoskeletal: MILVIA, No edema Neuro: Sensory/motor intact, A&Ox3, CN intact 2-12 Psych: Affect/mood appropriate Triage Information Reviewed: Yes Vital Signs On Initial Exam: Initial Vitals Temp Pulse Resp BP Pulse Ox 98.2 F 99 12 159/109 100 08/18/17 12:18 08/18/17 12:18 08/18/17 12:18 08/18/17 12:18 08/18/17 12:18 Vital Signs Reviewed: Yes - Raquel Coma Scale Coma Scale Total: 15 Diagnostics - Vital Signs Vital Signs Temp Pulse Resp BP Pulse Ox 08/18/17 12:18 98.2 F 99 12 159/109 100 - Laboratory Lab Results: Lab Results 08/18/17 08/18/17 08/18/17 Range/Units 11:40 11:40 11:40 WBC 5.6 (3.5-10.8) 10^3/ul RBC 4.57 (4.0-5.4) 10^6/ul Hgb 9.7 L (14.0-18.0) g/dl Hct 30 L (42-52) % MCV 65 L (80-94) fL MCH 21 L (27-31) pg MCHC 33 (31-36) g/dl RDW 19 H (10.5-15) % Plt Count 399 (150-450) 10^3/ul MPV 7 L (7.4-10.4) um3 Neut % (Auto) 68.7 (38-83) % Lymph % (Auto) 22.1 L (25-47) % [place] % (Auto) 4.9 (1-9) % Eos % (Auto) 1.5 (0-6) % Baso % (Auto) 2.8 H (0-2) % Absolute Neuts (auto) 3.8 (1.5-7.7) 10^3/ul Absolute Lymphs (auto) 1.2 (1.0-4.8) 10^3/ul Absolute Monos (auto) 0.3 (0-0.8) 10^3/ul Absolute Eos (auto) 0.1 (0-0.6) 10^3/ul Absolute Basos (auto) 0.2 (0-0.2) 10^3/ul Absolute Nucleated RBC 0.01 10^3/ul Nucleated RBC % 0.1 Sodium 135 (133-145) mmol/L Potassium 3.9 (3.5-5.0) mmol/L Chloride 98 L (101-111) mmol/L Carbon Dioxide 26 (22-32) mmol/L Anion Gap 11 (2-11) mmol/L BUN 26 H (6-24) mg/dL Creatinine 0.84 (0.67-1.17) mg/dL Est GFR ( Amer) 119.9 (>60) Est GFR (Non-Af Amer) 93.2 (>60) BUN/Creatinine Ratio 31.0 H (8-20) Glucose 109 H (70-100) mg/dL Lactic Acid 1.8 (0.5-2.0) mmol/L Calcium 10.7 H (8.6-10.3) mg/dL Total Bilirubin 0.30 (0.2-1.0) mg/dL AST 12 L (13-39) U/L ALT 8 (7-52) U/L Alkaline Phosphatase 82 (34-104) U/L Troponin I 0.02 (<0.04) ng/mL Total Protein 8.5 (6.4-8.9) g/dL Albumin 4.2 (3.2-5.2) g/dL Globulin 4.3 H (2-4) g/dL Albumin/Globulin Ratio 1.0 (1-3) Result Diagrams: 08/18/17 11:40 08/18/17 11:40 Lab Statement: Any lab studies that have been ordered have been reviewed, and results considered in the medical decision making process. - Radiology CXR Xray Interpretation: No Acute Changes - No radiographic evidence for acute cardiopulmonary abnormality on this portable chest x-ray. ED physician reviewed radiology report and agrees. Radiology Interpretation Completed By: Radiologist - EKG 1233 Cardiac Rate: NL - 92 bpm EKG Rhythm: Sinus Rhythm EKG Interpretation: Anterior Qs EKG Comparison: No Significant Change - Essentially the same as the EKG done on 07/06/2017 except that the prior EKG shows some ST elevations int he anterior leads and they appear to have normalized Re-Evaluation - Re-Evaluation First Eval Re-Evaluation Time: 15:00 Change: Improved Comment: Feeling much better. Chest Pain Course/Dx - Course Course Of Treatment: pt with stable vital signs and cp that's been constant for 2 days. Pt has a neg cxr, unchanged ekg and normal cxr, pain much better with a small dose of morphine. pt feels comfortable going home followup with pmd - Diagnoses Provider Diagnoses: Chest pain Discharge - Discharge Plan Condition: Stable Disposition: HOME Patient Education Materials: Chest Pain (ED) Referrals: Nena Rush MD [Primary Care Provider] - 3 Days The documentation as recorded by the Thierno turk Rebecca accurately reflects the service I personally performed and the decisions made by me, Julia Martinez MD.
[2017-08-18 15:26] VITALS: BP 154/95
== END | disposition home or self-care (01) ==
LOC: ED 12:06
DX: R07.9 Chest pain, unspecified (principal); R11.2 Nausea with vomiting, unspecified; Z87.891 Personal history of nicotine dependence
CPT/HCPCS: 36415; 71010; 80053; 83605; 84484; 85025; 87040; 93005; 96374; 99282; J2270

== ENCOUNTER 2018-08-17 18:31 | Emergency (ER) | payer MEDICARE, MEDICAID ==
[2018-08-17] MEDS ORDERED: NS 0.9% 1000 ML* 1,000 ML IV ONE (18:35)
--- NOTE | 2018-08-17 19:10 | RAD ---
EXAM: CT Head Without Intravenous Contrast CLINICAL HISTORY: 62 years old, male; Signs and symptoms; Other: Facial droop; Additional info: Neurological changes/code cisneros. Pt here for facial droop and increased difficulty speaking since yesterday. Pt does have unsymetrical facial smile. Pt is not on blood thinners. TECHNIQUE: Axial computed tomography images of the head/brain without intravenous contrast. All CT scans at this facility use at least one of these dose optimization techniques: automated exposure control; mA and/or kV adjustment per patient size (includes targeted exams where dose is matched to clinical indication); or iterative reconstruction. COMPARISON: BRAIN WO CT BRAIN WO 04/15/2017 2:18 PM FINDINGS: Brain: There is low attenuation change in the white matter most consistent with chronic age related small vessel ischemic change. No acute territorial infarction is seen. These can be initially occult on head CT. No hemorrhage. Ventricles: No intracranial bleed, suspicious mass, or mass effect. Ventricles appear unremarkable. Bones/joints: Unremarkable. No acute fracture. Soft tissues: Unremarkable. Sinuses: Unremarkable as visualized. No acute sinusitis. Mastoid air cells: Unremarkable as visualized. No mastoid effusion. IMPRESSION: 1. No intracranial bleed, suspicious mass, or mass effect. Ventricles appear unremarkable. 2. There is low attenuation change in the white matter most consistent with chronic age related small vessel ischemic change. No acute territorial infarction is seen. These can be initially occult on head CT. 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 To contact [facility] with a general question: [facility] - [phone] For direct physician to physician contact: Physician Hotline - [phone] [facility] ([facility] Facility ID #[id number])
[2018-08-17 19:22] LABS: ABS Basophils 0.1 10^3/ul (0-0.2); ABS Eosinophils 0.1 10^3/ul (0-0.6); ABS Lymphocytes 1.9 10^3/ul (1.0-4.8); ABS Monocytes 0.4 10^3/ul (0-0.8); ABS Neutrophils 3.4 10^3/ul (1.5-7.7); ABS Nucleated RBC 0 10^3/ul; Eosinophil % 1.5 % (0-6); Hematocrit 34 % (42-52); Hemoglobin 10.7 g/dl (14.0-18.0); Lymphocyte % 32.7 % (25-47); Mean Corpuscular HGB Conc 31 g/dl (31-36); Mean Corpuscular Hemoglobin 22 pg (27-31); Mean Corpuscular Volume 71 fL (80-94); Mean Platelet Volume 8.5 um3 (7.4-10.4); Nucleated Red Blood Cells % 0.1; Platelet Count 229 10^3/ul (150-450); Red Blood Count 4.83 10^6/ul (4.00-5.40); Red Cell Distribution Width 16 % (10.5-15); White Blood Count 5.9 10^3/ul (3.5-10.8)
[2018-08-17] MEDS ORDERED: cloNIDine TAB* 0.1 MG PO ONE (19:25)
[2018-08-17 19:26] LABS: INR 0.99 (0.77-1.02)
--- NOTE | 2018-08-17 19:26 | ED ---
Neurological HPI - HPI Summary HPI Summary: This patient is a 62 year old M [facility] by his girlfriend Marry with a chief complaint of worsening facial droop and difficulty speaking since yesterday morning. Pt does have an asymmetric smile. Patient reports that the difficulty speaking is due to difficulty moving mouth, not a difficulty with coming up with words or phrases. Patient denies difficulty ambulating, difficulty picking things up or moving his arms, difficulty swallowing, LOJA, vision problems, ear ache, sore throat, or CP. A Code Zavaleta was called at 18:34 and the patient was brought to his room by wheelchair. As soon as he was brought into the ED, Dr. Gracia determined that it was [place] Palsy and not a code zavaleta, due to the absence of forehead creases. Code Zavaleta was canceled. PMHX Diabetes, high cholesterol, OH. FHX CVD. RX BP medication. Vital signs while in room: HR 70 bpm, BP 206/111, O2 sat 99%. NIH: 2 due to facial droop and slurring some words Home Medications Medication Instructions Recorded Confirmed Type prednisoLONE 1% OPHTH.SUSP* [Pred 1 drop BOTH EYES DAILY 04/16/14 08/24/17 History Forte 1%*] Clopidogrel TAB* [Plavix TAB*] 75 mg PO DAILY #30 tab 04/03/17 08/24/17 Rx Docusate CAP* [Colace Cap*] 200 mg PO DAILY PRN 07/05/17 08/24/17 History EPINEPHrine [Epipen 2-Ranjith] 0.3 mg IM ONCE PRN 07/05/17 08/24/17 History Naproxen Sodium [Naproxen Sodium 220 - 440 mg PO DAILY PRN 07/05/17 08/24/17 History 220 mg] Nutritional Supplements [Glucerna 1 liq PO BID #24 liq 07/12/17 08/24/17 Rx Shake] Methotrexate* 10 mg .SEE ORDER WEEKLY 08/24/17 08/24/17 History Nitroglycerin TAB 0.4 MG* 0.4 mg SL Q5M PRN 08/24/17 08/24/17 History Polymyx/Trimethoprim OPTH* 1 drop LEFT EYE DAILY 08/24/17 08/24/17 History [Polytrim OPHTH*] Acetaminophen SUPP* [Tylenol Supp*] 650 mg IA Q6H PRN #0 supp 08/30/17 Rx Aspirin 81 mg CHEW TAB* 81 mg PO DAILY #30 tab 08/30/17 Rx Atorvastatin* [Lipitor 80 MG*] 80 mg PO BEDTIME #30 tab 08/30/17 Rx Carvedilol TAB* [Coreg TAB*] 25 mg PO 0900,2100 #60 tab 08/30/17 Rx Cyanocobalamin TAB* [Vitamin B12 1,000 mcg PO DAILY #60 tab 08/30/17 Rx TAB*] Erythromycin TAB* 250 mg PO AC #90 tab 08/30/17 Rx Ferrous Sulfate TAB* 325 mg PO DAILY #30 tab 08/30/17 Rx Gabapentin CAP(*) [Neurontin 400 1,200 mg PO BID #180 tab 08/30/17 Rx mg CAP(*)] Losartan TAB* [Cozaar TAB*] 100 mg PO DAILY #120 tab 08/30/17 Rx Metoclopramide TAB* [Reglan TAB*] 10 mg PO ACHS #120 tab 08/30/17 Rx Pantoprazole TAB (NF) [Protonix 40 mg PO BID #60 tab 08/30/17 Rx TAB (NF)] Pantoprazole TAB (NF) [Protonix 40 mg PO DAILY@0600 #30 tab 08/30/17 Rx TAB (NF)] Senna TAB* [Senokot TAB*] 1 tab PO DAILY tab 08/30/17 Rx cloNIDine 0.1 MG PATCH* 1 patch TRANSDERM WEEKLY #4 patch 08/30/17 Rx [Hiiaxude-Dvo-0 0.1 mg Patch*] glipiZIDE TAB.XL* [Glucotrol Xl*] 10 mg PO BID #60 tab 08/30/17 Rx metFORMIN* [Glucophage 500 MG TAB 1,000 mg PO BID #60 tab 08/30/17 Rx *] traMADol TAB* [Ultram*] 50 mg PO QID #30 tab MDD 4 tab 08/30/17 Rx predniSONE TAB* [Deltasone 20 MG 60 mg PO DAILY #21 tab 08/17/18 Rx TAB*] - History of Current Complaint Chief Complaint: EDHypertension Stated Complaint: DIFF SPEAKING/FACIAL DROOP Time Seen by Provider: 08/17/18 18:35 Hx Obtained From: Patient Onset/Duration: Gradual Onset, Started days ago - 1 Timing: Constant Onset Severity: Moderate Current Severity: Moderate Neurological Deficit Location: Facial - droop, right side Pain Intensity: 0 Pain Scale Used: 0-10 Numeric Character: Impaired Speech - due to droop Aggravating: Nothing Alleviating: Nothing Associated Signs and Symptoms: Positive: Impaired Speech TPA Considered: No - outside window, and 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 - Additional Pertinent History Primary Care Physician: MONROE - Allergy/Home Medications Allergies/Adverse Reactions: Allergies Allergy/AdvReac Type Severity Reaction Status Date / Time bee venom protein (honey bee) Allergy Rash Verified 08/17/18 19:09 ciprofloxacin Allergy Unknown Verified 08/17/18 19:09 Reaction Details latex Allergy Rash And Verified 08/17/18 19:09 Itching lisinopril Allergy Swelling Verified 08/17/18 19:09 Of Face,Lips,& Throat PMH/Surg Hx/FS Hx/Imm Hx Previously Healthy: No Endocrine/Hematology History: Reports: Hx Diabetes, Hx Anemia - Iron deficient Denies: Hx Thyroid Disease Cardiovascular History: Reports: Hx Angina, Hx Cardiomegaly, Hx Coronary Artery Disease, Hx Hypercholesterolemia, Hx Hypertension, Hx Myocardial Infarction - , Other Cardiovascular Problems/Disorders - ISCHEMIC CARDIOMYOPATHY Respiratory History: Denies: Hx Asthma, Hx Chronic Obstructive Pulmonary Disease (COPD) GI History: Reports: Other GI Disorders - Pt has had chronic stomach pain with no diagnosis, gastroparesis per pt Denies: Hx Ulcer History: Denies: Hx Renal Disease Musculoskeletal History: Reports: Hx Arthritis Comment Only: Other Musculoskeletal History - hx of multiple surgeries on knees, hands, and ankles Sensory History: Reports: Hx Contacts or Glasses - Left eye, Hx Vision Problem - Cornea transplant Denies: Hx Eye Injury, Hx Deafness, Hx Hearing Aid, Hx Hearing Problem, Other Sensory Impairments Opthamlomology History: Reports: Hx Contacts or Glasses - Left eye, Hx Vision Problem - Cornea transplant Denies: Hx Eye Injury, Other Sensory Impairments - Surgical History Surgery Procedure, Year, and Place: BILAT KNEE SURGERY, BILAT HAND SURGERY, 4 EYE SURGERIES (cataracts)(corneal transplants) Infectious Disease History: No Infectious Disease History: Denies: Hx Clostridium Difficile, Hx Hepatitis, Hx Human Immunodeficiency Virus (HIV), Hx of Known/Suspected MRSA, Hx Shingles, Hx Tuberculosis, History Other Infectious Disease, Traveled Outside the [place] in Last 30 Days - Family History Known Family History: Positive: Cardiac Disease, Hypertension, Diabetes - Social History Occupation: Employed Full-time Lives: With Family Alcohol Use: None Hx Substance Use: No Substance Use Type: Reports: None Hx Tobacco Use: No Smoking Status (MU): Former Smoker Type: Cigarettes Have You Smoked in the Last Year: No Review of Systems Constitutional: Negative Negative: Blurred Vision Negative: Sore Throat, Ear Ache Negative: Chest Pain Respiratory: Negative Gastrointestinal: Negative Negative: Decreased ROM Skin: Negative Neurological: Negative - facial droop, right side Positive: Slurred Speech Psychological: Normal All Other Systems Reviewed And Are Negative: Yes Physical Exam - Summary Physical Exam Summary: Appearance: Ill-appearing, no pain distress, well-nourished. Hypertensive 209/ 111. Skin: Warm, color reflects adequate perfusion, dry Head: atraumatic. Asymmetric, right facial droop. Eyes: Conjunctiva clear, unable to fully close right eye, PERRL, EOMI except right eyelid doesn't close completely, no nystagmus ENT: Normal inspection Neck: Supple, no nodes, no JVD, no bruits Respiratory: Lungs clear, normal breath sounds, no respiratory distress Cardio: RRR, No murmur, pulses normal, brisk capillary refill Abdomen: Soft, nontender Bowel sounds: Present Musculoskeletal: Strength Intact/ROM intact, no calf tenderness, no edema. Psychological: Normal Neuro: alert, orientedx3, motor 5/5, sensation intact, cranial nerves intact, II -XII, except 7 (right facial droop, right eye doesnt close fully, no forehead creases), cerebellar intact, reflexes intact NIH: 2 GCS: 15 Triage Information Reviewed: Yes Vital Signs On Initial Exam: Initial Vitals Temp Pulse Resp BP Pulse Ox 97.8 F 73 16 191/105 97 08/17/18 18:33 08/17/18 18:33 08/17/18 18:33 08/17/18 18:33 08/17/18 18:33 Vital Signs Reviewed: Yes Diagnostics - Vital Signs Vital Signs Temp Pulse Resp BP Pulse Ox 08/17/18 19:06 99 08/17/18 18:44 75 19 96 08/17/18 18:33 97.8 F 73 16 191/105 97 - Laboratory Lab Results: Lab Results 08/17/18 Range/Units 18:47 POC Glucose (mg/dL) 196 H (70-100) mg/dL Result Diagrams: 08/17/18 19:10 08/17/18 19:10 Lab Statement: Any lab studies that have been ordered have been reviewed, and results considered in the medical decision making process. - Radiology CXR Radiology Interpretation Completed By: ED Physician - no acute disease, pending official report - CT Brain CT Interpretation Completed By: Radiologist - 1. No intracranial bleed, suspicious mass, or mass effect. Ventricles appear unremarkable. 2. There is low attenuation change in the white matter most consistent with chronic age related small vessel ischemic change. No acute territorial infarction is seen. These can be initially occult on head CT. 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 ED physician has reviewed this report - EKG 19:26 Cardiac Rate: NL - 70 bpm EKG Rhythm: Sinus Rhythm ST Segment: Non-Specific Ectopy: None EKG Interpretation: nml AV/IV CT, nml QTc, and left axis deviation. 08/26/17 - Additional Comments Diagnostic Additional Comments: Radiology called at 19:[address] results. NIH Scale - NIH Scale Level of Consciousness: Alert/Keenly Responsive Ask Patient the Month and His/Her Age: Both Correct Ask Pt to Open/Close Eyes and Academy Director/Release Non-Paretic Hand: Both Correctly Best Gaze (Only Horizontal Eye Movement): Normal Visual Field Testing: No Visual Loss Facial Paresis-Pt to Smile & Close Eyes or Grimace Symmetry: Minor Paralysis Motor Function - Right Arm: No Drift-Holds 10 Seconds Motor Function - Left Arm: No Drift-Holds 10 Seconds Motor Function - Right Leg: No Drift-Holds 10 Seconds Motor Function - Left Leg: No Drift-Holds 10 Seconds Limb Ataxia-Must be out of Proportion to Weakness Present: Absent Sensory (Use Pinprick to Test Arms/Legs/Trunk/Face): Normal Best Language (Describe Picture, Name Items): No Aphasia Dysarthria (Read Several Words): Slurs Some Words Extinction and Inattention: No Abnormality Total Score: 2 Re-Evaluation - Re-Evaluation First Eval Re-Evaluation Time: 21:18 Change: Improved Comment: BP 148/97. The patient has no pain, no LOJA, and agrees with discharge Course/Dx - Course Course Of Treatment: This patient is a 62 year old M presenting to [facility] accompanied by his girlfriend Marry with a chief complaint of worsening facial droop and difficulty speaking since yesterday. Pt does have an asymmetric smile. Patient reports that the difficulty speaking is due to difficulty moving mouth, not a difficulty with coming up with words or phrases. Patient denies difficulty ambulating, difficulty picking things up or moving his arms, difficulty swallowing, LOJA, vision problems, ear ache, sore throat, or CP. An EKG at 19:26 reveals 70 bpm, nml AV/IV CT, nml QTc, and left axis deviation. C/ w 08/26/17. CXR reveals, per ED physician, no acute disease, pending official radiology report. CT Brain reveals, 1. No intracranial bleed, suspicious mass , or mass effect. Ventricles appear unremarkable. 2. There is low attenuation change in the white matter most consistent with chronic age related small vessel ischemic change. No acute territorial infarction is seen. These can be initially occult on head CT. 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 ED physician has reviewed this report. Labs show mild anemia, mild hyperglycemia, mild renal insufficiency. In the ED course the patient was given Clonidine, Prednisone, valacyclovir and IV fluids. Patient will be discharged dx hypertensive crisis, Moreno's palsy, with prescription for eye lubricating drops Prednisone, and Valacyclovir and follow up with Dr. Rush. The patient is agreeable with this plan. - Differential Dx Differential Diagnoses Neuro: Positive: Moreno's Palsy, Cerebrovascular Accident, Hypertension, Medication Reaction, Metabolic Abnormality, Transient Ischemic Attack - Diagnoses Provider Diagnoses: Hypertensive crisis, Moreno's palsy Discharge - Sign-Out/Discharge Documenting (check all that apply): Patient Departure - discharge - Discharge Plan Condition: Stable Disposition: HOME Prescriptions: Dextran 70/Hypromellose/Pf [Artificial Tears Drops] 1 each OPHTHALMIC QID #1 bottle predniSONE TAB* [Deltasone 20 MG TAB*] 60 mg PO DAILY #21 tab ValACYclovir (*) [Valtrex 1 GM(*)] 1 gm PO TID #21 tab Patient Education Materials: Moreno Palsy (ED), Hypertensive Crisis (ED) Forms: *Work Release Referrals: Nena Rush MD [Primary Care Provider] - 2 Days Additional Instructions: You were given the initial medications that you need to treat your Moreno's palsy. You will need to continue those medications as directed starting tomorrow. You also need definite follow up with Dr. Rush this week within 3 days. You also need to use artificial tears in your right eye so that you do not get a corneal ulcer. You were given clonidine for your high blood pressure which brought your pressure down. You need to continue your blood pressure medications as directed. Return to the ER if you have new or worsening symptoms. - Billing Disposition and Condition Condition: STABLE Disposition: Home - Attestation Statements Document Initiated by Brandie: Yes Documenting Scribe: David Montaño Provider For Whom Brandie is Documenting (Include Credential): Eunice Gracia MD Scribe Attestation: IDavid, scribed for Eunice Gracia MD on 08/20/18 at 2059. Scribe Documentation Reviewed: Yes Provider Attestation: The documentation as recorded by the David turk accurately reflects the service I personally performed and the decisions made by me, Eunice Gracia MD
[2018-08-17] MEDS ORDERED: ValACYclovir (*) 1 GM TAB PO ONE (19:28)
[2018-08-17] MEDS ORDERED: predniSONE TAB* 20 MG PO ONE (19:28)
[2018-08-17 19:35] LABS: EGFR Non-African American 59.3 (>60)
[2018-08-17 20:10] LABS: Urine Appearance Clear; Urine Blood Negative (Negative); Urine Color Straw; Urine Ketones Negative (Negative); Urine Protein Negative (Negative); Urine Specific Gravity 1.008 (1.010-1.030); Urine Urobilinogen Negative (Negative)
[2018-08-17 21:22] VITALS: BP 148/97
--- NOTE | 2018-08-18 07:44 | RAD ---
HISTORY: Neurological Changes/Code Zavaleta COMPARISONS: August 18, 2017 VIEWS: 1: frontal AP view of the chest at 7:52 PM FINDINGS: LINES AND TUBES: None. CARDIOMEDIASTINAL SILHOUETTE: The cardiomediastinal silhouette is normal for portable technique. PLEURA: The costophrenic angles are sharp. No pleural abnormalities are noted. LUNG PARENCHYMA: The lungs are clear. ABDOMEN: The upper abdomen is clear. There is no subphrenic gas. BONES AND SOFT TISSUES: No bone or soft tissue abnormalities are noted. IMPRESSION: NO ACTIVE CARDIOPULMONARY DISEASE. R0
== END 2018-08-17 21:52 | disposition home or self-care (01) ==
LOC: ED 18:31
DX: I16.0 Hypertensive urgency (principal); G51.0 Bell's palsy; Z87.891 Personal history of nicotine dependence
CPT/HCPCS: 36415; 70450; 71045; 80053; 80061; 81003; 83605; 84484; 85025; 85610; 85730; 86850; 86900; 86901; 93005; 96360; 99283; A9270-GY; J7512

== ENCOUNTER 2024-07-15 15:10 | Observation (INO) ==
[2024-07-15 15:40] LABS: INR 1.12 (0.85-1.14)
[2024-07-15 15:55] LABS: Albumin 4.3 g/dL (3.2-5.2); Albumin/Globulin Ratio 1.5 (1-3); Creatinine, Serum 1.25 mg/dL (0.67-1.17); Globulin 2.9 g/dL (2-4); Potassium 4.3 mmol/L (3.5-5.0); Total Bilirubin 0.4 mg/dL (0.2-1.0); Total Protein 7.2 g/dL (6.4-8.9); eGFR CKD-EPI 63.1 (>60)
[2024-07-15 16:21] LABS: ABS Basophils 0.1 10^3/uL (0.0-0.1); ABS Lymphocytes 1.4 10^3/uL (1.0-4.8); ABS Nucleated RBC 0.03 10^3/ul; Eosinophil % 0.6 %; Hematocrit 28.6 % (38-53); Hemoglobin 8.8 g/dL (13.2-16.3); Lymphocyte % 25.8 %; Mean Corpuscular Hemoglobin 17.7 pg (27-33); Mean Corpuscular Hgb Conc 30.8 g/dL (31-36); Mean Corpuscular Volume 57.6 fL (80-97); Mean Platelet Volume 8.7 fL (7.5-11.2); Nucleated Red Blood Cells % 0.6 %/100WBC (0.0-0.8); Platelet Count 316 10^3/uL (150-450); Red Blood Count 4.97 10^6/uL (4.06-5.63); Red Cell Distribution Width 24.2 % (12-17); White Blood Count 5.5 10^3/uL (3.6-10.2)
[2024-07-15 17:00] LABS: High Sensitivity Troponin 1 Hr 12 pg/mL (<20)
[2024-07-15] MEDS: NS 0.9% 1000 ml BAG 1,000 ML IV ONE (17:55)
[2024-07-15 21:19] LABS: Ferritin 5.3 ng/mL (24-336)
[2024-07-15] MEDS ORDERED: Dextrose 50% Syringe 50 ml 25 GM/50 ML SYRINGE IV PUSH PRN (21:37)
[2024-07-15] MEDS: Enoxaparin 40 MG/0.4 ML SYR SUBCUT SCH (22:49)
[2024-07-15] MEDS: Insulin GLARGINE 100 un/ml 10 ml VIAL SUBCUT SCH (22:50)
[2024-07-16] MEDS: prednisoLONE 1% OPHTH.SUSP 5 ML OPHTH.SUSP BOTH EYES SCH (00:48)
[2024-07-16] MEDS: Ferric Gluconate IV 250 MG in NS 0.9% 250 ml 200 ML IVPB SCH (02:42)
[2024-07-16 07:17] LABS: Albumin 3.9 g/dL (3.2-5.2); Albumin/Globulin Ratio 1.5 (1-3); Creatinine, Serum 1.25 mg/dL (0.67-1.17); Globulin 2.6 g/dL (2-4); Magnesium 2.1 mg/dL (1.9-2.7); Potassium 4.5 mmol/L (3.5-5.0); Total Bilirubin 0.2 mg/dL (0.2-1.0); Total Protein 6.5 g/dL (6.4-8.9); eGFR CKD-EPI 63.1 (>60)
[2024-07-16 07:23] LABS: Hematocrit 26.5 % (38-53); Hemoglobin 8.3 g/dL (13.2-16.3); Mean Corpuscular Hemoglobin 18.3 pg (27-33); Mean Corpuscular Hgb Conc 31.4 g/dL (31-36); Mean Corpuscular Volume 58.2 fL (80-97); Mean Platelet Volume 8.6 fL (7.5-11.2); Platelet Count 272 10^3/uL (150-450); Red Blood Count 4.56 10^6/uL (4.06-5.63); Red Cell Distribution Width 23.7 % (12-17); White Blood Count 4.8 10^3/uL (3.6-10.2)
[2024-07-16] MEDS: DULoxetine DR 60 mg CAP PO SCH (08:30)
[2024-07-16 08:42] LABS: ABS Lymphocytes 1.4 10^3/ul (1.0-4.8); ABS Monocytes 0.4 10^3/ul (0.0-1.1); ABS Neutrophils 2.8 10^3/ul (1.5-7.6); Hypochromasia 1+; Microcytosis 3+
[2024-07-16 08:43] LABS: ABS Basophils 0.1 10^3/ul (0.0-0.1); ABS Eosinophils 0.1 10^3/ul (0.0-0.5)
[2024-07-16] MEDS ORDERED: Ferric Gluconate IV 250 MG in NS 0.9% 250 ml 200 ML IVPB SCH (09:00)
[2024-07-16] MEDS: Empagliflozin 25 MG TAB PO SCH (11:57)
[2024-07-17 06:57] LABS: Calcium 9.2 mg/dL (8.6-10.3); Creatinine, Serum 1.02 mg/dL (0.67-1.17); Magnesium 2.2 mg/dL (1.9-2.7); Potassium 4.3 mmol/L (3.5-5.0); eGFR CKD-EPI 80.6 (>60)
[2024-07-17 07:32] LABS: Hematocrit 27.1 % (38-53); Hemoglobin 8.4 g/dL (13.2-16.3); Mean Corpuscular Hemoglobin 18.1 pg (27-33); Mean Corpuscular Hgb Conc 31.1 g/dL (31-36); Mean Corpuscular Volume 58.3 fL (80-97); Platelet Count 275 10^3/uL (150-450); Red Blood Count 4.65 10^6/uL (4.06-5.63); Red Cell Distribution Width 23.9 % (12-17); White Blood Count 5.6 10^3/uL (3.6-10.2)
[2024-07-17 07:39] LABS: Hypochromasia 1+; Microcytosis 3+; Polychromasia 1+
[2024-07-17 07:40] LABS: ABS Eosinophils 0.1 10^3/ul (0.0-0.5); ABS Lymphocytes 1.6 10^3/ul (1.0-4.8); ABS Monocytes 0.5 10^3/ul (0.0-1.1); ABS Neutrophils 3.4 10^3/ul (1.5-7.6)
[2024-07-18 07:59] LABS: Hematocrit 28.5 % (38-53); Hemoglobin 8.8 g/dL (13.2-16.3); Mean Corpuscular Hemoglobin 17.9 pg (27-33); Mean Corpuscular Hgb Conc 30.7 g/dL (31-36); Mean Corpuscular Volume 58.3 fL (80-97); Mean Platelet Volume 8.7 fL (7.5-11.2); Platelet Count 305 10^3/uL (150-450); Red Blood Count 4.89 10^6/uL (4.06-5.63); Red Cell Distribution Width 24.1 % (12-17); White Blood Count 6.5 10^3/uL (3.6-10.2)
[2024-07-18 08:11] LABS: Calcium 9.3 mg/dL (8.6-10.3); Creatinine, Serum 0.97 mg/dL (0.67-1.17); Magnesium 2.2 mg/dL (1.9-2.7); Potassium 4.6 mmol/L (3.5-5.0); eGFR CKD-EPI 85.6 (>60)
[2024-07-18 08:59] LABS: Anisocytosis 2+; Hypochromasia 2+; Microcytosis 3+; Polychromasia 1+; Target Cells 1+
[2024-07-18 09:00] LABS: ABS Basophils 0.1 10^3/ul (0.0-0.1); ABS Lymphocytes 2.1 10^3/ul (1.0-4.8); ABS Monocytes 0.4 10^3/ul (0.0-1.1)
[2024-07-18] MEDS ORDERED: PEG 3000 GI LAVAGE 1 GALLON PO ONE (17:00)
[2024-07-18] MEDS: PEG 3000 GI LAVAGE 1 GALLON PO ONE (21:45)
[2024-07-19] MEDS: PEG 3000 GI LAVAGE 1 GALLON PO ONE (05:13)
[2024-07-19 06:57] LABS: Calcium 9.4 mg/dL (8.6-10.3); Creatinine, Serum 0.96 mg/dL (0.67-1.17); Magnesium 1.9 mg/dL (1.9-2.7); Potassium 4.3 mmol/L (3.5-5.0); eGFR CKD-EPI 86.6 (>60)
[2024-07-19 07:50] LABS: ABS Nucleated RBC 0.07 10^3/ul; Anisocytosis 2+; Hematocrit 28.2 % (38-53); Hemoglobin 8.7 g/dL (13.2-16.3); Hypochromasia 1+; Mean Corpuscular Hgb Conc 30.9 g/dL (31-36); Mean Corpuscular Volume 58.3 fL (80-97); Mean Platelet Volume 8.5 fL (7.5-11.2); Microcytosis 3+; Nucleated Red Blood Cells % 1.2 %/100WBC (0.0-0.8); Platelet Count 295 10^3/uL (150-450); Red Blood Count 4.84 10^6/uL (4.06-5.63); Red Cell Distribution Width 24.1 % (12-17)
[2024-07-19 07:57] LABS: ABS Lymphocytes 1.9 10^3/ul (1.0-4.8); ABS Neutrophils 3.2 10^3/ul (1.5-7.6)
[2024-07-19 07:58] LABS: ABS Basophils 0.1 10^3/ul (0.0-0.1); ABS Monocytes 0.8 10^3/ul (0.0-1.1)
[2024-07-19] MEDS ORDERED: Midazolam 10 mg/10 ml VIAL 1 mg/ml 10 ml VIAL (10 mg) ONE (08:46)
[2024-07-19] MEDS ORDERED: fentaNYL 100 mcg/2 ml 50 MCG/ML VIAL ONE (08:46)
[2024-07-19] MEDS ORDERED: Flumazenil 0.5 mg/5 ml 0.1 MG/ML 5 ml VIAL IV PRN (08:55)
[2024-07-19] MEDS ORDERED: Naloxone 0.4 mg VIAL 0.4 mg/ml 1 ml VIAL IV PUSH PRN (08:55)
[2024-07-19] MEDS: fentaNYL 100 mcg/2 ml 50 MCG/ML VIAL IV SLOW PU ONE (10:48)
[2024-07-19] MEDS: Midazolam 10 mg/10 ml VIAL 1 mg/ml 10 ml VIAL (10 mg) IV SLOW PU ONE (10:48)
[2024-07-19] MEDS: Lactated Ringers 1000 ml BAG 1,000 ML IV ONE (10:48)
[2024-07-19] MEDS: Lidocaine 2% JELLY 6 ML Topical TOPICAL ONE (10:48)
[2024-07-19] MEDS: Ondansetron 4 mg VIAL 2 MG/ML 2 ml VIAL IV ONE (10:49)
[2024-07-19 11:29] VITALS: BP 143/96
[2024-07-19] MEDS: Cyanocobalamin INJ 1,000 MCG/ML VIAL 1 ML VIAL IM ONE (12:34)
== END 2024-07-19 13:20 | disposition home or self-care (01) ==
LOC: ED 15:10 → EDHOLD 15:10 → SUATTDRO 19:37 → MEDTELE 07-16 01:25
PROVIDERS: ADMIT Student in an Organized Health Care Education/Training Program; ATTEND Student in an Organized Health Care Education/Training Program